=== PATIENT | female | born 2000 | race Caucasian/White ===

== ENCOUNTER → 2023-05-15 17:33 | Outpatient (REF) | payer SELFPAY | LOC: RAD 17:33 | PROVIDERS: ATTENDING PHYSICIAN Physician Assistant Medical; FAMILY PHYSICIAN Physician Assistant Medical | DX: S99.922A Unspecified injury of left foot, initial encounter (principal) | CPT/HCPCS: 73630 ==

== ENCOUNTER 2023-06-29 20:10 | Emergency (ER) | payer SELFPAY ==
[2023-06-29 20:11] VITALS: BMI 24.2
[2023-06-29 20:12] VITALS: BP 132/82
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
[2023-06-29] MEDS: MORPHINE SULFATE 2 MG IV (23:55)
[2023-06-29] MEDS: NSS 1000 IV (23:56)
[2023-06-30] VITALS: BP 120/83
[2023-06-30 00:34] LABS: ALT (SGPT) 15 U/L (0-35); AST (SGOT) 20 U/L (14-36); Alkaline Phosphatase 155 U/L (38-126); Blood Urea Nitrogen 9 mg/dl (7-17); Calcium 9.4 mg/dl (8.4-10.2); Carbon Dioxide 27 mmol/L (22-30); Chloride 99 mmol/L (98-107); Estimated Creatinine Clearance 109 ml/min; Glucose 96 mg/dl (70-99); Magnesium 1.8 mg/dl (1.6-2.3); Potassium 3.6 mmol/L (3.5-5.1); Sodium 134 mmol/L (135-145); Total Bilirubin 0.8 mg/dl (0.2-1.3); Total Protein 7.2 g/dl (6.3-8.2); eGFR > 60.00
[2023-06-30 00:40] LABS: B-Hydroxybutyrate 2.68 mmol/L (0.02-0.27)
[2023-06-30 00:43] LABS: HCG, Serum Qualitative Screen Negative
[2023-06-30 00:46] LABS: % Basophils 0.4 % (0-2); % Immature Granulocytes 1.2 % (0-0.5); % Lymphocytes 15.3 % (20.5-51.1); % Monocytes 5.9 % (1.7-9.3); % Neutrophils 77.2 % (42.2-75.2); Absolute Basophils 0.1 10^3/uL (0-0.2); Absolute Immature Granulocytes 0.2 10^3/uL (0-0.05); Absolute Monocytes 0.8 10^3/uL (0.1-0.6); Absolute Neutrophils 10.3 10^3/uL (1.4-6.5); Hematocrit 39.1 % (37.0-47.0); Hemoglobin 13.7 g/dL (12.0-16.0); Mean Corpuscular Hgb 27.8 pg (27.0-31.0); Mean Corpuscular Volume 79.5 fL (81.0-99.0); Nucleated Red Blood Cells % 0 %; Platelet Count 338 10^3/uL (130-400); Red Blood Cell Count 4.92 10^6/uL (4.20-5.40); Red Cell Dist. Width 11.9 % (11.5-14.5); White Blood Cell Count 13.3 10^3/uL (4.8-10.8)
[2023-06-30 01:00] VITALS: BP 127/82
[2023-06-30 01:04] LABS: Troponin I < 0.012 ng/ml
[2023-06-30 02:00] VITALS: BP 110/79
[2023-06-30 03:00] VITALS: BP 108/78
[2023-06-30] MEDS: ROXICODONE 5 MG PO (03:10)
[2023-06-30] MEDS: TORADOL 15 MG IV (03:11)
== END 2023-06-30 03:19 | disposition home or self-care (01) ==
LOC: EMR 20:10
PROVIDERS: Physician Assistant; EMERGENCY PHYSICIAN Emergency Medicine; FAMILY PHYSICIAN Physician Assistant Medical
DX: S22.20XA Unspecified fracture of sternum, initial encounter for closed fracture (principal); M54.2 Cervicalgia; R51.9 Headache, unspecified; R10.10 Upper abdominal pain, unspecified; M54.9 Dorsalgia, unspecified; V43.62XA Car passenger injured in collision with other type car in traffic accident, initial encounter; Y92.410 Unspecified street and highway as the place of occurrence of the external cause; E11.9 Type 2 diabetes mellitus without complications; F31.9 Bipolar disorder, unspecified; F32.A Depression, unspecified; F41.9 Anxiety disorder, unspecified; Z79.4 Long term (current) use of insulin; Z87.440 Personal history of urinary (tract) infections
CPT/HCPCS: 99285; 96374; 96375; 96361; 70450; 71120; 71260; 72125; 74177; 80053; 82010; 83735; 84484; 84703; 85025; 93005; Q9967

== ENCOUNTER 2023-10-14 22:32 | Emergency (ER) | payer OTHER, SELFPAY ==
[2023-10-14 22:33] VITALS: BP 118/84
[2023-10-14 22:38] LABS: Glucose - Point of Care 419 mg/dl (70-99)
[2023-10-14 22:49] VITALS: BP 123/98
--- NOTE | 2023-10-14 22:50 | ED.GENMED ---
History of Present Illness
General
Chief Complaint: Blood Sugar Problem
Source: patient
Exam Limitations: none
Time Seen by Provider: 10/14/23 22:45
History of Present Illness
History of Present Illness:
See MDM
Past History
Past History
ED Past Medical History: IDDM, Psychiatric (anxiety, depression, bipolar) and Other (Previous UTIs)
ED Past Surgical History: Other (Myringotomy tubes)
Social History
Tobacco: Non-smoker
Alcohol: None
Personal: Single
Living: with family
Employment: Student
Family History
Family History: Other; Negative Diabetes
Phy Exam
Physical Exam
Physical Exam:
See MDM
Course
Orders/Labs/Results
Orders:
Orders
10/14/23 22:37
Bedside Glucose Monitoring-ONCE As Directed
10/14/23 22:49
0.9% Sodium Chloride 1000 ml [Nss] 1,000 ml IV BOLUS
Insulin Aspart [NOVOLOG vial] 9 units SC NOW STA
Ketorolac [Toradol] 30 mg IV NOW STA
Test Result ONCE
10/14/23 22:50
0.9% Sodium Chloride 1000 ml [Nss] 1,000 ml IV BOLUS
10/14/23 22:54
B-Hydroxybutyrate Urgent
CMP [Comprehensive Metabolic Panel] Urgent
Complete Blood Count/With Diff Urgent
HCG, Serum Qualitative Screen Urgent
Urinalysis Reflex To Culture Urgent
Date Specimen was Collected: 10/14/23
Time Specimen was Collected: 22:55
Urine Microscopic Reflex Cult Urgent
Urine Culture Urgent
MERCEDES Source: U
Specimen Description:
Date Specimen was Collected: 10/14/23
Time Specimen was Collected: 22:55
10/14/23 23:23
LevoFLOXacin 500 MG/100 ML [Levaquin] 500 mg in 100 ml IV NOW
10/14/23 23:39
Morphine Sulfate 4 mg IV NOW STA
10/15/23 00:19
HYDROmorphone [Dilaudid] 0.5 mg IV NOW STA
10/15/23 00:27
Ondansetron Injectable [Zofran] 4 mg .ROUTE .STK-MED ONE
10/15/23 00:28
Ondansetron Injectable [Zofran] 4 mg IV NOW STA
10/15/23 00:56
Phenazopyridine HCl [Pyridium] 100 mg PO NOW STA
Abnormal Lab Results
10/14/23 10/14/23 10/15/23
22:36 22:54 00:13
MCV 79.2 L fL
(81.0-99.0)
Plt Count 536 H 10^3/uL
(130-400)
Creatinine 0.5 L mg/dL
(0.6-1.0)
Glucose 256 H mg/dl
(70-99)
Alkaline Phosphatase 185 H U/L
(38-126)
Urine Ketones Trace A
(Negative)
Ur Occult Blood Reflex Trace A
(Negative)
Urine Nitrite (Reflex) Positive A
(Negative)
Leukocyte Esterase Rfl Trace A
(Negative)
Urine Bacteria (Reflex) Moderate A
(Negative)
Urine Glucose 3+ A
(Negative)
POC Glucose 419 H mg/dl 192 H mg/dl
(70-99) (70-99)
10/14/23 22:54
10/14/23 22:54
Vital Signs
Initial and Last Documented VS:
Initial Vital Signs
Temp Pulse Resp BP Pulse Ox
98.8 F 110 20 118/84 100
10/14/23 22:33 10/14/23 22:33 10/14/23 22:33 10/14/23 22:33 10/14/23 22:33
Last Documented Vital Signs
Temp Pulse Resp BP Pulse Ox
98.8 F 89 16 110/93 100
10/14/23 22:33 10/15/23 00:30 10/15/23 00:30 10/15/23 00:00 10/15/23 00:30
MDM/Problems Addressed
Differential Diagnosis Includes:
HPI and MDM Narrative:
23-year-old female presenting for evaluation of 2 days of foul-smelling urine, increased urinary frequency, bilateral back pain and uncontrolled blood sugars. She does have a history of diabetes. She takes an insulin pen and a sliding scale. She
states this does not feel like an episode of DKA because she is not vomiting. She denies fevers. On exam, she has mild abdominal cramping and mild bilateral CVA tenderness. She denies prior history of kidney stones. Will give IV fluids, insulin
and obtain urinalysis looking for evidence of infection. We discussed that we will look further with a CT abdomen/pelvis if urine is negative. Patient agrees with plan
Physical exam
General: Mildly uncomfortable
HEENT: protecting airway. Dry mucous membranes
Neck: appears supple
CV: No evidence of cyanosis
Resp: No accessory muscle use
Abd: Non-distended. Mild right lower abdominal tenderness without rebound
Back: Mild CVA tenderness bilaterally without skin changes
Extremities: No deformities
Neuro: alert
Psych: Normal affect
Skin: Intact
Problems Addressed including Acute and Chronic Conditions affecting care:
1. Increased urinary frequency
Acuity: acute
Prognosis: stable
Details: Will obtain urinalysis to rule out urinary tract infection
2. Back pain
Acuity: acute
Prognosis: stable
Details: Possibly in the setting of pyelonephritis. Will give Toradol
3. Hyperglycemia
Acuity: acute
Prognosis: stable
Details: Will rule out DKA. Likely in setting of infectious etiology
Updates
After pain medicine and starting Levaquin for presumed pyelonephritis, patient states she is feeling much better and feels comfortable going home
Differential Diagnosis (but not limited to): DKA, pyelonephritis, kidney stone, acute appendicitis, cystitis
Testing considered: CT abdomen/pelvis but it was shared decision making to refrain from this unless workup is otherwise negative
Drug therapy (if applicable): OTC meds, please see d/c instruction regarding Rx drugs
Amount and/or Complexity of Data Reviewed
Clinical info obtained from: Patient
External data reviewed: N/A
Labs I independently reviewed (but not limited to): Hyperglycemia
Radiology: N/A
Pulse Ox: not hypoxic
EKG independently reviewed: N/A
Feather Sawyer: N/A
Critical Care: N/A
Risk of Complication:
Social Determinants of health: Good social support
Discussed with other providers: N/A
Escalation of Care includes Admit/Obs: After being observed in the Emergency Department, pt stable for discharge.
Occasional wrong word or 'sound a like' substitutions may have occurred due to the inherent limitations of voice recognition software. Read the chart carefully and recognize, using context, where substitutions have occurred.
*Critical Care Note
Total Time (30-74mins, 75-104mins- exclusive of procedures): Not Applicable
ED Attending Note
-
Portions of this chart may have been created with voice recognition software.� Occasional wrong word or��sound alike� substitutions may have occurred due to the inherent limitations of voice recognition software.
Discharge Plan
Departure
Patient Disposition: Home (Routine Discharge)
Date of Disposition: 10/15/23
Time of Disposition: 01:23
Patient with high blood pressure during this ER visit?: No
Discharge Problem:
Pyelonephritis, Hyperglycemia
Instructions: Urinary Tract Infection, Adult ED
Prescriptions:
New
levofloxacin 500 mg Tablet
500 mg PO DAILY Qty: 7 0RF
phenazopyridine [Pyridium] 100 mg tablet
100 mg PO TID PRN (Reason: Pain) Qty: 6 0RF
No Action
oxcarbazepine [Trileptal] 150 MG tablet
150 mg PO BID
norgestimate-ethinyl estradiol [Criselda] 0.25-35 mg-mcg tablet
1 tab PO DAILY
gabapentin 800 mg tablet
800 mg PO TID
aripiprazole 10 mg tablet
10 mg PO DAILY
atomoxetine 40 mg capsule
40 mg PO DAILY
insulin aspart U-100 [Novolog FlexPen U-100 Insulin] 100 unit/mL (3 mL) insulin pen
1 sliding scale dose SC AC
Rx Instructions:
1 UNIT FOR EVERY 10 CARBS
mirtazapine 7.5 mg tablet
7.5 mg PO HS
tramadol 50 mg Tablet
50 mg PO Q6HPRN PRN (Reason: severe back pain)
ibuprofen 200 mg Tablet
400 mg PO BIDPRN PRN (Reason: mild pain)
insulin glargine [Basaglar KwikPen U-100 Insulin] 100 unit/mL (3 mL) insulin pen
26 unit SC HS
cephalexin 500 mg capsule
500 mg PO Q6H 12 Days Qty: 48 0RF
acyclovir 400 mg tablet
400 mg PO TID Qty: 29 0RF
oxycodone 5 mg tablet
5 mg PO Q8H PRN (Reason: Pain) Qty: 12 0RF
ibuprofen 600 mg tablet
600 mg PO TID PRN (Reason: Pain) Qty: 20 0RF
Referrals:
Noa Duncan PA-C [Family Provider] -
Activity Restrictions/Additional Instructions:
Please return for any worsening symptoms.
You may return at any time if you have further concerns.
Please follow up with your doctor at the first available appointment, preferably this week.
Thank you for choosing [facility].
Interventions
Interventions:
*Risk Screen - Suicide Last Done: 10/14/23 22:33
*General Assessment Last Done: 10/14/23 23:08
*Neglect/Abuse Screening Last Done: 10/14/23 22:33
ED- Fall Risk Assessment Last Done: 10/14/23 23:08
*ED COVID-19 Vaccine History Last Done: 10/14/23 23:08
ED-Female Genitourinary Assessment Last Done: 10/14/23 23:30
ED-Musculoskeletal Assessment Last Done: 10/14/23 23:30
ED- Neurological Assessment Last Done: 10/14/23 23:30
Discharge Date and Time
Print Language: SCOTTISH
[2023-10-14 23:00] VITALS: BP 125/91
[2023-10-14 23:02] LABS: % Basophils 0.7 % (0-2); % Eosinophils 1.1 % (0-6); % Immature Granulocytes 0.2 % (0-0.5); % Lymphocytes 40.1 % (20.5-51.1); % Monocytes 4.6 % (1.7-9.3); % Neutrophils 53.3 % (42.2-75.2); Absolute Basophils 0.1 10^3/uL (0-0.2); Absolute Eosinophils 0.1 10^3/uL (0-0.7); Absolute Lymphocytes 3.4 10^3/uL (1.2-3.4); Absolute Monocytes 0.4 10^3/uL (0.1-0.6); Absolute Neutrophils 4.6 10^3/uL (1.4-6.5); Hematocrit 38.1 % (37.0-47.0); Hemoglobin 13.1 g/dL (12.0-16.0); Mean Corp Hgb Conc. 34.4 g/dL (33.0-37.0); Mean Corpuscular Hgb 27.2 pg (27.0-31.0); Mean Corpuscular Volume 79.2 fL (81.0-99.0); Mean Platelet Volume 9.2 fL (7.4-10.4); Nucleated Red Blood Cells % 0 %; Platelet Count 536 10^3/uL (130-400); Red Blood Cell Count 4.81 10^6/uL (4.20-5.40); Red Cell Dist. Width 11.9 % (11.5-14.5); White Blood Cell Count 8.6 10^3/uL (4.8-10.8)
[2023-10-14] MEDS: TORADOL 30 MG IV (23:03)
[2023-10-14] MEDS: NSS 1000 IV (23:03)
[2023-10-14] MEDS: NOVOLOG vial 9 UNITS SC (23:05)
[2023-10-14 23:08] VITALS: BMI 21.4
[2023-10-14 23:08] LABS: Urine Albumin Trace (Neg - Trace); Urine Bilirubin Negative (Negative); Urine Character Slightly Cloudy (Clear); Urine Color Straw; Urine Glucose 3+ (Negative); Urine Ketone Trace (Negative); Urine Leukocyte Trace (Negative); Urine Nitrite Positive (Negative); Urine Occult Blood Trace (Negative); Urine Urobilinogen Negative (Neg - 1+)
[2023-10-14 23:19] LABS: HCG, Serum Qualitative Screen Negative; Urine Bacteria Moderate (Negative); Urine Red Blood Cell 0-2 /HPF (0-2)
[2023-10-14 23:23] LABS: ALT (SGPT) 15 U/L (0-35); AST (SGOT) 23 U/L (14-36); Albumin 4.2 g/dl (3.5-5.0); Alkaline Phosphatase 185 U/L (38-126); Blood Urea Nitrogen 13 mg/dl (7-17); Carbon Dioxide 28 mmol/L (22-30); Chloride 98 mmol/L (98-107); Estimated Creatinine Clearance > 125 ml/min; Glucose 256 mg/dl (70-99); Potassium 3.5 mmol/L (3.5-5.1); Sodium 136 mmol/L (135-145); Total Bilirubin 0.4 mg/dl (0.2-1.3); Total Protein 7.6 g/dl (6.3-8.2); eGFR > 60.00
[2023-10-14 23:29] LABS: B-Hydroxybutyrate 0.14 mmol/L (0.02-0.27)
[2023-10-14] MEDS: LEVAQUIN 100 IV (23:35)
[2023-10-14] MEDS: MORPHINE SULFATE 4 MG IV (23:42)
[2023-10-15] VITALS: BP 110/93
[2023-10-15 00:14] LABS: Glucose - Point of Care 192 mg/dl (70-99)
[2023-10-15] MEDS: DILAUDID 0.5 MG IV (00:25)
[2023-10-15] MEDS: ZOFRAN 4 MG IV (00:29)
[2023-10-15 01:00] VITALS: BP 113/79
[2023-10-15] MEDS: Pyridium 100 MG PO (01:28)
== END 2023-10-15 01:33 | disposition home or self-care (01) ==
LOC: EMR 22:32
PROVIDERS: Student in an Organized Health Care Education/Training Program; EMERGENCY PHYSICIAN Student in an Organized Health Care Education/Training Program; FAMILY PHYSICIAN Physician Assistant Medical
DX: N10 Acute pyelonephritis (principal); E11.65 Type 2 diabetes mellitus with hyperglycemia; F31.9 Bipolar disorder, unspecified; F32.A Depression, unspecified; F41.9 Anxiety disorder, unspecified; Z79.4 Long term (current) use of insulin; Z87.440 Personal history of urinary (tract) infections
CPT/HCPCS: 99284; 96365; 96375 ×4; 96361; 96372; 80053; 81003; 81015; 82010; 82962; 84703; 85025; 87077; 87086; 87186

== ENCOUNTER 2023-11-27 10:03 | Emergency (ER) | payer OTHER, SELFPAY ==
[2023-11-27 10:16] VITALS: BP 123/87
[2023-11-27] MEDS: NSS 1000 IV ×2 (11:37→12:15)
[2023-11-27] MEDS: TORADOL 15 MG IV (11:37)
[2023-11-27 11:40] VITALS: BMI 22.8
[2023-11-27 12:05] LABS: ALT (SGPT) 12 U/L (0-35); AST (SGOT) 20 U/L (14-36); Albumin 4.1 g/dl (3.5-5.0); Alkaline Phosphatase 130 U/L (38-126); Blood Urea Nitrogen 13 mg/dl (7-17); Calcium 9.9 mg/dl (8.4-10.2); Carbon Dioxide 23 mmol/L (22-30); Chloride 110 mmol/L (98-107); Estimated Creatinine Clearance 121 ml/min; Glucose 56 mg/dl (70-99); HCG, Serum Qualitative Screen Negative; Potassium 3.5 mmol/L (3.5-5.1); Sodium 140 mmol/L (135-145); Total Bilirubin 0.3 mg/dl (0.2-1.3); Total Protein 7.3 g/dl (6.3-8.2); eGFR > 60.00
[2023-11-27 12:06] LABS: Lactic Acid 3.2 mmol/L (0.7-2.0)
--- NOTE | 2023-11-27 12:07 | ED.GENMED ---
History of Present Illness
General
Chief Complaint: Urinary Symptoms
Source: patient
Exam Limitations: none
Time Seen by Provider: 11/27/23 10:59
Nursing documentation reviewed up to this point in time: agreed with
History of Present Illness
History of Present Illness:
23-year-old female insulin-dependent diabetic frequent UTIs presents for what feels like a UTI over the last month. Patient was here on 7�2 with very similar symptoms, back pain, dysuria and frequency. She wasTreated with Levaquin and her culture
grew out emma quinolone sensitive Klebsiella. Patient apparently stopped that medication when she completed it but 2 or 3 days later started again with symptoms of a urinary tract infection. She ended up seeing her family doctor who gave her
something strong for a couple of days until the culture grew out strep and she was treated with amoxicillin (11/10).
she felt better for a few days and again had worsening symptoms recur, back pain, urine symptoms
no fever/chills/vomiting
she went to PCP yesterday 11/25 and had urine that was abnormal, started on macrobifd and bactrim
pt continues to have back pain and not feel swell so her PCP sent her in after speaking with her today
we still don't have the urine culture back yet
pt did take her insulin today but not eat so her BG is low
Past History
Past History
ED Past Medical History: IDDM, Psychiatric (anxiety, depression, bipolar) and Other (Previous UTIs)
ED Past Surgical History: Other (Myringotomy tubes)
Social History
Tobacco: Non-smoker
Alcohol: None
Personal: Single
Living: with family
Employment: Student
Family History
Family History: Other; Negative Diabetes
Review of Systems
Review of Systems
Allergies reviewed?: Yes
All Other Systems: Not applicable
Phy Exam
Physical Exam
Physical Exam:
GENERAL: Alert , in no apparent distress, nontoxic
EYE: pupils equal and reactive
NECK: Supple
ENT: o/p clr, mmm.
CARDIAC: Regular rate and rhythm .
LUNGS: Clear breath sounds bilaterally, no acute respiratory distress, no wheezes/rales/rhonchi
ABDOMEN: Soft, without focal tenderness, no r/g, no cvat, normal bowel sounds
bacK: mild genrealized lubmar tenderness; full rom
NEUROLOGICAL: Alert and oriented, no focal neuro deficits
SKIN: Warm and dry, skin intact.
MUSCULOSKELETAL: No edema, well perfused. neg wicho's sign
PSYCH: Normal and appropriate interaction.
Course
Orders/Labs/Results
Orders:
Orders
11/27/23 11:22
CT Abd/Pel (IV only)-DH only Urgent
Comment:
Reason For Exam: b/l back pain, IDDM, h/o uti x 1 mo
0.9% Sodium Chloride 1000 ml [Nss] 1,000 ml IV BOLUS
Ketorolac [Toradol] 15 mg IV NOW STA
11/27/23 11:23
Test Result ONCE
11/27/23 11:35
Complete Blood Count/With Diff Urgent
Comprehensive Metabolic Panel Urgent
HCG, Serum Qualitative Screen Urgent
Lactic Acid Urgent
11/27/23 12:06
Ondansetron Injectable [Zofran] 4 mg IV NOW STA
Oxycodone [Roxicodone] 5 mg PO NOW STA
11/27/23 12:08
HYDROmorphone [Dilaudid] 0.5 mg IV NOW STA
11/27/23 12:13
0.9% Sodium Chloride 1000 ml [Nss] 1,000 ml IV BOLUS
11/27/23 12:15
Urinalysis Reflex To Culture Urgent
Date Specimen was Collected: 11/27/23
Time Specimen was Collected: 12:13
Urine Microscopic Reflex Cult Urgent
11/27/23 12:47
Blood Culture Urgent
MERCEDES Source: Blood/Venous
Specimen Description:
11/27/23 12:49
HYDROmorphone [Dilaudid] 0.5 mg IV NOW STA
11/27/23 14:25
Lactic Acid Urgent
Abnormal Lab Results
11/27/23 11/27/23
11:35 12:15
MCV 78.3 L fL
(81.0-99.0)
Plt Count 448 H 10^3/uL
(130-400)
Absolute Lymphs (auto) 5.6 H 10^3/uL
(1.2-3.4)
Neutrophils % 33.0 L %
(42.2-75.2)
Lymphocytes % 60.8 H %
(20.5-51.1)
Chloride 110 H mmol/L
(98-107)
Glucose 56 L mg/dl
(70-99)
Lactic Acid 3.2 H mmol/L
(0.7-2.0)
Alkaline Phosphatase 130 H U/L
(38-126)
Urine Bilirubin 1+ A
(Negative)
Leukocyte Esterase Rfl Trace A
(Negative)
Urine RBC 3-6 A /HPF
(0-2)
Urine Glucose 3+ A
(Negative)
Urine Albumin (Reflex) 2+ A
(Neg - Trace)
11/27/23 11:35
11/27/23 11:35
Vital Signs
Pulse: 100
Blood pressure: 131/69
Initial and Last Documented VS:
Initial Vital Signs
Temp Pulse Resp BP Pulse Ox
98.4 F 117 16 123/87 99
11/27/23 10:16 11/27/23 10:16 11/27/23 10:16 11/27/23 10:16 11/27/23 10:16
Last Documented Vital Signs
Temp Pulse Resp BP Pulse Ox
98.4 F 77 16 108/89 98
11/27/23 10:16 11/27/23 15:28 11/27/23 10:16 11/27/23 15:00 11/27/23 14:58
MDM/Problems Addressed
Differential Diagnosis Includes:
pyelo, bacteremia, UTI, kidney stone
MDM/Problems Addressed:
23 y/o F
IDDM
1.5 months uti treated several times with abx
most recenntly had urine yesteday an dis on 2 abx now
she was here for eavluation to be sure she didn't have kidney infection
afebrile, tachy, in pain in her lower back
nontoxic apeparing
abd notnnder
initial lactic elevated, AG normal bg was low (pt given food and jucie)
wbc normal
ua cnoaminated
asked for antoher sampel but not provided
ct shows no findings suggestive of pyelo
already treated with abx so this could be why her urine is not abnormal
d/w ed attending
continue abx
blood cultures pending
return precautions.
*Critical Care Note
Total Time (30-74mins, 75-104mins- exclusive of procedures): Not Applicable
ED Attending Note
-
Portions of this chart may have been created with voice recognition software.� Occasional wrong word or��sound alike� substitutions may have occurred due to the inherent limitations of voice recognition software.
Discharge Plan
Departure
Patient Disposition: Home (Routine Discharge)
Date of Disposition: 11/27/23
Time of Disposition: 15:09
Patient with high blood pressure during this ER visit?: No
Condition: Fair
Covid-19: Not Applicable
Discharge Problem:
Constipation, Back pain, UTI (urinary tract infection)
Instructions: Low Back Pain (DC), Urinary Tract Infection, Adult ED
Prescriptions:
No Action
oxcarbazepine [Trileptal] 150 MG tablet
150 mg PO BID
norgestimate-ethinyl estradiol [Criselda] 0.25-35 mg-mcg tablet
1 tab PO DAILY
gabapentin 800 mg tablet
800 mg PO TID
aripiprazole 10 mg tablet
10 mg PO DAILY
atomoxetine 40 mg capsule
40 mg PO DAILY
insulin aspart U-100 [Novolog FlexPen U-100 Insulin] 100 unit/mL (3 mL) insulin pen
1 sliding scale dose SC AC
Rx Instructions:
1 UNIT FOR EVERY 10 CARBS
mirtazapine 7.5 mg tablet
7.5 mg PO HS
tramadol 50 mg Tablet
50 mg PO Q6HPRN PRN (Reason: severe back pain)
ibuprofen 200 mg Tablet
400 mg PO BIDPRN PRN (Reason: mild pain)
insulin glargine [Basaglar KwikPen U-100 Insulin] 100 unit/mL (3 mL) insulin pen
26 unit SC HS
cephalexin 500 mg capsule
500 mg PO Q6H 12 Days Qty: 48 0RF
acyclovir 400 mg tablet
400 mg PO TID Qty: 29 0RF
oxycodone 5 mg tablet
5 mg PO Q8H PRN (Reason: Pain) Qty: 12 0RF
ibuprofen 600 mg tablet
600 mg PO TID PRN (Reason: Pain) Qty: 20 0RF
levofloxacin 500 mg Tablet
500 mg PO DAILY Qty: 7 0RF
phenazopyridine [Pyridium] 100 mg tablet
100 mg PO TID PRN (Reason: Pain) Qty: 6 0RF
Referrals:
Noa Duncan PA-C [Family Provider] -
Activity Restrictions/Additional Instructions:
YOUR BLOOD WORK TODAY WAS REASSURING
WE DID SEND BLOOD CULTURES AND WILL CALL IF YOU NEED TO RETURN
YOU SHOULD CONTINUE YOUR ANTIBIOTICS AND SPEAK WITH YOUR DOCTOR ABOUT YOUR CULTURE FROM YOUR URINE
RETURN FOR: SEVERE PAIN, SHAKING CHILLS/FEVER, VOMITING, OR ANY CONCERNS.
MAKE SURE YOU ARE WATCHING YOUR BLOOD SUGARS.
Interventions
Interventions:
*General Assessment Last Done: 11/27/23 13:35
*Neglect/Abuse Screening Last Done: 11/27/23 13:35
*ED COVID-19 Vaccine History Last Done: 11/27/23 13:35
*Nursing Disposition Last Done: 11/27/23 15:28
ED-Female Genitourinary Assessment Last Done: 11/27/23 13:37
Discharge Date and Time
Discharge Date/Time: 11/27/23 15:29
Print Language: SWEDISH
[2023-11-27 12:08] LABS: Hematocrit 38.7 % (37.0-47.0); Hemoglobin 13.5 g/dL (12.0-16.0); Mean Corp Hgb Conc. 34.9 g/dL (33.0-37.0); Mean Corpuscular Hgb 27.3 pg (27.0-31.0); Mean Corpuscular Volume 78.3 fL (81.0-99.0); Mean Platelet Volume 9.6 fL (7.4-10.4); Platelet Count 448 10^3/uL (130-400); Red Blood Cell Count 4.94 10^6/uL (4.20-5.40); Red Cell Dist. Width 12.4 % (11.5-14.5); White Blood Cell Count 9.1 10^3/uL (4.8-10.8)
[2023-11-27] MEDS: ZOFRAN 4 MG IV (12:11)
[2023-11-27] MEDS: DILAUDID 0.5 MG IV ×2 (12:11→13:15)
[2023-11-27 12:30] LABS: Urine Albumin 2+ (Neg - Trace); Urine Bilirubin 1+ (Negative); Urine Character Clear (Clear); Urine Color Yellow; Urine Glucose 3+ (Negative); Urine Ketone Negative (Negative); Urine Leukocyte Trace (Negative); Urine Nitrite Negative (Negative); Urine Occult Blood Negative (Negative); Urine Urobilinogen Negative (Neg - 1+)
[2023-11-27 12:41] LABS: Urine Mucus Few; Urine Squamous Cell >30 /LPF (Few)
[2023-11-27 13:18] VITALS: BP 117/76
[2023-11-27 13:49] LABS: % Basophils 0.3 % (0-2); % Eosinophils 1.1 % (0-6); % Immature Granulocytes 0.3 % (0-0.5); % Lymphocytes 60.8 % (20.5-51.1); % Monocytes 4.5 % (1.7-9.3); Absolute Eosinophils 0.1 10^3/uL (0-0.7); Absolute Lymphocytes 5.6 10^3/uL (1.2-3.4); Absolute Monocytes 0.4 10^3/uL (0.1-0.6); Nucleated Red Blood Cells % 0 %
[2023-11-27 14:32] VITALS: BP 106/72
[2023-11-27 14:48] LABS: Lactic Acid 1.8 mmol/L (0.7-2.0)
[2023-11-27 14:58] LABS: Glucose - Point of Care 71 mg/dl (70-99)
[2023-11-27 15:00] VITALS: BP 108/89
== END 2023-11-27 15:29 | disposition home or self-care (01) ==
LOC: EMR 10:03
PROVIDERS: Physician Assistant; EMERGENCY PHYSICIAN Emergency Medicine; FAMILY PHYSICIAN Physician Assistant Medical
DX: K59.00 Constipation, unspecified (principal); M54.50 Low back pain, unspecified; N39.0 Urinary tract infection, site not specified; R00.0 Tachycardia, unspecified; E11.9 Type 2 diabetes mellitus without complications; F32.A Depression, unspecified; F31.9 Bipolar disorder, unspecified; F41.9 Anxiety disorder, unspecified; Z87.440 Personal history of urinary (tract) infections; Z79.4 Long term (current) use of insulin
CPT/HCPCS: 99285; 96375 ×2; 96361 ×2; 96374; 96376; 74177; 80053; 81003; 81015; 82962; 83605; 84703; 85025; 87040; Q9967

== ENCOUNTER 2024-03-27 14:19 | Inpatient (IN) | payer OTHER, SELFPAY ==
[2024-03-27 10:51] VITALS: BP 143/76
[2024-03-27 11:56] LABS: Glucose - Point of Care 138 mg/dl (70-99)
--- NOTE | 2024-03-27 12:00 | ED.GENMED ---
History of Present Illness
General
Chief Complaint: Urinary Symptoms
Time Seen by Provider: 03/27/24 11:30
History of Present Illness
History of Present Illness:
24-year-old female with history of type 1 insulin-dependent diabetes presents to the emergency department for evaluation of bilateral low back pain and foul-smelling urine. Went to her primary care physician today and rapid dipstick was positive
for UTI. She is febrile. Last took Tylenol at 7 AM. Denies any vomiting
Past History
Past History
ED Past Medical History: IDDM, Psychiatric (anxiety, depression, bipolar) and Other (Previous UTIs)
ED Past Surgical History: Other (Myringotomy tubes)
Social History
Tobacco: Non-smoker
Alcohol: None
Personal: Single
Living: with family
Employment: Student
Family History
Family History: Other; Negative Diabetes
Review of Systems
Review of Systems
Allergies reviewed?: Yes
All Other Systems: ROS reviewed and negative except as documented in HPI and ROS
Phy Exam
Physical Exam
Physical Exam:
GEN: Well appearing, NAD, WDWN
Eyes: PERRLA, EOMs intact, no scleral icterus
HENT: NCAT, oral mucosa moist
Lungs: CTAB, no wheezes, rales, rhonchi, normal chest wall excursion
Cardiac: Tachycardic, regular
Abdomen: S, NT, ND, NABS, no masses or hepatosplenomegaly
Neuro: AO x 3
MSK: No gross deformity or ecchymosis. No edema. No digital clubbing
Skin: No rashes, petechiae. Normal color, no pallor or jaundice.
Psych: Calm, cooperative, proper hygiene
Course
Orders/Labs/Results
Orders:
Orders
03/27/24 11:53
Bedside Glucose- Treatment ONCE
03/27/24 11:54
Ketorolac [Toradol] 15 mg IV NOW STA
03/27/24 11:57
Test Result ONCE
03/27/24 12:06
Complete Blood Count/With Diff Urgent
Comprehensive Metabolic Panel Urgent
HCG, Serum Qualitative Screen Urgent
Lactic Acid Q4H
Comment: CANCEL 2nd LACTIC ACID IF 1st LACTIC ACID IS LESS THAN 2
Blood Culture Q30M
MERCEDES Source: Blood/Venous
Specimen Description:
03/27/24 12:16
Urinalysis Reflex To Culture Urgent
Date Specimen was Collected: 03/27/24
Time Specimen was Collected: 12:10
Urine Microscopic Reflex Cult Urgent
Blood Culture Q30M
MERCEDES Source: Blood/Venous
Specimen Description:
Urine Culture Urgent
MERCEDES Source: U
Specimen Description:
Date Specimen was Collected: 03/27/24
Time Specimen was Collected: 12:10
03/27/24 12:56
0.9% Sodium Chloride 1000 ml [Nss] 1,000 ml IV BOLUS
CefTRIAXone [Rocephin] 1,000 mg IV NOW STA
03/27/24 14:00
Admit/Transfer Patient As Directed
Co-Sign Provider:
Level of Care: Inpatient admission
Assign to:: Telemetry
Physician / Group: yemi
Diagnosis: pyelonephritis
Reason for Telemetry: Other
Other Reason for Telemetry: sepsis, tachy
Date to Stop Telemetry: 03/29/24
Time to Stop Telemetry: 11:00
Reason for Hospitalization: pyleonoephritis
Expected length of stay greater than two midnights?: Yes
ELOS- Estimated Length of Stay in days: 3
I certify the patient meets the requirements for IP care: Yes
PRN Pain Medication Management As Directed
May give lesser potent ordered pain med per pt: Yes
preference::
Protocol:: Medication orders for pain may be administered in a
manner that supports deferring to patient preference
when the pt is:
- Requesting an ordered lesser potent pain medication.
Least to most potent pain medications are defined
as: acetaminophen < NSAID < tramadol < opioids
(morphine, oxycodone, hydromorphone).
- Requesting a lesser dose of the same medication IF
ORDERED.
- Requesting a less intrusive route of administration
if both routes are prescribed by the provider (PO <
IV).
03/27/24 14:01
Code Status As Directed
Resuscitation Status: Full Code
03/27/24 15:13
HYDROmorphone [Dilaudid] 1 mg IV Q4HPRN PRN
03/27/24 16:17
Lactic Acid Q4H
Comment: CANCEL 2nd LACTIC ACID IF 1st LACTIC ACID IS LESS THAN 2
03/27/24 18:00
Ketorolac [Toradol] 15 mg IV Q6HPRN PRN
03/29/24 11:00
DC Protocol for Telemetry ONCE
Abnormal Lab Results
03/27/24 03/27/24 03/27/24
11:55 12:06 12:16
Hct 35.7 L %
(37.0-47.0)
MCV 79.9 L fL
(81.0-99.0)
Abs Immat Gran (auto) 0.1 H 10^3/uL
(0-0.05)
Absolute Neuts (auto) 7.4 H 10^3/uL
(1.4-6.5)
Neutrophils % 80.2 H %
(42.2-75.2)
Lymphocytes % 13.3 L %
(20.5-51.1)
Creatinine 0.5 L mg/dL
(0.6-1.0)
Glucose 154 H mg/dl
(70-99)
Lactic Acid 5.4 H* mmol/L
(0.7-2.0)
Alkaline Phosphatase 180 H U/L
(38-126)
Ur Occult Blood Reflex 2+ A
(Negative)
Urine Nitrite (Reflex) Positive A
(Negative)
Leukocyte Esterase Rfl 1+ A
(Negative)
Urine RBC 7-10 A /HPF
(0-2)
Urine WBC (Reflex) 70-80 A /HPF
(0-5)
Urine Bacteria (Reflex) Many A
(Negative)
Urine Glucose 3+ A
(Negative)
Urine Albumin (Reflex) 3+ A
(Neg - Trace)
POC Glucose 138 H mg/dl
(70-99)
03/27/24 12:06
03/27/24 12:06
Vital Signs
Initial and Last Documented VS:
Initial Vital Signs
Temp Pulse Resp BP Pulse Ox
100.5 F H 129 16 143/76 98
03/27/24 10:51 03/27/24 10:51 03/27/24 10:51 03/27/24 10:51 03/27/24 10:51
Last Documented Vital Signs
Temp Pulse Resp BP Pulse Ox
97.9 F 95 16 122/81 99
03/27/24 15:44 03/27/24 15:44 03/27/24 16:07 03/27/24 15:44 03/27/24 15:44
MDM/Problems Addressed
MDM/Problems Addressed:
Patient does have signs of sepsis with tachycardia fever and is concerning that she has immunocompromised insulin-dependent diabetes. Will admit for IV antibiotics and close monitoring, no evidence of DKA at this time
*Critical Care Note
Total Time (30-74mins, 75-104mins- exclusive of procedures): Not Applicable
ED Attending Note
-
Portions of this chart may have been created with voice recognition software.� Occasional wrong word or��sound alike� substitutions may have occurred due to the inherent limitations of voice recognition software.
Discharge Plan
Departure
Patient Disposition: Admit
Date of Disposition: 03/27/24
Time of Disposition: 13:36
Admit to: Med/Surg
Presentation/result/management discussed w/ accepting MD/DO: Hospitalist
Discharge Problem:
Pyelonephritis
Interventions
Interventions:
*Risk Screen - Suicide Last Done: 03/27/24 10:51
*General Assessment Last Done: 03/27/24 11:38
*Neglect/Abuse Screening Last Done: 03/27/24 10:51
ED- Fall Risk Assessment Last Done: 03/27/24 16:07
*ED COVID-19 Vaccine History Last Done: 03/27/24 11:38
ED-Female Genitourinary Assessment Last Done: 03/27/24 11:39
[2024-03-27] MEDS: TORADOL 15 MG IV (12:16)
[2024-03-27 12:23] LABS: % Basophils 0.3 % (0-2); % Eosinophils 0.4 % (0-6); % Immature Granulocytes 0.5 % (0-0.5); % Lymphocytes 13.3 % (20.5-51.1); % Monocytes 5.3 % (1.7-9.3); % Neutrophils 80.2 % (42.2-75.2); Absolute Immature Granulocytes 0.1 10^3/uL (0-0.05); Absolute Lymphocytes 1.2 10^3/uL (1.2-3.4); Absolute Monocytes 0.5 10^3/uL (0.1-0.6); Absolute Neutrophils 7.4 10^3/uL (1.4-6.5); Hematocrit 35.7 % (37.0-47.0); Hemoglobin 12.1 g/dL (12.0-16.0); Mean Corp Hgb Conc. 33.9 g/dL (33.0-37.0); Mean Corpuscular Hgb 27.1 pg (27.0-31.0); Mean Corpuscular Volume 79.9 fL (81.0-99.0); Mean Platelet Volume 9.1 fL (7.4-10.4); Nucleated Red Blood Cells % 0 %; Platelet Count 371 10^3/uL (130-400); Red Blood Cell Count 4.47 10^6/uL (4.20-5.40); Red Cell Dist. Width 12.4 % (11.5-14.5); White Blood Cell Count 9.2 10^3/uL (4.8-10.8)
[2024-03-27 12:36] LABS: Urine Albumin 3+ (Neg - Trace); Urine Bilirubin Negative (Negative); Urine Character Slightly Cloudy (Clear); Urine Color Yellow; Urine Glucose 3+ (Negative); Urine Ketone Negative (Negative); Urine Leukocyte 1+ (Negative); Urine Nitrite Positive (Negative); Urine Occult Blood 2+ (Negative); Urine Specific Gravity 1.015 (<1.030); Urine Urobilinogen Negative (Neg - 1+)
[2024-03-27 12:41] LABS: AST (SGOT) 19 U/L (14-36); Albumin 3.7 g/dl (3.5-5.0); Alkaline Phosphatase 180 U/L (38-126); Blood Urea Nitrogen 8 mg/dl (7-17); Calcium 9.1 mg/dl (8.4-10.2); Carbon Dioxide 29 mmol/L (22-30); Chloride 98 mmol/L (98-107); Glucose 154 mg/dl (70-99); Potassium 3.5 mmol/L (3.5-5.1); Sodium 137 mmol/L (135-145); Total Bilirubin 0.2 mg/dl (0.2-1.3); Total Protein 6.8 g/dl (6.3-8.2); eGFR > 60.00
[2024-03-27 12:47] LABS: Lactic Acid 5.4 mmol/L (0.7-2.0)
[2024-03-27 12:48] LABS: HCG, Serum Qualitative Screen Negative
[2024-03-27 13:05] VITALS: BP 120/85
[2024-03-27 13:06] LABS: ALT (SGPT) 21 U/L (0-35)
[2024-03-27] MEDS: NSS 1000 IV ×2 (13:06→18:30)
[2024-03-27 13:12] LABS: Urine Bacteria Many (Negative); Urine White Cell 70-80 /HPF (0-5)
[2024-03-27] MEDS: ROCEPHIN 1000 MG IV (13:13)
--- NOTE | 2024-03-27 13:43 | HPS.HSE ---
Family Physician
-
Family Physician: Noa Duncan
Chief Complaint
-
b/l flank pain
History of Present Illness
24-year-old female with history of type 1 insulin-dependent diabetes,, bipolar, depression, pyelonephritis presented to us with bilateral low back pain and foul-smelling urine since last night. Patient had a fever of 101 at home. She was taking
Tylenol. Patient headache, dizziness, syncope. She denies chest pain or short of breath. Denied runny nose, congestion, cough. Patient denied any dysuria, hematuria. Patient denied nausea vomiting diarrhea.
UA positive for UTI. Noted to have elevated lactic acid, tachy. She received a dose of ceftriaxone in ER. Admitting for further management
Medical History
Past Medical History
Past Medical History: Reports Other
Additional Past Medical History:
Type 1 diabetes
Bipolar
Anxiety
ADHD
Diabetes
Pyelonephritis
Past Surgical History: Reports Other
Additional Past Surgical History:
[place] tooth extraction
Social History
Tobacco: Non-smoker
Drug: None
Living: With Family
Family History
Family History: Not pertinent
Allergies / Home Medications
Allergies reflects when Allergies were last updated in [employer].
Home Medications with original date entered in [employer]
Allergy/Medication List:
Allergies
Allergy/AdvReac Type Severity Reaction Status Date / Time
No Known Allergies Allergy Verified 03/27/24 10:50
Home Medications
oxcarbazepine 150 mg tablet (Trileptal) 150 mg PO BID Mental Health 08/26/20
aripiprazole 10 mg tablet 10 mg PO DAILY Mental Health 11/27/22
atomoxetine 40 mg capsule 40 mg PO DAILY ADHD 11/27/22
gabapentin 800 mg tablet 800 mg PO TID Pain 11/27/22
insulin aspart U-100 100 unit/mL (3 mL) subcutaneous pen (Novolog FlexPen U-100 Insulin aspart) 1 sliding scale dose SC AC Diabetes 11/27/22
mirtazapine 7.5 mg tablet 7.5 mg PO HS Mental Health/Anxiety 11/27/22
norgestimate 0.25 mg-ethinyl estradiol 35 mcg tablet (Criselda) 1 tab PO DAILY HORMONE 11/27/22
ibuprofen 200 mg tablet 400 mg PO BIDPRN PRN mild pain 12/30/22
insulin glargine 100 unit/mL (3 mL) subcutaneous pen (Basaglar KwikPen U-100 Insulin) 26 unit SC HS Diabetes 12/30/22
tramadol 50 mg tablet 50 mg PO Q6HPRN PRN severe back pain 12/30/22
cephalexin 500 mg capsule 500 mg PO Q6H 12 days #48 caps 01/02/23
acyclovir 400 mg tablet 400 mg PO TID #29 tabs 04/04/23
ibuprofen 600 mg tablet 600 mg PO TID PRN Pain #20 tabs 06/30/23
oxycodone 5 mg tablet 5 mg PO Q8H PRN Pain #12 tabs 06/30/23
levofloxacin 500 mg tablet 500 mg PO DAILY #7 tabs 10/15/23
phenazopyridine 100 mg tablet (Pyridium) 100 mg PO TID PRN Pain 6 doses #6 tabs 10/15/23
Review of Systems
-
Constitutional: Reports Fever and Chills
EENT: Reports No Symptoms
Respiratory: Reports No Symptoms
Cardiac: Reports No Symptoms
Abdomen/GI: Reports No Symptoms
: Reports Flank Pain
Musculoskeletal: Reports No Symptoms
Skin: Reports No Symptoms
Neurological: Reports No Symptoms
Endocrine: Reports No Symptoms
Hematologic/Lymphatic: Reports No Symptoms
Psych: Reports No Symptoms
Physical Exam
Vital Signs
Vital Signs
Temp Pulse Resp BP Pulse Ox
100.5 F H 107 16 120/85 99
03/27/24 10:51 03/27/24 13:05 03/27/24 13:05 03/27/24 13:05 03/27/24 13:05
Physical Exam
General: Well Developed, Well Nourished and No Apparent Distress
HEENT: NormoCephalic, Moist mucous membranes and Atraumatic
Respiratory: Clear
Cardiac: S1/S2 and Regular Rhythm; No Murmur or Rub
GI: Soft, Non Tender, Non Distended and Normal Bowel Sounds; No Organomegaly
Rectal: Deferred by Provider
Musculoskeletal: No Clubbing, No Cyanosis and No Edema
Skin: No Rash
Neuro: AO x 3 and Nonfocal/grossly intact
Psych: Calm
Laboratory Results
-
03/27/24 12:06
03/27/24 12:06
Laboratory Results
Lactic Acid 5.4 mmol/L (0.7-2.0) H* 03/27/24 12:06
Total Bilirubin 0.2 mg/dl (0.2-1.3) 03/27/24 12:06
AST 19 U/L (14-36) 03/27/24 12:06
ALT 21 U/L (0-35) 03/27/24 12:06
Alkaline Phosphatase 180 U/L (38-126) H 03/27/24 12:06
Data Reviewed
-
Lab Data: Labs Reviewed by me
Impression/Plan
-
#pyelonephritis
# History of Klebsiella pneumoniae UTI
-sepsis as evident by temp, lactic and tachy
-lactic 5.4
-Trend lactic
-Rocephin continued
-normal saline continued
-blood and urine culture sent from ER
-Toradol and Dilaudid prn for pain
# Type 1 diabetes
-Sliding scale
-Carb controlled diet
-Lantus continued
#Bipolar disorder: Continue Trileptal, Abilify, mirtazapine
#ADHD: cont Atomoxetine
FULL/Lovenox
--- NOTE | 2024-03-27 14:07 | W.PN.UPDATE ---
Update Note
Progress Note Update
This is an addendum to the H&P written by Chantal Aragon on 03/27/2024. Patient seen and examined independently with TRANSPORTATION ANALYST.
24-year-old female past medical history of type 1 diabetes, history of bilateral pyelonephritis/cystitis, presenting with foul-smelling urine, bilateral flank/abdominal pain, fevers and chills.
No history of kidney stones.
Labs show lactic acid of 5.4.
Patient clinically septic with fever, tachycardia secondary to recurrent pyelonephritis likely bilateral. Prior urine cultures show Klebsiella, E. coli which is sensitive to ceftriaxone.
Check urine culture, blood cultures. IV fluids. Ceftriaxone. Zofran, Toradol, Dilaudid as needed for nausea and vomiting and pain.
[2024-03-27] MEDS: DILAUDID 1 MG IV ×2 (15:31→21:09)
[2024-03-27 15:44] VITALS: BP 122/81
[2024-03-27 16:36] LABS: Lactic Acid 1.3 mmol/L (0.7-2.0)
[2024-03-27 17:48] VITALS: BP 113/79
[2024-03-27 18:02] LABS: Glucose - Point of Care 131 mg/dl (70-99)
[2024-03-27] MEDS: NOVOLOG FLEXPEN-LOW RESISTANCE SC (18:30)
[2024-03-27] MEDS: LOVENOX 40 MG SC (18:32)
[2024-03-27 19:32] VITALS: BP 158/92
[2024-03-27] MEDS: TRILEPTAL 150 MG PO (21:04)
[2024-03-27] MEDS: REMERON 7.5 MG PO (21:05)
[2024-03-27] MEDS: NEURONTIN 800 MG PO (21:05)
[2024-03-27] MEDS: ATARAX 50 MG PO (21:06)
[2024-03-27 21:48] LABS: Glucose - Point of Care 219 mg/dl (70-99)
[2024-03-27 22:42] VITALS: BP 120/79
[2024-03-27] MEDS: LANTUS 0.26 UNITS SC (23:47)
[2024-03-28] MEDS: TORADOL 15 MG IV ×4 (00:31→20:28)
[2024-03-28] MEDS: DILAUDID 1 MG IV ×7 (01:17→23:49)
[2024-03-28 03:12] VITALS: BP 144/81
[2024-03-28] MEDS: NSS 1000 IV ×2 (04:52→17:26)
[2024-03-28 05:36] LABS: Glucose - Point of Care 49 mg/dl (70-99)
[2024-03-28] MEDS: DEXTROSE 50% SYRINGE 12.5 GRAMS IV (05:56)
[2024-03-28 06:00] LABS: Glucose - Point of Care 47 mg/dl (70-99)
[2024-03-28 06:20] LABS: Glucose - Point of Care 127 mg/dl (70-99)
[2024-03-28 07:00] VITALS: BP 146/94
[2024-03-28 07:28] LABS: Blood Urea Nitrogen 8 mg/dl (7-17); Calcium 8.4 mg/dl (8.4-10.2); Carbon Dioxide 29 mmol/L (22-30); Chloride 100 mmol/L (98-107); Estimated Creatinine Clearance > 125 ml/min; Glucose 123 mg/dl (70-99); Potassium 3.2 mmol/L (3.5-5.1); Sodium 137 mmol/L (135-145); eGFR > 60.00
[2024-03-28] MEDS: NEURONTIN 800 MG PO ×2 (08:02→16:11)
[2024-03-28] MEDS: NON-FORMULARY ITEM 1 MG PO (08:02)
[2024-03-28] MEDS: LEXAPRO 10 MG PO (08:02)
[2024-03-28] MEDS: TRILEPTAL 150 MG PO ×2 (08:02→20:27)
[2024-03-28] MEDS: ABILIFY 10 MG PO (08:12)
[2024-03-28 08:18] LABS: Glucose - Point of Care 211 mg/dl (70-99)
[2024-03-28] MEDS: NOVOLOG FLEXPEN-LOW RESISTANCE 2 UNITS SC (08:34)
--- NOTE | 2024-03-28 09:13 | W.PN.HOSP.TC ---
Today's Communication/Plan
-
Replete potassium
Continue Rocephin
Continue pain management
Follow blood and urine culture
Discontinue lactic acid level trending
Assessment / Plan
Assessment / Plan
24-year-old female with PMH of IDDM (type 1), recurrent UTIs, bipolar/depression, who presented developed fever/chills on Friday, and b/l back pain and foul-smelling urine later in the week. SIRS positive on admission (tachycardic and febrile to
100.5 F). Lactic acid elevated at 5.4. Beta-hCG negative.
# Sepsis POA likely due to pyelonephritis
-U/A active
-Prior urine cultures positive for Klebsiella and E. coli
-Continue Rocephin
-Continue IV fluids
-Continue pain management with Toradol and Dilaudid as needed
-Lactic acid level this morning is 1.3-discontinue trending
-Blood and urine culture pending
# Hypokalemia
-Repleted this a.m.
# Type 1 diabetes
-SSI-low resistance and basal bolus
-Denies any nausea/vomiting-continue carb controlled diet
-Hemoglobin A1c=15
#Bipolar disorder
-Continue Trileptal, Abilify, mirtazapine as prior to admission
#ADHD
-Cont Atomoxetine
# DVT prophylaxis
-Lovenox
CODE STATUS: Full code
Anticipated Discharge: 24 - 48 hours
Subjective/Interval History
-
Date of Service: March 28, 2024
Patient is tearful about lower back pain, which radiates to the groins. Denies any nausea or vomiting. Was able to tolerate breakfast well. Denies any fevers but does feel cold.
Objective Data
-
Labs:
Laboratory Results
03/28/24
06:23
Sodium 137
Potassium 3.2 L
Chloride 100
Carbon Dioxide 29
BUN 8
Creatinine 0.5 L
Glucose 123 H
Calcium 8.4
Vital Signs:
Vital Signs
Temp Pulse Resp BP Pulse Ox
98.0 F 105 16 146/94 96
03/28/24 07:00 03/28/24 07:00 03/28/24 07:00 03/28/24 07:00 03/28/24 07:00
I&O
03/27/24 03/28/24 03/29/24
06:59 06:59 06:59
Intake Total 1480 / 1480
Balance 1480 / 1480
Review of Systems
-
History Source: Patient
All other systems: Reviewed and negative
Constitutional: Reports Chills
Genitourinary: Reports Other (Mentions urgency and dysuria have improved. Complains of bilateral lower back pain radiating to bilateral groins.)
Physical Exam
-
General: Well Developed, Well Nourished and Appears in Distress
HEENT: Normocephalic, Atraumatic and Moist Mucous Membranes
Respiratory: Clear to Auscultation (coarse BS at both bases much clearer, pt states using the I.S. regularly); Negative Wheezes, Rales or Rhonchi
Cardiac: Regular Rhythm and S1/S2
GI: Soft, Nontender and Nondistended
Genito-urinary: No Costovertebral Tender and Other (pain did worsen in rt back on deep inspiration)
Musculoskeletal: No Clubbing, No Cyanosis and No Edema
Skin: Warm and Dry
Neuro: Awake, Alert, Oriented and AO x 3
Psych: Calm and Intact Judgement/Insight
--- NOTE | 2024-03-28 10:40 | W.PN.UPDATE ---
Update Note
Progress Note Update
I saw and evaluated the patient. I reviewed the resident�s note and agree with findings and plan as documented in the resident�s note.
Patient reports mild bilateral lower abdominal discomfort and some pleuritic chest pain with inspiration.
Patient seen and examined with nurse Deann Ayala present at bedside for the entirety of the interview and physical exam.
Gen: NAD, AAOx3.
Eyes: EOMI, PERRLA, no scleral icterus.
Neck: supple.
CV: RRR, +S1/S2, no m/r/g.
Resp: CTAB, no rales, wheezes, or rhonchi.
Abd: +BS, soft, NT to light palpation, ND
Skin: No rashes.
Neuro: CN 2-12 intact, non-focal.
Psych: Tearful
Sepsis due to acute pyelonephritis:
-cont Rocephin/IVFs
-follow BCxs/UCx
DM1:
-cont Lantus/SSI/accuchecks
-a1c 15.1%
-c/s certified adapted physical educator
Other problems:
Lactic acidosis, resolved
Hypokalemia, replete
Bipolar disorder: continue Trileptal/Abilify/mirtazapine
ADHD: cont Atomoxetine
FULL/Lovenox
[2024-03-28] MEDS: KCL 40 MEQ PO (10:41)
[2024-03-28 11:00] VITALS: BP 129/88
[2024-03-28] MEDS: KCL ELIXIR 40 MEQ PO (11:46)
--- NOTE | 2024-03-28 12:44 | CM ---
manager multimedia reviewed patient's chart and met with patient and patient's sister at bedside, patient lives with her parents in a multilevel home, patient is independent with adl's and ambulation, no dme, patient drives, patient is employed, patient
is for possible discharge tomorrow per patient, home no needs.
PCP: Noa Ramírez
Pharmacy: [facility] in [place]
Plan; Home tomorrow no needs.
[2024-03-28 12:52] LABS: Glucose - Point of Care 399 mg/dl (70-99)
[2024-03-28] MEDS: NOVOLOG FLEXPEN-LOW RESISTANCE 5 UNITS SC (13:18)
[2024-03-28] MEDS: STERILE WATER FOR INJECTION 10 ML IV (14:02)
[2024-03-28] MEDS: ROCEPHIN 1000 MG IV (14:02)
[2024-03-28 15:00] VITALS: BP 141/80
[2024-03-28 16:21] LABS: Glucose - Point of Care 409 mg/dl (70-99)
[2024-03-28 16:55] LABS: Glucose 443 mg/dl (70-99)
[2024-03-28] MEDS: LOVENOX 40 MG SC (17:25)
[2024-03-28] MEDS: NOVOLOG FLEXPEN-LOW RESISTANCE 6 UNITS SC (17:26)
[2024-03-28 19:34] VITALS: BP 127/86
[2024-03-28 21:50] LABS: Glucose - Point of Care 436 mg/dl (70-99)
[2024-03-28 22:58] VITALS: BP 107/9
[2024-03-28 23:10] LABS: Glucose 391 mg/dl (70-99)
[2024-03-28] MEDS: ATARAX PO (23:45)
[2024-03-28] MEDS: LANTUS 0.26 UNITS SC (23:46)
[2024-03-28] MEDS: NEURONTIN PO (23:47)
[2024-03-28] MEDS: REMERON PO (23:48)
[2024-03-29 02:07] LABS: Glucose - Point of Care 409 mg/dl (70-99)
[2024-03-29 02:34] LABS: Hematocrit 32.2 % (37.0-47.0); Hemoglobin 11.1 g/dL (12.0-16.0); Mean Corp Hgb Conc. 34.5 g/dL (33.0-37.0); Mean Corpuscular Hgb 27.6 pg (27.0-31.0); Mean Corpuscular Volume 80.1 fL (81.0-99.0); Mean Platelet Volume 9.2 fL (7.4-10.4); Platelet Count 325 10^3/uL (130-400); Red Blood Cell Count 4.02 10^6/uL (4.20-5.40); Red Cell Dist. Width 12.8 % (11.5-14.5)
[2024-03-29 02:53] LABS: Blood Urea Nitrogen 9 mg/dl (7-17); Calcium 8.6 mg/dl (8.4-10.2); Carbon Dioxide 24 mmol/L (22-30); Chloride 102 mmol/L (98-107); Estimated Creatinine Clearance > 125 ml/min; Glucose 456 mg/dl (70-99); Potassium 5.7 mmol/L (3.5-5.1); Sodium 132 mmol/L (135-145); eGFR > 60.00
[2024-03-29 03:23] VITALS: BP 148/86
[2024-03-29] MEDS: NOVOLOG FLEXPEN 6 UNITS SC (03:25)
[2024-03-29] MEDS: NSS 1000 IV (05:20)
[2024-03-29] MEDS: TYLENOL 650 MG PO ×2 (05:34→15:51)
[2024-03-29 06:01] LABS: Glucose - Point of Care 394 mg/dl (70-99)
[2024-03-29] MEDS: DILAUDID 1 MG IV ×6 (06:14→23:27)
[2024-03-29] MEDS: ATARAX PO (06:50)
[2024-03-29] MEDS: REMERON PO (06:50)
[2024-03-29] MEDS: NEURONTIN PO (06:50)
[2024-03-29] MEDS: NEURONTIN 800 MG PO ×3 (07:03→23:18)
[2024-03-29] MEDS: ABILIFY 10 MG PO (07:03)
[2024-03-29] MEDS: LEXAPRO 10 MG PO (07:03)
[2024-03-29] MEDS: NON-FORMULARY ITEM 40 MG PO (07:03)
[2024-03-29] MEDS: TRILEPTAL 150 MG PO ×2 (07:03→19:33)
[2024-03-29 07:05] VITALS: BP 98/60
[2024-03-29 07:16] LABS: Glucose - Point of Care 409 mg/dl (70-99)
--- NOTE | 2024-03-29 07:21 | PN.DE.MGMTRT ---
Insulin Management
- -
03/29/2024 Diabetes Management Consult
Patient admitted 03/27 with UTI, PMH type 1 diabetes, anxiety, depression, bipolar, uti's. Prior to admission waas taking basaglar 26 units @ hs with novolog ss AC. A1C on admission 15%, cr .6, eGFR >60.
Patient has been receiving 26 units lantus @ hs with corrective insulin. Glucose range 131 to 456.
Patient is awake alert and oriented able to discuss diabetes management.
Will start 5 units novolog AC and increase HS lantus to 32 units.
Will follow.
Diabetes History
- -
Type of Diabetes: 1
Pre-Admission Diabetes Regimen
03/28/24 03/29/24
06:23 02:28
Creatinine 0.5 L 0.6
Lab Results
Hemoglobin A1c 15.0 % (4.0-5.6) H 03/28/24 06:23
Insulin Pump Settings
IP Diabetes Regimen
03/28/24 03/28/24 03/28/24
06:23 08:16 12:33
Glucose 123 H
POC Glucose 211 H 399 H
03/28/24 03/28/24 03/28/24
16:20 16:35 21:49
Glucose 443 H
POC Glucose 409 H 436 H
03/28/24 03/29/24 03/29/24
22:53 02:05 02:28
Glucose 391 H 456 H*
POC Glucose 409 H
03/29/24 03/29/24 03/29/24
02:28 06:00 07:15
Glucose Cancelled
POC Glucose 394 H 409 H
Meal type: Lunch
Meal type: Breakfast
Amount consumed: 0
Amount consumed: 10%
Patient Education
--- NOTE | 2024-03-29 07:47 | W.PN.HOSP.TC ---
Addendum entered and electronically signed by Cristino Waggoner MD 03/29/24 23:10:
Attending Addendum-
I saw and evaluated the patient. I reviewed the resident�s note and agree with findings and plan as documented in the resident�s note. Sub: crying during interview complaining of B/L lower back pain. States its chronic but worse now. Full 12 point
ROS reviewed and negative except as documented Exam: Vitals reviewed in chart GEN-mild distress due to pain, heart RRR lungs clear abd soft LE No edema flank ttp b/l
#Sepsis secondary to Acute Pyelonephritis
# History of Klebsiella pneumoniae UTI
-Rocephin day 2
-normal saline dc'd
-blood cx NGTD urine culture pend
-Toradol and Dilaudid prn for pain
# Type 1 diabetes
-uncontrolled
-cont Sliding scale
-Carb controlled diet
-Lantus and AC N increased to 32/5
#Bipolar disorder: Continue Trileptal, Abilify, mirtazapine
#ADHD: cont Atomoxetine
# Hyponatremia
- cont to monitor
- euvolemic
- siadh from pain
- dc ivf
- repeat in am
# Hyperkalemia
- due to overcorrection
- repeat in am
FULL/Lovenox
DC in am when cx back
Time spent coordinating care, review of plan of care with resident, personally reviewed records in EMR, med rec, consults, notes, labs, radiology, d/w nursing � 54 mins
Original Note:
Today's Communication/Plan
-
.
Assessment / Plan
Assessment / Plan
Ms. Fany Barrios is a 24yo F pmh type 1 DM, recurrent UTIs, bipolar disorder admitted for sepsis secondary to pyelonephritis.
Sepsis secondary to UTI
- blood cx: no growth at 48h
- urine cx: gram negative bacilli
- past urine cxs positive for Klebsiella and E. coli
- Rocephin - day 2
- IVF
- toradol, dilaudid prn
- lidocaine patch
- zofran for nausea
Hypokalemia
Hyperkalemia
Hyponatremia
- hypokalemia over-repleted
- Falsely hyponatremic - corrected Na 137
Type 1 diabetes
- HbA1c 15
- SSI low + basal bolus
- carb-controlled diet
- diabetes education and consult for diabetes management as pt has poorly controlled DM
Bipolar disorder, ADHD
- cont home trileptal, abilfy, mirtazepine, atomoexetine
Diet: carb controlled
DVT prophylaxis: lovenox
CODE STATUS: Full code
Anticipated Discharge: 24 - 48 hours
Subjective/Interval History
-
Date of Service: March 29, 2024
Ms. Fany Barrios is a 24yo F pmh type 1 DM, recurrent UTIs, bipolar disorder admitted for sepsis secondary to pyelonephritis. Pt feels she is receiving insufficient mealtime insulin and is concerned as her diabetes has prolonged hospitalizations in
the past. Per the nurse, the pt does not eat much of the food provided by and instead is eating food brought in, which includes pasta, cannolis. +chills, +N. JOEL improved w tylenol
Objective Data
-
Labs:
Laboratory Results
03/28/24 03/29/24 03/29/24
22:53 02:28 02:28
WBC 7.0
Hgb 11.1 L
Hct 32.2 L
Plt Count 325
Sodium 132 L
Potassium 5.7 H D
Chloride 102
Carbon Dioxide 24
BUN 9
Creatinine 0.6
Glucose 391 H 456 H* Cancelled
Calcium 8.6
03/29/24
07:23
WBC
Hgb
Hct
Plt Count
Sodium
Potassium
Chloride
Carbon Dioxide
BUN
Creatinine
Glucose Pending
Calcium
Vital Signs:
Vital Signs
Temp Pulse Resp BP Pulse Ox
98.9 F 114 16 148/86 95
03/29/24 03:23 03/29/24 03:23 03/29/24 03:23 03/29/24 03:23 03/29/24 03:23
I&O
03/28/24 03/29/24 03/30/24
06:59 06:59 06:59
Intake Total 1480 / 1480 2680 / 2680
Balance 1480 / 1480 2680 / 2680
Review of Systems
-
History Source: Patient
Constitutional: Reports No Symptoms
EENT: Reports No Symptoms Reported
Respiratory: Reports No Symptoms
Cardiac: Reports No Symptoms
Abdomen/GI: Reports Nausea; Denies Vomiting, Diarrhea or Constipated
Genitourinary: Reports Flank Pain; Denies Dysuria, Frequency, Urgency, Bleeding or Dark Urine
Musculoskeletal: Reports No Symptoms
Skin: Reports No Symptoms
Neuro: Reports No Symptoms
Physical Exam
-
General: Well Developed
HEENT: Normocephalic, Atraumatic and Moist Mucous Membranes
Respiratory: Clear to Auscultation
Cardiac: Regular Rhythm, S1/S2 and Tachycardic
GI: Soft, Nontender and Nondistended
Genito-urinary: Costovertebral Angle Tend
Musculoskeletal: No Clubbing, No Cyanosis and No Edema
Skin: Warm and Dry
Neuro: AO x 3
Psych: Calm
[2024-03-29 07:53] LABS: Glucose 423 mg/dl (70-99)
[2024-03-29] MEDS: NOVOLOG FLEXPEN-LOW RESISTANCE 6 UNITS SC (09:12)
[2024-03-29] MEDS: ZOFRAN 4 MG PO (09:13)
[2024-03-29] MEDS: NOVOLOG FLEXPEN 5 UNITS SC ×3 (09:13→17:57)
[2024-03-29 11:36] LABS: Glucose - Point of Care 224 mg/dl (70-99)
[2024-03-29 11:42] VITALS: BP 141/98
[2024-03-29] MEDS: REGLAN 5 MG PO (12:01)
[2024-03-29] MEDS: NOVOLOG FLEXPEN-LOW RESISTANCE 2 UNITS SC (12:08)
[2024-03-29] MEDS: TORADOL 15 MG IV (13:51)
[2024-03-29] MEDS: STERILE WATER FOR INJECTION 10 ML IV (13:51)
[2024-03-29] MEDS: ROCEPHIN 1000 MG IV (13:51)
[2024-03-29 15:27] VITALS: BP 144/97
[2024-03-29 16:30] LABS: Glucose - Point of Care 180 mg/dl (70-99)
[2024-03-29] MEDS: LIDOCAINE 4% PATCH 2 PATCH TOPICAL (17:56)
[2024-03-29] MEDS: NSS IV (17:56)
[2024-03-29] MEDS: NOVOLOG FLEXPEN-LOW RESISTANCE 1 UNITS SC (17:57)
[2024-03-29] MEDS: LOVENOX 40 MG SC (17:57)
[2024-03-29 19:00] VITALS: BP 129/78
[2024-03-29 21:49] LABS: Glucose - Point of Care 394 mg/dl (70-99)
[2024-03-29 23:15] VITALS: BP 109/69
[2024-03-29] MEDS: LANTUS 0.32 UNITS SC (23:17)
[2024-03-29] MEDS: ATARAX 50 MG PO (23:17)
[2024-03-29] MEDS: REMERON 7.5 MG PO (23:18)
[2024-03-29 23:21] LABS: Glucose - Point of Care 335 mg/dl (70-99)
[2024-03-30] MEDS: TORADOL 15 MG IV (01:58)
[2024-03-30 03:00] VITALS: BP 108/73
[2024-03-30] MEDS: DILAUDID 1 MG IV (03:08)
[2024-03-30] MEDS: TYLENOL 650 MG PO ×2 (04:09→13:25)
[2024-03-30 07:03] LABS: Glucose - Point of Care 284 mg/dl (70-99)
[2024-03-30 07:53] VITALS: BP 137/93
[2024-03-30] MEDS: TRILEPTAL 150 MG PO (08:12)
[2024-03-30] MEDS: ABILIFY 10 MG PO (08:12)
[2024-03-30] MEDS: LEXAPRO 10 MG PO (08:12)
[2024-03-30] MEDS: NON-FORMULARY ITEM 40 MG PO (08:12)
[2024-03-30] MEDS: NEURONTIN 800 MG PO ×2 (08:12→16:21)
[2024-03-30] MEDS: NOVOLOG FLEXPEN 5 UNITS SC ×2 (08:13→13:24)
[2024-03-30] MEDS: NOVOLOG FLEXPEN-LOW RESISTANCE 3 UNITS SC (08:13)
[2024-03-30] MEDS: LIDOCAINE 4% PATCH 2 PATCH TOPICAL (08:14)
--- NOTE | 2024-03-30 08:21 | PN.DE.MGMTRT ---
Insulin Management
- -
03/30/2024 Diabetes Management Consult Follow up
Patient admitted 03/27 with UTI, PMH type 1 diabetes, anxiety, depression, bipolar, uti's. Prior to admission was taking basaglar 26 units @ hs with novolog I:CHO ratio 1:10 and correction 1:50 AC. A1C on admission 15%, cr .6, eGFR >60.
Patient is awake alert and oriented able to discuss diabetes management.
03/29 Lantus dose increased to 35 units, ac novolog increased from 5 units to 8 units
03/30 Patient received 26 units lantus @ hs, fasting glucose 284. Will increase hs lantus to 32 units. Pre meal to 224, will further increase AC novolog to 8 units.
Had discussion with patient regarding A1C of 15%, states she has not seen TODD Lovett at [facility] 'in a long time', she states she has been too busy but admits that is no excuse. She is very receptive to our discussion.
States she has an appointment with Bony in May. Since the appointment is far off she has agreed to call or email me her blood sugars so we can adjust insulin and carb ratios in the interim.
Will follow.
Discussed with patients nurse.
Diabetes History
- -
Type of Diabetes: 1
Pre-Admission Diabetes Regimen
Lab Results
Hemoglobin A1c 15.0 % (4.0-5.6) H 03/28/24 06:23
Insulin Pump Settings
IP Diabetes Regimen
03/29/24 03/29/24 03/29/24
11:35 16:28 21:46
POC Glucose 224 H 180 H 394 H
03/29/24 03/30/24
23:15 07:02
POC Glucose 335 H 284 H
Meal type: Lunch
Meal type: Breakfast
Amount consumed: 100%
Amount consumed: 100%
Patient Education
[2024-03-30 08:29] LABS: Mean Corp Hgb Conc. 32.3 g/dL (33.0-37.0); Mean Corpuscular Hgb 26.8 pg (27.0-31.0); Mean Corpuscular Volume 83.1 fL (81.0-99.0); Mean Platelet Volume 9.5 fL (7.4-10.4); Platelet Count 402 10^3/uL (130-400); Red Blood Cell Count 3.73 10^6/uL (4.20-5.40); Red Cell Dist. Width 12.7 % (11.5-14.5); White Blood Cell Count 5.4 10^3/uL (4.8-10.8)
--- NOTE | 2024-03-30 08:40 | W.PN.HOSP.TC ---
Addendum entered and electronically signed by Cristino Waggoner MD 03/30/24 23:33:
Attending Addendum-
I saw and evaluated the patient. I reviewed the resident�s note and agree with findings and plan as documented in the resident�s note. Sub: feels great after abx. wants to go home. Full 12 point ROS reviewed and negative except as documented Exam:
Vitals reviewed in chart GEN-NAD heart RRR lungs clear abd soft LE No edema
#Sepsis secondary to Acute Pyelonephritis
# History of Klebsiella pneumoniae UTI
-DC rocephin, levaquin IV stat x 1
-normal saline dc'd
-blood cx NGTD
-urine culture- ESBL k pneumo
-Toradol and Dilaudid prn for pain
# Type 1 diabetes
-uncontrolled want to see endo as OP
- cont home regimen as non compliant - promised to be compliant on dc
- fear of hypoglycemia if dc on increased regimen after infection treated
-cont Sliding scale
-Carb controlled diet
#Bipolar disorder: Continue Trileptal, Abilify, mirtazapine
#ADHD: cont Atomoxetine
# Hyponatremia
- cont to monitor
- euvolemic
- siadh from pain
- dc ivf
- repeat in am
# Hyperkalemia
- due to overcorrection
- repeat in am
FULL/Lovenox
Dispo DC home
Time spent coordinating care, DC planning, review of DC plan of care with resident, transition of care, review of records, med rec/scripts sent electronically, consults, notes, d/w consultants, nursing, and CM� 33 mins
Original Note:
Today's Communication/Plan
-
.
Assessment / Plan
Assessment / Plan
Ms. Fany Barrios is a 24yo F pmh type 1 DM, recurrent UTIs, bipolar disorder admitted for sepsis secondary to UTI.
Sepsis secondary to UTI
B/l LBP
- blood cx: no growth at 48h
- urine cx: Klebsiella pneumoniae - ESBL
- resistant to cephalosporins, started levaquin
- IVF
- toradol, dilaudid prn
- lidocaine patch
- zofran for nausea
Hypokalemia
Hyperkalemia
Hyponatremia
- hypokalemia over-repleted
- Falsely hyponatremic - corrected Na 137
Type 1 diabetes
- HbA1c 15
- SSI low + basal bolus
- carb-controlled diet
- diabetes education and consult for diabetes management as pt has poorly controlled DM
Bipolar disorder, ADHD
- cont home trileptal, abilfy, mirtazepine, atomoexetine
Diet: carb controlled
DVT prophylaxis: lovenox
CODE STATUS: Full code
Anticipated Discharge: Today
Subjective/Interval History
-
Date of Service: March 30, 2024
Ms. Fany Barrios is a 24yo F pmh type 1 DM, recurrent UTIs, bipolar disorder admitted for sepsis secondary to UTI. The lidocaine patches, ketorolac, and dilaudid have not improved her LBP. Denies any urinary sx at this time. Pt states she has been
noncompliant with her diabetes medication at home.
Objective Data
-
Labs:
Laboratory Results
03/30/24
06:22
WBC 5.4
Hgb 10.0 L
Hct 31.0 L
Plt Count 402 H D
Sodium Pending
Potassium Pending
Chloride Pending
Carbon Dioxide Pending
BUN Pending
Creatinine Pending
Glucose Pending
Calcium Pending
Vital Signs:
Vital Signs
Temp Pulse Resp BP Pulse Ox
98.1 F 95 18 137/93 98
03/30/24 07:53 03/30/24 07:53 03/30/24 07:53 03/30/24 07:53 03/30/24 07:53
I&O
03/29/24 03/30/24 03/31/24
06:59 06:59 06:59
Intake Total 2680 / 2680 1440 / 1440
Balance 2680 / 2680 1440 / 1440
Review of Systems
-
History Source: Patient
Constitutional: Reports No Symptoms
Respiratory: Reports No Symptoms
Cardiac: Reports No Symptoms
Abdomen/GI: Reports No Symptoms
Genitourinary: Reports No Symptoms
Musculoskeletal: Reports Muscle Pain and Other (LBP)
Neuro: Reports No Symptoms
Physical Exam
-
General: Well Developed, Well Nourished and No Apparent Distress
HEENT: Normocephalic, Atraumatic and Moist Mucous Membranes
Respiratory: Wheezes
Cardiac: Regular Rhythm and S1/S2; Negative Murmur, Rub or Gallop
GI: Soft, Nontender, Nondistended and Normal Bowel Sounds
Genito-urinary: No Costovertebral Tender
Musculoskeletal: No Clubbing, No Cyanosis, No Edema and Other (warmth, bogginess over b/l low back paraspinal mm)
Skin: Warm and Dry
Neuro: AO x 3
Psych: Calm
[2024-03-30 08:45] LABS: Blood Urea Nitrogen 12 mg/dl (7-17); Carbon Dioxide 30 mmol/L (22-30); Chloride 99 mmol/L (98-107); Estimated Creatinine Clearance > 125 ml/min; Glucose 228 mg/dl (70-99); Potassium 4.8 mmol/L (3.5-5.1); Sodium 135 mmol/L (135-145); eGFR > 60.00
[2024-03-30] MEDS: ROXICODONE 5 MG PO (11:09)
[2024-03-30] MEDS: LEVAQUIN 150 IV (11:12)
[2024-03-30 11:48] VITALS: BP 145/98
[2024-03-30 12:00] LABS: Glucose - Point of Care 110 mg/dl (70-99)
[2024-03-30] MEDS: NOVOLOG FLEXPEN-LOW RESISTANCE SC (12:10)
--- NOTE | 2024-03-30 15:35 | CM ---
Chart reviewed patient is for discharge to home with family.
Plan; Home with family
[2024-03-30 15:38] VITALS: BP 142/98
--- NOTE | 2024-03-30 18:50 | W.DCSUMMARY ---
Addendum entered and electronically signed by Cristino Waggoner MD 03/30/24 23:34:
Read, reviewed, and agree. See same day progress note for additional details.
Jenaro Waggoner MD
Original Note:
Documented by User: Beatrice Silver DO, Resident 03/30/24 20:21
Discharge Summary
Discharge Data
Date of Admission: 03/27/24
Date of Discharge: 03/30/24
-
Pending Results: No
Hospital Course
Discharging Physician : Dr. Beatrice Silver, Dr. Cristino Waggoner
Disposition : home
Primary care physician : Noa Duncan
Principal Discharge diagnosis : sepsis secondary to UTI
Chronic Discharge diagnosis : DM type 1, bipolar disorder, ADHD
Hospital Course : Ms. Fany Barrios presented to the ED on 03/27 for b/l LBP and foul-smelling urine. Dipstick at PCP was positive for a UTI. She was admitted 03/27 for sepsis secondary to UTI. She was febrile on initial presentation. No hematuria,
dysuria, nausea, vomiting. Met SIRS criteria for sepsis with elevated lactate and tachycardia. She was on rocephin for three days before her urine culture returned as Klebsiella pneumoniae ESBL. No growth on blood cultures. Transitioned to levaquin.
Her type 1 DM has not been well controlled. HbA1c 15. Insulin requirements increased while acutely ill in the hospital. Discharging pt on her previous home insulin regimen.
Important imaging findings : n/a
Procedure findings : n/a
Discharge Plan
-
Patient Disposition: Home (Routine Discharge)
Discharge Diagnosis/Procedures: Sepsis secondary to UTI, hypokalemia, hyperkalemia, hyponatremia, Type 1 diabetes, Bipolar disorder, ADHD
Condition: Fair
Diet: Diabetic, Carb Controlled
Activity: As tolerated
Driving Restrictions: As prior to admission
Bathing Restrictions: None
Activity Restrictions/Additional Instructions:
Please follow up with Noa Duncan in 1-2 weeks.
Please keep your appointment with endocrinology.
Continue your home regimen of insulin.
Take levofloxacin 750mg for four days.
Please return to the hospital if you develop new or worsening symptoms. This includes fever, chills, nightsweats, severe hypoglycemia.
Instructions: Urinary tract infections in adults, Diabetes and diet
Referrals:
Noa Duncan PA-C [Family Provider] - in one to two weeks
Additional Discharge Medication Instructions: Please start taking the levofloxacin tomorrow
Prescriptions:
New
levofloxacin 750 mg tablet
750 mg PO DAILY 4 Days Qty: 4 0RF
Continued
oxcarbazepine [Trileptal] 150 MG tablet
150 mg PO BID
gabapentin 800 mg tablet
800 mg PO TID
aripiprazole 10 mg tablet
10 mg PO DAILY
atomoxetine 40 mg capsule
40 mg PO DAILY
insulin aspart U-100 [Novolog FlexPen U-100 Insulin] 100 unit/mL (3 mL) insulin pen
1 sliding scale dose SC AC
Rx Instructions:
1 UNIT FOR EVERY 10 CARBS
mirtazapine 7.5 mg tablet
7.5 mg PO HS
insulin glargine [Basaglar KwikPen U-100 Insulin] 100 unit/mL (3 mL) insulin pen
26 unit SC HS
norgestimate-ethinyl estradiol [Sprintec (28)] 0.25-35 mg-mcg Tablet
1 tab PO DAILY
hydroxyzine HCl 50 mg Tablet
50 mg PO HS
escitalopram oxalate [Lexapro] 10 mg Tablet
10 mg PO DAILY
Discharge Orders:
Discharge Patient (As Directed); Ordered 03/30/24
Ordered By: Beatrice Silver
Discharge Date and Time
Discharge Date/Time: 03/30/24 17:00
Print Language: GUAMANIAN

Documented by User: Cristino Waggoner MD 03/30/24 23:30
Discharge Summary
Discharge Data
Date of Admission: 03/27/24
Date of Discharge: 03/30/24
Discharge Plan
-
Patient Disposition: Home (Routine Discharge)
Discharge Diagnosis/Procedures: Sepsis secondary to UTI, hypokalemia, hyperkalemia, hyponatremia, Type 1 diabetes, Bipolar disorder, ADHD
Condition: Fair
Diet: Diabetic, Carb Controlled
Activity: As tolerated
Driving Restrictions: As prior to admission
Bathing Restrictions: None
Activity Restrictions/Additional Instructions:
Please follow up with Noa Duncan in 1-2 weeks.
Please keep your appointment with endocrinology.
Continue your home regimen of insulin.
Take levofloxacin 750mg for four days.
Please return to the hospital if you develop new or worsening symptoms. This includes fever, chills, nightsweats, severe hypoglycemia.
Instructions: Urinary tract infections in adults, Diabetes and diet
Referrals:
Noa Duncan PA-C [Family Provider] - in one to two weeks
Additional Discharge Medication Instructions: Please start taking the levofloxacin tomorrow
Prescriptions:
New
levofloxacin 750 mg tablet
750 mg PO DAILY 4 Days Qty: 4 0RF
Continued
oxcarbazepine [Trileptal] 150 MG tablet
150 mg PO BID
gabapentin 800 mg tablet
800 mg PO TID
aripiprazole 10 mg tablet
10 mg PO DAILY
atomoxetine 40 mg capsule
40 mg PO DAILY
insulin aspart U-100 [Novolog FlexPen U-100 Insulin] 100 unit/mL (3 mL) insulin pen
1 sliding scale dose SC AC
Rx Instructions:
1 UNIT FOR EVERY 10 CARBS
mirtazapine 7.5 mg tablet
7.5 mg PO HS
insulin glargine [Basaglar KwikPen U-100 Insulin] 100 unit/mL (3 mL) insulin pen
26 unit SC HS
norgestimate-ethinyl estradiol [Sprintec (28)] 0.25-35 mg-mcg Tablet
1 tab PO DAILY
hydroxyzine HCl 50 mg Tablet
50 mg PO HS
escitalopram oxalate [Lexapro] 10 mg Tablet
10 mg PO DAILY
Discharge Orders:
Discharge Patient (As Directed); Ordered 03/30/24
Ordered By: Beatrice Silver
Discharge Date and Time
Discharge Date/Time: 03/30/24 17:00
Print Language: GUAMANIAN
== END 2024-03-30 17:00 | disposition home or self-care (01) | DRG 872 ==
LOC: 4 WEST ACU 14:19
PROVIDERS: Internal Medicine; Physician Assistant; Registered Nurse; ADMITTING PHYSICIAN Hospitalist; ATTENDING PHYSICIAN Family Medicine; EMERGENCY PHYSICIAN Student in an Organized Health Care Education/Training Program; FAMILY PHYSICIAN Physician Assistant Medical
DX: A41.9 Sepsis, unspecified organism (principal); N12 Tubulo-interstitial nephritis, not specified as acute or chronic; E87.1 Hypo-osmolality and hyponatremia; Z16.12 Extended spectrum beta lactamase (ESBL) resistance; B96.1 Klebsiella pneumoniae [K. pneumoniae] as the cause of diseases classified elsewhere; Z79.4 Long term (current) use of insulin; E10.9 Type 1 diabetes mellitus without complications; F31.9 Bipolar disorder, unspecified; F90.9 Attention-deficit hyperactivity disorder, unspecified type; E87.5 Hyperkalemia; E87.6 Hypokalemia; F41.9 Anxiety disorder, unspecified; Z87.440 Personal history of urinary (tract) infections
CPT/HCPCS: 80048; 80053; 81003; 81015; 82947; 82962; 83036; 83605; 84703; 85025; 85027; 87040; 87077; 87086; 87186; 90686; 96361; 96374; 96375; 99284; G0008

== ENCOUNTER 2024-06-23 12:43 | Emergency (ER) | payer OTHER, SELFPAY ==
[2024-06-23 12:49] VITALS: BP 168/96
--- NOTE | 2024-06-23 14:16 | ED.GENMED ---
History of Present Illness
General
Chief Complaint: Back Pain
Source: patient
Exam Limitations: none
Time Seen by Provider: 06/23/24 14:16
Nursing documentation reviewed up to this point in time: agreed with
History of Present Illness
History of Present Illness:
Patient is a 24-year-old female who presents to the ER for evaluation of leg pain. Patient is a type I diabetic for 15 years. She has had chronic low back pain for years however 2 weeks ago started with bilateral leg pain which is getting
increasingly worse. She reports she can barely walk. She has pain both at rest but worse with any movement of her leg or touch. She denies any fever or chills. She denies any bowel or bladder incontinence. She denies any numbness or tingling to
saddle region or legs. She does not have leg weakness that she reports it is pain. she denies any fevers. She did see her family doctor yesterday who did blood work. She also saw an orthopedic physician after her PCP yesterday who ordered an MRI
of her lumbar back which she did not yet scheduled. She is also on oxycodone but did not take it today for pain. She does take 800 mg of gabapentin every 8 hours for back pain and anxiety. This is not a new medicine. In addition she was given a
steroid prescription which she completed but this did not help her symptoms.
She denies any rash. She denies any swelling. She is not on a statin. Back pain is chronic and not new. No recent back injections(last injection was around 2 years ago)
Past History
Past History
ED Past Medical History: IDDM, Psychiatric (anxiety, depression, bipolar) and Other (Previous UTIs)
ED Past Surgical History: Other (Myringotomy tubes)
Social History
Tobacco: Non-smoker
Alcohol: None
Personal: Single
Living: with family
Employment: Student
Family History
Family History: Other; Negative Diabetes
Review of Systems
Review of Systems
Allergies reviewed?: Yes
All Other Systems: ROS reviewed and negative except as documented in HPI and ROS
Constitutional: Reports no symptoms; Denies fever, fatigue or chills
Respiratory: Reports no symptoms
Cardiac: Reports no symptoms
ABD/GI: Reports no symptoms
Musculoskeletal: Reports other ( b/l leg pain )
Skin: Reports no symptoms
Psychiatric: Reports no symptoms
Phy Exam
General Physical Exam
General Presentation: no apparent distress
General age: appears stated age
General Skin: warm and dry
General Habitus: normal
General Mental: alert
General Hydration: appears well hydrated
Neurological Exam
Neurological Exam: alert, oriented x3, no motor deficits, no sensory deficits and other (Patient has pain to touch to bilateral lower extremities and so difficult to obtain reflexes however patient is able to dorsiflex and plantarflex on her own she
is able to walk but does have pain, rectal tone done and normal, nml sensation to legs b/l )
Musculoskeletal Exam
Musculoskeletal Exam: full ROM and other (Patient is bilateral strong pulses to lower extremities normal color normal cap refill normal warmth no swelling no erythema b/l , normal back exam no erythema no bony point tenderness )
Skin Exam
Skin Exam: normal color, warm/dry and other (Scattered abrasions to arms and legs patient (reports she had a puppy and they are from scratches ) )
Psychiatric Exam
Psychiatric Exam: normal mood/affect
Course
Orders/Labs/Results
Orders:
Orders
06/23/24 14:26
IV Insert/Care/Rem.- Treatment PRN
Ketorolac [Toradol] 15 mg IV NOW STA
06/23/24 14:27
Test Result ONCE
06/23/24 14:35
CPK [Creatine Phosphokinase] Urgent
CRP [C-Reactive Protein] Urgent
Complete Blood Count/With Diff Urgent
Comprehensive Metabolic Panel Urgent
HCG, Serum Qualitative Screen Urgent
Sedimentation Rate [Erythrocyte Sed Rate] Urgent
06/23/24 16:25
Vital Signs- Treatment ONCE
Frequency: Once
Abnormal Lab Results
06/23/24
14:35
MCV 78.2 L fL
(81.0-99.0)
MCH 26.4 L pg
(27.0-31.0)
Plt Count 467 H 10^3/uL
(130-400)
ESR 56 H mm/hour
(0-20)
Creatinine 0.5 L mg/dL
(0.6-1.0)
Glucose 254 H mg/dl
(70-99)
Alkaline Phosphatase 136 H U/L
(38-126)
06/23/24 14:35
06/23/24 14:35
Vital Signs
Initial and Last Documented VS:
Initial Vital Signs
Temp Pulse Resp BP Pulse Ox
98.3 F 112 18 168/96 100
06/23/24 12:49 06/23/24 12:49 06/23/24 12:49 06/23/24 12:49 06/23/24 12:49
Last Documented Vital Signs
Temp Pulse Resp BP Pulse Ox
98.3 F 112 18 168/96 100
06/23/24 12:49 06/23/24 12:49 06/23/24 12:49 06/23/24 12:49 06/23/24 12:49
MDM/Problems Addressed
MDM/Problems Addressed:
Patient is a young 24-year-old female who presents to the ER for as documented evaluation of bilateral leg pain. This has been on for the past several weeks. She does have chronic back pain and is on medicine for that however leg pain what
prompted patient to come to the ER. She denies any fever chills and on exam there is no obvious redness to back or legs. She has strong pulses she denies any recent injury she denies any recent back injections. She denies any numbness tingling
weakness she complains of only pain. She is able to bear weight here in the ER but has pain. She denies any bowel or bladder incontinence on exam she is good rectal tone.
Patient's labs reviewed she has a normal white count sed rate is minimally elevated however it has been elevated previously with a normal CRP normal renal function, sugar is elevated however she is a diabetic.; She was drinking water here in the ER.
No acute emergent findings low suspicion for cauda equina or infection.
Patient was given Toradol some improvement for she feels well after go home we will hold off on steroids as she reports this did not have in the past and she is already a diabetic; will hold off to avoid raising blood sugar elevation. She has an
orthopedic surgeon and family doctor who are involved in her case. I reviewed with patient to schedule the MRI she has a prescription already and to follow-up with orthopedics and family doctor. She was also referred to pain management by her
family doctor. She has oxycodone at home if needed and other pain medicines. Stable for discharge home.
Chronic conditions affecting care:
chronic back pain, IDDM
*Critical Care Note
Total Time (30-74mins, 75-104mins- exclusive of procedures): Not Applicable
ED Attending Note
-
Portions of this chart may have been created with voice recognition software.� Occasional wrong word or��sound alike� substitutions may have occurred due to the inherent limitations of voice recognition software.
Discharge Plan
Departure
Patient Disposition: Home (Routine Discharge)
Date of Disposition: 06/23/24
Time of Disposition: 17:02
Patient with high blood pressure during this ER visit?: Yes
Discharge Problem:
leg pain
Instructions: BLOOD PRESSURE
Prescriptions:
No Action
oxcarbazepine [Trileptal] 150 MG tablet
150 mg PO BID
gabapentin 800 mg tablet
800 mg PO TID
aripiprazole 10 mg tablet
10 mg PO DAILY
atomoxetine 40 mg capsule
40 mg PO DAILY
insulin aspart U-100 [Novolog FlexPen U-100 Insulin] 100 unit/mL (3 mL) insulin pen
1 sliding scale dose SC AC
Rx Instructions:
1 UNIT FOR EVERY 10 CARBS
mirtazapine 7.5 mg tablet
7.5 mg PO HS
insulin glargine [Basaglar KwikPen U-100 Insulin] 100 unit/mL (3 mL) insulin pen
26 unit SC HS
norgestimate-ethinyl estradiol [Sprintec (28)] 0.25-35 mg-mcg Tablet
1 tab PO DAILY
hydroxyzine HCl 50 mg Tablet
50 mg PO HS
escitalopram oxalate [Lexapro] 10 mg Tablet
10 mg PO DAILY
levofloxacin 750 mg tablet
750 mg PO DAILY 4 Days Qty: 4 0RF
Referrals:
Noa Duncan PA-C [Family Provider] -
Activity Restrictions/Additional Instructions:
You were seen here today for leg pain. There are no acute concerning emergent findings however it is very important that you follow-up with your family doctor as well as your admission specialist for further evaluation of symptoms. Please
schedule the MRI that was ordered by orthopedic doctor. You may take ibuprofen and Tylenol for symptoms. you may also take your pain medication that was given to you by your family doctor. Return if any worsening of symptoms including increased
pain, weakness in the legs, loss of bowel or bladder fevers or any further concerns
Your blood sugar was elevated here in the ER please continue to take your medicine as previously instructed and closely watch your sugars.
Interventions
Interventions:
*Risk Screen - Suicide Last Done: 06/23/24 12:49
*Neglect/Abuse Screening Last Done: 06/23/24 12:49
*ED COVID-19 Vaccine History Last Done: 06/23/24 12:49
ED-Musculoskeletal Assessment Last Done: 06/23/24 13:09
Discharge Date and Time
Print Language: LITHUANIAN
[2024-06-23] MEDS: TORADOL 15 MG IV (14:35)
[2024-06-23 15:04] LABS: % Basophils 0.5 % (0-2); % Eosinophils 1.3 % (0-6); % Immature Granulocytes 0.1 % (0-0.5); % Lymphocytes 37.7 % (20.5-51.1); % Monocytes 4.6 % (1.7-9.3); % Neutrophils 55.8 % (42.2-75.2); Absolute Eosinophils 0.1 10^3/uL (0-0.7); Absolute Lymphocytes 2.8 10^3/uL (1.2-3.4); Absolute Monocytes 0.4 10^3/uL (0.1-0.6); Absolute Neutrophils 4.2 10^3/uL (1.4-6.5); Hematocrit 37.6 % (37.0-47.0); Hemoglobin 12.7 g/dL (12.0-16.0); Mean Corp Hgb Conc. 33.8 g/dL (33.0-37.0); Mean Corpuscular Hgb 26.4 pg (27.0-31.0); Mean Corpuscular Volume 78.2 fL (81.0-99.0); Mean Platelet Volume 8.9 fL (7.4-10.4); Nucleated Red Blood Cells % 0 %; Platelet Count 467 10^3/uL (130-400); Red Blood Cell Count 4.81 10^6/uL (4.20-5.40); White Blood Cell Count 7.5 10^3/uL (4.8-10.8)
[2024-06-23 15:15] LABS: HCG, Serum Qualitative Screen Negative
[2024-06-23 15:19] LABS: ALT (SGPT) 13 U/L (0-35); AST (SGOT) 22 U/L (14-36); Albumin 3.7 g/dl (3.5-5.0); Alkaline Phosphatase 136 U/L (38-126); Blood Urea Nitrogen 14 mg/dl (7-17); Calcium 9.5 mg/dl (8.4-10.2); Carbon Dioxide 22 mmol/L (22-30); Chloride 104 mmol/L (98-107); Creatine Phosphokinase 57 U/L (30-135); Glucose 254 mg/dl (70-99); Potassium 4.9 mmol/L (3.5-5.1); Sodium 135 mmol/L (135-145); Total Bilirubin 0.8 mg/dl (0.2-1.3); Total Protein 6.9 g/dl (6.3-8.2); eGFR > 60.00
[2024-06-23 15:25] LABS: Erythrocyte Sed Rate 56 mm/hour (0-20)
[2024-06-23 18:18] VITALS: BP 126/74
== END 2024-06-23 18:20 | disposition home or self-care (01) ==
LOC: EMR 12:43
PROVIDERS: Nurse Practitioner; EMERGENCY PHYSICIAN Emergency Medicine; FAMILY PHYSICIAN Physician Assistant Medical
DX: M79.605 Pain in left leg (principal); M79.604 Pain in right leg; E10.9 Type 1 diabetes mellitus without complications; G89.29 Other chronic pain; M54.50 Low back pain, unspecified; Z79.4 Long term (current) use of insulin; Z79.899 Other long term (current) drug therapy
CPT/HCPCS: 96374; 99284; 80053; 82550; 84703; 85025; 85652; 86140

== ENCOUNTER 2024-08-02 13:40 | Emergency (ER) | payer OTHER, SELFPAY ==
[2024-08-02 13:42] VITALS: BP 112/78
[2024-08-02 13:46] LABS: Glucose - Point of Care 345 mg/dl (70-99)
[2024-08-02 14:02] LABS: % Basophils 0.3 % (0-2); % Eosinophils 1.6 % (0-6); % Immature Granulocytes 0.2 % (0-0.5); % Lymphocytes 29.5 % (20.5-51.1); % Monocytes 3.7 % (1.7-9.3); % Neutrophils 64.7 % (42.2-75.2); Absolute Eosinophils 0.1 10^3/uL (0-0.7); Absolute Lymphocytes 2.6 10^3/uL (1.2-3.4); Absolute Monocytes 0.3 10^3/uL (0.1-0.6); Absolute Neutrophils 5.8 10^3/uL (1.4-6.5); Hematocrit 39.9 % (37.0-47.0); Hemoglobin 13.8 g/dL (12.0-16.0); Mean Corp Hgb Conc. 34.6 g/dL (33.0-37.0); Mean Corpuscular Hgb 26.5 pg (27.0-31.0); Mean Corpuscular Volume 76.7 fL (81.0-99.0); Mean Platelet Volume 8.7 fL (7.4-10.4); Nucleated Red Blood Cells % 0 %; Platelet Count 514 10^3/uL (130-400)
[2024-08-02 14:19] LABS: AST (SGOT) 18 U/L (14-36); Albumin 3.8 g/dl (3.5-5.0); Alkaline Phosphatase 132 U/L (38-126); Blood Urea Nitrogen 11 mg/dl (7-17); Calcium 10.5 mg/dl (8.4-10.2); Carbon Dioxide 30 mmol/L (22-30); Chloride 101 mmol/L (98-107); Glucose 264 mg/dl (70-99); Potassium 3.6 mmol/L (3.5-5.1); Sodium 141 mmol/L (135-145); Total Bilirubin 0.5 mg/dl (0.2-1.3); eGFR > 60.00
[2024-08-02 14:25] LABS: B-Hydroxybutyrate 0.11 mmol/L (0.02-0.27)
[2024-08-02 14:29] LABS: Troponin I < 0.012 ng/ml
[2024-08-02 15:11] LABS: ALT (SGPT) < 30 U/L (0-35)
--- NOTE | 2024-08-02 15:50 | ED.GENMED ---
History of Present Illness
General
Chief Complaint: Abdominal Symptoms
Source: patient
Exam Limitations: none
Time Seen by Provider: 08/02/24 15:33
History of Present Illness
History of Present Illness:
24-year-old female lightheadedness dizziness nausea poor appetite for the last 2 to 3 days. Multiple episodes of near syncope. Also complaining of some ongoing vague chest pain. Denies pleuritic pain shortness of breath fever. Blood sugars
mildly elevated at home.
Past History
Past History
ED Past Medical History: IDDM, Psychiatric (anxiety, depression, bipolar) and Other (Previous UTIs)
ED Past Surgical History: Other (Myringotomy tubes)
Social History
Tobacco: Non-smoker
Alcohol: None
Personal: Single
Living: with family
Employment: Student
Family History
Family History: Other; Negative Diabetes
Review of Systems
Review of Systems
All Other Systems: Not applicable
Constitutional: Denies fever
Respiratory: Denies cough
: Reports no symptoms
Phy Exam
Physical Exam
Physical Exam:
GENERAL: Alert and oriented in no apparent distress
EYE: Orbits normal.
NECK: Supple, no significant adenopathy.
ENT: Pharynx without erythema
CARDIAC: Regular rate and rhythm without any obvious murmurs.
LUNGS: Clear breath sounds,normal
ABDOMEN: Soft, without focal tenderness or distention. No right upper quadrant tenderness
NEUROLOGICAL: Alert and oriented , grossly non-focal. Nonfocal. However mild general weakness to the lower extremities(ONGOING)
SKIN: Warm and dry, no rash or lesion, no discoloration, skin intact.
MUSCULOSKELETAL: No edema,no deformity.Good color
PSYCH: Normal and appropriate interaction.
Course
Orders/Labs/Results
Orders:
Orders
08/02/24 13:44
Electrocardiogram (*1) Urgent
Reason for Study: Chest Pain
08/02/24 13:45
EKG- Treatment ONCE
08/02/24 13:55
B-Hydroxybutyrate Urgent
Complete Blood Count/With Diff Urgent
Comprehensive Metabolic Panel Urgent
HCG, Serum Qualitative Screen Urgent
Comment: ADD ON
Troponin I Urgent
08/02/24 15:42
0.9% Sodium Chloride 1000 ml [Nss] 1,000 ml IV BOLUS
08/02/24 15:43
Cardiac Monitoring- Treatment ONCE
08/02/24 15:51
Add On- LAB Urgent
Tests Added?: qual bhcg
08/02/24 16:05
D-Dimer Urgent
Troponin I Urgent
08/02/24 16:48
CT Chest PE Study Urgent
Comment:
Reason For Exam: Chest pain/positive dimer
Abnormal Lab Results
08/02/24 08/02/24 08/02/24
13:43 13:55 16:05
MCV 76.7 L fL
(81.0-99.0)
MCH 26.5 L pg
(27.0-31.0)
Plt Count 514 H 10^3/uL
(130-400)
D-Dimer 0.58 H ug/mlFEU
(0.00-0.50)
Glucose 264 H mg/dl
(70-99)
Calcium 10.5 H mg/dl
(8.4-10.2)
Alkaline Phosphatase 132 H U/L
(38-126)
POC Glucose 345 H mg/dl
(70-99)
08/02/24 13:55
08/02/24 13:55
Vital Signs
Initial and Last Documented VS:
Initial Vital Signs
Temp Pulse Resp BP Pulse Ox
98.2 F 124 20 112/78 100
08/02/24 13:42 08/02/24 13:42 08/02/24 13:42 08/02/24 13:42 08/02/24 13:42
Last Documented Vital Signs
Temp Pulse Resp BP Pulse Ox
98.2 F 102 16 140/94 100
08/02/24 13:42 08/02/24 19:43 08/02/24 19:43 08/02/24 19:43 08/02/24 19:43
MDM/Problems Addressed
Differential Diagnosis Includes:
Yeah please thanks 24-year-old female mostly complaining of anorexia and nausea multiple episodes of near syncope. She has had ongoing bilateral leg issues and back pain for months. This has been but seen by neurology pain management. There is no
issues related to this. I do not feel the last few days are related to this ongoing issue. She is in no distress. Near syncope sounds very vasovagal like. She has had prodromal symptoms and has had decreased p.o. intake. Clinically doubt DKA.
Beta hydroxybutyrate is within normal limits. With the ongoing chest pain will check troponin and EKG for myocarditis. D-dimer trace positive. Likely false positive however will pursue CT scan for completeness. If all negative and patient
remained stable she can be discharged to follow-up. Patient and mom are comfortable with this approach
*Radiology
Radiology exam reviewed: radiology read reviewed (Negative CT angiography)
*Pulse Oximetry
Patient hypoxic: no
*EKG
Interpreted by ED Provider?: Yes
Interpretation: abnormal
Comparison EKG: changes noted
Heart Rate: 112
Rate: tachycardiac
Rhythm: sinus
[place]: normal axis
Interval: normal interval
QRS Pattern: normal QRS
Ischemia: non-specific ST changes
*Critical Care Note
Total Time (30-74mins, 75-104mins- exclusive of procedures): Not Applicable
Data Reviewed
Review of Other/Old Records Reveals: Labs, Records and Testing
Update Note
Update Note:
Patient has remained stable and nontoxic. I cannot find a serious etiology for her symptoms. She is nonfocal warm and dry perfusing well she has some ongoing chest pain but with continuous symptoms negative troponin negative CT angiography I
cannot find a serious etiology. As for the near syncope she is describing vasovagal near syncope. He is comfortable going home to follow-up
ED Attending Note
-
Portions of this chart may have been created with voice recognition software.� Occasional wrong word or��sound alike� substitutions may have occurred due to the inherent limitations of voice recognition software.
Discharge Plan
Departure
Patient Disposition: Home (Routine Discharge)
Date of Disposition: 08/02/24
Time of Disposition: 19:47
Patient with high blood pressure during this ER visit?: Yes
Discharge Problem:
Near syncope, Nausea vomiting, Chest pain, Hyperglycemia/diabetes
Instructions: Nausea and Vomiting, Adult (DC), High blood sugar in adults - ED discharge instructions, Fainting in adults - ED discharge instructions, BLOOD PRESSURE
Prescriptions:
No Action
oxcarbazepine [Trileptal] 150 MG tablet
150 mg PO BID
gabapentin 800 mg tablet
800 mg PO TID
aripiprazole 10 mg tablet
10 mg PO DAILY
atomoxetine 40 mg capsule
40 mg PO DAILY
insulin aspart U-100 [Novolog FlexPen U-100 Insulin] 100 unit/mL (3 mL) insulin pen
1 sliding scale dose SC AC
Rx Instructions:
1 UNIT FOR EVERY 10 CARBS
mirtazapine 7.5 mg tablet
7.5 mg PO HS
insulin glargine [Basaglar KwikPen U-100 Insulin] 100 unit/mL (3 mL) insulin pen
26 unit SC HS
norgestimate-ethinyl estradiol [Sprintec (28)] 0.25-35 mg-mcg Tablet
1 tab PO DAILY
hydroxyzine HCl 50 mg Tablet
50 mg PO HS
escitalopram oxalate [Lexapro] 10 mg Tablet
10 mg PO DAILY
levofloxacin 750 mg tablet
750 mg PO DAILY 4 Days Qty: 4 0RF
Referrals:
Noa Duncan PA-C [Family Provider] - Follow up in 2-3 days
Activity Restrictions/Additional Instructions:
Return sooner with fever increasing pain recurrent vomiting persistent blood sugar issues or any other concerns
Also get rechecked if not improved in 1 to 2 days
Interventions
Interventions:
*Risk Screen - Suicide Last Done: 08/02/24 13:42
*General Assessment Last Done: 08/02/24 13:42
EZ-[id number]-[id number] Assessment Last Done: 08/02/24 16:00
Discharge Date and Time
Print Language: AZERI
[2024-08-02] MEDS: NSS 1000 IV (16:03)
[2024-08-02 16:29] LABS: D-Dimer 0.58 ug/mlFEU (0.00-0.50)
[2024-08-02 16:36] LABS: Troponin I < 0.012 ng/ml
[2024-08-02 16:48] LABS: HCG, Serum Qualitative Screen Negative
[2024-08-02 17:48] VITALS: BP 109/77
[2024-08-02 19:43] VITALS: BP 140/94
== END 2024-08-02 19:59 | disposition home or self-care (01) ==
LOC: EMR 13:40
PROVIDERS: Student in an Organized Health Care Education/Training Program; EMERGENCY PHYSICIAN Emergency Medicine; FAMILY PHYSICIAN Physician Assistant Medical
DX: R55 Syncope and collapse (principal); R11.2 Nausea with vomiting, unspecified; R07.9 Chest pain, unspecified; E11.65 Type 2 diabetes mellitus with hyperglycemia; Z79.4 Long term (current) use of insulin
CPT/HCPCS: 99284; 96360; 71275; 80053; 82010; 82962; 84484; 84703; 85025; 85379; 93005; Q9967

== ENCOUNTER 2024-08-04 19:05 | Inpatient (IN) | payer OTHER, SELFPAY ==
[2024-08-04 13:46] VITALS: BP 108/84
[2024-08-04] MEDS: TORADOL 15 MG IV (15:07)
[2024-08-04] MEDS: VALIUM INJECTION 2 MG IV (15:07)
[2024-08-04] MEDS: NSS 1000 IV (15:08)
[2024-08-04 15:11] LABS: % Basophils 0.5 % (0-2); % Eosinophils 1.9 % (0-6); % Immature Granulocytes 0.3 % (0-0.5); % Lymphocytes 26.1 % (20.5-51.1); % Monocytes 5.2 % (1.7-9.3); Absolute Basophils 0.1 10^3/uL (0-0.2); Absolute Eosinophils 0.2 10^3/uL (0-0.7); Absolute Lymphocytes 2.5 10^3/uL (1.2-3.4); Absolute Monocytes 0.5 10^3/uL (0.1-0.6); Absolute Neutrophils 6.2 10^3/uL (1.4-6.5); Hematocrit 34.1 % (37.0-47.0); Mean Corp Hgb Conc. 35.2 g/dL (33.0-37.0); Mean Corpuscular Hgb 26.7 pg (27.0-31.0); Mean Corpuscular Volume 75.9 fL (81.0-99.0); Mean Platelet Volume 8.7 fL (7.4-10.4); Nucleated Red Blood Cells % 0 %; Platelet Count 427 10^3/uL (130-400); Red Blood Cell Count 4.49 10^6/uL (4.20-5.40); Red Cell Dist. Width 12.8 % (11.5-14.5); White Blood Cell Count 9.4 10^3/uL (4.8-10.8)
--- NOTE | 2024-08-04 15:21 | ED.GENMED ---
History of Present Illness
General
Chief Complaint: Musculo-Skeletal Complaint
Source: patient
Exam Limitations: none
Time Seen by Provider: 08/04/24 14:29
Nursing documentation reviewed up to this point in time: agreed with
History of Present Illness
History of Present Illness:
Patient is a 24-year-old female presenting to the emergency department with bilateral lower extremity pain. Patient has been dealing with intermittent sharp, stabbing pains in her lower legs over the past 6 months although reports that pain became
excruciating and constant at 3 AM this morning. She has been unable to ambulate due to pain. She describes a sharp stabbing pain in her lower legs as well as significant skin sensitivity.
Patient denies any known trauma or inciting event. No fevers, chills. No swelling or redness of lower extremities. No recent bug bite, rashes.
Patient has been undergoing workup with primary care and was recently referred to [place] although have not made an appointment yet. Patient reports that lab work has been performed although has had no imaging.
Patient has been treating pain with Toradol, ibuprofen, and gabapentin without much improvement.
Past History
Past History
ED Past Medical History: IDDM, Psychiatric (anxiety, depression, bipolar) and Other (Previous UTIs)
ED Past Surgical History: Other (Myringotomy tubes)
Social History
Tobacco: Non-smoker
Alcohol: None
Personal: Single
Living: with family
Employment: Student
Family History
Family History: Other; Negative Diabetes
Review of Systems
Review of Systems
Allergies reviewed?: Yes
All Other Systems: ROS reviewed and negative except as documented in HPI and ROS
Phy Exam
Physical Exam
Physical Exam:
Vitals: Tachycardic, otherwise vital signs stable. Afebrile
General: Patient is in significant distress, screaming in pain.
Skin: Warm and dry, no rashes or lesions. No erythema, warmth, or red-streaking of lower extremities.
Head: Normocephalic, atraumatic
Eyes: Sclera anicteric. EOMs intact. No nystagmus.
Throat: Protecting airway
Neck: Normal ROM, no cervical spine tenderness, no meningismus
Cardiac: Tachycardic, nura rhythm, no murmurs.
Pulm: Lungs clear bilaterally.
Abdomen: Nondistended
Back: No midline spinal tenderness.
Extremities: B/l lower extremities without obvious deformity. No erythema, warmth, or edema of lower extremities. Extremely sensitive to touch. Palpable DP pulses bilaterally w/ normal capillary refill. Decreased strength bilaterally.
Neuro: AAOx3. No focal neurologic deficits
Psychiatric: Normal affect.
Course
Orders/Labs/Results
Orders:
Orders
08/04/24 14:54
0.9% Sodium Chloride 1000 ml [Nss] 1,000 ml IV BOLUS
Ketorolac [Toradol] 15 mg IV NOW STA
diazePAM [Valium Injection] 2 mg IV NOW STA
Test Result ONCE
08/04/24 15:01
C-Reactive Protein Urgent
Comment: ADD ON
CPK [Creatine Phosphokinase] Urgent
Complete Blood Count/With Diff Urgent
Comprehensive Metabolic Panel Urgent
Erythrocyte Sed Rate Urgent
Comment: ADD ON
HCG, Serum Qualitative Screen Urgent
Lyme Progressive Urgent
Magnesium Urgent
TSH Reflex To Free T4 Urgent
08/04/24 15:12
Add On- LAB Urgent
Tests Added?: esr, crp
08/04/24 15:13
NEUROLOGY CONSULT Urgent
Consulting Provider: Kaelyn Ro
Was physician already notified: Yes
08/04/24 16:11
Lumbar Spine Complete, 4 View [CR Lumbar Spine Comp Min 4 Vw*] Urgent
Comment:
Reason For Exam: b/l lower extremity pain
08/04/24 17:17
Urinalysis Reflex To Culture Urgent
Date Specimen was Collected: 08/04/24
Time Specimen was Collected: 17:14
Urine Drug Abuse Screen Urgent
Date Specimen was Collected: 08/04/24
Time Specimen was Collected: 17:15
Urine Microscopic Reflex Cult Urgent
Urine Culture Urgent
MERCEDES Source: U
Specimen Description:
Date Specimen was Collected: 08/04/24
Time Specimen was Collected: 17:14
08/04/24 17:35
Peripheral Venous Lwr Ext Bilat US [US Periph Venous LOWER Ext Anthony] Urgent
Comment:
Reason For Exam: leg pain
08/04/24 17:36
US Pelvis Only (non-obstetric) Routine
Comment:
Reason For Exam: pelvic pain
08/04/24 18:00
Gabapentin [Neurontin] 800 mg PO QID
08/04/24 18:28
YON, IgG Reflex to HEp-2 [S] Routine
ANCA - MPO/PR3 Ab Profile [S] Routine
Hemoglobin A1c [Glycohemoglobin (HgbA1c)] Routine
Sjogrens Ab (SSA 52, 60/SSB) [S] Routine
Vitamin B6 (Pyridoxine) [S] Routine
08/04/24 18:40
Code Status As Directed
Resuscitation Status: Full Code
Bisacodyl [Dulcolax] 10 mg RECTAL [id number] PRN
Docusate W/Senna [Senokot-S] 1 tablet PO BIDPRN PRN
Polyethylene Glycol Powder [Miralax] 17 grams PO DAILYPRN PRN
08/04/24 18:41
Activity As Directed
Activity Level: As Tolerated
Vital Signs As Directed
Frequency: Per unit guidelines
DX Deep Vein Thrombosis Video Routine
08/04/24 18:45
Admit/Transfer Patient As Directed
Co-Sign Provider:
Level of Care: Inpatient admission
Assign to:: Medical/Surgical
Physician / Group: Dr. Divina Membreno
Diagnosis: Unspecified severe bilateral lower extremity pain
Reason for Hospitalization: Unspecified severe bilateral lower extremity pain
Expected length of stay greater than two midnights?: Yes
ELOS- Estimated Length of Stay in days: 2
I certify the patient meets the requirements for IP care: Yes
PRN Pain Medication Management As Directed
May give lesser potent ordered pain med per pt: Yes
preference::
Protocol:: Medication orders for pain may be administered in a
manner that supports deferring to patient preference
when the pt is:
- Requesting an ordered lesser potent pain medication.
Least to most potent pain medications are defined
as: acetaminophen < NSAID < tramadol < opioids
(morphine, oxycodone, hydromorphone).
- Requesting a lesser dose of the same medication IF
ORDERED.
- Requesting a less intrusive route of administration
if both routes are prescribed by the provider (PO <
IV).
08/04/24 18:50
Occupational Therapy Consult [Ot Eval And Treat] Routine
08/04/24 19:00
Enoxaparin Sodium [Lovenox] 40 mg SC QPM
08/04/24 20:09
Ibuprofen [Motrin] 400 mg PO Q6HPRN PRN
08/04/24 21:23
Oxcarbazepine [Trileptal] 150 mg PO BID
08/04/24 21:23
Physical Therapy Consult [Pt Eval And Treat] Routine
Activity Level: As Tolerated
08/04/24 22:00
Dexamethasone Sod Phosphate [Decadron] 2 mg IV Q6H
Gabapentin [Neurontin] 800 mg PO TID
Mirtazapine [Remeron] 7.5 mg PO HS
insulin glargine [Lantus Solostar U-100 Insulin] 36 unit SC HS
08/04/24 22:15
HydrOXYZINE [Atarax] 50 mg PO BID
08/05/24 Breakfast
2000 calorie (17 carb) Diabetic
At Your Request: Full Participation
Complete Blood Count/With Diff IN AM
Comprehensive Metabolic Panel IN AM
Creatine Phosphokinase IN AM
Magnesium IN AM
TSH IN AM
Vitamin B12 IN AM
08/05/24 08:00
Aripiprazole [Abilify] 10 mg PO DAILY
Escitalopram Oxalate [Lexapro] 10 mg PO DAILY
atomoxetine See Dose Instructions PO DAILY
norethindrone (contraceptive) [Jencycla] See Dose Instructions PO DAILY
Abnormal Lab Results
08/04/24 08/04/24
15:01 17:17
Hct 34.1 L %
(37.0-47.0)
MCV 75.9 L fL
(81.0-99.0)
MCH 26.7 L pg
(27.0-31.0)
Plt Count 427 H 10^3/uL
(130-400)
ESR 44 H mm/hour
(0-20)
Potassium 3.4 L mmol/L
(3.5-5.1)
Creatinine 0.5 L mg/dL
(0.6-1.0)
Glucose 284 H mg/dl
(70-99)
Total Protein 6.0 L g/dl
(6.3-8.2)
Albumin 3.2 L g/dl
(3.5-5.0)
Ur Occult Blood Reflex 3+ A
(Negative)
Leukocyte Esterase Rfl 3+ A
(Negative)
Urine WBC (Reflex) >100 A /HPF
(0-5)
Urine Bacteria (Reflex) Many A
(Negative)
Urine Glucose 4+ A
(Negative)
Urine Albumin (Reflex) 3+ A
(Neg - Trace)
08/04/24 15:01
08/04/24 15:01
Vital Signs
Initial and Last Documented VS:
Initial Vital Signs
Temp Pulse Resp BP Pulse Ox
97.8 F 120 16 108/84 100
08/04/24 13:46 08/04/24 13:46 08/04/24 13:46 08/04/24 13:46 08/04/24 13:46
Last Documented Vital Signs
Temp Pulse Resp BP Pulse Ox
98.3 F 102 18 153/102 100
08/04/24 21:54 08/04/24 21:54 08/04/24 21:54 08/04/24 21:54 08/04/24 21:54
MDM/Problems Addressed
Differential Diagnosis Includes:
Not limited to: rhabdomyolysis, myositis, fibromyalgia, MS, rheumatoid arthritis, lupus, diabetic neuropathy, etc
MDM/Problems Addressed:
24 year-old female with atraumatic bilateral lower extremity pain ongoing over the past 6 months with acute worsening early this morning. No associated fever, chills, redness or warmth of lower extremities. No recent bug bites or rashes. Patient
tachycardic on arrival with otherwise stable vital signs. She is afebrile. Physical exam as above. Exam quite limited due to patient level of discomfort however no obvious deformity of bilateral lower extremities. There is no erythema or warmth to
suggest an infectious process. No edema or clinical findings of DVT on exam. Patient has decreased strength in bilateral lower extremities which seems to be secondary to pain. Sensation intact. Capillary refill within normal limits. Lower back
without obvious abnormalities. Differential broad at this time. Concern for possible rhabdomyolysis or rheumatologic condition or neurologic condition such as MS. Will check blood work, UA, and UDS. Consult was placed for neurology for further
evaluation.
Update: labs reviewed. No clinically significant abnormalities on CBC. CMP shows hyperglycemia and otherwise no abnormalities. Mild elevation ESR to 44. Neurology down to evaluate patient at bedside and recommend admission for further workup.
Possible underlying rheumatologic component. Will treat pain and admit patient to hospitalist. Patient accepted to hospital service in stable condition.
Chronic conditions affecting care:
Type 1 diabetes
Acute Exacerbation and/or Progression of Chronic Illness:
Acutely hyperglycemic
*Radiology
Radiology exam reviewed: radiology read reviewed
*Pulse Oximetry
Patient hypoxic: no
*EKG
Interpreted by ED Provider?: NA
*Talent Development Manager Interpretation
Rate: tachycardiac
Interpretation: abnormal
Heart Rate: 110
Rhythm: sinus
*Critical Care Note
Total Time (30-74mins, 75-104mins- exclusive of procedures): Not Applicable
Patient Management
Discussion with other providers: Hospitalist and [employer] (Case discussed with neurology)
Escalation/DeEscalation of care consider admission/obs:
Admit for further workup
ED Attending Note
-
Portions of this chart may have been created with voice recognition software.� Occasional wrong word or��sound alike� substitutions may have occurred due to the inherent limitations of voice recognition software.
Discharge Plan
Departure
Patient Disposition: Admit
Date of Disposition: 08/04/24
Time of Disposition: 16:09
Presentation/result/management discussed w/ accepting MD/DO: Hospitalist
Discharge Problem:
Bilateral lower extremity pain
Interventions
Interventions:
*Risk Screen - Suicide Last Done: 08/04/24 13:46
*General Assessment Last Done: 08/04/24 16:35
*Neglect/Abuse Screening Last Done: 08/04/24 13:46
*ED- Fall Risk Assessment Last Done: 08/04/24 19:43
*ED COVID-19 Vaccine History Last Done: 08/04/24 16:35
*Nursing Disposition Last Done: 08/04/24 21:17
ED-Musculoskeletal Assessment Last Done: 08/04/24 20:58
Discharge Date and Time
Discharge Date/Time: 08/04/24 21:18
[2024-08-04 15:34] LABS: ALT (SGPT) 13 U/L (0-35); AST (SGOT) 14 U/L (14-36); Albumin 3.2 g/dl (3.5-5.0); Alkaline Phosphatase 105 U/L (38-126); Blood Urea Nitrogen 7 mg/dl (7-17); Calcium 9.3 mg/dl (8.4-10.2); Carbon Dioxide 27 mmol/L (22-30); Chloride 103 mmol/L (98-107); Creatine Phosphokinase 38 U/L (30-135); Glucose 284 mg/dl (70-99); Magnesium 1.6 mg/dl (1.6-2.3); Potassium 3.4 mmol/L (3.5-5.1); Sodium 137 mmol/L (135-145); Total Bilirubin 0.4 mg/dl (0.2-1.3); eGFR > 60.00
[2024-08-04 15:38] LABS: Erythrocyte Sed Rate 44 mm/hour (0-20)
[2024-08-04 15:39] LABS: HCG, Serum Qualitative Screen Negative
[2024-08-04 16:44] LABS: TSH Reflex To Free T4 0.85 uIU/ml (0.47-4.68)
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
[2024-08-04 17:29] LABS: Urine Albumin 3+ (Neg - Trace); Urine Bilirubin Negative (Negative); Urine Character Cloudy (Clear); Urine Color Yellow; Urine Glucose 4+ (Negative); Urine Ketone Negative (Negative); Urine Leukocyte 3+ (Negative); Urine Nitrite Negative (Negative); Urine Occult Blood 3+ (Negative); Urine Specific Gravity 1.015 (<1.030); Urine Urobilinogen Negative (Neg - 1+)
[2024-08-04 17:35] LABS: Urine White Cell >100 /HPF (0-5)
[2024-08-04 17:36] LABS: Urine Bacteria Many (Negative)
[2024-08-04 18:00] VITALS: BP 144/105
[2024-08-04 18:31] LABS: Amphetamines Negative (Negative); Barbiturates Negative (Negative); Benzodiazepines Negative (Negative); Buprenorphine Negative (Negative); Cocaine Negative (Negative); Marijuana Negative (Negative); Methadone Negative (Negative); Methamphetamines Negative (Negative); Opiates Negative (Negative); Phencyclidine Negative (Negative); Tricyclic Antidepressants Negative (Negative)
[2024-08-04] MEDS: NEURONTIN 800 MG PO ×2 (18:41→22:18)
--- NOTE | 2024-08-04 18:50 | HPS.HSE ---
Addendum entered and electronically signed by Divina Membreno MD 08/04/24 19:20:
I personally performed a history and physical exam of the patient and discussed management with the resident. I reviewed the resident's note and agree with the documented findings and plan of care HPI/CC.
GENERAL: well developed, well nourished, female in no apparent distress
HEENT: NC/AT--pale appearing
HEART: regular rate and rhythm, +S1, +S2, tachycardic
LUNGS : clear to auscultation bilaterally
ABDOM: soft, nontender, nondistended, + bowel sounds
EXT: no cyanosis, clubbing, or edema
NEUROLOGIC: strength 5/5 bilateral arms--left leg (exquisitely painful just with light touch) strength 1/5, right leg (same pain with light touch) strength 2/5---very limited due to pain--no atrophy of muscles noted
SKIN: multiple scratches on bilateral arms (from new puppy)
Bilateral lower extremity pain (hips to toes)--peripheral neuropathy, inflammatory myopathy, RSD, fibromyalgia, MS leading theories--follow CMP, CBC, CRP, YON, RF, CPK, TSH, B12, CgG0w--ivrcrk neuro--PT/OT--check MRI T/L/S spine--consider
EMG/NCS--ESR 44--start decadron 2 mg IV Q8O--Zqaikrux gabapentin
Tachycardia--possibly due to pain--NSS x 1L
Insulin-dependent diabetes mellitus type 1--Glucose is 284 on admission--Urine glucose is 4+ which indicates uncontrolled diabetes mellitus type 1--cont home insulin with accuchecks and SSI--consult DM CHILD WATCH ATTENDANT--Start patient on 2000-calorie diabetic
diet to help control of elevated blood glucose levels--check HGB A1C
Anxiety/depression/bipolar/conversion disorder--Continue on aripiprazole, atomoxetine, Lexapro, mirtazapine, oxcarbazepine--IF NO organic reason found on work up, psych cause must be consdiered
Sterile pyuria--On urine analysis there are more than 100 urine WBCs but urine nitrates are negative- Urine cultures ordered and pending
DVT prophy--Lovenox
Full code
Original Note:
Family Physician
-
Family Physician: Noa Duncan
Chief Complaint
-
Severe bilateral lower extremity pain
History of Present Illness
Patient is a 24-year-old female who presents to the emergency department with severe bilateral lower extremity pain. She describes the pain as intermittent, sharp, stabbing pain in both of her lower extremities over the past 6 months, the pain has
gotten excruciating and constant at around 3 AM this morning and she has been unable to ambulate due to pain which is why she presented to the ED. No trauma, inciting event, bug bites, rashes, excessive exercise. She has been undergoing workup for
this pain with her primary care at [facility] and was recently referred to [place] [facility] although she has not made an appointment yet. Has been treating the pain with Toradol, ibuprofen, gabapentin there has not been much improvement.
Medical History
Past Medical History
Past Medical History: Reports IDDM (Diagnosed when she was 7 years old, on insulin) and Psychiatric (Anxiety, depression, bipolar)
Past Surgical History: Reports None
Social History
Tobacco: Non-smoker
Alcohol: None
Drug: None
Personal: Single
Living: With Family
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
Family History
Family History: Not pertinent
Allergies / Home Medications
Allergies reflects when Allergies were last updated in [facility].
Home Medications with original date entered in [facility]
Allergy/Medication List:
Allergies
Allergy/AdvReac Type Severity Reaction Status Date / Time
No Known Allergies Allergy Verified 08/04/24 13:46
Home Medications
oxcarbazepine 150 mg tablet (Trileptal) 150 mg PO BID Mental Health 08/26/20
aripiprazole 10 mg tablet 10 mg PO DAILY Mental Health 11/27/22
atomoxetine 40 mg capsule 40 mg PO DAILY ADHD 11/27/22
gabapentin 800 mg tablet 800 mg PO TID Pain 11/27/22
insulin aspart U-100 100 unit/mL (3 mL) subcutaneous pen (Novolog FlexPen U-100 Insulin aspart) 5 sliding scale dose SC AC Diabetes 11/27/22
mirtazapine 7.5 mg tablet 7.5 mg PO HS Mental Health/Anxiety 11/27/22
escitalopram oxalate 10 mg tablet (Lexapro) 10 mg PO DAILY 03/27/24
hydroxyzine HCl 50 mg tablet 50 mg PO BID 03/27/24
ibuprofen 200 mg tablet (Advil) 400 mg PO Q6HPRN PRN mild pain 08/04/24
insulin glargine 100 unit/mL (3 mL) subcutaneous pen (Lantus Solostar U-100 Insulin) 36 unit SC HS 08/04/24
norethindrone (contraceptive) 0.35 mg tablet (Jencycla) 0.35 mg PO DAILY 08/04/24
Review of Systems
-
History Source: Patient
A 12 point ROS was completed and negative except as noted: Yes
Musculoskeletal: Reports Muscle Pain (Along the length of the entire lower extremities bilaterally)
Physical Exam
Vital Signs
Vital Signs
Temp Pulse Resp BP Pulse Ox
97.8 F 120 16 144/105 99
08/04/24 13:46 08/04/24 13:46 08/04/24 13:46 08/04/24 18:00 08/04/24 18:00
Physical Exam
General: Well Developed, Well Nourished and Comfortable
Respiratory: Clear
Cardiac: S1/S2 and Regular Rhythm
GI: Soft, Non Tender, Non Distended and Normal Bowel Sounds
Musculoskeletal: No Clubbing, No Cyanosis, No Edema and Other (Tenderness to light touch along the entire length of bilateral lower extremities)
Skin: Warm
Neuro: Awake, Alert, Oriented, AO x 3 and Other (Decreased strength in lower bilateral extremities, normal tone, reflexes normal)
Psych: Calm
Laboratory Results
-
08/04/24 15:01
08/04/24 15:01
Laboratory Results
Total Bilirubin 0.4 mg/dl (0.2-1.3) 08/04/24 15:01
AST 14 U/L (14-36) 08/04/24 15:01
ALT 13 U/L (0-35) 08/04/24 15:01
Alkaline Phosphatase 105 U/L (38-126) 08/04/24 15:01
Data Reviewed
-
Lab Data: Labs Reviewed by me and Discussed with Physician
Impression/Plan
-
Bilateral lower extremity pain
Elevated ESR:
- Differential diagnosis is peripheral neuropathy versus inflammatory myopathy versus CRPS versus fibromyalgia versus multiple sclerosis
- Ordered CMP, CBC, CRP, YON, RF, CPK, TSH, B12, HbA1c
- Neurology was consulted and is following
- Will order a lumbar spine and thoracic spine MRI to rule out causes of nerve compression, spinal cord pathology, anatomic causes
- PT OT consulted
- Continue gabapentin for the pain
- Ordered Decadron 2 mg every 8 hours IV to help reduce potential inflammation and prevent neurological damage and also potentially treat underlying autoimmune inflammatory diseases
Tachycardia:
- Was 120 on admission and then lowered to 100, suspect that it is due to pain due to patient's clinical picture and we will continue to observe heart rate
Insulin-dependent diabetes mellitus type 1:
-Glucose is 284 on admission which indicates an elevated blood glucose level
- Urine glucose is 4+ which indicates uncontrolled diabetes mellitus type 1
- Continue patient on her at home insulin regime and adjust with sliding scale insulin because we are giving steroids so there will be hyperglycemia
- Start patient on 2000-calorie diabetic diet to help control of elevated blood glucose levels
- Daily Accu-Cheks to monitor the blood glucose levels and make sure they are within appropriate range
- Ordered HbA1c
-Consult diabetes mellitus CHILD WATCH ATTENDANT
Anxiety/depression/bipolar:
- Continue on aripiprazole, atomoxetine, Lexapro, mirtazapine, oxcarbazepine
Sterile pyuria:
- On urine analysis there are more than 100 urine WBCs but urine nitrates are negative
- Urine cultures ordered and pending
DVT prophylaxis Lovenox
Full code
[2024-08-04 19:00] VITALS: BP 155/104; BMI 22.4
[2024-08-04] MEDS: MOTRIN 400 MG PO (20:21)
[2024-08-04] MEDS: LOVENOX 40 MG SC (20:22)
[2024-08-04 21:33] VITALS: BMI 20.9
[2024-08-04 21:51] LABS: Glucose - Point of Care 205 mg/dl (70-99)
[2024-08-04 21:54] VITALS: BP 153/102
[2024-08-04] MEDS: REMERON 7.5 MG PO (22:18)
[2024-08-04] MEDS: ATARAX 50 MG PO (22:18)
[2024-08-04] MEDS: DECADRON 2 MG IV (22:18)
[2024-08-04] MEDS: TRILEPTAL 150 MG PO (22:18)
[2024-08-04] MEDS: KCL 270 MEQ IV (22:19)
[2024-08-04] MEDS: TORADOL 10 MG IV (22:19)
[2024-08-04] MEDS: LANTUS 0.36 UNITS SC (22:20)
--- NOTE | 2024-08-04 22:36 | PTCARENOTE ---
Pt admitted to [facility]. AAOx3, anxious and tearful at times. C/O BL leg pain 12/22. See MAR for pain management. Cardio, lungs, GI and WNL. General weakness, Call carrillo within reach.
[2024-08-05] MEDS: MOTRIN 400 MG PO (02:40)
[2024-08-05] MEDS: DECADRON 2 MG IV ×4 (03:05→21:48)
--- NOTE | 2024-08-05 03:49 | DOWNTIME ---
There was a Message Bus Client Tubular Splitting Machine Tender Downtime on 08/05/2024 from 0200 to 08/06/2023 at 0318 . Downtime documentation of patient's care, including medication administrations, has been reconciled in the electronic record per guidelines. Refer to the
patient's paper chart under the miscellaneous tab to see printed paper medication records and downtime forms.
--- NOTE | 2024-08-05 04:05 | PTCARENOTE ---
Addendum entered by Neelam Landaverde RN 08/05/24 05:49:
Pt continuos to c/o leg pain. Pain management hasn't been affective per pt. HEAD OF DIGITAL solution sales senior executive notify about her condition.
Original Note:
Pt's leg pain hasn't been under control. Pt has been crying in pain every few hrs. Pt has a hard time walking due to the pain. HEAD OF DIGITAL solution sales senior executive notified about pain level. See MAR for pain management.
[2024-08-05] MEDS: TORADOL 10 MG IV (04:26)
[2024-08-05 07:00] VITALS: BP 135/91
[2024-08-05 07:42] LABS: Glucose - Point of Care 403 mg/dl (70-99)
[2024-08-05] MEDS: TRILEPTAL 150 MG PO ×2 (08:04→20:08)
[2024-08-05] MEDS: ATARAX 50 MG PO ×2 (08:04→20:08)
[2024-08-05] MEDS: LEXAPRO 10 MG PO (08:04)
[2024-08-05] MEDS: ABILIFY 10 MG PO (08:04)
[2024-08-05] MEDS: NEURONTIN 800 MG PO ×3 (08:04→21:48)
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
[2024-08-05 08:20] LABS: % Basophils 0.7 % (0-2); % Eosinophils 0.2 % (0-6); % Immature Granulocytes 0.2 % (0-0.5); % Monocytes 2.2 % (1.7-9.3); % Neutrophils 82.7 % (42.2-75.2); Absolute Lymphocytes 0.8 10^3/uL (1.2-3.4); Absolute Monocytes 0.1 10^3/uL (0.1-0.6); Hematocrit 37.6 % (37.0-47.0); Hemoglobin 12.9 g/dL (12.0-16.0); Mean Corp Hgb Conc. 34.3 g/dL (33.0-37.0); Mean Corpuscular Hgb 26.3 pg (27.0-31.0); Mean Corpuscular Volume 76.6 fL (81.0-99.0); Mean Platelet Volume 8.8 fL (7.4-10.4); Nucleated Red Blood Cells % 0 %; Platelet Count 459 10^3/uL (130-400); Red Blood Cell Count 4.91 10^6/uL (4.20-5.40); Red Cell Dist. Width 12.9 % (11.5-14.5)
[2024-08-05 08:44] LABS: ALT (SGPT) 12 U/L (0-35); AST (SGOT) 13 U/L (14-36); Albumin 3.5 g/dl (3.5-5.0); Alkaline Phosphatase 123 U/L (38-126); Blood Urea Nitrogen 11 mg/dl (7-17); Calcium 9.4 mg/dl (8.4-10.2); Carbon Dioxide 24 mmol/L (22-30); Chloride 103 mmol/L (98-107); Estimated Creatinine Clearance > 125 ml/min; Glucose 439 mg/dl (70-99); Magnesium 1.9 mg/dl (1.6-2.3); Potassium 4.9 mmol/L (3.5-5.1); Sodium 137 mmol/L (135-145); Total Bilirubin 0.7 mg/dl (0.2-1.3); Total Protein 6.2 g/dl (6.3-8.2); eGFR > 60.00
[2024-08-05] MEDS: NOVOLOG FLEXPEN-LOW RESISTANCE 6 UNITS SC (09:07)
[2024-08-05] MEDS: NOVOLOG FLEXPEN 5 UNITS SC (09:07)
[2024-08-05] MEDS: DILAUDID 0.25 MG IV ×3 (09:51→20:11)
[2024-08-05 10:07] LABS: TSH 0.71 uIU/ml (0.47-4.68)
[2024-08-05 10:15] LABS: Creatine Phosphokinase 33 U/L (30-135)
[2024-08-05 10:21] LABS: Glycohemoglobin (HgbA1c) 11.3 % (4.0-5.6)
[2024-08-05 10:27] LABS: Vitamin B12 226 pg/ml (239-931)
[2024-08-05 10:38] LABS: Lyme Antibody Screen, EIA Negative (Negative)
[2024-08-05 10:49] VITALS: BP 140/86; PULSE 114; O2SAT 97
--- NOTE | 2024-08-05 11:02 | W.PN.HOSP.TC ---
Addendum entered and electronically signed by Divina Membreno MD 08/05/24 14:48:
I saw and evaluated the patient independently. I reviewed the resident�s note and agree with findings and plan as documented by Dr. Prasad.
GENERAL: well developed, well nourished, female in no apparent distress
HEENT: NC/AT--pale appearing
HEART: regular rate and rhythm, +S1, +S2, tachycardic
LUNGS : clear to auscultation bilaterally
ABDOM: soft, nontender, nondistended, + bowel sounds
EXT: no cyanosis, clubbing, or edema
NEUROLOGIC: strength 5/5 bilateral arms--left leg (exquisitely painful just with light touch) strength 1/5, right leg (same pain with light touch) strength 2/5---very limited due to pain--no atrophy of muscles noted
SKIN: multiple scratches on bilateral arms (from new puppy)
Bilateral lower extremity pain (hips to toes)--peripheral neuropathy, inflammatory myopathy, RSD, fibromyalgia, MS leading theories--CRP WNL, CPK WNL, TSH WNL, B12 low, started repletion, HbA1c =11.3, YON, RF pending--apprec neuro--PT/OT-- MRI T
spine WNL, L/S spine mild bulging disk--consider EMG/NCS--ESR 44--no improvement with decadron 2 mg IV U7Y--Rwcwucps gabapentin--pt crying in pain--IV dilaudid x 1 helped 'somewhat'
Tachycardia--possibly due to pain--NSS x 1L
Insulin-dependent diabetes mellitus type 1--uncontrolled glucose--Glucose is 284 on admission--Urine glucose is 4+ which indicates uncontrolled diabetes mellitus type 1--cont home insulin with accuchecks and SSI--apprec DM UNDERWRITER MORTG[employer] LOAN--Start patient on
2000-calorie diabetic diet to help control of elevated blood glucose levels--HGB A1C = 11.3
Anxiety/depression/bipolar/conversion disorder--Continue on aripiprazole, atomoxetine, Lexapro, mirtazapine, oxcarbazepine--IF NO organic reason found on work up, psych cause must be considered--consult psych
Sterile pyuria--On urine analysis there are more than 100 urine WBCs but urine nitrates are negative- Urine cultures ordered and pending
DVT prophy--Lovenox
Full code
Original Note:
Today's Communication/Plan
-
- follow up imaging
Assessment / Plan
Assessment / Plan
Bilateral lower extremity pain
Elevated ESR:
- MRI thoracic and lumbar pending.
- Differential diagnosis is peripheral neuropathy versus inflammatory myopathy versus CRPS versus fibromyalgia versus multiple sclerosis
- CRP (normal), YON pending, RF pending, CPK (normal) , TSH (normal), B12 (226 low)
- Neurology was consulted and is following
- Will order a lumbar spine and thoracic spine MRI to rule out causes of nerve compression, spinal cord pathology, anatomic causes
- Her lumbar spine x ray, peripheral vascular ultrasound, and pelvic ultrasound were all unremarkable
- PT OT is following
- Continue gabapentin for the pain, added ketorolac 10 mg PO and IV Dilaudid .25 mg to help better manage pain
- Ordered Decadron 2 mg every 8 hours IV to help reduce potential inflammation and prevent neurological damage and also potentially treat underlying autoimmune inflammatory diseases
Tachycardia:
- today 113bpm, suspect that it is due to pain due to patient's clinical picture and we will continue to observe heart rate
Insulin-dependent diabetes mellitus type 1:
-Glucose is 439 today which indicates an elevated blood glucose level
- Urine glucose is 4+ which indicates uncontrolled diabetes mellitus type 1
- Hemoglobin a1c is 11.3% which indicates necessity for adjusting insulin medication
- Continue patient on her at home insulin regime (Lantus 36 units and aspart 5) and adjust with sliding scale insulin because we are giving steroids so there will be hyperglycemia
- Start patient on 2000-calorie diabetic diet to help control of elevated blood glucose levels
- Daily Accu-Cheks to monitor the blood glucose levels and make sure they are within appropriate range
- Ordered HbA1c
- Consulted diabetes mellitus UND[employer] LOAN
Low vitamin b12:
- suspect due to diabetes
- vitamin b12 level is 226
- Ordered vitamin b12 1000 mg iv stat
Anxiety/depression/bipolar:
- Continue on aripiprazole, atomoxetine, Lexapro, mirtazapine, oxcarbazepine
Sterile pyuria:
- On urine analysis there are more than 100 urine WBCs but urine nitrates are negative
- Urine cultures ordered and show gram negative bacilli
- Ordered IV ceftriaxone 1 gm q24 as this covers gram negative bacilli
DVT prophylaxis Lovenox
Full code
Anticipated Discharge: 24 - 48 hours
Subjective/Interval History
-
Date of Service: August 05, 2024
Patient is asking for stronger pain medication, because her current regime in not enough to control the pain.
Objective Data
-
Labs:
Laboratory Results
08/05/24 08/05/24 08/05/24
07:55 07:55 07:56
WBC 6.0
Hgb 12.9
Hct 37.6
Plt Count 459 H
Sodium 137
Potassium 4.9 D
Chloride 103
Carbon Dioxide 24
BUN 11
Creatinine 0.5 L
Glucose 439 H Cancelled
Calcium 9.4
Total Bilirubin 0.7
AST 13 L
ALT 12
Alkaline Phosphatase 123
Vital Signs:
Vital Signs
Temp Pulse Resp BP Pulse Ox
98.0 F 113 18 135/91 97
08/05/24 07:00 08/05/24 07:00 08/05/24 07:00 08/05/24 07:00 08/05/24 07:00
I&O
08/04/24 08/05/24 08/06/24
06:59 06:59 06:59
Intake Total 1000 / 1000
Balance 1000 / 1000
Review of Systems
-
History Source: Patient
Constitutional: Reports No Symptoms
Respiratory: Reports No Symptoms
Cardiac: Reports No Symptoms
Abdomen/GI: Reports No Symptoms
Genitourinary: Reports No Symptoms
Musculoskeletal: Reports Muscle Pain (severe bilateral lower extremity pain)
Neuro: Reports No Symptoms
Physical Exam
-
General: Well Developed, Well Nourished and Comfortable
Respiratory: Clear to Auscultation
Cardiac: Regular Rhythm and S1/S2
GI: Soft, Nontender, Nondistended and Normal Bowel Sounds
Musculoskeletal: No Clubbing, No Cyanosis, No Edema and Other (tenderness to light touch along the entire length of bilateral lower extremities)
Neuro: Awake, Alert, Oriented, AO x 3 and Other (Decreased strength 1/5 in lower bilateral extremities, normal tone, reflexes normal)
Data Reviewed
-
Labs: Labs Reviewed by me
[2024-08-05 11:04] VITALS: BP 146/90; PULSE 115
[2024-08-05 12:23] LABS: Glucose - Point of Care 230 mg/dl (70-99)
[2024-08-05] MEDS: CYANOCOBALAMIN 1000 MCG IM (12:26)
[2024-08-05] MEDS: ROCEPHIN 1000 MG IV (12:27)
[2024-08-05] MEDS: STERILE WATER FOR INJECTION 10 ML IV (12:27)
[2024-08-05] MEDS: TORADOL 10 MG PO (12:29)
--- NOTE | 2024-08-05 12:39 | PN.DE.MGMTRT ---
Insulin Management
- -
08/05/2024: Diabetes Management Consult
24 year old female who presented to the ED for evaluation of BLE pain from hips to toes and ambulatory dysfunction.
PMH includes: Anxiety/depression, bipolar, ADHD, prior UTIs/pyelonephritis, chronic back pain on oxycodone and gabapentin and T1DM.
Patient follows with Tej HOOVER for routine Diabetes care. Prior to admission was taking Basaglar 36 units @ hs with NovoLog 5 units AC.
A1C on admission 11.3%, improved from 15% in 03/2024. Cr 0.5, eGFR >60.
Patient is awake alert and oriented able to discuss diabetes management
Patient is currently on IV Steroids- Dexa 2mg Q6hrs, contributing to Hyperglycemia.
Received 36 units Lantus @ hs, FBG 439 V, 403 POC. NovoLog 11 units was administered at breakfast, pre-lunch glucose is 230.
Will increase AC NovoLog to 10 units and Lantus to 40 units.
Anticipate higher insulin requirements while on steroids. Cont low corrective with meals
Will cont to follow.
Diabetes History
- -
Type of Diabetes: 1
Pre-Admission Diabetes Regimen
08/04/24 08/05/24
15:01 07:55
Creatinine 0.5 L 0.5 L
Lab Results
Hemoglobin A1c 11.3 % (4.0-5.6) H 08/04/24 18:28
Insulin Pump Settings
IP Diabetes Regimen
08/04/24 08/04/24 08/05/24
15:01 21:50 07:40
Glucose 284 H
POC Glucose 205 H 403 H
08/05/24 08/05/24 08/05/24
07:55 07:55 12:21
Glucose 439 H Cancelled
POC Glucose 230 H
Meal type: Breakfast
Amount consumed: 0
Patient Education
[2024-08-05] MEDS: NOVOLOG FLEXPEN SC (12:46)
[2024-08-05] MEDS: NOVOLOG FLEXPEN-LOW RESISTANCE 2 UNITS SC ×2 (13:57→18:41)
[2024-08-05] MEDS: NOVOLOG FLEXPEN 10 UNITS SC ×2 (13:58→18:40)
--- NOTE | 2024-08-05 14:36 | CM ---
Patient seen at bedside with physicians. Patient stated that she lives with her boyfriend and alternatively with her mother. Patient previously indicated that she lives with her parents and sister in a two story townhouse with 7 steps to enter
home. Pt stated that she is independent with her Blood glucuos management. Pt reports no history of homecare or SNF and does not anticipate any needs on dc. Patient uses the [facility] in [place] and Dr. Duncan is her PCP. CM to follow and watch
for needs.
Plan; home with no needs
[2024-08-05 15:00] VITALS: BP 117/77
[2024-08-05] MEDS: TYLENOL 650 MG PO ×2 (15:22→20:08)
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
[2024-08-05] MEDS: LOVENOX 40 MG SC (17:16)
[2024-08-05 17:17] LABS: Glucose - Point of Care 232 mg/dl (70-99)
[2024-08-05] MEDS: REMERON 7.5 MG PO (21:49)
[2024-08-05 22:34] LABS: Glucose - Point of Care 387 mg/dl (70-99)
[2024-08-05] MEDS: LANTUS 0.4 UNITS SC (22:36)
[2024-08-05 23:26] VITALS: BP 110/66
[2024-08-06] MEDS: TYLENOL 650 MG PO ×6 (00:59→23:14)
[2024-08-06] MEDS: DILAUDID 0.25 MG IV ×5 (01:00→21:37)
[2024-08-06] MEDS: DECADRON 2 MG IV (05:00)
[2024-08-06 07:00] VITALS: BP 135/89
[2024-08-06 07:30] LABS: Glucose - Point of Care 400 mg/dl (70-99)
[2024-08-06] MEDS: NOVOLOG FLEXPEN 10 UNITS SC (07:34)
[2024-08-06] MEDS: NOVOLOG FLEXPEN-LOW RESISTANCE 6 UNITS SC (07:34)
[2024-08-06] MEDS: NEURONTIN 800 MG PO ×3 (07:35→21:37)
[2024-08-06] MEDS: TRILEPTAL 150 MG PO ×2 (07:35→20:14)
[2024-08-06] MEDS: ATARAX 50 MG PO ×2 (07:35→20:14)
--- NOTE | 2024-08-06 07:35 | PTCARENOTE ---
08/06- Patient c/o severe pain beginning in buttox and BL hips that radiate down BL LE but not into feet. Patient describes pain as sharp, shooting and stabbing at 10/10. Educated patient on types of diagnostics we've done so far, but Physician
must discuss results. Patient asks if we scanned her hips and buttox area. Advised I will notify Physicians to discuss further diagnostics. She verbalized understanding. Administered pain medication and will keep up with PRN pain medication as
ordered. Gave warm compress for lower back/buttox. Notified Physicians of patient's questions.
[2024-08-06] MEDS: LEXAPRO 10 MG PO (07:37)
[2024-08-06] MEDS: ABILIFY 10 MG PO (07:37)
--- NOTE | 2024-08-06 08:11 | PN.DE.MGMTRT ---
Addendum entered and electronically signed by ANDREW Edwards 08/06/24 12:10:
IV Steroids- Dexa 2mg Q6hrs, have been discontinued.
Will STOP AM Lantus dose and reduce HS dose to 40 units. Cont AC NovoLog 14 units and low corrective with meals
Will closely monitor glucose trend and further adjust insulin dose if necessary.
Anticipate lower insulin requirements since steroids have been discontinued. Cont low corrective with meals
Will cont to follow.
Original Note:
Insulin Management
- -
08/06/2024: Diabetes Management Follow up
24 year old female who presented to the ED for evaluation of BLE pain from hips to toes and ambulatory dysfunction.
PMH includes: Anxiety/depression, bipolar, ADHD, prior UTIs/pyelonephritis, chronic back pain on oxycodone and gabapentin and T1DM.
Patient follows with Tej HOOVER for routine Diabetes care, was last seen in may, states her next appt is in November.
Prior to admission was taking Basaglar 36 units @ hs with NovoLog 5 units AC. Current A1C 11.3%, improved from 15% in 03/2024. Cr 0.5, eGFR >60.
Patient awake, alert and oriented, sitting up in bed, offers no complaint, able to discuss diabetes management
Patient remains on IV Steroids- Dexa 2mg Q6hrs, contributing to Hyperglycemia.
Received 40 units Lantus @ hs, FBG 400 POC, venous pending.
Premeal glucose yesterday was 230 to 403, requiring 2-6 units of additional corrective insulin
Will add AM Lantus dose of 20 units and increase HS dose to 45 units and AC NovoLog to 14 units. Cont corrective with meals
Anticipate higher insulin requirements while on steroids. Cont low corrective with meals
Will cont to follow.
Diabetes History
- -
Type of Diabetes: 1
Pre-Admission Diabetes Regimen
08/05/24
07:55
Creatinine 0.5 L
Lab Results
Hemoglobin A1c 11.3 % (4.0-5.6) H 08/04/24 18:28
Insulin Pump Settings
IP Diabetes Regimen
08/05/24 08/05/24 08/05/24
07:55 07:55 12:21
Glucose 439 H Cancelled
POC Glucose 230 H
08/05/24 08/05/24 08/06/24
17:16 22:33 07:27
Glucose
POC Glucose 232 H 387 H 400 H
Meal type: Lunch
Meal type: Breakfast
Amount consumed: 100%
Amount consumed: 0
Patient Education
[2024-08-06 08:41] LABS: % Basophils 0.4 % (0-2); % Eosinophils 0.2 % (0-6); % Immature Granulocytes 0.2 % (0-0.5); % Lymphocytes 21.8 % (20.5-51.1); % Monocytes 3.1 % (1.7-9.3); % Neutrophils 74.3 % (42.2-75.2); Absolute Lymphocytes 1.2 10^3/uL (1.2-3.4); Absolute Monocytes 0.2 10^3/uL (0.1-0.6); Hematocrit 33.9 % (37.0-47.0); Hemoglobin 11.8 g/dL (12.0-16.0); Mean Corp Hgb Conc. 34.8 g/dL (33.0-37.0); Mean Corpuscular Hgb 27.1 pg (27.0-31.0); Mean Corpuscular Volume 77.9 fL (81.0-99.0); Nucleated Red Blood Cells % 0 %; Platelet Count 399 10^3/uL (130-400); Red Blood Cell Count 4.35 10^6/uL (4.20-5.40); Red Cell Dist. Width 12.8 % (11.5-14.5); White Blood Cell Count 5.4 10^3/uL (4.8-10.8)
[2024-08-06 08:55] LABS: Glucose 436 mg/dl (70-99)
[2024-08-06] MEDS: LANTUS 0.2 UNITS SC (09:21)
[2024-08-06 09:23] LABS: ALT (SGPT) 13 U/L (0-35); AST (SGOT) 14 U/L (14-36); Albumin 3.4 g/dl (3.5-5.0); Alkaline Phosphatase 126 U/L (38-126); Blood Urea Nitrogen 15 mg/dl (7-17); Calcium 9.1 mg/dl (8.4-10.2); Carbon Dioxide 22 mmol/L (22-30); Chloride 105 mmol/L (98-107); Estimated Creatinine Clearance > 125 ml/min; Glucose 440 mg/dl (70-99); Potassium 4.1 mmol/L (3.5-5.1); Sodium 136 mmol/L (135-145); Total Bilirubin 0.3 mg/dl (0.2-1.3); Total Protein 6.1 g/dl (6.3-8.2); eGFR > 60.00
--- NOTE | 2024-08-06 10:28 | CM ---
Patient seen at bedside with physicians. Patient complaining of pain and physician reviewed plan. Patient for further testing and plan eventually will be to go home with boyfriend as his home is a one story home and better for access. Patient may
benefit from VN pending therapy recommendations. CM will continue to follow for discharge planning needs.
Plan; home with VN vs SNF
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
[2024-08-06] MEDS: VITAMIN B-12 250 MCG PO (11:25)
[2024-08-06] MEDS: STERILE WATER FOR INJECTION 10 ML IV (11:26)
[2024-08-06] MEDS: ROCEPHIN 1000 MG IV (11:26)
[2024-08-06] MEDS: TYLENOL PO (11:26)
[2024-08-06] MEDS: TORADOL 10 MG PO (11:28)
[2024-08-06 11:39] LABS: Glucose - Point of Care 288 mg/dl (70-99)
[2024-08-06] MEDS: NOVOLOG FLEXPEN 14 UNITS SC ×2 (11:43→16:55)
[2024-08-06] MEDS: NOVOLOG FLEXPEN-LOW RESISTANCE 3 UNITS SC (11:44)
[2024-08-06] MEDS: DILAUDID 2 MG PO ×2 (13:25→20:14)
--- NOTE | 2024-08-06 14:03 | W.PN.UPDATE ---
Update Note
Progress Note Update
patient seen chart reviewed. saw patient this am and also returned this afternoon for some followup. mother at bedside. patient was upset with neuro whom she said told her she was being discharged. patient still in considerable amount of discomfort
with leg pain and workup continues. she is set for mri brain and cervical spine today. i told her it was not my impression that she was leaving and that i would speak with dr richardson and clarify what i going to happen today which i was able to do
upon my return in the afternoon. reassured her that dr richardson had ordered studies and wanted to work on her pain before committing to ncs and possibly emg in the afternoon we addressed how hard it is for her to continue to function in the face
of her debility. she feels she needs to continue to work as work is where she derives self satisfaction. it is a social outlet for her as well as provides her with money of course we also talked about how hard it is to be heard when you have a
psychiatric illness as well. she has felt for a long time that her providers may not have taken her seriously. she is talking to her therapist intermittently by phone and takes some comfort in that. will continue to follow and offer support.
debra is making some changes in pain meds. no changes made in psych meds at this point.
[2024-08-06 15:05] VITALS: BP 148/87
[2024-08-06] MEDS: LOVENOX 40 MG SC (16:32)
[2024-08-06 16:54] LABS: Glucose - Point of Care 223 mg/dl (70-99)
[2024-08-06] MEDS: NOVOLOG FLEXPEN-LOW RESISTANCE 2 UNITS SC (16:55)
--- NOTE | 2024-08-06 17:29 | W.PN.HOSP.TC ---
Addendum entered and electronically signed by Divina Membreno MD 08/06/24 17:47:
I saw and evaluated the patient independently. I reviewed the resident�s note and agree with findings and plan as documented by Dr. Prasad.
GENERAL: well developed, well nourished, female tearful and crying
HEENT: NC/AT--pale appearing
HEART: regular rate and rhythm, +S1, +S2, tachycardic
LUNGS : clear to auscultation bilaterally
ABDOM: soft, nontender, nondistended, + bowel sounds
EXT: no cyanosis, clubbing, or edema
NEUROLOGIC: strength 5/5 bilateral arms--left leg (exquisitely painful just with light touch) strength 1/5, right leg (same pain with light touch) strength 2/5---very limited due to pain--no atrophy of muscles noted
SKIN: multiple scratches on bilateral arms (from new puppy)
Bilateral lower extremity pain (hips to toes)--peripheral neuropathy, inflammatory myopathy, RSD, fibromyalgia, MS leading theories--CRP/CPK/TSH, B12 low, started repletion, HbA1c =11.3, YON, RF pending--apprec neuro--PT/OT-- MRI C/T/L/S spine
WNL--consider EMG/NCS--ESR 44--no improvement with decadron 2 mg IV Q6H, will stop--Continue gabapentin--pt crying in pain--IV dilaudid x 1 helped 'somewhat'--changing to oral dilaudid--
Tachycardia--possibly due to pain--NSS x 1L
Insulin dependent diabetes mellitus type 1--uncontrolled glucose, HGB A1C = 11.3--Glucose is 284 on admission--Urine glucose is 4+--cont home insulin with accuchecks and SSI--apprec DM CORPORATE TRAVEL MANAGER--apprec adjustments with insulin
Anxiety/depression/bipolar/conversion disorder--Continue on aripiprazole, atomoxetine, Lexapro, mirtazapine, oxcarbazepine--IF NO organic reason found on work up, psych cause must be considered--apprec psych
E. coli UTI (2 types)--change rocephin to ancef based on sensitivities
DVT proph--Lovenox
Full code
Original Note:
Today's Communication/Plan
-
- f/u with psych and neuro
- consider possibility of EMG testing
Assessment / Plan
Assessment / Plan
Bilateral lower extremity pain
Elevated ESR:
- MRI cervical spine and brain normal. However on brain MRi there is possible pituitary microadenoma. Follow up mri with dedicated pituitary protocol is recommended.
- Will consider EMG now as MRI are normal.
- CRP (normal), YON pending, RF pending, CPK (normal) , TSH (normal), B12 (226 low)
- Neurology was consulted and is following
- Will order a lumbar spine and thoracic spine MRI to rule out causes of nerve compression, spinal cord pathology, anatomic causes
- Her lumbar spine x ray, peripheral vascular ultrasound, and pelvic ultrasound were all unremarkable
- PT OT is following
- Continue gabapentin for the pain, added oral Dilaudid 2 mg q6h PO and IV Dilaudid .25 mg for breakthrough to help better manage pain
- discontinued the steroids as they were not helping to treat the pain and have the side effect of hyperglycemia.
- discontinued fluids
Tachycardia:
- today 102 bpm, suspect that it is due to pain due to patient's clinical picture and we will continue to observe heart rate
Insulin-dependent diabetes mellitus type 1:
-Glucose is 436 today which indicates an elevated blood glucose level
- Urine glucose is 4+ which indicates uncontrolled diabetes mellitus type 1
- Hemoglobin a1c is 11.3% which indicates necessity for adjusting insulin medication
- Changed patients insulin regime (Lantus 40 units and novolog 14) and adjust with sliding scale insulin
- Start patient on 2000-calorie diabetic diet to help control of elevated blood glucose levels
- Daily Accu-Cheks to monitor the blood glucose levels and make sure they are within appropriate range
- diabetes mellitus CORPORATE TRAVEL MANAGER follwing this patient
Low vitamin b12:
- suspect due to diabetes
- vitamin b12 level is 226 and decreased
- Ordered vitamin b12 oral 250 mcg oral
Anxiety/depression/bipolar:
- Continue on aripiprazole, atomoxetine, Lexapro, mirtazapine, oxcarbazepine
Sterile pyuria:
- On urine analysis there are more than 100 urine WBCs but urine nitrates are negative
- Urine cultures ordered and show gram negative bacilli
- continue IV ceftriaxone 1 gm q24 as this covers gram negative bacilli
DVT prophylaxis Lovenox
Full code
Anticipated Discharge: 24 - 48 hours
Subjective/Interval History
-
Date of Service: August 06, 2024
patient is grimacing in pain and states it has gotten worse as compared to previous days.
Objective Data
-
Labs:
Laboratory Results
08/06/24 08/06/24
08:19 08:19
WBC 5.4
Hgb 11.8 L
Hct 33.9 L
Plt Count 399
Sodium 136
Potassium 4.1
Chloride 105
Carbon Dioxide 22
BUN 15
Creatinine 0.5 L
Glucose 440 H 436 H
Calcium 9.1
Total Bilirubin 0.3
AST 14
ALT 13
Alkaline Phosphatase 126
Vital Signs:
Vital Signs
Temp Pulse Resp BP Pulse Ox
98.6 F 102 16 148/87 99
08/06/24 15:05 08/06/24 15:05 08/06/24 15:05 08/06/24 15:05 08/06/24 15:05
I&O
08/05/24 08/06/24 08/07/24
06:59 06:59 06:59
Intake Total 1000 / 1000 720 / 720 480 / 480
Balance 1000 / 1000 720 / 720 480 / 480
Review of Systems
-
History Source: Patient
Constitutional: Reports No Symptoms
Respiratory: Reports No Symptoms
Cardiac: Reports No Symptoms
Abdomen/GI: Reports No Symptoms
Genitourinary: Reports No Symptoms
Musculoskeletal: Reports Muscle Pain (severe bilateral lower extremity pain)
Neuro: Reports No Symptoms
Physical Exam
-
General: Well Developed, Well Nourished and Comfortable
Respiratory: Clear to Auscultation
Cardiac: Regular Rhythm and S1/S2
GI: Soft, Nontender, Nondistended and Normal Bowel Sounds
Musculoskeletal: No Clubbing, No Cyanosis, No Edema and Other (tenderness to light touch along the entire length of bilateral lower extremities)
Neuro: Awake, Alert, Oriented, AO x 3 and Other (Decreased strength 1/5 in lower bilateral extremities, normal tone, reflexes normal)
Data Reviewed
-
Labs: Labs Reviewed by me and Discussed with Physician
--- NOTE | 2024-08-06 17:34 | PTCARENOTE ---
08/06- Patient states the warm compresses on her lower back and hips are effective for the pain plus the pain medication. However when she attempts to move, her sacral spine and hips have shooting stabbing pains. She is able to stand and walk
steadily but slowly with a walker with one-person assist.
[2024-08-06] MEDS: ANCEF 5 IV (20:13)
[2024-08-06] MEDS: REMERON 7.5 MG PO (21:38)
[2024-08-06 22:48] LABS: Glucose - Point of Care 89 mg/dl (70-99)
[2024-08-06 23:03] VITALS: BP 116/65
[2024-08-06] MEDS: LANTUS 0.4 UNITS SC (23:14)
[2024-08-07] MEDS: TORADOL 10 MG PO ×2 (00:48→13:57)
[2024-08-07 00:56] LABS: ANA, IgG Reflex to HEp-2 None Detected (None Detected)
[2024-08-07] MEDS: DILAUDID 0.25 MG IV ×4 (01:38→17:54)
[2024-08-07 03:17] LABS: Glucose - Point of Care 103 mg/dl (70-99)
[2024-08-07] MEDS: TYLENOL PO ×2 (05:00→16:24)
[2024-08-07] MEDS: ANCEF 5 IV ×3 (05:00→20:41)
[2024-08-07 07:25] VITALS: BP 156/95
[2024-08-07 07:27] LABS: Glucose - Point of Care 214 mg/dl (70-99)
[2024-08-07] MEDS: NOVOLOG FLEXPEN 14 UNITS SC ×2 (07:47→12:58)
[2024-08-07] MEDS: NOVOLOG FLEXPEN-LOW RESISTANCE 2 UNITS SC (07:47)
[2024-08-07] MEDS: LANTUS 0.2 UNITS SC (07:48)
[2024-08-07] MEDS: ABILIFY 10 MG PO (07:48)
[2024-08-07] MEDS: NEURONTIN 800 MG PO ×3 (07:48→21:44)
[2024-08-07] MEDS: VITAMIN B-12 250 MCG PO (07:49)
[2024-08-07] MEDS: LEXAPRO 10 MG PO (07:50)
[2024-08-07] MEDS: TYLENOL 650 MG PO ×3 (07:50→20:39)
[2024-08-07] MEDS: TRILEPTAL 150 MG PO (07:50)
[2024-08-07] MEDS: ATARAX 50 MG PO (07:50)
[2024-08-07] MEDS: DILAUDID 2 MG PO ×2 (07:52→20:39)
[2024-08-07 09:11] LABS: Hematocrit 31.9 % (37.0-47.0); Hemoglobin 10.9 g/dL (12.0-16.0); Mean Corp Hgb Conc. 34.2 g/dL (33.0-37.0); Mean Corpuscular Hgb 26.7 pg (27.0-31.0); Mean Platelet Volume 8.9 fL (7.4-10.4); Platelet Count 394 10^3/uL (130-400); Red Blood Cell Count 4.09 10^6/uL (4.20-5.40); Red Cell Dist. Width 12.8 % (11.5-14.5); White Blood Cell Count 6.6 10^3/uL (4.8-10.8)
[2024-08-07 09:35] LABS: Blood Urea Nitrogen 12 mg/dl (7-17); Calcium 8.9 mg/dl (8.4-10.2); Carbon Dioxide 27 mmol/L (22-30); Chloride 103 mmol/L (98-107); Estimated Creatinine Clearance > 125 ml/min; Glucose 218 mg/dl (70-99); Potassium 3.5 mmol/L (3.5-5.1); Sodium 137 mmol/L (135-145); eGFR > 60.00
[2024-08-07 10:28] LABS: SSA 52 (Ro)(ENA) Ab, IgG 3 AU/mL (0-40); SSA 60 (Ro)(ENA) Ab, IgG 0 AU/mL (0-40); SSB (La)(ENA) Ab, IgG 0 AU/mL (0-40)
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
[2024-08-07 12:46] LABS: Glucose - Point of Care 83 mg/dl (70-99)
[2024-08-07] MEDS: NOVOLOG FLEXPEN-LOW RESISTANCE SC ×2 (12:58→16:24)
[2024-08-07] MEDS: LOVENOX SC (13:00)
--- NOTE | 2024-08-07 14:18 | W.PN.HOSP.TC ---
Addendum entered and electronically signed by Divina Membreno MD 08/07/24 17:08:
I saw and evaluated the patient independently. I reviewed the resident�s note and agree with findings and plan as documented by Dr. Prasad.
GENERAL: well developed, well nourished, female
HEENT: NC/AT--pale appearing
HEART: regular rate and rhythm, +S1, +S2, tachycardic
LUNGS : clear to auscultation bilaterally
ABDOM: soft, nontender, nondistended, + bowel sounds
EXT: no cyanosis, clubbing, or edema
NEUROLOGIC: strength 5/5 bilateral arms--left leg (exquisitely painful just with light touch) strength 1/5, right leg (same pain with light touch) strength 2/5---very limited due to pain--no atrophy of muscles noted
SKIN: multiple scratches on bilateral arms (from new puppy)
Bilateral lower extremity pain (hips to toes)--peripheral neuropathy, RSD, fibromyalgia now leading theories--CRP/CPK/TSH negative, B12 low- started repletion, HbA1c =11.3, YON, RF pending--apprec neuro--PT/OT-- MRI C/T/L/S spine WNL-- EMG/NCS
Friday--ESR 44--no improvement with decadron 2 mg IV Q6H, will stop--Continue gabapentin--IV dilaudid x 1 helped 'somewhat'--changing to oral dilaudid with IV as breakthru--may need outpt pain management
Tachycardia--possibly due to pain
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
Anxiety/depression/bipolar/conversion disorder--adjustments of aripiprazole, atomoxetine, Lexapro, mirtazapine, oxcarbazepine as per psych--IF NO organic reason found on work up, psych cause must be considered--apprec psych
E. coli UTI (2 types)--change rocephin to ancef based on sensitivities--finish treatment
DVT proph--Lovenox
Full code
Original Note:
Today's Communication/Plan
-
- follow up EMG on friday
Assessment / Plan
Assessment / Plan
Bilateral lower extremity pain
Elevated ESR:
- Continue gabapentin for the pain, added oral Dilaudid 2 mg q6h PO and IV Dilaudid .25 mg for breakthrough to help better manage pain
- Ordered EMG on Friday now as MRI of cervical spine and brain are unremarkable. On brain MRI there is a possibility of pituitary adenoma so further imaging outpatient.
- CRP (normal), YON none, RF pending, CPK (normal) , TSH (normal), B12 (226 low)
- Neurology was consulted and is following
- Will order a lumbar spine and thoracic spine MRI to rule out causes of nerve compression, spinal cord pathology, anatomic causes
- Her lumbar spine x ray, peripheral vascular ultrasound, and pelvic ultrasound were all unremarkable on admission
- PT OT is following
- discontinued the steroids as they were not helping to treat the pain and have the side effect of hyperglycemia.
- discontinued fluids
- Will consider referral to outpatient pain after discharge for more specialized pain management
Presumed iron deficiency Anemia:
- Hgb is 10.9 and mcv is 78.0.
- No palpitations, fatigue, pallor, dizziness.
- Ordered iron studies ( iron, tibc, ferritin) and folate.
Tachycardia:
- today 96 bpm, suspect that it is due to pain due to patient's clinical picture and we will continue to observe heart rate
Insulin-dependent diabetes mellitus type 1:
- Glucose is 218 today and well controlled. yesterday it was 436.
- Diabetes mellitus INTER FOLD ROLL CUTTER following this patient
- Changed patients insulin regime (Lantus 40 units and NovoLog 14) and adjust with sliding scale insulin
- Hemoglobin a1c is 11.3% which indicates necessity for adjusting insulin medication
- Start patient on 2000-calorie diabetic diet to help control of elevated blood glucose levels
- Daily Accu-Cheks to monitor the blood glucose levels and make sure they are within appropriate range
- Urine glucose is 4+ on admission which indicates uncontrolled diabetes mellitus type 1
Low vitamin b12:
- suspect due to diabetes
- Last vitamin b12 level is 226 and decreased
- continue vitamin b12 250 mcg oral
Anxiety/depression/bipolar:
- Psychiatry is following
- Continue on aripiprazole, atomoxetine, Lexapro, mirtazapine,
- D/c'd hydroxyzine, oxcarbazepine,and will reduce Abilify from 10 mg to 5 mg as per psych recc
Sterile pyuria:
- On urine analysis there are more than 100 urine WBCs but urine nitrates are negative
- Urine cultures ordered and show gram negative bacilli
- IV ceftriaxone 1 gm q24 was changed to IV Ancef due to better culture sensitivities, continue IV Ancef
DVT prophylaxis Lovenox
Full code
Anticipated Discharge: 24 - 48 hours
Subjective/Interval History
-
Date of Service: August 07, 2024
patient is grimacing in pain and states lower bilateral leg pain has gotten worse as compared to previous days.
Objective Data
-
Labs:
Laboratory Results
08/07/24
08:22
WBC 6.6
Hgb 10.9 L
Hct 31.9 L
Plt Count 394
Sodium 137
Potassium 3.5
Chloride 103
Carbon Dioxide 27
BUN 12
Creatinine 0.6
Glucose 218 H
Calcium 8.9
Vital Signs:
Vital Signs
Temp Pulse Resp BP Pulse Ox
98.2 F 96 20 156/95 99
08/07/24 07:25 08/07/24 07:25 08/07/24 07:25 08/07/24 07:25 04/26/25 07:35
I&O
08/06/24 08/07/24 08/08/24
06:59 06:59 06:59
Intake Total 720 / 720 1440 / 1440
Balance 720 / 720 1440 / 1440
Review of Systems
-
History Source: Patient
Constitutional: Reports No Symptoms
Respiratory: Reports No Symptoms
Cardiac: Reports No Symptoms
Abdomen/GI: Reports No Symptoms
Genitourinary: Reports No Symptoms
Musculoskeletal: Reports Muscle Pain (severe bilateral lower extremity pain)
Neuro: Reports No Symptoms
Physical Exam
-
General: Well Developed, Well Nourished and Comfortable
Respiratory: Clear to Auscultation
Cardiac: Regular Rhythm and S1/S2
GI: Soft, Nontender, Nondistended and Normal Bowel Sounds
Musculoskeletal: No Clubbing, No Cyanosis, No Edema and Other (tenderness to light touch along the entire length of bilateral lower extremities)
Neuro: Awake, Alert, Oriented, AO x 3 and Other (Decreased strength 1/5 in lower bilateral extremities, normal tone, reflexes normal)
Data Reviewed
-
Labs: Labs Reviewed by me and Discussed with Physician
[2024-08-07 15:00] VITALS: BP 131/78
[2024-08-07 15:42] LABS: Glucose - Point of Care 60 mg/dl (70-99)
[2024-08-07 15:47] LABS: Myeloperoxidase Antibody 0 AU/mL (0-19); Serine Protease-3, IgG 0 AU/mL (0-19)
[2024-08-07 16:20] LABS: Glucose - Point of Care 79 mg/dl (70-99)
[2024-08-07] MEDS: NOVOLOG FLEXPEN SC (16:29)
[2024-08-07] MEDS: COLACE 100 MG PO (16:30)
[2024-08-07 17:08] LABS: Glucose - Point of Care 112 mg/dl (70-99)
[2024-08-07 21:38] LABS: Glucose - Point of Care 84 mg/dl (70-99)
[2024-08-07] MEDS: REMERON 7.5 MG PO (21:44)
[2024-08-07] MEDS: LANTUS 0.4 UNITS SC (21:51)
[2024-08-07 22:32] VITALS: BP 127/79
[2024-08-08] MEDS: DILAUDID 0.25 MG IV ×4 (00:07→19:32)
[2024-08-08] MEDS: FLUSH (NSS) 1 FLUSH IV (00:08)
[2024-08-08] MEDS: TYLENOL PO ×6 (00:09→19:50)
[2024-08-08] MEDS: ANCEF 5 IV ×3 (04:39→19:34)
[2024-08-08] MEDS: LANTUS 0.2 UNITS SC (07:27)
[2024-08-08] MEDS: NOVOLOG FLEXPEN-LOW RESISTANCE SC ×3 (07:27→17:16)
[2024-08-08] MEDS: VITAMIN B-12 250 MCG PO (07:28)
[2024-08-08] MEDS: NOVOLOG FLEXPEN 14 UNITS SC (07:28)
[2024-08-08] MEDS: LEXAPRO 10 MG PO (07:29)
[2024-08-08] MEDS: NEURONTIN 800 MG PO ×3 (07:29→22:18)
[2024-08-08] MEDS: ABILIFY 5 MG PO (07:29)
[2024-08-08 07:30] VITALS: BP 145/93
[2024-08-08] MEDS: LOVENOX SC (07:30)
[2024-08-08 07:36] LABS: Glucose - Point of Care 207 mg/dl (70-99)
[2024-08-08 08:42] LABS: Hematocrit 33.2 % (37.0-47.0); Hemoglobin 11.5 g/dL (12.0-16.0); Mean Corp Hgb Conc. 34.6 g/dL (33.0-37.0); Mean Corpuscular Hgb 26.9 pg (27.0-31.0); Mean Corpuscular Volume 77.6 fL (81.0-99.0); Mean Platelet Volume 8.4 fL (7.4-10.4); Platelet Count 377 10^3/uL (130-400); Red Blood Cell Count 4.28 10^6/uL (4.20-5.40); White Blood Cell Count 8.2 10^3/uL (4.8-10.8)
[2024-08-08 09:04] LABS: Blood Urea Nitrogen 13 mg/dl (7-17); Carbon Dioxide 27 mmol/L (22-30); Chloride 103 mmol/L (98-107); Estimated Creatinine Clearance > 125 ml/min; Glucose 241 mg/dl (70-99); Sodium 137 mmol/L (135-145); eGFR > 60.00
[2024-08-08] MEDS: TORADOL 10 MG PO (09:44)
--- NOTE | 2024-08-08 10:59 | W.PN.HOSP.TC ---
Today's Communication/Plan
-
- Follow up EMG on Friday
- Continue to manage pain
Assessment / Plan
Assessment / Plan
Bilateral lower extremity pain
Elevated ESR:
- Continue gabapentin for the pain, added oral Dilaudid 2 mg q6h PO and IV Dilaudid .25 mg for breakthrough to help better manage pain
- Ordered EMG on Friday now as MRI of cervical spine , lumbar, thoracic, sacral, brain are unremarkable. On brain MRI there is a possibility of pituitary adenoma so further imaging outpatient.
- CRP (normal), YON none, RF pending, CPK (normal) , TSH (normal), B12 (226 low)
- Neurology was consulted and is following
- Her lumbar spine x ray, peripheral vascular ultrasound, and pelvic ultrasound were all unremarkable on admission
- PT OT is following
- discontinued the steroids as they were not helping to treat the pain and have the side effect of hyperglycemia.
- discontinued fluids
- Will consider referral to outpatient pain after discharge for more specialized pain management
Presumed iron deficiency Anemia:
- Hgb is 11.5 and mcv is 78.0.
- No palpitations, fatigue, pallor, dizziness.
- Ordered iron studies ( iron, tibc, ferritin) and folate.
Tachycardia:
- today 96 bpm, suspect that it is due to pain due to patient's clinical picture and we will continue to observe heart rate
Insulin-dependent diabetes mellitus type 1:
- Glucose is 241 today and well controlled trending down from 436
- Diabetes mellitus MANUAL ARTS THERAPIST following this patient
- Changed patients insulin regime (Lantus 40 units and NovoLog 14) and adjust with sliding scale insulin
- Hemoglobin a1c is 11.3% which indicates necessity for adjusting insulin medication
- Start patient on 2000-calorie diabetic diet to help control of elevated blood glucose levels
- Daily Accu-Cheks to monitor the blood glucose levels and make sure they are within appropriate range
- Urine glucose is 4+ on admission which indicates uncontrolled diabetes mellitus type 1
Low vitamin b12:
- suspect due to diabetes
- Last vitamin b12 level is 226 and decreased
- continue vitamin b12 250 mcg oral
Anxiety/depression/bipolar:
- Psychiatry is following
- Continue on aripiprazole, atomoxetine, Lexapro, mirtazapine,
- D/c'd hydroxyzine, oxcarbazepine,and will reduce Abilify from 10 mg to 5 mg as per psych recc
Sterile pyuria:
- On urine analysis there are more than 100 urine WBCs but urine nitrates are negative
- Urine cultures ordered and show gram negative bacilli
- IV ceftriaxone 1 gm q24 was changed to IV Ancef due to better culture sensitivities, continue IV Ancef
DVT prophylaxis Lovenox
Full code
Anticipated Discharge: 24 - 48 hours
Subjective/Interval History
-
Date of Service: August 08, 2024
Patient has no acute medical complaints. Pain is better controlled on the medication.
Objective Data
-
Labs:
Laboratory Results
08/08/24
08:34
WBC 8.2
Hgb 11.5 L
Hct 33.2 L
Plt Count 377
Sodium 137
Potassium 4.0
Chloride 103
Carbon Dioxide 27
BUN 13
Creatinine 0.5 L
Glucose 241 H
Calcium 9.0
Vital Signs:
Vital Signs
Temp Pulse Resp BP Pulse Ox
98.4 F 101 20 145/93 99
08/08/24 07:30 08/08/24 07:30 08/08/24 07:30 08/08/24 07:30 08/08/24 07:30
I&O
08/07/24 08/08/24 08/09/24
06:59 06:59 06:59
Intake Total 1440 / 1440 720 / 720
Balance 1440 / 1440 720 / 720
Review of Systems
-
History Source: Patient
All other systems: Reviewed and negative
Musculoskeletal: Reports Muscle Pain (severe B/L lower extremities pain)
Physical Exam
-
General: Well Developed, Well Nourished and Comfortable
Respiratory: Clear to Auscultation
Cardiac: Regular Rhythm and S1/S2
GI: Soft, Nontender, Nondistended and Normal Bowel Sounds
Musculoskeletal: No Clubbing, No Cyanosis, No Edema and Other (tenderness to light touch along the entire length of bilateral lower extremities)
Neuro: Awake, Alert, Oriented, AO x 3 and Other (Decreased strength 1/5 in lower bilateral extremities, normal tone, reflexes normal)
Data Reviewed
-
Labs: Labs Reviewed by me and Discussed with Physician
[2024-08-08] MEDS: ATIVAN 1 MG PO (11:28)
--- NOTE | 2024-08-08 11:30 | PTCARENOTE ---
08/08- Patient agitated, crying out in pain, witnessed by Psychiatry. Patient states pelvic pain radiating down BL LE through ankles is 10/10 stabbing, sharp and shooting. Therapeutic conversation; diversion; warm compresses and medication orders
all administered. See further orders.
[2024-08-08] MEDS: DILAUDID 2 MG PO ×2 (11:35→23:39)
[2024-08-08] MEDS: NOVOLOG FLEXPEN SC (11:37)
--- NOTE | 2024-08-08 11:37 | W.PN.UPDATE ---
Update Note
Progress Note Update
I saw and evaluated the patient. I reviewed the resident�s note and agree with findings and plan as documented in the resident�s note.
Pt seen and examine with RN Dorita Freedman present at bedside:
Gen: NAD, AAOx3.
Eyes: EOMI, PERRLA, no scleral icterus.
Neck: supple.
CV: RRR, +S1/S2, no m/r/g.
Resp: CTAB, no rales, wheezes, or rhonchi.
Abd: +BS, soft, NT, ND
Skin: No rashes.
Neuro: CN 2-12 intact
Psych: Normal mood and affect.
Bilateral lower extremity pain (hips to toes):
-peripheral neuropathy, RSD, fibromyalgia now leading theories
-CRP/CPK/TSH negative
-B12 low- started repletion
-neuro saw in c/s
-MRI C/T/L/S spine normal
-EMG/NCS 08/09/24
-was on Decadron which was stopped as patient had no improvement
-continue Neurontin
-will not make any changes to as needed Dilaudid
Other problems:
Tachycardia, mild, possibly due to pain
DM1: a1c 11.3%, cont Lantus//SSI/accuchecks. Premeal Novolog has recently been held with hypoglycemia, will stop for now. Diabetes ANIMAL RIDES MANAGER following.
Anxiety/depression/bipolar/conversion disorder: adjustments of aripiprazole, atomoxetine, Lexapro, mirtazapine, oxcarbazepine as per psych. If no organic reason found on work up, psych cause must be considered, apprec psych
E. coli UTI (2 types): Cont Ancef for now
FULL/Lovenox
--- NOTE | 2024-08-08 11:50 | W.PN.UPDATE ---
Update Note
Progress Note Update
patient seen chart reviewed. spoke with nursing. when i initially spoke with francesca she was expressing a feeling of hopelessness that anyone would ever figure out what was going on with her but was very willing to cooperate with all testing that
would be ordered. emg is ordered and presumably will be done tomorrow. we talked about her struggle the tests which had been done. i left for a few minutes to check on the results of the immunological tests. when i returned she was screaming in
pain in both of her legs which continued in both legs for at least 30 minutes. attempted to get her to deep breathe, to focus on guided imagery exercises, asked her questions to allow her to focus elsewhere with little success. she was given
ativan one mg. the dilaudid 2 mg po. nursing remains with her at this point and i will be coming back to check on her later. i talked with her again about making changes to psych meds i do not feel psych meds are causing the pain but i do not
feel they are helping much either. we already dc'ed trileptal without ill effects. i would suggest cymbalta instead of lexapro as the next step but she does not want to make any psych med changes. she has appt with her own psych in september. we also
talked about her efforts to seek treatment with pain mgt specialists who have she said been very reluctant to treat her. would it be worth getting an abdominal/ pelvic mri? will follow
[2024-08-08 11:54] LABS: Glucose - Point of Care 157 mg/dl (70-99)
[2024-08-08 14:35] LABS: Glucose - Point of Care 125 mg/dl (70-99)
[2024-08-08 15:00] VITALS: BP 132/93
[2024-08-08 17:17] LABS: Glucose - Point of Care 96 mg/dl (70-99)
--- NOTE | 2024-08-08 18:00 | PTCARENOTE ---
08/08- Novolog 14u SQ has been D/Carlos. Patient is worried that her blood sugars will shoot up with Sliding Scale coverage alone. She says we finally found a good regimen for her. Her evening accucheck=96, so no Sliding Scale Coverage can be given
at this time. She'd have to eat dinner then not be covered with any short acting insulin until tomorrow morning. She does still however have her Lantus BID. She's worried she'll wake up hyperglycemic tomorrow. Calming tone and validating
conversation. Notified Physician.
[2024-08-08 20:56] LABS: Glucose - Point of Care 301 mg/dl (70-99)
[2024-08-08 21:29] LABS: Vitamin B6 Results 107.6 nmol/L (20.0-125.0)
--- NOTE | 2024-08-08 22:00 | PTCARENOTE ---
HS accucheck 301. Standing insulin orders have been dc'd. Patient is due for 40 units of Lantus. DATA CENTER PROJECT MANAGER notified of reading- No additional insulin coverage ordered at this time. Will reassess glucose level in the morning.
[2024-08-08] MEDS: REMERON 7.5 MG PO (22:18)
[2024-08-08] MEDS: LANTUS 0.4 UNITS SC (22:18)
[2024-08-08 23:08] VITALS: BP 145/92
[2024-08-09] MEDS: TYLENOL PO ×7 (01:31→23:42)
[2024-08-09 01:38] VITALS: BP 146/96
[2024-08-09] MEDS: DILAUDID 0.25 MG IV ×5 (01:38→21:39)
[2024-08-09] MEDS: ANCEF 5 IV ×3 (04:03→21:23)
[2024-08-09 07:04] LABS: Glucose - Point of Care 56 mg/dl (70-99)
[2024-08-09 07:30] LABS: Glucose - Point of Care 104 mg/dl (70-99)
[2024-08-09] MEDS: DILAUDID 2 MG PO ×2 (07:34→16:46)
[2024-08-09 07:35] VITALS: BP 142/101
[2024-08-09] MEDS: NEURONTIN 800 MG PO ×3 (07:46→21:23)
[2024-08-09] MEDS: VITAMIN B-12 250 MCG PO (07:47)
[2024-08-09] MEDS: ABILIFY 5 MG PO (07:48)
[2024-08-09] MEDS: LEXAPRO 10 MG PO (07:49)
[2024-08-09 08:23] LABS: Hematocrit 33.1 % (37.0-47.0); Hemoglobin 11.3 g/dL (12.0-16.0); Mean Corp Hgb Conc. 34.1 g/dL (33.0-37.0); Mean Corpuscular Hgb 26.9 pg (27.0-31.0); Mean Corpuscular Volume 78.8 fL (81.0-99.0); Mean Platelet Volume 8.8 fL (7.4-10.4); Platelet Count 390 10^3/uL (130-400); Red Cell Dist. Width 12.8 % (11.5-14.5); White Blood Cell Count 8.4 10^3/uL (4.8-10.8)
[2024-08-09] MEDS: NOVOLOG FLEXPEN-LOW RESISTANCE SC ×2 (08:35→18:39)
--- NOTE | 2024-08-09 08:40 | W.PN.HOSP.TC ---
Today's Communication/Plan
-
- Follow up EMG today
- Continue to manage pain
Assessment / Plan
Assessment / Plan
Bilateral lower extremity pain
Elevated ESR:
- Continue gabapentin for the pain, added oral Dilaudid 2 mg q6h PO and IV Dilaudid .25 mg for breakthrough to help better manage pain
- EMG today now as MRI of cervical spine , lumbar, thoracic, sacral, brain are unremarkable. On brain MRI there is a possibility of pituitary adenoma so further imaging outpatient.
- CRP (normal), YON none, RF pending, CPK (normal) , TSH (normal), B12 (226 low)
- Neurology was consulted and is following
- Her lumbar spine x ray, peripheral vascular ultrasound, and pelvic ultrasound were all unremarkable on admission
- PT OT is following
- discontinued the steroids as they were not helping to treat the pain and have the side effect of hyperglycemia.
- discontinued fluids
- Will consider referral to outpatient pain after discharge for more specialized pain management
Presumed iron deficiency Anemia:
- Hgb is 11.3 and mcv is 78.0.
- No palpitations, fatigue, pallor, dizziness.
- Ordered iron studies ( iron, tibc, ferritin) and folate.
Tachycardia:
- today 112 bpm, suspect that it is due to pain due to patient's clinical picture and we will continue to observe heart rate
Insulin-dependent diabetes mellitus type 1:
- Glucose is 56 today and after giving juice 104, changed Am Lantus dose to 16 from 20 units
- On sliding scale, and is on 60 units insulin glargine with sliding scale coverage
- Diabetes mellitus LUSTERER following this patient,
- Hemoglobin a1c is 11.3% which indicates necessity for adjusting insulin medication
- Start patient on 2000-calorie diabetic diet to help control of elevated blood glucose levels
- Daily Accu-Cheks to monitor the blood glucose levels and make sure they are within appropriate range
- Urine glucose is 4+ on admission which indicates uncontrolled diabetes mellitus type 1
Low vitamin b12:
- suspect due to diabetes
- Last vitamin b12 level is 226 and decreased
- continue vitamin b12 250 mcg oral
Anxiety/depression/bipolar:
- Psychiatry is following
- Continue on aripiprazole, atomoxetine, Lexapro, mirtazapine,
- D/c'd hydroxyzine, oxcarbazepine,and will reduce Abilify from 10 mg to 5 mg as per psych recc
Sterile pyuria:
- On urine analysis there are more than 100 urine WBCs but urine nitrates are negative
- Urine cultures ordered and show gram negative bacilli
- IV ceftriaxone 1 gm q24 was changed to IV Ancef due to better culture sensitivities, continue IV Ancef
DVT prophylaxis Lovenox
Full code
Anticipated Discharge: Within 24 hours
Subjective/Interval History
-
Date of Service: August 09, 2024
No acute medical complaints.
Objective Data
-
Labs:
Laboratory Results
08/09/24
07:55
WBC 8.4
Hgb 11.3 L
Hct 33.1 L
Plt Count 390
Sodium Pending
Potassium Pending
Chloride Pending
Carbon Dioxide Pending
BUN Pending
Creatinine Pending
Glucose Pending
Calcium Pending
Total Bilirubin Pending
AST Pending
ALT Pending
Alkaline Phosphatase Pending
Vital Signs:
Vital Signs
Temp Pulse Resp BP Pulse Ox
98.9 F 112 18 142/101 98
08/09/24 07:35 08/09/24 07:35 08/09/24 07:35 08/09/24 07:35 08/09/24 07:35
I&O
08/08/24 08/09/24 08/10/24
06:59 06:59 06:59
Intake Total 720 / 720 1320 / 1320
Balance 720 / 720 1320 / 1320
Review of Systems
-
History Source: Patient
All other systems: Reviewed and negative
Musculoskeletal: Reports Muscle Pain (severe B/L lower extremities pain)
Physical Exam
-
General: Well Developed, Well Nourished and Comfortable
Respiratory: Clear to Auscultation
Cardiac: Regular Rhythm and S1/S2
GI: Soft, Nontender, Nondistended and Normal Bowel Sounds
Musculoskeletal: No Clubbing, No Cyanosis, No Edema and Other (tenderness to light touch along the entire length of bilateral lower extremities)
Neuro: Awake, Alert, Oriented, AO x 3 and Other (Decreased strength 1/5 in lower bilateral extremities, normal tone, reflexes normal)
Data Reviewed
-
Labs: Labs Reviewed by me and Discussed with Physician
--- NOTE | 2024-08-09 08:45 | PN.DE.MGMTRT ---
Insulin Management
- -
08/09/2024: Diabetes Management Follow up
24 year old female who presented to the ED for evaluation of BLE pain from hips to toes and ambulatory dysfunction.
PMH includes: Anxiety/depression, bipolar, ADHD, prior UTIs/pyelonephritis, chronic back pain on oxycodone and gabapentin and T1DM.
Patient follows with Tej HOOVER for routine Diabetes care, was last seen in may, states her next appt is in November.
Prior to admission was taking Basaglar 36 units @ hs with NovoLog 5 units AC. Current A1C 11.3%, improved from 15% in 03/2024. Cr 0.5, eGFR >60.
Patient awake, alert and oriented, grimacing in pain. Pt c/o excruciating pain to BLE, Mom at bedside, very supportive, both asking for CT of Pelvis that was mentioned to me, advised that I will notify the hospitalist Dr. Finn
Steroids were topped on 08/06. Pt was cont'd on Lantus 20 units in AM and 40 units in PM and NovoLog 14 units AC. Noted for recurrent episode of Hypoglycemia as low as 56 this AM. Will stop AM Lantus dose and reduce PM dose to her OP dose of 36 units
@ HS.
Premeal glucose yesterday was 96 to 157, Will start same OP dose of 5 units AC. Cont low corrective with meals
Will closely monitor glucose trend and further adjust insulin dose if necessary.
Will cont to follow.
Diabetes History
- -
Type of Diabetes: 1
Pre-Admission Diabetes Regimen
08/08/24
08:34
Creatinine 0.5 L
Lab Results
Hemoglobin A1c 11.3 % (4.0-5.6) H 08/04/24 18:28
Insulin Pump Settings
IP Diabetes Regimen
08/08/24 08/08/24 08/08/24
08:34 11:46 14:34
Glucose 241 H
POC Glucose 157 H 125 H
08/08/24 08/08/24 08/09/24
17:14 20:55 06:59
Glucose
POC Glucose 96 301 H 56 L
08/09/24
07:29
Glucose
POC Glucose 104 H
Meal type: Breakfast
Amount consumed: 60%
Patient Education
[2024-08-09 08:58] LABS: ALT (SGPT) < 10 U/L (0-35); AST (SGOT) 14 U/L (14-36); Albumin 2.9 g/dl (3.5-5.0); Alkaline Phosphatase 95 U/L (38-126); Blood Urea Nitrogen 14 mg/dl (7-17); Calcium 9.3 mg/dl (8.4-10.2); Carbon Dioxide 32 mmol/L (22-30); Chloride 103 mmol/L (98-107); Estimated Creatinine Clearance > 125 ml/min; Glucose 160 mg/dl (70-99); Potassium 4.1 mmol/L (3.5-5.1); Sodium 139 mmol/L (135-145); Total Bilirubin 0.3 mg/dl (0.2-1.3); Total Protein 5.5 g/dl (6.3-8.2); eGFR > 60.00
[2024-08-09] MEDS: LANTUS SC (09:08)
--- NOTE | 2024-08-09 10:08 | W.PN.UPDATE ---
Update Note
Progress Note Update
I saw and evaluated the patient. I reviewed the resident�s note and agree with findings and plan as documented in the resident�s note.
Pt seen and examine with RN Payton Hardin present at bedside:
Gen: NAD, AAOx3.
Eyes: EOMI, PERRLA, no scleral icterus.
Neck: supple.
CV: remains RRR, +S1/S2, no m/r/g.
Resp: CTAB, no rales, wheezes, or rhonchi.
Abd: remains +BS, soft, NT, ND
Skin: No rashes.
Neuro: remains CN 2-12 intact
Psych: Normal mood and affect.
Bilateral lower extremity pain (hips to toes):
-peripheral neuropathy, RSD, fibromyalgia now leading theories
-CRP/CPK/TSH/YON/ANCAs/SSA/SSB NEG
-B12 low, cont repletion
-neuro saw in c/s
-MRI C/T/L/S spine normal
-was on Decadron which was stopped as patient had no improvement
-continue Neurontin
-will not make any changes to as needed Dilaudid
-EMG/NCS 08/09/24
Other problems:
Tachycardia, mild, possibly due to pain
DM1: a1c 11.3%, cont Lantus//SSI/accuchecks. Premeal Novolog stopped with hypoglycemia. Diabetes ACTUARY MANAGER following and will see in follow up today.
Anxiety/depression/bipolar/conversion disorder: adjustments of aripiprazole, atomoxetine, Lexapro, mirtazapine, oxcarbazepine as per psych. If no organic reason found on work up, psych cause must be considered, apprec psych
E. coli UTI (2 types): Cont Ancef for now
FULL/Lovenox
[2024-08-09 11:20] LABS: Glucose - Point of Care 88 mg/dl (70-99)
[2024-08-09 11:57] LABS: Glucose - Point of Care 72 mg/dl (70-99)
[2024-08-09 13:10] LABS: Glucose - Point of Care 172 mg/dl (70-99)
[2024-08-09] MEDS: NOVOLOG FLEXPEN-LOW RESISTANCE 1 UNITS SC (13:14)
[2024-08-09] MEDS: NOVOLOG FLEXPEN 5 UNITS SC (13:15)
[2024-08-09 14:12] LABS: Rheumatoid Agglutinin Less Than 10 IU (<10 IU)
[2024-08-09 15:07] VITALS: BP 116/75
[2024-08-09 16:20] LABS: Glucose - Point of Care 150 mg/dl (70-99)
--- NOTE | 2024-08-09 18:26 | NS.EMG ---
Electromyogram (EMG) Study
EMG/NCS Summary
Nerve conduction study of both lower limbs, the left upper limb and needle EMG examination of the left lower limb was completed at the patient's bedside.
The nerve conduction study showed severe length-dependent axonal sensorimotor peripheral polyneuropathy.
The needle EMG showed impaired muscle activation throughout the left lower limb related to reduced effort which can be seen because of pain, but the morphology of voluntary motor unit potentials and recruitment pattern was normal.
Full dictated report, tabular data, and waveforms to follow.
[2024-08-09] MEDS: NOVOLOG FLEXPEN SC (18:38)
[2024-08-09] MEDS: LOVENOX SC (18:40)
[2024-08-09] MEDS: ZOFRAN 4 MG PO (18:48)
--- NOTE | 2024-08-09 20:32 | PTCARENOTE ---
1830 Pt c/o nausea and unable to eat dinner meal. Blood sugar 150. Pt discussed with me cannot take [address] Shanice MD ordered Zofran 4 mg po every 8 hours PRN. 184 Explain to pt, given as ordered. Report given to night nurse.
[2024-08-09] MEDS: REMERON PO (21:23)
[2024-08-09] MEDS: REMERON 7.5 MG PO (21:28)
[2024-08-09 21:56] LABS: Glucose - Point of Care 132 mg/dl (70-99)
[2024-08-09] MEDS: LANTUS 0.36 UNITS SC (22:12)
[2024-08-09 23:35] VITALS: BP 153/106
[2024-08-10 02:59] LABS: Glucose - Point of Care 107 mg/dl (70-99)
[2024-08-10 03:00] VITALS: BP 136/84
[2024-08-10] MEDS: DILAUDID 2 MG PO (03:03)
[2024-08-10] MEDS: ANCEF 5 IV ×2 (03:05→12:20)
[2024-08-10] MEDS: TYLENOL PO ×3 (03:13→12:21)
[2024-08-10 07:03] LABS: Glucose - Point of Care 64 mg/dl (70-99)
[2024-08-10] MEDS: NOVOLOG FLEXPEN-LOW RESISTANCE SC ×2 (07:08→11:28)
[2024-08-10 07:25] VITALS: BP 143/98
--- NOTE | 2024-08-10 07:27 | PN.DE.MGMTRT ---
Insulin Management
- -
08/10/2024: Diabetes Management Follow up
24 year old female who presented to the ED for evaluation of BLE pain from hips to toes and ambulatory dysfunction.
PMH includes: Anxiety/depression, bipolar, ADHD, prior UTIs/pyelonephritis, chronic back pain on oxycodone and gabapentin and T1DM.
Patient follows with Tej HOOVER for routine Diabetes care, was last seen in may, states her next appt is in November.
Prior to admission was taking Basaglar 36 units @ hs with NovoLog 5 units AC. Current A1C 11.3%, improved from 15% in 03/2024. Cr 0.5, eGFR >60.
Patient awake, alert and oriented, states she feels much better today but still dealing with intermittent N/V and not eating much.
08/09 AM Lantus was stopped due to hypoglycemia and PM dose was reduced to 36 units
Pt noted for another episode of hypoglycemia this AM as low as 64. Will further reduce Lantus to 32 units @ HS
Pt also noted for poor appetite and poor oral intake. 08/09 premeal 72 to 172
Will reduce NovoLog to 3 units AC. Cont low corrective with meals
Will closely monitor glucose trend and further adjust insulin dose if necessary.
Will cont to follow.
Diabetes History
- -
Type of Diabetes: 1
Pre-Admission Diabetes Regimen
08/09/24
07:55
Creatinine 0.5 L
Lab Results
Hemoglobin A1c 11.3 % (4.0-5.6) H 08/04/24 18:28
Insulin Pump Settings
IP Diabetes Regimen
08/09/24 08/09/24 08/09/24
07:29 07:55 11:19
Glucose 160 H
POC Glucose 104 H 88
08/09/24 08/09/24 08/09/24
11:55 13:08 16:19
Glucose
POC Glucose 72 172 H 150 H
08/09/24 08/10/24 08/10/24
21:55 02:56 07:02
Glucose
POC Glucose 132 H 107 H 64 L
Patient Education
[2024-08-10 07:48] LABS: Glucose - Point of Care 132 mg/dl (70-99)
[2024-08-10] MEDS: DILAUDID 0.25 MG IV (07:56)
[2024-08-10] MEDS: VITAMIN B-12 250 MCG PO (07:58)
[2024-08-10] MEDS: LEXAPRO 10 MG PO (07:58)
[2024-08-10] MEDS: NEURONTIN 800 MG PO (07:58)
[2024-08-10] MEDS: ABILIFY 5 MG PO (07:59)
[2024-08-10 08:42] LABS: Hematocrit 34.4 % (37.0-47.0); Hemoglobin 11.5 g/dL (12.0-16.0); Mean Corp Hgb Conc. 33.4 g/dL (33.0-37.0); Mean Corpuscular Hgb 26.6 pg (27.0-31.0); Mean Corpuscular Volume 79.6 fL (81.0-99.0); Mean Platelet Volume 8.7 fL (7.4-10.4); Platelet Count 426 10^3/uL (130-400); Red Blood Cell Count 4.32 10^6/uL (4.20-5.40); Red Cell Dist. Width 12.7 % (11.5-14.5); White Blood Cell Count 7.3 10^3/uL (4.8-10.8)
[2024-08-10 08:58] LABS: Blood Urea Nitrogen 9 mg/dl (7-17); Calcium 9.6 mg/dl (8.4-10.2); Carbon Dioxide 31 mmol/L (22-30); Chloride 103 mmol/L (98-107); Estimated Creatinine Clearance > 125 ml/min; Glucose 127 mg/dl (70-99); Potassium 4.5 mmol/L (3.5-5.1); Sodium 140 mmol/L (135-145); eGFR > 60.00
--- NOTE | 2024-08-10 09:10 | W.PN.HOSP.TC ---
Today's Communication/Plan
-
- outpatient follow up for pain specialist
Assessment / Plan
Assessment / Plan
Bilateral lower extremity pain
Elevated ESR:
- EMG today shows Nerve conduction study of both lower limbs, the left upper limb and needle EMG examination of the left lower limb was completed at the patient's bedside.
- Continue gabapentin for the pain, added oral Dilaudid 2 mg q6h PO and IV Dilaudid .25 mg for breakthrough to help better manage pain
- EMG today now as MRI of cervical spine , lumbar, thoracic, sacral, brain are unremarkable. On brain MRI there is a possibility of pituitary adenoma so further imaging outpatient.
- CRP (normal), YON none, RF pending, CPK (normal) , TSH (normal), B12 (226 low)
- Neurology was consulted and is following
- Her lumbar spine x ray, peripheral vascular ultrasound, and pelvic ultrasound were all unremarkable on admission
- PT OT is following
- discontinued the steroids as they were not helping to treat the pain and have the side effect of hyperglycemia.
- discontinued fluids
- Will consider referral to outpatient pain after discharge for more specialized pain management
Presumed iron deficiency Anemia:
- Hgb is 11.3 and mcv is 78.0.
- No palpitations, fatigue, pallor, dizziness.
- Ordered iron studies ( iron, tibc, ferritin) and folate.
Tachycardia:
- today 113 bpm, suspect that it is due to pain due to patient's clinical picture and we will continue to observe heart rate
Insulin-dependent diabetes mellitus type 1:
- Glucose is 127 today, well controlled, insulin glargine 32 units, insulin aspart 3 units, patient on sliding scale
- Diabetes mellitus POT PUNCHER following this patient,
- Hemoglobin a1c is 11.3% which indicates necessity for adjusting insulin medication
- Start patient on 2000-calorie diabetic diet to help control of elevated blood glucose levels
- Daily Accu-Cheks to monitor the blood glucose levels and make sure they are within appropriate range
- Urine glucose is 4+ on admission which indicates uncontrolled diabetes mellitus type 1
Low vitamin b12:
- suspect due to diabetes
- Last vitamin b12 level is 226 and decreased
- continue vitamin b12 250 mcg oral
Anxiety/depression/bipolar:
- Psychiatry is following
- Continue on aripiprazole, atomoxetine, Lexapro, mirtazapine,
- D/c'd hydroxyzine, oxcarbazepine,and will reduce Abilify from 10 mg to 5 mg as per psych recc
Sterile pyuria:
- On urine analysis there are more than 100 urine WBCs but urine nitrates are negative
- Urine cultures ordered and show gram negative bacilli
- transition IV Ancef to outpatient keflex 500 mg qid
DVT prophylaxis Lovenox
Full code
Anticipated Discharge: Today
Subjective/Interval History
-
Date of Service: August 10, 2024
patient has no acute medical complaints.
Objective Data
-
Labs:
Laboratory Results
08/10/24
08:21
WBC 7.3
Hgb 11.5 L
Hct 34.4 L
Plt Count 426 H
Sodium 140
Potassium 4.5
Chloride 103
Carbon Dioxide 31 H
BUN 9
Creatinine 0.6
Glucose 127 H
Calcium 9.6
Vital Signs:
Vital Signs
Temp Pulse Resp BP Pulse Ox
98.6 F 113 20 143/98 98
08/10/24 07:25 08/10/24 07:25 08/10/24 07:25 08/10/24 07:25 08/10/24 07:25
I&O
08/09/24 08/10/24 08/11/24
06:59 06:59 06:59
Intake Total 1320 / 1320 1560 / 1560
Balance 1320 / 1320 1560 / 1560
Review of Systems
-
History Source: Patient
All other systems: Reviewed and negative
Physical Exam
-
General: Well Developed, Well Nourished and Comfortable
Respiratory: Clear to Auscultation
Cardiac: Regular Rhythm and S1/S2
GI: Soft, Nontender, Nondistended and Normal Bowel Sounds
Musculoskeletal: No Clubbing, No Cyanosis, No Edema and Other (tenderness to light touch along the entire length of bilateral lower extremities)
Neuro: Awake, Alert, Oriented, AO x 3 and Other (Decreased strength 2/5 in lower bilateral extremities, normal tone, reflexes normal)
Data Reviewed
-
Labs: Labs Reviewed by me and Discussed with Physician
--- NOTE | 2024-08-10 10:01 | W.PN.UPDATE ---
Update Note
Progress Note Update
I saw and evaluated the patient. I reviewed the resident�s note and agree with findings and plan as documented in the resident�s note.
Pt seen and examine with RN Aliya Caro present at bedside:
Gen: NAD, AAOx3.
Eyes: EOMI, PERRLA, no scleral icterus.
Neck: supple.
CV: continues to remain RRR, +S1/S2, no m/r/g.
Resp: CTAB, no rales, wheezes, or rhonchi.
Abd: continues to remain +BS, soft, NT, ND
Skin: No rashes.
Neuro: continues to remain CN 2-12 intact
Psych: Normal mood and affect.
EMG/NCS: Nerve conduction study of both lower limbs, the left upper limb and needle EMG examination of the left lower limb was completed at the patient's bedside. The nerve conduction study showed severe length-dependent axonal sensorimotor
peripheral polyneuropathy. The needle EMG showed impaired muscle activation throughout the left lower limb related to reduced effort which can be seen because of pain, but the morphology of voluntary motor unit potentials and recruitment pattern
was normal.
Bilateral lower extremity pain (hips to toes):
-peripheral neuropathy, RSD, fibromyalgia now leading theories
-CRP/CPK/TSH/YON/ANCAs/SSA/SSB NEG
-B12 low, cont repletion
-neuro saw in c/s
-MRI C/T/L/S spine normal
-was on Decadron which was stopped as patient had no improvement
-continue Neurontin
-will not make any changes to as needed Dilaudid
-EMG/NCS 08/09/24 above, findings likely related to diabetic neuropathy
Other problems:
Tachycardia, mild, possibly due to pain
DM1: a1c 11.3%, cont Lantus/premeal Novolog/SSI/accuchecks. Diabetes EFFICIENCY CLERK saw in c/s.
Anxiety/depression/bipolar/conversion disorder: adjustments of aripiprazole, atomoxetine, Lexapro, mirtazapine, oxcarbazepine as per psych.
E. coli UTI (2 types): Has been on Ancef, transition to Keflex as per ID
FULL/Lovenox
Total time spent on d/c = 31 min. This included today's physical exam, progress note, review of laboratory and diagnostic data, preparation of discharge documents and prescriptions, and discussions about the pt's hospital course and discharge plan
with the patient and other medical charge entry specialist involved in the patient's care.
[2024-08-10] MEDS: NOVOLOG FLEXPEN SC (10:32)
--- NOTE | 2024-08-10 11:09 | CM ---
Chart reviewed and patient is for discharge to home today.
Plan; Home no needs.
[2024-08-10 11:22] LABS: Glucose - Point of Care 114 mg/dl (70-99)
--- NOTE | 2024-08-10 12:26 | W.DCSUMMARY ---
Discharge Summary
Discharge Data
Date of Admission: 08/04/24
Date of Discharge: 08/10/24
-
Pending Results: No
Hospital Course
Discharging Physician : Dr. Mark Finn and Dr. Terry Prasad
Disposition : Home
Primary care physician : Dr. Noa Duncan
Principal Discharge diagnosis : Bilateral lower extremity pain, tachycardia, low vitamin B12, anxiety, depression, bipolar, E. coli UTI
Chronic Discharge diagnosis : presumed iron deficiency anemia, insulin-dependent diabetes mellitus type 1, anxiety, depression, bipolar
Hospital Course : Patient is a 24-year-old female who presents to the emergency department with severe bilateral lower extremity pain. She describes the pain as intermittent, sharp, stabbing pain in both of her lower extremities over the past 6
months, the pain has gotten excruciating and constant in the AM and she has been unable to ambulate due to pain which is why she presented to the ED. No trauma, inciting event, bug bites, rashes, excessive exercise. She has been undergoing workup
for this pain with her primary care at [facility] and was recently referred to [place] neurolog[facility] although she has not made an appointment yet. Has been treating the pain with Toradol, ibuprofen, gabapentin there has not been much improvement.
Problem #1:severe axonal sensorimotor peripheral neuropathy polyneuropathy likely due to diabetes mellitus type I/ insulin-dependent diabetes mellitus type 1/ Tachycardia---patient presented with severe bilateral lower extremity pain, peripheral
neuropathy, decreased strength 1/5 in both legs. MRI of lumbosacral, thoracic, lumbar, cervical spine, brain were all within normal limits. Lumbar spine x-ray, peripheral vascular stone, pelvic ultrasound were all unremarkable. CRP, YON,
rheumatoid factor, CPK, TSH all normal. Neurology was Consulted. EMG testing yesterday on 08/09/2024 showed severe length-dependent sensorimotor peripheral polyneuropathy which could possibly be due to her type 1 diabetes mellitus. Patient's pain
was managed on 2 mg IV Dilaudid Q6 hourly with 0.25 Dilaudid IV for breakthrough pain during course of hospital stay. Patient was referred to Dr. Morris for outpatient pain management. CMP with PCP in 1 week.
Suspect that tachycardia was related to pain. On discharge heart rate is 113.
Her blood sugar levels on admission were 439 and uncontrolled, hemoglobin A1c is 11.3, urine glucose is 4+ on admission. Patient has admitted that her blood pressure has not been under control. Diabetic nurse was consulted and final adjustments of
medication included changing her Lantus dose from 36 to 32 units and her aspart dose from 5 units to 3 units, her blood glucose level on discharge is 127 and well-controlled. She is to continue this new insulin regimen upon discharge. CMP with PCP
in 1 week.
Problem #2: E. coli UTI---on admission her urinalysis showed more than 100 urine WBCs but urine nitrates are negative, urine cultures were ordered and showed gram-negative bacilli which ended up resulting as E. coli. Patient was transitioned from
IV Zosyn to IV Ancef and then to outpatient Keflex 500 mg 4 times daily on discharge. She has to take 3 more days of Keflex 4 times daily through 08/13/2024.
Problem #3: Low vitamin B-12--- vitamin B12 was low at 226. Could be a potential cause contributing to her peripheral neuropathy. Administered 1000 mcg B12 by intramuscular injection and then maintained on cyanocobalamin 250 mcg p.o. daily which
she is to continue on discharge. Recheck vitamin B12 with primary care provider.
Problem #4: Anxiety/depression/bipolar/conversion disorder---psychiatry was consulted and her aripiprazole was changed from 10 mg to 5 mg, oxcarbazepine was discontinued, hydroxyzine was discontinued, and patient was advised to to change her Lexapro
to Cymbalta. Restart oxcarbazepine and hydroxyzine only after following up with PCP/psychiatrist.
Problem #5: Presumed iron deficiency anemia--- hemoglobin is 11.5 on discharge, MCV is 79.6. No palpitations, dizziness, fatigue, lightheadedness. Check iron, TIBC, ferritin with PCP in 1 week.
Important imaging findings :
EMG studies on :
-ELECTRODIAGNOSTIC IMPRESSIONS
1. Length-dependent axonal sensory motor peripheral polyneuropathy.
2. There is no electrodiagnostic evidence of lumbosacral
Procedure findings :
Discharge Plan
-
Patient Disposition: Home (Routine Discharge)
Discharge Diagnosis/Procedures: Severe bilateral lower extremity pain, peripheral neuropathy, tachycardia, Insulin dependent diabetes type 1, E.Coli UTI, anxiety/depression/ conversion disorder
Condition: Fair
Diet: Diabetic, Carb Controlled
Activity: As tolerated and With Walker
Driving Restrictions: Not until seen by your Dr
Bathing Restrictions: None
Blood Work: CBC in 1 week with PCP
BMP in 1 week with PCP
Vitamin b12 in 1 week with PCP
Iron, TIBC, Ferritin in 1 week with PCP
Activity Restrictions/Additional Instructions:
Gave patient prescription for rolling walker as per physical therapies recommendations
Referrals:
Lamont Morris MD [Active] - in one to two weeks
Noa Duncan PA-C [Family Provider] - in less than 1 week
Additional Discharge Medication Instructions: -Insulin aspart is 3 units before meals, Insulin Glargine (long acting) is 32 units
-Her aripiprazole was reduced from 10 mg to 5 mg as per psychiatrists recommendations
-Hydroxyzine and oxcarbazepine were put on hold as per psychiatry's recommendations, please continue after consulting with PCP/Psychiatrist
-IV Ancef transitioned to oral Cephalexin 500 mg QID (4 times a day) for 3 days upon discharge through 08/13/24, to take 2 today upon discharge
-Gave patient a prescription for rolling walker
Prescriptions:
New
cyanocobalamin (vitamin B-12) 100 mcg Tablet
250 mcg PO DAILY Qty: 30 0RF
insulin aspart U-100 100 unit/mL (3 mL) Insulin Pen
3 unit SC AC 3 Days Qty: 15 0RF
Insulin Glargine Lantus [Lantus] 32 UNITS
Subcutaneous Insulin Syringe [Syringe-Insulin] 0 UNIT
As Directed mls/hr SC HS
Ordered By: Terry Prasad MD, Resident
Last Taken: 08/09/24 22:12 0.36 mls
aripiprazole 5 mg Tablet
5 mg PO DAILY Qty: 30 0RF
cephalexin 500 mg capsule
500 mg PO QID 3 Days Qty: 14 0RF
Continued
gabapentin 800 mg tablet
800 mg PO TID
atomoxetine 40 mg capsule
40 mg PO DAILY
mirtazapine 7.5 mg tablet
7.5 mg PO HS
escitalopram oxalate [Lexapro] 10 mg Tablet
10 mg PO DAILY
ibuprofen [Advil] 200 mg Tablet
400 mg PO Q6HPRN PRN (Reason: mild pain)
norethindrone (contraceptive) [Jencycla] 0.35 mg Tablet
0.35 mg PO DAILY
Held
oxcarbazepine [Trileptal] 150 MG tablet
150 mg PO BID
Hold Instructions: Resume on 08/17/24. hold until seen by PCP
hydroxyzine HCl 50 mg Tablet
50 mg PO BID
Hold Instructions: Resume on 08/17/24. Hold until seen by PCP
Discontinued
aripiprazole 10 mg tablet
10 mg PO DAILY
insulin aspart U-100 [Novolog FlexPen U-100 Insulin] 100 unit/mL (3 mL) insulin pen
5 sliding scale dose SC AC
insulin glargine [Lantus Solostar U-100 Insulin] 100 unit/mL (3 mL) Insulin Pen
36 unit SC HS
Discharge Orders:
Discharge Patient (As Directed); Ordered 08/10/24
Ordered By: Mark Finn
Discharge Date and Time
Print Language: KOREAN
[2024-08-10 13:29] VITALS: BP 149/99
== END 2024-08-10 13:46 | disposition home or self-care (01) | DRG 74 ==
LOC: 4 WEST ACU 19:05
PROVIDERS: Physician Assistant; ADMITTING PHYSICIAN Internal Medicine; ATTENDING PHYSICIAN Internal Medicine; CONSULT PHYSICIAN Psychiatry & Neurology Neurology; CONSULT PHYSICIAN Psychiatry & Neurology Psychiatry; EMERGENCY PHYSICIAN Emergency Medicine; FAMILY PHYSICIAN Physician Assistant Medical
DX: E10.42 Type 1 diabetes mellitus with diabetic polyneuropathy (principal); N39.0 Urinary tract infection, site not specified; Z79.4 Long term (current) use of insulin; M79.604 Pain in right leg; M79.605 Pain in left leg; R00.0 Tachycardia, unspecified; E10.65 Type 1 diabetes mellitus with hyperglycemia; B96.20 Unspecified Escherichia coli [E. coli] as the cause of diseases classified elsewhere; F41.1 Generalized anxiety disorder; F31.9 Bipolar disorder, unspecified; E83.42 Hypomagnesemia; F44.9 Dissociative and conversion disorder, unspecified; Z79.899 Other long term (current) drug therapy
CPT/HCPCS: 70553; 72110; 72141; 72146; 72148; 76856; 80048; 80053; 80306; 81003; 81015; 82550; 82607; 82947; 82962; 83036; 83516; 83735; 84207; 84443; 84703; 85025; 85027; 85652; 86038; 86140; 86235; 86430; 86618; 87077; 87086; 87186; 93970; 95886; 95910; 96374; 97163; 97167; 97530; 97535; 99285; A9575

== ENCOUNTER → 2024-08-13 15:29 | Outpatient (REF) | payer OTHER, SELFPAY | LOC: HWRAD 15:29 | PROVIDERS: ATTENDING PHYSICIAN Physician Assistant Medical | DX: E10.65 Type 1 diabetes mellitus with hyperglycemia (principal) | CPT/HCPCS: 73523 ==

== ENCOUNTER 2024-08-20 13:29 | Inpatient (IN) | payer OTHER, SELFPAY ==
[2024-08-19] VITALS (10 sets, daily range): BP systolic 128–168; BP diastolic 64–100; BMI 20.4; BMI 21.0
[2024-08-19 09:34] LABS: Glucose - Point of Care 139 mg/dl (70-99)
[2024-08-19] MEDS: NSS 1000 IV ×2 (12:12→21:51)
[2024-08-19] MEDS: ZOFRAN 4 MG IV (12:12)
[2024-08-19] MEDS: ATIVAN 0.5 MG IV (12:12)
[2024-08-19 12:32] LABS: % Basophils 0.6 % (0-2); % Eosinophils 1.1 % (0-6); % Immature Granulocytes 0.3 % (0-0.5); % Lymphocytes 28.6 % (20.5-51.1); % Monocytes 8.9 % (1.7-9.3); % Neutrophils 60.5 % (42.2-75.2); Absolute Eosinophils 0.1 10^3/uL (0-0.7); Absolute Lymphocytes 2.1 10^3/uL (1.2-3.4); Absolute Monocytes 0.7 10^3/uL (0.1-0.6); Absolute Neutrophils 4.4 10^3/uL (1.4-6.5); Hematocrit 35.4 % (37.0-47.0); Hemoglobin 12.4 g/dL (12.0-16.0); Mean Corpuscular Hgb 26.7 pg (27.0-31.0); Mean Corpuscular Volume 76.1 fL (81.0-99.0); Nucleated Red Blood Cells % 0 %; Platelet Count 520 10^3/uL (130-400); Red Blood Cell Count 4.65 10^6/uL (4.20-5.40); Red Cell Dist. Width 12.5 % (11.5-14.5); White Blood Cell Count 7.3 10^3/uL (4.8-10.8)
[2024-08-19] MEDS: PROTONIX IV 40 MG IV (12:32)
[2024-08-19 12:46] LABS: HCG, Serum Qualitative Screen Negative
[2024-08-19 12:52] LABS: ALT (SGPT) 36 U/L (0-35); AST (SGOT) 20 U/L (14-36); Albumin 3.9 g/dl (3.5-5.0); Alkaline Phosphatase 100 U/L (38-126); Blood Urea Nitrogen 17 mg/dl (7-17); Calcium 9.9 mg/dl (8.4-10.2); Carbon Dioxide 25 mmol/L (22-30); Chloride 100 mmol/L (98-107); Glucose 183 mg/dl (70-99); Magnesium 1.7 mg/dl (1.6-2.3); Potassium 3.9 mmol/L (3.5-5.1); Sodium 139 mmol/L (135-145); Total Bilirubin 0.8 mg/dl (0.2-1.3); Total Protein 6.9 g/dl (6.3-8.2); eGFR > 60.00
[2024-08-19 13:21] LABS: TSH 0.89 uIU/ml (0.47-4.68)
[2024-08-19 14:29] LABS: Glucose - Point of Care 141 mg/dl (70-99)
--- NOTE | 2024-08-19 14:34 | ED.GENMED ---
History of Present Illness
General
Chief Complaint: Fainting/Passed Out
Source: patient
Exam Limitations: none
Time Seen by Provider: 08/19/24 10:50
Nursing documentation reviewed up to this point in time: agreed with
History of Present Illness
History of Present Illness:
Patient discharged from the hospital last week after receiving treatment for lower leg neuropathy, presents to ED secondary to difficulty eating with intermittent vomiting, as well as diffuse abdominal cramping sensation over the past 4 days.
Patient started taking NSAIDs over the weekend, at the recommendation of her primary care physician, for her ongoing leg pain. Denies hematuria or seeing blood with bowel movements. Denies fever or chills. Denies diarrhea. Denies trauma.
Patient states that she has not been able to eat anything or drink any fluids. As such, patient reports profound generalized weakness, dizziness, and multiple episodes of 'passing out'.
Past History
Past History
ED Past Medical History: IDDM, Psychiatric (anxiety, depression, bipolar) and Other (Previous UTIs)
ED Past Surgical History: Other (Myringotomy tubes)
Social History
Tobacco: Non-smoker
Alcohol: None
Personal: Single
Living: with family
Employment: Student
Family History
Family History: Other; Negative Diabetes
Review of Systems
Review of Systems
Allergies reviewed?: Yes
All Other Systems: Not applicable
Constitutional: Reports no symptoms
Respiratory: Reports no symptoms
Cardiac: Reports syncope
ABD/GI: Reports abdominal pain, nausea and vomiting; Denies diarrhea
Musculoskeletal: Reports no symptoms
Skin: Reports no symptoms
Neurological: Reports no symptoms
Phy Exam
Physical Exam
Physical Exam:
Physical Exam
General: mild distress, not acutely ill. afebrile
Head: nc/at. eomi
Neck: supple. normal range of motion.
Heart: s1/s2 regular rate and rhythm, no murmur.
Lungs: no acute respiratory distress. clear bilaterally
Abdomen: normal bowel sounds. mild epigastric tenderness to palpation, without distention. Rectal exam (CHETAN Salazar, at bedside): brown stool, heme positive
Neuro: alert and oriented x 3. no focal neurological deficits
Skin: no rash
Psychiatric: well kept. interactive and cooperative
Extremities: no edema. no calf tenderness.
Course
Orders/Labs/Results
Orders:
Orders
08/19/24 Breakfast
2000 calorie (17 carb) Diabetic
At Your Request: Full Participation
Does patient need a safe tray?: No
Six Small Meals: Yes
08/19/24 09:32
Electrocardiogram (*1) Urgent
Reason for Study: Syncope
08/19/24 12:08
0.9% Sodium Chloride 1000 ml [Nss] 1,000 ml IV BOLUS
Lorazepam [Ativan] 0.5 mg IV NOW STA
Ondansetron Injectable [Zofran] 4 mg IV NOW STA
Test Result ONCE
08/19/24 12:17
Pantoprazole [Protonix IV] 40 mg IV NOW STA
08/19/24 12:19
Complete Blood Count/With Diff Urgent
Comprehensive Metabolic Panel Urgent
Glycohemoglobin (HgbA1c) Urgent
HCG, Serum Qualitative Screen Urgent
Lipase Urgent
Magnesium Urgent
TSH Urgent
08/19/24 14:33
Add On- LAB Urgent
Tests Added?: lipase
Prochlorperazine [Compazine] 10 mg IV NOW STA
08/19/24 15:00
0.9% Sodium Chloride 500 ml [Nss] 500 ml IV 100 mls/hr
08/19/24 15:04
Fentanyl, Urine Urgent
Urinalysis Reflex To Culture Urgent
Date Specimen was Collected: 08/19/24
Time Specimen was Collected: 15:01
Urine Drug Abuse Screen Urgent
Date Specimen was Collected: 08/19/24
Time Specimen was Collected: 15:01
Urine Microscopic Reflex Cult Urgent
Urine Culture Urgent
MERCEDES Source: U
Specimen Description:
Date Specimen was Collected: 08/19/24
Time Specimen was Collected: 15:01
08/19/24 15:25
Admit/Transfer Patient As Directed
Co-Sign Provider:
Level of Care: Observation services
Assign to:: Telemetry
Physician / Group: adams
Diagnosis: abdominal pain
Reason for Telemetry: Arrhythmia
Date to Stop Telemetry: 08/22/24
Time to Stop Telemetry: 11:00
PRN Pain Medication Management As Directed
May give lesser potent ordered pain med per pt: Yes
preference::
Protocol:: Medication orders for pain may be administered in a
manner that supports deferring to patient preference
when the pt is:
- Requesting an ordered lesser potent pain medication.
Least to most potent pain medications are defined
as: acetaminophen < NSAID < tramadol < opioids
(morphine, oxycodone, hydromorphone).
- Requesting a lesser dose of the same medication IF
ORDERED.
- Requesting a less intrusive route of administration
if both routes are prescribed by the provider (PO <
IV).
08/19/24 15:26
Code Status As Directed
Resuscitation Status: Full Code
08/19/24 16:07
Add On- LAB Routine
Tests Added?: hbg A1C
08/19/24 18:47
Metoclopramide [Reglan] 10 mg IV Q6HPRN PRN
08/19/24 20:49
0.9% Sodium Chloride 1000 ml [Nss] 1,000 ml IV 100 mls/hr
Acetaminophen [Tylenol] 650 mg PO Q4HPRN PRN
Bisacodyl [Dulcolax] 10 mg RECTAL [id number] PRN
Dextrose 50%-Water [Dextrose 50% Syringe] 12.5 grams IV [id number] PRN
Dicyclomine [Bentyl] 20 mg PO QIDPRN PRN
Docusate W/Senna [Senokot-S] 1 tablet PO BIDPRN PRN
Enoxaparin Sodium [Lovenox] 40 mg SC QPM
Glucagon [GlucaGen] 1 mg IM PRN PRN
Insulin Aspart Corrective Low [Novolog Flexpen-Low Resistance] See Protocol SC AC
Insulin Aspart Pen [Novolog Flexpen] 3 units SC AC
Lorazepam [Ativan] 0.5 mg PO TIDPRN PRN
Polyethylene Glycol Powder [Miralax] 17 grams PO DAILYPRN PRN
08/19/24 20:49
GASTROINTESTINAL CONSULT Routine
Consulting Provider: Bety Rasheed
Was physician already notified: Yes
Activity As Directed
Activity Level: As Tolerated
Bedside Glucose Monitoring As Directed
Frequency: AC&HS
Additional Instructions:: Change to q6h if pt on TPN, tube feeding or not eating
Orthostatic Vital Signs As Directed
Orthostatic VS Frequency: BID
Vital Signs As Directed
Frequency: Per unit guidelines
DX Deep Vein Thrombosis Video Routine
08/19/24 22:00
Gabapentin [Neurontin] 800 mg PO TID
Mirtazapine [Remeron] 7.5 mg PO HS
08/20/24 06:04
Complete Blood Count/No Diff IN AM
08/20/24 08:00
Aripiprazole [Abilify] 10 mg PO DAILY
Escitalopram Oxalate [Lexapro] 20 mg PO DAILY
atomoxetine See Dose Instructions PO DAILY
norethindrone (contraceptive) [Jencycla] See Dose Instructions PO DAILY
08/21/24 06:00
Complete Blood Count/No Diff IN AM
08/22/24 06:00
Complete Blood Count/No Diff IN AM
08/22/24 11:00
DC Protocol for Telemetry ONCE
Abnormal Lab Results
08/19/24 08/19/24 08/19/24
09:32 12:19 14:26
Hct 35.4 L %
(37.0-47.0)
MCV 76.1 L fL
(81.0-99.0)
MCH 26.7 L pg
(27.0-31.0)
Plt Count 520 H 10^3/uL
(130-400)
Absolute Monos (auto) 0.7 H 10^3/uL
(0.1-0.6)
Glucose 183 H mg/dl
(70-99)
ALT 36 H U/L
(0-35)
Urine Ketones
Ur Occult Blood Reflex
Urine RBC
Urine Bacteria (Reflex)
Urine Glucose
Urine Albumin (Reflex)
U Benzodiazepines Scrn
POC Glucose 139 H mg/dl 141 H mg/dl
(70-99) (70-99)
08/19/24
15:04
Hct
MCV
MCH
Plt Count
Absolute Monos (auto)
Glucose
ALT
Urine Ketones 3+ A
(Negative)
Ur Occult Blood Reflex 2+ A
(Negative)
Urine RBC 7-10 A /HPF
(0-2)
Urine Bacteria (Reflex) Many A
(Negative)
Urine Glucose 4+ A
(Negative)
Urine Albumin (Reflex) 3+ A
(Neg - Trace)
U Benzodiazepines Scrn Positive H
(Negative)
POC Glucose
08/19/24 12:19
08/19/24 12:19
Vital Signs
Initial and Last Documented VS:
Initial Vital Signs
Temp Pulse Resp BP Pulse Ox
98.0 F 126 18 128/64 100
08/19/24 09:29 08/19/24 09:29 08/19/24 09:29 08/19/24 09:29 08/19/24 09:29
Last Documented Vital Signs
Temp Pulse Resp BP Pulse Ox
98.2 F 111 18 173/108 97
08/20/24 07:10 08/20/24 07:10 08/20/24 07:10 08/20/24 07:10 08/20/24 07:10
MDM/Problems Addressed
MDM/Problems Addressed:
Patient with continued vomiting episodes despite treatment with multiple medications. As such, patient will be admitted for further evaluation and treatment.
*Critical Care Note
Total Time (30-74mins, 75-104mins- exclusive of procedures): Not Applicable
ED Attending Note
-
Portions of this chart may have been created with voice recognition software.� Occasional wrong word or��sound alike� substitutions may have occurred due to the inherent limitations of voice recognition software.
Discharge Plan
Departure
Patient Disposition: Admit
Date of Disposition: 08/19/24
Time of Disposition: 14:50
Admit to: Telemetry
Presentation/result/management discussed w/ accepting MD/DO: Hospitalist
Discharge Problem:
Intractable vomiting
Interventions
Interventions:
*Risk Screen - Suicide Last Done: 08/19/24 09:29
*General Assessment Last Done: 08/19/24 09:29
*Neglect/Abuse Screening Last Done: 08/19/24 09:29
*ED- Fall Risk Assessment Last Done: 08/19/24 11:05
*ED COVID-19 Vaccine History Last Done: 08/19/24 11:05
*Nursing Disposition Last Done: 08/19/24 20:58
ED- Cardiac Assessment Last Done: 08/19/24 11:05
ED- Neurological Assessment Last Done: 08/19/24 11:05
Discharge Date and Time
Discharge Date/Time: 08/19/24 21:00
[2024-08-19] MEDS: COMPAZINE 10 MG IV (14:59)
[2024-08-19] MEDS: NSS 500 IV (15:00)
--- NOTE | 2024-08-19 15:10 | HPS.HSE ---
Family Physician
-
Family Physician: Noa Duncan
Chief Complaint
-
Intractable vomiting associated with abdominal pain
History of Present Illness
24-year-old with past medical history for type 1 diabetes, bipolar, anxiety, ADHD, pyelonephritis colonoscopy presented to us with diffuse abdominal pain associate with nausea and vomiting for the past 4 days. Patient stated very poor appetite and
not tolerating any oral intake . Patient denied any headache .denies dizziness and had multiple episodes of episodes of syncope.patient stated constipated but then had large diarrhea last night .patient denies any fever, chills, chest pain.patient
denied dysuria hematuria .
Patient received lorazepam, normal saline, Zofran, Protonix, Compazine in ER
Medical History
Past Medical History
Past Medical History: Reports Other
Additional Past Medical History:
Type 1 diabetes, bipolar, anxiety, ADHD, pyelonephritis
Past Surgical History: Reports None
Social History
Tobacco: Non-smoker
Alcohol: None
Drug: None
Personal: Single
Living: With Family
Family History
Family History: Not pertinent
Allergies / Home Medications
Allergies reflects when Allergies were last updated in [employer].
Home Medications with original date entered in [employer]
Allergy/Medication List:
Allergies
Allergy/AdvReac Type Severity Reaction Status Date / Time
No Known Allergies Allergy Verified 08/19/24 09:29
Home Medications
atomoxetine 40 mg capsule 40 mg PO DAILY ADHD 11/27/22
gabapentin 800 mg tablet 800 mg PO TID Pain 11/27/22
mirtazapine 7.5 mg tablet 7.5 mg PO HS Mental Health/Anxiety 11/27/22
escitalopram oxalate 10 mg tablet (Lexapro) 20 mg PO DAILY Mental Health/Anxiety 03/27/24
norethindrone (contraceptive) 0.35 mg tablet (Jencycla) 0.35 mg PO DAILY 08/04/24
insulin aspart U-100 100 unit/mL (3 mL) subcutaneous pen 3 unit (0.03 mL) SC AC 3 days #15 mL 08/10/24
aripiprazole 5 mg tablet 10 mg PO DAILY bipolar 08/19/24
celecoxib 200 mg capsule 200 mg PO DAILYPRN PRN mild pain 08/19/24
insulin glargine 100 unit/mL (3 mL) subcutaneous pen (Lantus Solostar U-100 Insulin) 32 unit SC HS 08/19/24
lorazepam 0.5 mg tablet 0.5 mg PO TIDPRN PRN anxiety 08/19/24
ondansetron HCl 8 mg tablet 8 mg PO Q8HPRN PRN nausea 08/19/24
Review of Systems
-
Constitutional: Reports No Symptoms
EENT: Reports No Symptoms
Respiratory: Reports No Symptoms
Cardiac: Reports No Symptoms
Abdomen/GI: Reports Abdominal Pain, Nausea and Vomiting
: Reports No Symptoms
Musculoskeletal: Reports No Symptoms
Skin: Reports No Symptoms
Neurological: Reports No Symptoms
Endocrine: Reports No Symptoms
Hematologic/Lymphatic: Reports No Symptoms
Psych: Reports No Symptoms
Physical Exam
Vital Signs
Vital Signs
Temp Pulse Resp BP Pulse Ox
98.0 F 104 21 157/94 99
08/19/24 09:29 08/19/24 13:15 08/19/24 13:15 08/19/24 13:00 08/19/24 13:15
Physical Exam
General: Well Developed, Well Nourished and No Apparent Distress
HEENT: NormoCephalic, Moist mucous membranes and Atraumatic
Respiratory: Clear
Cardiac: S1/S2 and Regular Rhythm; No Murmur or Rub
GI: Soft, Non Tender, Non Distended and Normal Bowel Sounds; No Organomegaly
Rectal: Deferred by Provider
Musculoskeletal: No Clubbing, No Cyanosis and No Edema
Skin: No Rash
Neuro: AO x 3 and Nonfocal/grossly intact
Psych: Calm
Laboratory Results
-
08/19/24 12:19
08/19/24 12:19
Laboratory Results
Total Bilirubin 0.8 mg/dl (0.2-1.3) 08/19/24 12:19
AST 20 U/L (14-36) 08/19/24 12:19
ALT 36 U/L (0-35) H 08/19/24 12:19
Alkaline Phosphatase 100 U/L (38-126) 08/19/24 12:19
Data Reviewed
-
Lab Data: Labs Reviewed by me
Impression/Plan
-
# Intractable vomiting with abdominal pain unclear cause concern for gastroparesis
- Reglan as needed for nausea vomiting
-Bentyl prn for pain
-GI consulted
# Syncope likely from pain
- Obtain orthostatics
- Continue to monitor
# Thrombocytosis
- Platelets 520
- Continue to monitor
# Chronic tachycardia
- EKG with sinus tachycardia
-obtain ECHO
#Bilateral lower extremities pain secondary to neuropathy
- Gabapentin continued
#insulin-dependent diabetes mellitus type 1:
- Start patient on 2000-calorie diabetic diet to help control of elevated blood glucose levels
- Daily Accu-Cheks to monitor the blood glucose levels and make sure they are within appropriate range
- Aspart 3 units with meals, Lantus 32 units at bedtime
#Anxiety/depression/bipolar:
- Continue on aripiprazole, atomoxetine, Lexapro, mirtazapine, lorazepam
#DVT prophylaxis Lovenox
#Full code
[2024-08-19 15:18] LABS: Lipase 38 U/L (23-300)
--- NOTE | 2024-08-19 15:24 | W.PN.UPDATE ---
Update Note
Progress Note Update
This serves as an addendum to H&P dictated by Mahesh Cornejo on 08/19/2024.
I saw and examined the patient.
The DATABASE OPERATOR or PA's note was reviewed and I agree with the note.
Comment:
Patient is a 24 Y female history of diabetes mellitus, depression, recent admission, multiple other medical problems came into the hospital with nausea vomiting and multiple syncope events in the setting of GI distress.
A/P:
Nausea/vomiting/syncope(likely vasovagal)--> IV fluids, check orthostatics, echocardiogram, GI eval, cardiac monitoring. Will give further recommendations based on clinical course.
[2024-08-19 15:35] LABS: Urine Albumin 3+ (Neg - Trace); Urine Bilirubin Negative (Negative); Urine Character Slightly Cloudy (Clear); Urine Color Yellow; Urine Glucose 4+ (Negative); Urine Ketone 3+ (Negative); Urine Leukocyte Negative (Negative); Urine Nitrite Negative (Negative); Urine Occult Blood 2+ (Negative); Urine Specific Gravity 1.015 (<1.030); Urine Urobilinogen Negative (Neg - 1+)
[2024-08-19 15:48] LABS: Amphetamines Negative (Negative); Barbiturates Negative (Negative); Benzodiazepines Positive (Negative); Buprenorphine Negative (Negative); Cocaine Negative (Negative); Marijuana Negative (Negative); Methadone Negative (Negative); Methamphetamines Negative (Negative); Opiates Negative (Negative); Phencyclidine Negative (Negative); Tricyclic Antidepressants Negative (Negative)
--- NOTE | 2024-08-19 16:09 | CON.GI ---
Addendum entered and electronically signed by Bety Rasheed MD 08/19/24 17:10:
I saw and examined the patient.
The FACTORY MAINTENANCE MANAGER's note was reviewed and I agree with the note.
-- Abdominal pain/nausea/vomiting-Liver test/lipase normal
-- History of type 1 diabetes-uncontrolled. last HbA1C 11.3
-- Change in bowel habits
-- Recent UTI with antibiotic treatment
plan
Possible differential for her symptoms-gastroparesis versus gastritis versus gastroenteritis vs etc
Will get CT abdomen/pelvis with contrast
Continue supportive care-IV hydration/antiemetics
Continue PPI
good glycemic control
If symptom of nausea /vomiting persist will consider EGD
Will follow
Original Note:
Consultation
-
Date/Time Consultation Requested: 08/19/24 1530
Date/Time Consultation Performed: 08/19/24 1600
Requesting Provider: ANDREW Rodriguez
Performing Provider: ANDREW Cox, Bety Rasheed MD
Reason for Consultation: nausea/vomiting
Medical History
Chief Complaint / HPI
Chief Complaint: nausea/vomiting
History of Present Illness:
Pt is a 24yo with hx type 1 DM since age 8, bipolar, ADHD with recent admission with lower extremity pain for several months with concern from polyneuropathy from DM, tachycardia, uncontrolled DM with hbg A1C 11.3, Ecoli UTI with antibiotic
course, MICHAELLE, low B12. She was discharged 08/10. She now returns with abdominal pain, nausea last few day then vomiting larger volumes today, abdominal pain, diarrhea, then constipation with wt loss per family 16 lbs but per chart 5 kg since last
admission. She was also noted with syncope. She otherwise denies any recent travel but did have abx with UTI. She denies odynophagia, dysphagia, GERD, hematemesis or rectal bleeding. no hx EGD or colonoscopy in past.
Past Medical History
Past Medical History: Psychiatric (bipolar, anxiety, ADHD) and Other (pylonephritis )
Social History
Tobacco: Non-Smoker
Alcohol: None
Living: With Family
Employment: Employed
Family History
Family History: Other (no family hx colon Ca or polyps)
Allergies / Home Medications
Allergy/AdvReac Type Severity Reaction Status Date / Time
No Known Allergies Allergy Verified 08/19/24 09:29
�Medication �Instructions �Recorded
atomoxetine 40 mg capsule 40 mg PO DAILY ADHD 11/27/22
gabapentin 800 mg tablet 800 mg PO TID Pain 11/27/22
mirtazapine 7.5 mg tablet 7.5 mg PO HS Mental Health/Anxiety 11/27/22
escitalopram oxalate 10 mg tablet 20 mg PO DAILY Mental 03/27/24
(Lexapro) Health/Anxiety
norethindrone (contraceptive) 0.35 0.35 mg PO DAILY 08/04/24
mg tablet (Jencycla)
insulin aspart U-100 100 unit/mL 3 unit (0.03 mL) SC AC 3 days #15 08/10/24
(3 mL) subcutaneous pen mL
aripiprazole 5 mg tablet 10 mg PO DAILY bipolar 08/19/24
celecoxib 200 mg capsule 200 mg PO DAILYPRN PRN mild pain 08/19/24
insulin glargine 100 unit/mL (3 32 unit SC HS 08/19/24
mL) subcutaneous pen (Lantus
Solostar U-100 Insulin)
lorazepam 0.5 mg tablet 0.5 mg PO TIDPRN PRN anxiety 08/19/24
ondansetron HCl 8 mg tablet 8 mg PO Q8HPRN PRN nausea 08/19/24
Review of Systems
-
History Source: Patient
Constitutional: Reports Weight Loss and Fatigue
EENT: Reports No Symptoms
Respiratory: Reports No Symptoms
Cardiac: Reports Chest Pain
Abdomen/GI: Reports Abdominal Pain, Nausea, Vomiting, Diarrhea and Constipated
: Reports No Symptoms
Musculoskeletal: Reports No Symptoms
Skin: Reports No Symptoms
Neurological: Reports Weakness
Endocrine: Reports No Symptoms
Hematologic/Lymphatic: Reports No Symptoms
Vital Signs
Temp Pulse Resp BP Pulse Ox
98.0 F 104 21 157/94 99
08/19/24 09:29 08/19/24 13:15 08/19/24 13:15 08/19/24 13:00 08/19/24 13:15
Physical Exam
Exam
General: Other (noted with weakness and pain with some distress in exam )
HEENT: Normocephalic and Anicteric
Respiratory: Clear
Cardiac: Other (tachy)
GI: Soft, Non Distended and Tender (diffuse )
Musculoskeletal: No Clubbing and No Cyanosis
Skin: Warm and Dry
Neuro: Other (resting under covers but arousable )
Psych: Calm
Results
WBC 7.3 10^3/uL (4.8-10.8) 08/19/24 12:19
Hgb 12.4 g/dL (12.0-16.0) 08/19/24 12:19
Hct 35.4 % (37.0-47.0) L 08/19/24 12:19
MCV 76.1 fL (81.0-99.0) L 08/19/24 12:19
Plt Count 520 10^3/uL (130-400) H 08/19/24 12:19
Absolute Neuts (auto) 4.4 10^3/uL (1.4-6.5) 08/19/24 12:19
Sodium 139 mmol/L (135-145) 08/19/24 12:19
Potassium 3.9 mmol/L (3.5-5.1) 08/19/24 12:19
Chloride 100 mmol/L (98-107) 08/19/24 12:19
Carbon Dioxide 25 mmol/L (22-30) 08/19/24 12:19
BUN 17 mg/dl (7-17) 08/19/24 12:19
Creatinine 0.6 mg/dL (0.6-1.0) 08/19/24 12:19
Calcium 9.9 mg/dl (8.4-10.2) 08/19/24 12:19
Total Bilirubin 0.8 mg/dl (0.2-1.3) 08/19/24 12:19
AST 20 U/L (14-36) 08/19/24 12:19
ALT 36 U/L (0-35) H 08/19/24 12:19
Alkaline Phosphatase 100 U/L (38-126) 08/19/24 12:19
Lipase 38 U/L (23-300) 08/19/24 12:19
Diagnostic Image Results:
11/27/23 CT Abd/Pel (IV only)-[facility] only
No acute abnormality in the abdomen or pelvis.
Large amount of stool in the colon.
Prior GI Procedures:
EGD: none
Colonoscopy: none
Assessment / Plan
-
Pt is a 24yo with hx type 1 DM since age 8, bipolar, ADHD with recent admission with lower extremity pain for several months with concern from polyneuropathy from DM, tachycardia, uncontrolled DM with hbg A1C 11.3, Ecoli UTI with antibiotic
course, MICHAELLE, low B12. She was discharged 08/10. She now returns with abdominal pain, nausea last few day then vomiting larger volumes today, abdominal pain, diarrhea, then constipation with wt loss. per family 16 lbs but per chart 5 kg since last
admission. She was also noted with syncope. She otherwise denies any recent travel but did have abx with UTI. She denies odynophagia, dysphagia, GERD, hematemesis or rectal bleeding. no hx EGD or colonoscopy in past.
-intractable nausea/vomiting
-abdominal pain
-diarrhea then constipation
-syncope
-tachycardia
-recent admission with concern LE weakness from polyneuropathy from DM
- uncontrolled DM with elevated hbg A1C 11.3 (last admission ) and family report up to 15 prior
-recent Ecoli UTI with antibiotic course
-MICHAELLE
-B12 deficiency
-hx bipolar/ADHD
PLAN:etiology of symptom with concern for infectious etiology, constipation related vs underlying gastroparesis with marked elevated hbg A1C
cont supportive care -- IVF, antiemetics, PPI
if not improving consider trial of Reglan
will review with Dr. Rasheed for imaging
cont to optimize glucose control
for echo with tachycardia
replete B12 per medical team
family updated
-
-
Thank you for consultation and allowing me to participate in the patient's care. Please call the professor of communication arts GI physician during the after hours with any questions or concerns.
[2024-08-19 16:12] LABS: Fentanyl, Urine Negative (Negative)
[2024-08-19 16:14] LABS: Urine Hyaline Cast 0-2 /LPF (0-2); Urine White Cell 0-2 /HPF (0-5)
[2024-08-19 16:15] LABS: Urine Amorphous Seen; Urine Bacteria Many (Negative)
[2024-08-19 21:10] LABS: Glucose - Point of Care 144 mg/dl (70-99)
[2024-08-19] MEDS: LOVENOX 40 MG SC (21:18)
[2024-08-19] MEDS: REMERON 7.5 MG PO (21:19)
[2024-08-19] MEDS: ATIVAN 0.5 MG PO ×2 (21:19→23:30)
[2024-08-19] MEDS: BENTYL 20 MG PO ×2 (21:19→23:30)
[2024-08-19] MEDS: NEURONTIN 800 MG PO (21:27)
[2024-08-19] MEDS: REGLAN 10 MG IV (21:28)
[2024-08-19] MEDS: NOVOLOG FLEXPEN SC (21:41)
[2024-08-19] MEDS: NOVOLOG FLEXPEN-LOW RESISTANCE SC (21:41)
[2024-08-19] MEDS: NSS IV (21:59)
[2024-08-20] VITALS (8 sets, daily range): BP systolic 147–173; BP diastolic 88–108; PULSE 109–114; BMI 21.0
--- NOTE | 2024-08-20 00:01 | PTCARENOTE ---
ax3 multiple c/o abd pain nausea- pt and mother said pt passed out ran in room her eyes were e open. no changes on tele strip. medicated with several antiemetics see mar- . pt feels nothing is helping- reviewed ct scan and her seeing dr's and plumbing assembler's
and that she has been given everything that has been ordered. reviewed with plumbing assembler. pt anxious and tearful prn Ativan given vitals pox stable
[2024-08-20 03:06] LABS: Glucose - Point of Care 179 mg/dl (70-99)
[2024-08-20] MEDS: BENTYL 20 MG PO ×2 (03:21→20:55)
[2024-08-20] MEDS: ATIVAN 0.5 MG PO ×4 (03:21→21:41)
[2024-08-20] MEDS: REGLAN 10 MG IV ×4 (03:21→21:41)
[2024-08-20] MEDS: NSS 1000 IV ×2 (05:42→21:43)
[2024-08-20] MEDS: ZOFRAN 4 MG IV (05:44)
--- NOTE | 2024-08-20 06:26 | PTCARENOTE ---
nausea once again unrelieved by Reglan. heating and ventilating drafter ordered zofran x1 see mar
[2024-08-20 06:28] LABS: Hematocrit 33.3 % (37.0-47.0); Hemoglobin 11.5 g/dL (12.0-16.0); Mean Corp Hgb Conc. 34.5 g/dL (33.0-37.0); Mean Corpuscular Hgb 26.3 pg (27.0-31.0); Mean Corpuscular Volume 76.2 fL (81.0-99.0); Mean Platelet Volume 8.7 fL (7.4-10.4); Platelet Count 461 10^3/uL (130-400); Red Blood Cell Count 4.37 10^6/uL (4.20-5.40); Red Cell Dist. Width 12.5 % (11.5-14.5); White Blood Cell Count 10.7 10^3/uL (4.8-10.8)
--- NOTE | 2024-08-20 06:52 | W.PN.GI.CBS2 ---
Today's Communication / Plan
-
Please see assessment and plan for details.
Assessment / Plan
-
1. Nausea/vomiting/epigastric pain: Likely related to poorly controlled diabetes and delayed gastric emptying, CT scan and labs otherwise essentially unremarkable. At this point need to continue glycemic control and supportive care, IV fluids,
antiemetics, will decrease diet to liquids, continue PPI. Needs good glycemic control, await morning basic metabolic panel though will defer to internal medicine. If still no improvement could consider EGD on Friday though etiology such as peptic
ulcer disease seem much less likely.
Subjective
Subjective
Date of Service: August 20, 2024
Patient still with nausea, vomiting epigastric discomfort. CT scan reviewed and essentially unremarkable, no fevers or chills overnight.
Objective
Data Reviewed
Laboratory Data:
Laboratory Results
08/20/24 06:04
08/19/24 12:19
Laboratory Results
Magnesium 1.7 mg/dl (1.6-2.3) 08/19/24 12:19
Total Bilirubin 0.8 mg/dl (0.2-1.3) 08/19/24 12:19
AST 20 U/L (14-36) 08/19/24 12:19
ALT 36 U/L (0-35) H 08/19/24 12:19
Alkaline Phosphatase 100 U/L (38-126) 08/19/24 12:19
Lipase 38 U/L (23-300) 08/19/24 12:19
Vital Signs and I&O:
Vital Signs
Temp Pulse Resp BP Pulse Ox
98.8 F 113 16 147/92 97
08/20/24 03:20 08/20/24 03:20 08/20/24 03:20 08/20/24 03:20 08/20/24 03:20
I&O
08/18/24 08/19/24 08/20/24
06:59 06:59 06:59
Intake Total 2259
Balance 2259
Physical Exam
Physical Exam
General: NAD
Abdomen: normal bowel sounds, soft, no tenderness, no masses or bruits, no ascites
[2024-08-20 07:04] LABS: Glucose - Point of Care 216 mg/dl (70-99)
[2024-08-20] MEDS: NOVOLOG FLEXPEN-LOW RESISTANCE SC ×2 (08:11→17:35)
[2024-08-20 08:19] LABS: Blood Urea Nitrogen 12 mg/dl (7-17); Calcium 9.3 mg/dl (8.4-10.2); Carbon Dioxide 20 mmol/L (22-30); Chloride 106 mmol/L (98-107); Estimated Creatinine Clearance > 125 ml/min; Glucose 216 mg/dl (70-99); Potassium 3.9 mmol/L (3.5-5.1); Sodium 139 mmol/L (135-145); eGFR > 60.00
[2024-08-20] MEDS: NOVOLOG FLEXPEN 3 UNITS SC ×3 (08:22→17:35)
[2024-08-20] MEDS: PROTONIX IV 40 MG IV (08:41)
[2024-08-20] MEDS: NSS (PRESERVATIVE FREE) 10 ML IV (08:41)
--- NOTE | 2024-08-20 09:25 | W.PN.HOSP.TC ---
Today's Communication/Plan
-
Echo. GI reeval
Assessment / Plan
Assessment / Plan
Physical exam:
General: Well Developed, Well Nourished and No Apparent Distress
HEENT: Normocephalic, Atraumatic and Moist Mucous Membranes
Respiratory: Clear to Auscultation; Negative Wheezes, Rales or Rhonchi
Cardiac: Regular Rhythm and S1/S2
GI: Soft, tender and Nondistended
Musculoskeletal: No Clubbing, No Cyanosis and No Edema
Neuro: Awake, Alert and Oriented
Psych: Calm
A/P:
Intractable abdominal pain nausea and vomiting:
Appreciate GI consult
GI noted relationship with her diabetes mellitus and also downgraded to clear liquid diet
Stop IV fluid
Noted CT scan of the abdomen
Supportive care
Vasovagal syncope:
Check orthostatic and cardiac monitoring for 24 hours
Awaiting echocardiogram
Diabetes mellitus type 1:
Continue long-acting and short acting insulin
COLLISION REPAIR TECHNICIAN diabetic consult
Rest of other medical problems:
Recent UTI
Recent admission for bilateral lower extremity pain unclear etiology but felt multifactorial
Vitamin B12 deficiency
Depression anxiety
Bipolar
Anemia
DVT prophylaxis:
Lovenox SQ
CODE STATUS:
Full code
Anticipated Discharge: > 48 hours
Subjective/Interval History
-
Date of Service: August 20, 2024
She is still having nausea and vomiting. No chest pain or shortness of breath.
Objective Data
-
Labs:
Laboratory Results
08/20/24 08/20/24
06:02 06:04
WBC 10.7
Hgb 11.5 L
Hct 33.3 L
Plt Count 461 H
Sodium 139
Potassium 3.9
Chloride 106
Carbon Dioxide 20 L
BUN 12
Creatinine 0.5 L
Glucose 216 H
Calcium 9.3
Vital Signs:
Vital Signs
Temp Pulse Resp BP Pulse Ox
98.2 F 111 18 173/108 97
08/20/24 07:10 08/20/24 07:10 08/20/24 07:10 08/20/24 07:10 08/20/24 07:10
I&O
08/19/24 08/20/24 08/21/24
06:59 06:59 06:59
Intake Total 2260 / 2260
Balance 2260 / 2260
[2024-08-20] MEDS: NEURONTIN PO ×2 (10:16→17:34)
[2024-08-20] MEDS: ABILIFY PO (10:16)
[2024-08-20] MEDS: LEXAPRO PO (10:16)
--- NOTE | 2024-08-20 11:00 | PTCARENOTE ---
patient vomited and c/o nausea. GI notified and stat dose of reglan given. patient is crying and asking for more nausea medicine. clear liquid diet in place. recommended to take small sips of clears. PRN ativan given. patient refused IV NSS stating
she does not like having IV. aware
[2024-08-20 11:49] LABS: Glucose - Point of Care 205 mg/dl (70-99)
[2024-08-20 12:18] LABS: Glycohemoglobin (HgbA1c) 10.5 % (4.0-5.6)
[2024-08-20] MEDS: NOVOLOG FLEXPEN-LOW RESISTANCE 2 UNITS SC (12:29)
[2024-08-20] MEDS: TYLENOL 650 MG PO (15:28)
--- NOTE | 2024-08-20 15:52 | PN.DE.MGMTRT ---
Insulin Management
- -
08/20/2024: Diabetes Management Consult
24 year old female who was recently discharged home 08/04-08/10, re-presented to the ED for evaluation of nausea, vomiting and epigastric pain.
PMH includes: Anxiety/depression, bipolar, ADHD, prior UTIs/pyelonephritis, chronic back pain on oxycodone and gabapentin and T1DM.
Patient follows with [facility] for routine Diabetes care, was last seen in May, states her next appt is in November.
Prior to admission was taking Basaglar 32 units @ hs with NovoLog 3 units AC. Current A1C 11.3%, improved from 15% in 03/2024. Cr 0.5, eGFR >60.
Patient awake, alert and oriented, c/o intermittent N/V and not eating much.
Glucose elevated >200 on clear liquid diet. Pt also noted for poor appetite and poor oral intake.
Of note, pt did not receive her Lantus dose @ HS last night, FBG 216 V, 216 POC this AM.
Will reduce Lantus dose to 28 units @ HS, given her hx of prolonged hypoglycemia and a brittle diabetic.
Cont AC NovoLog 3 units and low corrective with meals
Will closely monitor glucose trend and further adjust insulin dose if necessary.
Will cont to follow.
Diabetes History
- -
Type of Diabetes: 1
Pre-Admission Diabetes Regimen
08/20/24
06:02
Creatinine 0.5 L
Lab Results
Hemoglobin A1c 10.5 % (4.0-5.6) H 08/19/24 12:19
Insulin Pump Settings
IP Diabetes Regimen
08/19/24 08/20/24 08/20/24
21:09 03:05 06:02
Glucose 216 H
POC Glucose 144 H 179 H
08/20/24 08/20/24
06:56 11:42
Glucose
POC Glucose 216 H 205 H
Meal type: Lunch
Meal type: Breakfast
Amount consumed: 40%
Amount consumed: 20%
Patient Education
--- NOTE | 2024-08-20 16:56 | CM ---
Alert awake oriented patient who lives with her mom in a 2 story home with 17 steps to enter and 10 steps to bed/bathroom. She is independent in activates of daily living.She does drive .She used a walker.Observation letter given explained and
signed on chart.
No VN in past . No SNF hx
Pharmacy [facility]
PCP Dr Duncan
PLAN Home with no needs
[2024-08-20 17:02] LABS: Glucose - Point of Care 117 mg/dl (70-99)
[2024-08-20] MEDS: LOVENOX SC (17:37)
[2024-08-20 21:46] LABS: Glucose - Point of Care 131 mg/dl (70-99)
--- NOTE | 2024-08-20 22:00 | PTCARENOTE ---
Patient continues with nausea and vomiting. Reglan per order. She is also anxious and tearful requesting Ativan. TT to ANDREW, covering House, OK to give Ativan early.
[2024-08-21] VITALS (9 sets, daily range): BP systolic 93–172; BP diastolic 60–115; PULSE 114–126
[2024-08-21] MEDS: REMERON 7.5 MG PO ×2 (00:22→21:50)
[2024-08-21] MEDS: TIGAN 200 MG IM (00:22)
[2024-08-21] MEDS: NEURONTIN 800 MG PO ×4 (00:23→21:50)
--- NOTE | 2024-08-21 00:46 | PTCARENOTE ---
RN called to room by PCT. Patient passed out when standing during ortho VS. Patient in bed and awake when this teletypewriter installer entered room. TT to PETROGRAPHY TEACHER, covering floor. Continue to monitor. Patient continues with nausea/vomiting. Tigan per order.
Patient wanted Lantus held due to concern for not tolerating po intake. OK to hold per PETROGRAPHY TEACHER,
[2024-08-21] MEDS: TRANDATE 2.5 MG IV (03:53)
[2024-08-21] MEDS: REGLAN 10 MG IV ×3 (03:57→17:26)
[2024-08-21] MEDS: FLUSH (NSS) 3 FLUSH IV (03:57)
[2024-08-21 05:42] LABS: % Basophils 0.5 % (0-2); % Eosinophils 0.6 % (0-6); % Immature Granulocytes 0.4 % (0-0.5); % Lymphocytes 19.2 % (20.5-51.1); % Monocytes 6.6 % (1.7-9.3); % Neutrophils 72.7 % (42.2-75.2); Absolute Basophils 0.1 10^3/uL (0-0.2); Absolute Eosinophils 0.1 10^3/uL (0-0.7); Absolute Lymphocytes 2.1 10^3/uL (1.2-3.4); Absolute Monocytes 0.7 10^3/uL (0.1-0.6); Hematocrit 34.9 % (37.0-47.0); Hemoglobin 12.1 g/dL (12.0-16.0); Mean Corp Hgb Conc. 34.7 g/dL (33.0-37.0); Mean Corpuscular Hgb 26.5 pg (27.0-31.0); Mean Corpuscular Volume 76.5 fL (81.0-99.0); Mean Platelet Volume 8.6 fL (7.4-10.4); Nucleated Red Blood Cells % 0 %; Platelet Count 454 10^3/uL (130-400); Red Blood Cell Count 4.56 10^6/uL (4.20-5.40); Red Cell Dist. Width 12.4 % (11.5-14.5); White Blood Cell Count 10.9 10^3/uL (4.8-10.8)
--- NOTE | 2024-08-21 06:01 | PTCARENOTE ---
Patient with no void so far this shift. Bladder Scan for 642. Patient refused straight cath.
[2024-08-21 06:02] LABS: Blood Urea Nitrogen 10 mg/dl (7-17); Calcium 9.1 mg/dl (8.4-10.2); Carbon Dioxide 17 mmol/L (22-30); Chloride 101 mmol/L (98-107); Estimated Creatinine Clearance > 125 ml/min; Glucose 274 mg/dl (70-99); Magnesium 1.5 mg/dl (1.6-2.3); Phosphorus 4.3 mg/dl (2.5-4.5); Potassium 3.5 mmol/L (3.5-5.1); Sodium 135 mmol/L (135-145); eGFR > 60.00
--- NOTE | 2024-08-21 06:42 | W.PN.GI.CBS2 ---
Addendum entered and electronically signed by Tye Potter MD 08/21/24 10:56:
Patient seen and examined, agree with nurse practitioner note. Patient still complaining of nausea though more of her complaint is anxiety. She still feels nausea though has not had significant retching today and has tolerated some clears. She
denies any significant abdominal pain. Exam is benign with no significant tenderness. Glucose is still elevated, bicarb down a bit today.
1. Nausea/vomiting: Still likely more related to metabolic disorders including underlying poorly controlled diabetes as well as acute hyperglycemia and fluctuations of glucose. I do think that her anxiety is likely adding to some of her symptoms
as well as electrolyte imbalance. At this point we will continue antiemetics as able, glucose and anxiety control. Will hold on endoscopy for now unless symptoms change as she has been slowly improving.
Original Note:
Today's Communication / Plan
-
symptoms Likely related to poorly controlled diabetes and delayed gastric emptying vs other
cont supportive care -- IVF(pt declined but now agreeable to restart), PPI(will increased to BID), Remeron, reglan(PRN)
repeat mag and keep electrolytes corrected
noted prolonged QTC 486 on 08/19 will repeat EGK now -- if still elevated may need medication adjustment-- reviewed with Dr. Potter and Dr. Gerard
if not improving consider EGD on Friday
diet as tolerated -- currently on clear diet will add Glucerna
cont to optimize glucose control
echo stable
Assessment / Plan
-
Pt is a 24yo with hx type 1 DM since age 8, bipolar, ADHD with recent admission with lower extremity pain for several months with concern from polyneuropathy from DM, tachycardia, uncontrolled DM with hbg A1C 11.3, Ecoli UTI with antibiotic
course, MICHAELLE, low B12. She was discharged 08/10. She now returns with abdominal pain, nausea last few day then vomiting larger volumes today, abdominal pain, diarrhea, then constipation with wt loss. per family 16 lbs but per chart 5 kg since last
admission. She was also noted with syncope. She otherwise denies any recent travel but did have abx with UTI. She denies odynophagia, dysphagia, GERD, hematemesis or rectal bleeding. no hx EGD or colonoscopy in past.
08/19/24 CT A/p
1. Severe distention of the urinary bladder.
2. Mild diverticulosis in the descending and sigmoid colon.
3. Mild hepatomegaly (possible Gwen's morphology).
08/20/24- Echo
Normal left ventricular size, wall thickness and systolic function. No regional wall motion abnormalities are seen. LV ejection fraction is 55-60% by volumetric assessment. Normal diastolic function.Normal right ventricular size and function. Normal
atria. No significant valvular disease. No pericardial effusion. No prior study for comparison.
-intractable nausea/vomiting
-epigastric abdominal pain
-diarrhea then constipation
-prolonged QTC
-hypomagnesemia
-syncope
-tachycardia
-bladder distention on CT
-recent admission with concern LE weakness from polyneuropathy from DM
- uncontrolled DM with elevated hbg A1C 11.3 (last admission ) and family report up to 15 prior
-recent Ecoli UTI with antibiotic course
-MICHAELLE
-B12 deficiency
-hx bipolar/ADHD
PLAN:
symptoms Likely related to poorly controlled diabetes and delayed gastric emptying vs other
cont supportive care -- IVF(pt declined but now agreeable to restart), PPI(will increased to BID), Remeron, reglan(PRN)
repeat mag and keep electrolytes corrected
noted prolonged QTC 486 on 08/19 will repeat EGK now -- if still elevated may need medication adjustment-- reviewed with Dr. Potter and Dr. Gerard
if not improving consider EGD on Friday
diet as tolerated -- currently on clear diet will add Glucerna
cont to optimize glucose control
echo stable
Subjective
Subjective
Date of Service: August 21, 2024
still with nausea and minimal vomiting- but more awake and alert - pt now off IVF
Objective
Data Reviewed
Laboratory Data:
Laboratory Results
08/21/24 05:28
08/21/24 05:28
Laboratory Results
Phosphorus 4.3 mg/dl (2.5-4.5) 08/21/24 05:28
Magnesium 1.5 mg/dl (1.6-2.3) L 08/21/24 05:28
Total Bilirubin 0.8 mg/dl (0.2-1.3) 08/19/24 12:19
AST 20 U/L (14-36) 08/19/24 12:19
ALT 36 U/L (0-35) H 08/19/24 12:19
Alkaline Phosphatase 100 U/L (38-126) 08/19/24 12:19
Lipase 38 U/L (23-300) 08/19/24 12:19
Vital Signs and I&O:
Vital Signs
Temp Pulse Resp BP Pulse Ox
98.4 F 107 20 151/102 98
08/21/24 03:38 08/21/24 05:48 08/21/24 03:38 08/21/24 05:48 08/21/24 03:38
I&O
08/19/24 08/20/24 08/21/24
06:59 06:59 06:59
Intake Total 2260 / 2260 1480 / 1480
Balance 2260 / 2260 1480 / 1480
Physical Exam
Physical Exam
HEENT: Anicteric and Moist mucous membranes
Cardiology: Other (tachy)
Pulmonary: Clear
GI: Soft, Non Distended and Tender (diffuse allowed minimal exam)
Extremities: No Edema
Neuro: Non Focal
[2024-08-21 08:06] LABS: Glucose - Point of Care 286 mg/dl (70-99)
[2024-08-21] MEDS: NOVOLOG FLEXPEN-LOW RESISTANCE 3 UNITS SC ×2 (08:39→13:26)
[2024-08-21] MEDS: NOVOLOG FLEXPEN SC ×2 (08:44→13:26)
[2024-08-21] MEDS: ABILIFY 10 MG PO (08:44)
[2024-08-21] MEDS: NSS (PRESERVATIVE FREE) 10 ML IV ×2 (08:45→21:49)
[2024-08-21] MEDS: PROTONIX IV 40 MG IV ×2 (08:45→21:50)
[2024-08-21] MEDS: LEXAPRO 20 MG PO (08:45)
[2024-08-21] MEDS: FLUSH (NSS) 2 FLUSH IV (08:46)
[2024-08-21] MEDS: ATIVAN 0.5 MG PO ×3 (08:51→21:10)
--- NOTE | 2024-08-21 09:26 | W.PN.HOSP.TC ---
Today's Communication/Plan
-
IVF. Psychiatry consult.
Assessment / Plan
Assessment / Plan
Physical exam:
General: Acutely ill
HEENT: Normocephalic, Atraumatic and Dry Mucous Membranes
Respiratory: Clear to Auscultation; Negative Wheezes, Rales or Rhonchi
Cardiac: Regular Rhythm and S1/S2
GI: Soft, tender and Nondistended
Musculoskeletal: No Clubbing, No Cyanosis and No Edema
Neuro: Awake, Alert and Oriented, no gross neurological deficits
Psych: Anxious. Flat affect.
A/P:
Intractable abdominal pain nausea and vomiting:
Appreciate GI consult-discussed with GI in person today on 08/21
Will get psychiatry on board-patient and mother are in agreement
Patient in agreement with IV fluid--> restarted IV fluids today due to poor oral intake
Continue clear liquid diet
Noted CT scan of the abdomen
Supportive care
Discussed with mother at bedside today on 08/21.
Severe anxiety with underlying bipolar:
She does have multiple psychiatry medications-some of which have been decreased or held and her recent pain in legs have improved but then now she is having more GI symptoms and increased anxiety levels as well. She also has a QTc of 487.
Psychiatry consult-discussed via [place] text to help with management and medications in light of above. Patient and mother are in agreement.
Vasovagal syncope:
Check orthostatic and cardiac monitoring for 24-48 hours
Echocardiogram unremarkable
Diabetes mellitus type 1:
Continue long-acting and short acting insulin--> she will need more adjustment of her regimen but in light of her brittle status and poor oral intake will be challenging so we will observe first.
FIBERGLASS BOAT PARTS FINISHER diabetic consult appreciated
Rest of other medical problems:
Recent UTI
Recent admission for bilateral lower extremity pain unclear etiology but felt multifactorial
Vitamin B12 deficiency
Anemia
DVT prophylaxis:
Lovenox SQ
CODE STATUS:
Full code
Total time spent on today's encounter was 52 minutes which included time spent in counseling the patient/family regarding diagnosis and treatment plan as listed above, goals of care, and symptom management. Case was discussed with nursing staff,
specialists, and care coordinators/case management. All labs and imaging personally reviewed by me. Remainder the time spent in detailed review of previous records, lab data, imaging, and other medical provider documentation.
Anticipated Discharge: 24 - 48 hours
Subjective/Interval History
-
Date of Service: August 21, 2024
Patient still complains of nausea but is better overall. Less abdominal pain and vomiting. Afebrile.
Objective Data
-
Labs:
Laboratory Results
08/21/24
05:28
WBC 10.9 H
Hgb 12.1
Hct 34.9 L
Plt Count 454 H
Sodium 135
Potassium 3.5
Chloride 101
Carbon Dioxide 17 L
BUN 10
Creatinine 0.5 L
Glucose 274 H
Calcium 9.1
Vital Signs:
Vital Signs
Temp Pulse Resp BP Pulse Ox
97.8 F 107 18 151/102 98
08/21/24 08:22 08/21/24 05:48 08/21/24 08:22 08/21/24 05:48 08/21/24 08:22
I&O
08/20/24 08/21/24 08/22/24
06:59 06:59 06:59
Intake Total 2260 / 2260 1480 / 1480
Balance 2260 / 2260 1480 / 1480
[2024-08-21] MEDS: MAGNESIUM SULFATE 50 IV (10:55)
[2024-08-21] MEDS: 0.45% NACL with KCL 20 MEQ 1000 IV ×2 (10:56→22:14)
[2024-08-21] MEDS: FLUSH (NSS) 1 FLUSH IV (10:57)
[2024-08-21 12:44] LABS: Glucose - Point of Care 261 mg/dl (70-99)
--- NOTE | 2024-08-21 14:29 | W.PN.UPDATE ---
Update Note
Progress Note Update
I tried to interview the patient but she stated she did not want to talk today. Agreed fto see a psychiatrist tomorrow.
the smoke control supervisor physician will F/U with her tomorrow.
[2024-08-21 16:13] LABS: Glucose - Point of Care 215 mg/dl (70-99)
[2024-08-21 16:47] LABS: Glucose - Point of Care 205 mg/dl (70-99)
[2024-08-21] MEDS: NOVOLOG FLEXPEN 1 UNITS SC (17:20)
[2024-08-21] MEDS: LOVENOX SC (17:21)
[2024-08-21] MEDS: NOVOLOG FLEXPEN-LOW RESISTANCE 2 UNITS SC (17:21)
[2024-08-21] MEDS: BENTYL 20 MG PO (17:31)
[2024-08-21 21:35] LABS: Glucose - Point of Care 319 mg/dl (70-99)
[2024-08-21] MEDS: LANTUS 0.28 UNITS SC (21:50)
--- NOTE | 2024-08-21 21:55 | PTCARENOTE ---
Pts sugar 319, pt with c/o bilateral leg cramping, with c/o chest pain 8/10 throughout whole chest. BP 141/93 HR 113, 100% RA RR 16 temp 98. EKG completed. House REAL ESTATE LEASING MANAGER notified order for troponin, drawn. Pt stating 'I think it may be from throwing
up'. Care is ongoing.
--- NOTE | 2024-08-21 21:56 | W.PN.UPDATE ---
Update Note
Progress Note Update
~21:30 Pt c/o chest pain shortly after patient in bed 1 c/o chest pain. Patient evaluated, rated chest pain at 8-9/10, b/l chest and upper epigastric area. Denies palpitations, SOB. States she feels anxious, received Ativan approx 20 minutes prior.
Patient given rest of scheduled medications. Pt agreeable to take Lantus HS dose, HS glucose 319.�
Ordered EKG, showed sinus tachycardia, HR 102. Ordered trend troponin Q6H x 3 <0.012. CXR showed no evidence of active cardiopulmonary disease.
~ 23:30 Pt stated she was having a panic attack (hyperventilating, convulsing)�and requested additional medication. Ordered Ativan 0.5 mg IV x 1.
Pt calmer after receiving medication. Symptoms resolved.�
Note: RN found pt's home medications (including Ativan) in her purse at her bedside. Pt was placed on bed alarm due to syncopal episode earlier. RN took home medications to pharmacy.
[2024-08-21 22:45] LABS: Troponin I < 0.012 ng/ml
[2024-08-21] MEDS: ATIVAN 0.5 MG IV (23:46)
[2024-08-21] MEDS: NSS (PRESERVATIVE FREE) 0.25 ML IV (23:47)
--- NOTE | 2024-08-21 23:55 | PTCARENOTE ---
Pt hyperventilating, full body tremors, stating 'I am having a panic attack'. Stating 'I am suicidal'- states no plan at this time. House QUALITY ASSURANCE ENGINEER aware, IV ativan given. Emotional support given.
[2024-08-22] VITALS (7 sets, daily range): BP systolic 92–164; BP diastolic 52–104; PULSE 100–124
[2024-08-22 05:57] LABS: Blood Urea Nitrogen 7 mg/dl (7-17); Calcium 9.1 mg/dl (8.4-10.2); Carbon Dioxide 12 mmol/L (22-30); Chloride 106 mmol/L (98-107); Estimated Creatinine Clearance > 125 ml/min; Glucose 261 mg/dl (70-99); Magnesium 1.8 mg/dl (1.6-2.3); Potassium 3.9 mmol/L (3.5-5.1); Sodium 134 mmol/L (135-145); eGFR > 60.00
[2024-08-22 06:00] LABS: Hematocrit 33.6 % (37.0-47.0); Hemoglobin 11.8 g/dL (12.0-16.0); Mean Corp Hgb Conc. 35.1 g/dL (33.0-37.0); Mean Corpuscular Hgb 26.6 pg (27.0-31.0); Mean Corpuscular Volume 75.7 fL (81.0-99.0); Mean Platelet Volume 8.8 fL (7.4-10.4); Platelet Count 492 10^3/uL (130-400); Red Blood Cell Count 4.44 10^6/uL (4.20-5.40); Red Cell Dist. Width 12.2 % (11.5-14.5); White Blood Cell Count 7.3 10^3/uL (4.8-10.8)
--- NOTE | 2024-08-22 06:07 | PTCARENOTE ---
Pt with critical CO2 12. House PATHOLOGIST notified.
[2024-08-22 06:22] LABS: Troponin I < 0.012 ng/ml
[2024-08-22 07:56] LABS: Glucose - Point of Care 236 mg/dl (70-99)
[2024-08-22] MEDS: REGLAN 10 MG IV ×3 (08:08→21:21)
[2024-08-22] MEDS: PROTONIX IV 40 MG IV ×2 (08:08→20:20)
[2024-08-22] MEDS: NSS (PRESERVATIVE FREE) 10 ML IV ×2 (08:08→20:20)
[2024-08-22] MEDS: ATIVAN 0.5 MG PO (08:21)
[2024-08-22] MEDS: LEXAPRO 20 MG PO (08:21)
[2024-08-22] MEDS: ABILIFY 10 MG PO (08:21)
[2024-08-22] MEDS: NOVOLOG FLEXPEN 3 UNITS SC (08:49)
[2024-08-22] MEDS: NOVOLOG FLEXPEN-LOW RESISTANCE 2 UNITS SC (08:50)
[2024-08-22] MEDS: NEURONTIN 800 MG PO ×3 (08:51→21:19)
--- NOTE | 2024-08-22 09:28 | W.PN.GI.CBS2 ---
Today's Communication / Plan
-
Please see assessment and plan for details.
Assessment / Plan
-
1. Nausea/vomiting: Likely secondary to chronic poor glycemic control, likely some component of delayed gastric emptying, with acute symptoms from glucose fluctuations and electrolyte abnormality. She actually feeling much better today from a GI
standpoint, though her bicarb is lower and repeat along with VBG is currently pending. Given her improved symptoms, however, will advance diet. Would continue antiemetics, supportive care and glycemic control. Will hold on further GI workup for
now.
We will sign off for now, please call back with any further questions.
Subjective
Subjective
Date of Service: August 22, 2024
Patient actually feeling much better, no vomiting, less nausea, no abdominal pain. Tolerated clears without difficulty.
Objective
Data Reviewed
Laboratory Data:
Laboratory Results
08/22/24 05:28
Laboratory Results
Phosphorus 4.3 mg/dl (2.5-4.5) 08/21/24 05:28
Magnesium 1.8 mg/dl (1.6-2.3) 08/22/24 05:28
Total Bilirubin 0.8 mg/dl (0.2-1.3) 08/19/24 12:19
AST 20 U/L (14-36) 08/19/24 12:19
ALT 36 U/L (0-35) H 08/19/24 12:19
Alkaline Phosphatase 100 U/L (38-126) 08/19/24 12:19
Lipase 38 U/L (23-300) 08/19/24 12:19
Vital Signs and I&O:
Vital Signs
Temp Pulse Resp BP Pulse Ox
98.1 F 101 16 151/94 100
08/22/24 07:05 08/22/24 07:05 08/22/24 07:05 08/22/24 07:05 08/22/24 07:05
I&O
08/21/24 08/22/24 08/23/24
06:59 06:59 06:59
Intake Total 1480 / 1480 1030 / 1030
Output Total 200 / 200
Balance 1480 / 1480 830 / 830
Physical Exam
Physical Exam
General: NAD
Abdomen: normal bowel sounds, soft, no tenderness, no masses or bruits, no ascites
[2024-08-22 09:29] LABS: Blood Urea Nitrogen 6 mg/dl (7-17); Calcium 9.4 mg/dl (8.4-10.2); Carbon Dioxide 15 mmol/L (22-30); Chloride 105 mmol/L (98-107); Estimated Creatinine Clearance > 125 ml/min; Glucose 230 mg/dl (70-99); Potassium 4.1 mmol/L (3.5-5.1); Sodium 134 mmol/L (135-145); eGFR > 60.00
[2024-08-22 09:35] LABS: B-Hydroxybutyrate 4.69 mmol/L (0.02-0.27)
--- NOTE | 2024-08-22 09:38 | W.PN.HOSP.TC ---
Today's Communication/Plan
-
Extra insulin doses. Bicarb infusion. Recheck in acidosis, blood sugar, and electrolytes.
Assessment / Plan
Assessment / Plan
Physical exam:
General: Acutely ill
HEENT: Normocephalic, Atraumatic and Dry Mucous Membranes
Respiratory: Clear to Auscultation; Negative Wheezes, Rales or Rhonchi
Cardiac: Regular Rhythm and S1/S2
GI: Soft, tender and Nondistended
Musculoskeletal: No Clubbing, No Cyanosis and No Edema
Neuro: Awake, Alert and Oriented, no gross neurological deficits
Psych: Anxious. Flat affect.
A/P:
Intractable abdominal pain nausea and vomiting:
Improvement noticed
Appreciate GI consult-discussed with GI today on 08/22
Advanced to full liquid diet per GI
Noted CT scan of the abdomen
Supportive care
Discussed with mother at bedside today on 08/22
Diabetes mellitus type 1:
Worsening today noticed
She had severe hyperglycemia related to the fact to noncompliance with treatment and also related to her GI symptoms; she sometimes refuses her insulin and sometimes wants 'decrease doses than order' (hard to tell GI symptoms prior or after).
She has borderline DKA this morning-discussed with house manager today. We repeated labs and acidosis improving so we will hold off on insulin drip for now or transfer to ICU unless she gets worse-currently improving.
Obtain VBG and B-hydroxybutyrate
Her initial blood sugars was over 260 earlier this morning but after insulin treatment and fluid her blood sugars has come down to 136 and will repeat BMP to reassess metabolic status today.
Discussed with patient importance of compliance with insulin treatment.
Give extra short acting 10 units of insulin total this morning, and continue with long-acting insulin as is (Lantus 28 units) and will continue with 3 units meal insulin +coverage if she is able to cooperate.
Repeat BMP later this afternoon
Diabetes EMPLOYEE COMMUNICATIONS MANAGER will see her again tomorrow
Anion gap metabolic acidosis:
Worsening today noticed
Combination of GI losses and hyperglycemia related as above
Will use IV bicarb drip primarily due to the GI losses and repeat BMP later this afternoon and will reevaluate IV fluids at that time.
Bicarb-->12-->15-->pending this afternoon
AG trending down
Cardiac monitoring for now
Severe anxiety and recurrent depression and probable personality disorder; ?underlying bipolar/ADHD:
She does have multiple psychiatry medications-some of which have been decreased or held and her recent pain in legs have improved but then now she is having more GI symptoms and increased anxiety levels as well. QTc of 487 coming down to-->466.
Psychiatry consulted and yesterday she did not wanted to talk to psychiatry but today she is willing to talk to them. Patient and mother are in agreement.
Vasovagal syncope:
Check orthostatic
Echocardiogram unremarkable
Rest of other medical problems:
Recent UTI
Recent admission for bilateral lower extremity pain unclear etiology but felt multifactorial
Vitamin B12 deficiency
Anemia
DVT prophylaxis:
Lovenox SQ
CODE STATUS:
Full code
Total time spent on today's encounter was 52 minutes which included time spent in counseling the patient/family regarding diagnosis and treatment plan as listed above, goals of care, and symptom management. Case was discussed with nursing staff,
specialists, and care coordinators/case management. All labs and imaging personally reviewed by me. Remainder the time spent in detailed review of previous records, lab data, imaging, and other medical provider documentation.
Anticipated Discharge: 24 - 48 hours
Subjective/Interval History
-
Date of Service: August 22, 2024
Patient feels her nausea abdominal and vomiting improving. She still have significant amount of anxiety and she is willing to talk to psychiatry today. No chest pain or shortness of breath. Afebrile
Objective Data
-
Labs:
Laboratory Results
08/22/24 08/22/24
05:28 09:09
WBC 7.3
Hgb 11.8 L
Hct 33.6 L
Plt Count 492 H
Sodium 134 L 134 L
Potassium 3.9 4.1
Chloride 106 105
Carbon Dioxide 12 L* 15 L
BUN 7 6 L
Creatinine 0.6 0.6
Glucose 261 H 230 H
Calcium 9.1 9.4
Vital Signs:
Vital Signs
Temp Pulse Resp BP Pulse Ox
98.1 F 101 16 151/94 100
08/22/24 07:05 08/22/24 07:05 08/22/24 07:05 08/22/24 07:05 08/22/24 07:05
I&O
08/21/24 08/22/24 08/23/24
06:59 06:59 06:59
Intake Total 1480 / 1480 1030 / 1030
Output Total 200 / 200
Balance 1480 / 1480 830 / 830
[2024-08-22 10:20] LABS: Venous Blood Gas B.E. -11.2 mmol/L (-4 to +4); Venous Blood Gas HCO3 14.8 mmol/L (22-27); Venous Blood Gas O2 Sat % 99.5 %; Venous Blood Gas pCO2 33 mmHg (35-48); Venous Blood Gas pH 7.26 (7.32-7.43); Venous Blood Gas pO2 136 mmHg (30-50)
[2024-08-22 10:21] LABS: Venous Blood Gas O2 Therapy RA
[2024-08-22 10:43] LABS: Troponin I < 0.012 ng/ml
[2024-08-22] MEDS: SODIUM BICARBONATE 1075 MEQ IV ×2 (10:59→21:18)
[2024-08-22] MEDS: NOVOLOG FLEXPEN 5 UNITS SC (11:00)
[2024-08-22] MEDS: 0.45% NACL with KCL 20 MEQ IV (11:14)
--- NOTE | 2024-08-22 11:27 | CON.MD ---
Consultation - Medical
-
This 24 year old single WF was admitted back to 3 days ago(08/19/24) for vomiting and stomach pain after being discharged from the hospital on 08/10/24 for pyelonephritis. Pt reports feeling very depressed, anxious all the time. She constantly
rubs one foot against the other - at times tells me this is from anxiety, also from pain. She says she hasn't eaten in several weeks. Denies difficulty swallowing, denies that food makes her nausea worse.
She claims that she has been depressed 'since age 7'- which is when her diabetes was first diagnosed. She has not had longstanding upswings of mood, but says that her mood can switch 'in a second.' Mom and pt say that she used to have angry
outbursts, which have been controlled since she was started on Abilify. Pt's description of her anxiety is 'thoughts constantly going, feeling tight in her chest, feeling of doom and gloom. Denies suicidal ideation. Does feel that her condition is
getting worse, and she is worried about this. However she also admits that she is not proactive about controlling her blood sugar and diet.
A/P- dx- Recurrent depression, Anxiety disorder; doubt ADHD or Bipolar. Borderline Personality disorder possible.
I reviewed Dr Vilchis's Psychiatry consult from the last admission, in which she recommended Cymbalta rather than Lexapro for this patient. I agree with her recommendation, but pt not willing to make this medication change today. Cymbalta not
anticholinergic. Doubt need or efficacy of Strattera, but pt wants her psychiatrist to make medication changes, so I wrote down the name of the med and gave it to her mom.
Would increase dose of Ativan to 1 mg as .5 is not helping her anxiety. T/C valium as an alternative if she does have gastroparesis.
I discussed with patient the importance of her being more active in her approach to her diabetes, particularly with diet. However she did not respond favorably to my intervention.
[2024-08-22 12:12] LABS: Urine Albumin 3+ (Neg - Trace); Urine Bilirubin Negative (Negative); Urine Character Clear (Clear); Urine Color Yellow; Urine Glucose 4+ (Negative); Urine Ketone 3+ (Negative); Urine Leukocyte Negative (Negative); Urine Nitrite Negative (Negative); Urine Occult Blood 3+ (Negative); Urine Urobilinogen Negative (Neg - 1+)
[2024-08-22 12:40] LABS: Glucose - Point of Care 136 mg/dl (70-99)
[2024-08-22 13:07] LABS: Urine Squamous Cell >30 /LPF (Few)
[2024-08-22 13:08] LABS: Urine Bacteria Moderate (Negative); Urine White Cell 0-2 /HPF (0-5)
[2024-08-22 13:20] LABS: Amphetamines Negative (Negative); Barbiturates Negative (Negative); Benzodiazepines Positive (Negative); Buprenorphine Negative (Negative); Cocaine Negative (Negative); Marijuana Negative (Negative); Methadone Negative (Negative); Methamphetamines Negative (Negative); Opiates Negative (Negative); Phencyclidine Negative (Negative); Tricyclic Antidepressants Negative (Negative)
[2024-08-22 13:46] LABS: Fentanyl, Urine Negative (Negative)
[2024-08-22] MEDS: ATIVAN 1 MG PO (14:16)
[2024-08-22] MEDS: NOVOLOG FLEXPEN-LOW RESISTANCE SC ×2 (14:20→17:18)
[2024-08-22] MEDS: NOVOLOG FLEXPEN SC ×2 (14:20→17:59)
[2024-08-22 16:44] LABS: Blood Urea Nitrogen 6 mg/dl (7-17); Calcium 9.4 mg/dl (8.4-10.2); Carbon Dioxide 18 mmol/L (22-30); Chloride 102 mmol/L (98-107); Estimated Creatinine Clearance > 125 ml/min; Glucose 157 mg/dl (70-99); Potassium 3.8 mmol/L (3.5-5.1); Sodium 133 mmol/L (135-145); eGFR > 60.00
[2024-08-22 16:50] LABS: Glucose - Point of Care 134 mg/dl (70-99)
[2024-08-22] MEDS: LOVENOX 40 MG SC (17:56)
--- NOTE | 2024-08-22 17:58 | PTCARENOTE ---
Pt refused to order lunch or dinner. No insulin given.
[2024-08-22] MEDS: NSS (PRESERVATIVE FREE) 0.25 ML IV (20:40)
[2024-08-22] MEDS: ATIVAN 0.5 MG IV (20:40)
[2024-08-22 21:00] LABS: Glucose - Point of Care 103 mg/dl (70-99)
[2024-08-22] MEDS: REMERON 7.5 MG PO (21:20)
[2024-08-22] MEDS: LANTUS 0.28 UNITS SC (21:28)
[2024-08-23 03:17] VITALS: BP 134/86
[2024-08-23] MEDS: REGLAN 10 MG IV (03:33)
[2024-08-23 03:47] LABS: Glucose - Point of Care 47 mg/dl (70-99)
[2024-08-23 04:03] LABS: Glucose - Point of Care 69 mg/dl (70-99)
[2024-08-23 04:26] LABS: Glucose - Point of Care 170 mg/dl (70-99)
--- NOTE | 2024-08-23 04:28 | GLUCOSE ---
Pts HS sugar 103, pt stating she is agreeable to taking full lantus dose. Checked sugar at 0342 47- pt refusing OJ. Given apple juice. Rechecked 69. Gave apple juice, pt asking for ice cream. Rechecked 170.
[2024-08-23] MEDS: ATIVAN 1 MG PO ×2 (04:47→12:53)
--- NOTE | 2024-08-23 05:57 | W.PN.UPDATE ---
Update Note
Progress Note Update
~ 20:20 Pt stated she was having a panic attack, not yet due for PRN Ativan dose. Ordered Ativan 0.5 mg IV x 1 dose.�
~ 21:00 HS accucheck 103, given full dose Lantus 28 units SQ.
~ 4:00 Rechecked accucheck, glucose level 47, treated as per hypoglycemic protocol. 15 minute repeat accucheck 69. Repeated juice, pt requested ice cream also, 15 minute repeat accucheck 170. Continue to monitor glucose as per orders.�
[2024-08-23 05:59] LABS: Glucose - Point of Care 295 mg/dl (70-99)
[2024-08-23 07:25] VITALS: BP 150/95
[2024-08-23 07:28] LABS: Hematocrit 35.2 % (37.0-47.0); Hemoglobin 12.6 g/dL (12.0-16.0); Mean Corp Hgb Conc. 35.8 g/dL (33.0-37.0); Mean Corpuscular Hgb 26.5 pg (27.0-31.0); Mean Corpuscular Volume 74.1 fL (81.0-99.0); Mean Platelet Volume 9.2 fL (7.4-10.4); Platelet Count 521 10^3/uL (130-400); Red Blood Cell Count 4.75 10^6/uL (4.20-5.40); Red Cell Dist. Width 12.3 % (11.5-14.5); White Blood Cell Count 6.8 10^3/uL (4.8-10.8)
[2024-08-23 07:30] VITALS: BP 144/105; BP 163/113; PULSE 105; PULSE 115
--- NOTE | 2024-08-23 07:50 | W.PN.HOSP.TC ---
Today's Communication/Plan
-
Possible discharge later today if tolerates diet and no longer orthostatic
Assessment / Plan
Assessment / Plan
Impression:
Patient is 24 years old with history of diabetes and depression who recently was here and came back with persistent abdominal pain, nausea, vomiting, seen by GI, currently tolerating diet and GI signed off.
Also seen by psych, patient had panic attack during hospitalization also mild DKA which resolved.
Symptoms continue to improve, advance diet to diabetic diet.
Patient was positive orthostatic.
Discharge if patient tolerates diet and orthostatic resolves.
Assessment/plan:
Intractable abdominal pain nausea and vomiting:
Improvement noticed
Appreciate GI consult, GI signed off.
Advanced to full liquid diet per GI
Noted CT scan of the abdomen
Supportive care
Advance diet to diabetic diet 08/23
Discussed with mother at bedside today on 08/23
Diabetes mellitus type 1:
Blood sugar worsening and patient had mild DKA.
Then dropped her sugar to 47 on 08/23 morning
Treated as per hypoglycemia protocol.
Currently on Lantus, Premeal, insulin sliding scale as per yard coupler orders.
Advance diet to diabetic diet.
Anion gap metabolic acidosis:
Improved
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
She does have multiple psychiatry medications-some of which have been decreased or held and her recent pain in legs have improved but then now she is having more GI symptoms and increased anxiety levels as well. QTc of 487 coming down to-->466.
Psychiatry consulted.
Vasovagal syncope:
Check orthostatic
Echocardiogram unremarkable
Rest of other medical problems:
Recent UTI
Recent admission for bilateral lower extremity pain unclear etiology but felt multifactorial
Vitamin B12 deficiency
Anemia
DVT prophylaxis:
Lovenox SQ
CODE STATUS:
Full code
Total time spent on today's encounter was 52 minutes which included time spent in counseling the patient/family regarding diagnosis and treatment plan as listed above, goals of care, and symptom management. Case was discussed with nursing staff,
specialists, and care coordinators/case management. All labs and imaging personally reviewed by me. Remainder the time spent in detailed review of previous records, lab data, imaging, and other medical provider documentation.
Anticipated Discharge: Today
Subjective/Interval History
-
Date of Service: August 23, 2024
Patient seen and examined at bedside, denies any chest pain or shortness of breath, epigastric discomfort but no abdominal pain, no nausea, no vomiting.
Patient had 2 episodes of diarrhea in the morning with incontinence.
Advance diet to diabetic diet.
Objective Data
-
Labs:
Laboratory Results
08/23/24
06:01
WBC 6.8
Hgb 12.6
Hct 35.2 L
Plt Count 521 H
Sodium Pending
Potassium Pending
Chloride Pending
Carbon Dioxide Pending
BUN Pending
Creatinine Pending
Glucose Pending
Calcium Pending
Vital Signs:
Vital Signs
Temp Pulse Resp BP Pulse Ox
98.1 F 108 16 134/86 100
08/23/24 03:17 08/23/24 03:17 08/23/24 03:17 08/23/24 03:17 08/23/24 03:17
I&O
08/22/24 08/23/24 08/24/24
06:59 06:59 06:59
Intake Total 1030 / 1030 2450 / 2450
Output Total 200 / 200
Balance 830 / 830 2450 / 2450
Physical Exam
-
General: Well Developed, Well Nourished, No Apparent Distress and Comfortable
HEENT: Normocephalic, Atraumatic, Moist Mucous Membranes, No Ptosis, PERRLA and Nose Appears Normal
Respiratory: Clear to Auscultation and Non Labored Respirations
Cardiac: Regular Rhythm and S1/S2
Breast: Deferred by me
GI: Soft, Nondistended, Normal Bowel Sounds and Tender (Mild epigastric)
Genito-urinary: No Costovertebral Tender
Musculoskeletal: No Clubbing, No Cyanosis and No Edema
Skin: Warm
Neuro: Awake, Alert, Oriented, AO x 3 and No Motor Deficits
Psych: Calm
Data Reviewed
-
Diagnostic Radiology: Image personally visualized and interpreted and Report Reviewed by me
CT Scan: Image personally visualized and interpreted and Report Reviewed by me
Ultrasound: Image personally visualized and interpreted and Report Reviewed by me
MRI: Image personally visualized and interpreted and Report Reviewed by me
Medical Tests (Nuc Med, Echo etc): Image personally visualized and interpreted and Report Reviewed by me
Labs: Labs Reviewed by me
Old Records: Reviewed
[2024-08-23 08:01] LABS: Blood Urea Nitrogen 5 mg/dl (7-17); Carbon Dioxide 26 mmol/L (22-30); Chloride 100 mmol/L (98-107); Estimated Creatinine Clearance > 125 ml/min; Glucose 269 mg/dl (70-99); Potassium 3.5 mmol/L (3.5-5.1); Sodium 135 mmol/L (135-145); eGFR > 60.00
--- NOTE | 2024-08-23 08:12 | PN.DE.MGMTRT ---
Insulin Management
- -
08/23/2024: Diabetes Management follow up
24 year old female who was recently discharged home 08/04-08/10, re-presented to the ED for evaluation of nausea, vomiting and epigastric pain.
PMH includes: Anxiety/depression, bipolar, ADHD, prior UTIs/pyelonephritis, chronic back pain on oxycodone and gabapentin and T1DM.
Patient follows with [facility] for routine Diabetes care, was last seen in May, states her next appt is in November.
Prior to admission was taking Basaglar 32 units @ hs with NovoLog 3 units AC. Current A1C 11.3%, improved from 15% in 03/2024. Cr 0.5, eGFR >60.
Patient awake, alert and oriented, c/o intermittent N/V and not eating much. Mom at bedside, very supportive.
Glucose elevated >200 on clear liquid diet. Pt also noted for poor appetite and poor oral intake.
Of note, pt had an episode of hypoglycemia as low as 47, she reports not eating dinner last night and receiving her full dose of Lantus at bedtime.
Will make no changes to current Lantus dose of 28 units @ HS.
Given her hx of prolonged hypoglycemia and a brittle diabetic, will reduce AC NovoLog to 3 units and low corrective with meals
Will closely monitor glucose trend and further adjust insulin dose if necessary.
Will cont to follow.
Diabetes History
- -
Type of Diabetes: 1
Pre-Admission Diabetes Regimen
08/22/24 08/22/24 08/23/24
09:09 15:55 06:01
Creatinine 0.6 0.5 L 0.5 L
Lab Results
Hemoglobin A1c 10.5 % (4.0-5.6) H 08/19/24 12:19
Insulin Pump Settings
IP Diabetes Regimen
08/22/24 08/22/24 08/22/24
09:09 12:39 15:55
Glucose 230 H 157 H
POC Glucose 136 H
08/22/24 08/22/24 08/23/24
16:49 20:56 03:42
Glucose
POC Glucose 134 H 103 H 47 L*
08/23/24 08/23/24 08/23/24
04:02 04:24 05:58
Glucose
POC Glucose 69 L 170 H 295 H
08/23/24
06:01
Glucose 269 H
POC Glucose
Meal type: Breakfast
Amount consumed: 100%
Patient Education
[2024-08-23 08:26] LABS: Glucose - Point of Care 337 mg/dl (70-99)
[2024-08-23] MEDS: SODIUM BICARBONATE 1075 MEQ IV (09:05)
[2024-08-23] MEDS: NOVOLOG FLEXPEN-LOW RESISTANCE 4 UNITS SC (09:07)
[2024-08-23] MEDS: LEXAPRO 20 MG PO (09:08)
[2024-08-23] MEDS: NOVOLOG FLEXPEN 3 UNITS SC ×2 (09:08→12:53)
[2024-08-23] MEDS: PROTONIX IV 40 MG IV (09:09)
[2024-08-23] MEDS: NEURONTIN 800 MG PO ×2 (09:09→16:27)
[2024-08-23] MEDS: NSS (PRESERVATIVE FREE) 10 ML IV (09:09)
[2024-08-23] MEDS: ABILIFY 10 MG PO (09:09)
[2024-08-23] MEDS: BENTYL 20 MG PO (09:22)
[2024-08-23 11:06] VITALS: BP 132/63
[2024-08-23 11:46] LABS: Glucose - Point of Care 97 mg/dl (70-99)
[2024-08-23] MEDS: NOVOLOG FLEXPEN-LOW RESISTANCE SC (11:48)
[2024-08-23 15:24] LABS: Glucose - Point of Care 143 mg/dl (70-99)
[2024-08-23 15:25] VITALS: BP 101/70; BP 106/65; BP 120/87; PULSE 103; PULSE 108; PULSE 83
--- NOTE | 2024-08-23 15:30 | W.DCSUMMARY ---
Discharge Summary
Discharge Data
Date of Admission: 08/20/24
Date of Discharge: 08/23/24
-
Pending Results: No
Hospital Course
Hospital course
Patient is 24 years old with history of diabetes and depression who recently was here and came back with persistent abdominal pain, nausea, vomiting, seen by GI, currently tolerating diet and GI signed off.
Also seen by psych, patient had panic attack during hospitalization also mild DKA which resolved.
Symptoms continue to improve, advance diet to diabetic diet.
Patient was positive orthostatic which improved.
Was seen by psych during hospitalization, no changes in her medications.
During hospitalization patient was treated from the following
Intractable abdominal pain nausea and vomiting:
Improvement noticed
Appreciate GI consult, GI signed off.
Advanced to full liquid diet per GI
Noted CT scan of the abdomen
Supportive care
Advance diet to diabetic diet 08/23
Discussed with mother at bedside today on 08/23
Diabetes mellitus type 1:
Blood sugar worsening and patient had mild DKA.
Then dropped her sugar to 47 on 08/23 morning
Treated as per hypoglycemia protocol.
Currently on Lantus, Premeal, insulin sliding scale as per in service educator orders.
Advance diet to diabetic diet.
Anion gap metabolic acidosis:
Improved
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
She does have multiple psychiatry medications-some of which have been decreased or held and her recent pain in legs have improved but then now she is having more GI symptoms and increased anxiety levels as well. QTc of 487 coming down to-->466.
Psychiatry consulted.
Vasovagal syncope:
Check orthostatic
Echocardiogram unremarkable
Rest of other medical problems:
Recent UTI
Recent admission for bilateral lower extremity pain unclear etiology but felt multifactorial
Vitamin B12 deficiency
Anemia
DVT prophylaxis:
Lovenox SQ
CODE STATUS:
Full code
Total time spent on today's encounter was 40 minutes which included time spent in counseling the patient/family regarding diagnosis and treatment plan as listed above, goals of care, and symptom management. Case was discussed with nursing staff,
specialists, and care coordinators/case management. All labs and imaging personally reviewed by me. Remainder the time spent in detailed review of previous records, lab data, imaging, and other medical provider documentation.
Anticipated Discharge: Today
Discharge Plan
-
Patient Disposition: Home (Routine Discharge)
Discharge Diagnosis/Procedures: Diabetic gastroparesis
Type 1 diabetes
DKA
Vitamin B12 deficiency
Diet: Diabetic, Carb Controlled
Activity: As tolerated
Referrals:
Noa Duncan PA-C [Family Provider] -
Bety Rasheed MD [Active] - As needed
Additional Discharge Medication Instructions: Continue insulin regimen as before hospitalization with carb count and insulin to blood sugar ratio.
Prescriptions:
Continued
gabapentin 800 mg tablet
800 mg PO TID
atomoxetine 40 mg capsule
40 mg PO DAILY
mirtazapine 7.5 mg tablet
7.5 mg PO HS
escitalopram oxalate [Lexapro] 10 mg Tablet
20 mg PO DAILY
norethindrone (contraceptive) [Jencycla] 0.35 mg Tablet
0.35 mg PO DAILY
insulin aspart U-100 100 unit/mL (3 mL) Insulin Pen
3 unit SC AC 3 Days Qty: 15 0RF
celecoxib 200 mg Capsule
200 mg PO DAILYPRN PRN (Reason: mild pain)
ondansetron HCl 8 mg Tablet
8 mg PO Q8HPRN PRN (Reason: nausea)
lorazepam 0.5 mg Tablet
0.5 mg PO TIDPRN PRN (Reason: anxiety)
insulin glargine [Lantus Solostar U-100 Insulin] 100 unit/mL (3 mL) Insulin Pen
32 unit SC HS
aripiprazole 5 mg tablet
10 mg PO DAILY
Discharge Orders:
Discharge Patient (As Directed); Ordered 08/23/24
Ordered By: Lexii Lamb
Discharge Date and Time
Print Language: MALTESE
--- NOTE | 2024-08-23 16:22 | CM ---
MD entered order for discharge.
Spoke with pt and mom in room .Pt is tolerating 1800 ADA diet.
Pt said she is ready for discharge to home .
Pt declined need for VN.
Mom will driv her home.
PLAN Home no needs .
--- NOTE | 2024-08-23 16:44 | PTCARENOTE ---
patient tolerated chicken noodle soup, apple juice and 2 water ice for lunch- no nausea or vomiting. plan of care on going
== END 2024-08-23 17:04 | disposition home or self-care (01) | DRG 74 ==
LOC: 4 EAST ACU 13:29
PROVIDERS: Internal Medicine Gastroenterology; Nurse Practitioner Family; Registered Nurse; ADMITTING PHYSICIAN Hospitalist; ATTENDING PHYSICIAN General Practice; CONSULT PHYSICIAN Internal Medicine Gastroenterology; EMERGENCY PHYSICIAN Emergency Medicine; FAMILY PHYSICIAN Physician Assistant Medical; OTHER PHYSICIAN Psychiatry & Neurology Psychiatry
DX: E10.43 Type 1 diabetes mellitus with diabetic autonomic (poly)neuropathy (principal); E10.10 Type 1 diabetes mellitus with ketoacidosis without coma; F41.0 Panic disorder [episodic paroxysmal anxiety]; K31.84 Gastroparesis; E10.41 Type 1 diabetes mellitus with diabetic mononeuropathy; R55 Syncope and collapse; E53.8 Deficiency of other specified B group vitamins; F31.9 Bipolar disorder, unspecified; D75.839 Thrombocytosis, unspecified; D64.9 Anemia, unspecified; F90.9 Attention-deficit hyperactivity disorder, unspecified type; T38.3X6A Underdosing of insulin and oral hypoglycemic [antidiabetic] drugs, initial encounter; Z91.128 Patient's intentional underdosing of medication regimen for other reason
CPT/HCPCS: 71045; 74177; 80048; 80053; 80306; 80307; 81003; 81015; 82010; 82805; 82962; 83036; 83690; 83735; 84100; 84443; 84484; 84703; 85025; 85027; 87077; 87086; 87147; 87186; 93005; 93306; 96361; 96374; 96375; 99285; J3480; J7030; Q9967

== ENCOUNTER 2024-10-12 20:26 | Inpatient (IN) | payer OTHER, SELFPAY ==
[2024-10-12] VITALS (7 sets, daily range): BP systolic 98–160; BP diastolic 66–99; BMI 18.3; BMI 18.4
[2024-10-12 16:05] LABS: Glucose - Point of Care 196 mg/dl (70-99)
[2024-10-12 16:28] LABS: Hematocrit 38.4 % (37.0-47.0); Hemoglobin 13.0 g/dL (12.0-16.0); Mean Corp Hgb Conc. 33.9 g/dL (33.0-37.0); Mean Corpuscular Volume 77.7 fL (81.0-99.0); Nucleated Red Blood Cells % 0 %; Platelet Count 498 10^3/uL (130-400); Red Cell Dist. Width 12.9 % (11.5-14.5)
[2024-10-12 16:52] LABS: ALT (SGPT) 10 U/L (0-35); AST (SGOT) 15 U/L (14-36); Albumin 4.5 g/dl (3.5-5.0); Alkaline Phosphatase 94 U/L (38-126); Blood Urea Nitrogen 13 mg/dl (7-17); Calcium 10.6 mg/dl (8.4-10.2); Carbon Dioxide 29 mmol/L (22-30); Chloride 102 mmol/L (98-107); Estimated Creatinine Clearance 103 ml/min; Glucose 208 mg/dl (70-99); Potassium 4.7 mmol/L (3.5-5.1); Sodium 139 mmol/L (135-145); Total Protein 7.8 g/dl (6.3-8.2); eGFR > 60.00
--- NOTE | 2024-10-12 19:15 | ED.GENMED ---
History of Present Illness
General
Chief Complaint: Abdominal Symptoms
Source: patient
Exam Limitations: none
Time Seen by Provider: 10/12/24 18:55
History of Present Illness
History of Present Illness:
See MDM
Past History
Past History
ED Past Medical History: IDDM, Psychiatric (anxiety, depression, bipolar) and Other (Previous UTIs)
ED Past Surgical History: Other (Myringotomy tubes)
Social History
Tobacco: Non-smoker
Alcohol: None
Personal: Single
Living: with family
Employment: Student
Family History
Family History: Other; Negative Diabetes
Phy Exam
Physical Exam
Physical Exam:
See MDM
Course
Orders/Labs/Results
Orders:
Orders
10/12/24 16:01
Urinalysis Reflex To Culture Urgent
Date Specimen was Collected: 10/12/24
Time Specimen was Collected: 16:01
10/12/24 16:21
BHB [B-Hydroxybutyrate] Urgent
Complete Blood Count/With Diff Urgent
Comprehensive Metabolic Panel Urgent
Lactate Level [Lactic Acid] Urgent
10/12/24 19:11
0.9% Sodium Chloride 1000 ml [Nss] 1,000 ml IV BOLUS
HYDROmorphone [Dilaudid] 1 mg IV NOW STA
Ketorolac [Toradol] 30 mg IV NOW STA
Ondansetron Injectable [Zofran] 4 mg IV NOW STA
Abnormal Lab Results
10/12/24 10/12/24
16:04 16:21
MCV 77.7 L fL
(81.0-99.0)
MCH 26.3 L pg
(27.0-31.0)
Plt Count 498 H 10^3/uL
(130-400)
Absolute Neuts (auto) 6.6 H 10^3/uL
(1.4-6.5)
Glucose 208 H mg/dl
(70-99)
Calcium 10.6 H mg/dl
(8.4-10.2)
B-Hydroxybutyrate 1.38 H mmol/L
(0.02-0.27)
POC Glucose 196 H mg/dl
(70-99)
10/12/24 16:21
10/12/24 16:21
Vital Signs
Initial and Last Documented VS:
Initial Vital Signs
Temp Pulse Resp BP Pulse Ox
98.5 F 136 20 98/66 100
10/12/24 15:54 10/12/24 15:54 10/12/24 15:54 10/12/24 15:54 10/12/24 15:54
Last Documented Vital Signs
Temp Pulse Resp BP Pulse Ox
98.5 F 136 20 120/89 99
10/12/24 15:54 10/12/24 15:54 10/12/24 15:54 10/12/24 18:00 10/12/24 18:31
MDM/Problems Addressed
Differential Diagnosis Includes:
Note:
CHIEF COMPLAINT(S)
Pain, inability to walk, and nausea/vomiting.
HISTORY OF PRESENT ILLNESS
The patient is a 24-year-old female with a history of neuropathy presenting with severe pain, inability to walk, and nausea/vomiting. Symptoms began after a recent nerve block performed last for treatment of her neuropathy. Despite this
intervention, the patient reports persistent debilitating pain described as a constant high-intensity sensation that has not improved following the nerve block. As a result, she is now experiencing significant weakness and difficulty ambulating. It
appears the difficulty walking is due to pain.
The patient has also been experiencing recurrent episodes of vomiting since yesterday. She notes that while similar symptoms in August were thought to be due to medication-induced gastroparesis, current vomiting episodes are different in nature.
Medications such as gabapentin and ketamine nasal spray have been used for pain management, though without significant relief. The patient has also tried oxycodone and dilaudid previously, but found them ineffective.
The patient is concerned about her inability to walk and is contemplating admission for symptomatic management. There is a noted history of decreased urination, but currently, no acute bowel or bladder dysfunction is reported. She mentions a
distended bladder noted in imaging from a past visit. No recent urinary tract infections were reported beyond a known episode from last year which resolved.
Of note, recent CT abdomen/pelvis was negative for acute pathology. Recent lumbar MRI a few months ago was also negative for significant pathology.
CHRONIC MEDICAL CONDITIONS SIGNIFICANTLY AFFECTING CARE
Neuropathy, persistent pain syndrome possibly due to reflex sympathetic dystrophy.
SOCIAL DETERMINANTS AFFECTING HEALTH
The patients access to timely care is affected as her pain management physician is currently unavailable till October 28, delaying further intervention.
MEDICATIONS
- Gabapentin
- Ketamine Nasal [place]
- Oxycodone (prior use)
- Dilaudid (prior use)
REVIEW OF SYSTEMS
- Neurological: Severe neuropathic pain, weakness, inability to walk.
- Gastrointestinal: Nausea, vomiting, and previous diagnosis of gastroparesis-like symptoms.
- Genitourinary: History of bladder distension; no current incontinence.
PHYSICAL EXAM
General: Well appearing and non-toxic
HEENT: protecting airway
Neck: appears supple
CV: No evidence of cyanosis
Resp: No accessory muscle use
Abd: Non-distended and nontender
Extremities: No deformities. Decreased muscle strength and range of motion in her legs due to pain. Patellar reflexes intact.
Neuro: alert
Psych: Tearful and anxious
Skin: Intact
Nursing notes reviewed and vital signs reviewed.
PROBLEM LIST
Acute:
1. Severe pain despite nerve block
2. Inability to walk
3. Nausea and vomiting
Chronic:
1. Neuropathy
2. Possible reflex sympathetic dystrophy
PLAN
1. Administer intravenous fluids for potential dehydration.
2. Administer pain management using Toradol and Dilaudid in combination to control pain more effectively.
3. Administer Zofran for nausea control.
4. Consider inpatient admission for further management due to inability to walk and ongoing vomiting.
5. Refrain from repeat imaging based on recent normal CT scans. Patient agrees.
DIFFERENTIAL DIAGNOSIS
The Differential Diagnosis includes, in no particular order and is not limited to:
1. Neuropathy
2. Reflex Sympathetic Dystrophy (Complex Regional Pain Syndrome)
3. Medication-induced gastroparesis
4. Gastroenteritis
5. Diabetic neuropathy
6. Lupus or other autoimmune conditions causing peripheral neuropathy
7. Guillian-Waldwick syndrome
8. Multiple sclerosis
9. Spinal cord pathology
10. Psychogenic pain disorder
SUMMARY OF ENCOUNTER
The patient was seen in the emergency department due to severe uncontrolled pain, inability to walk, and nausea/vomiting following a recent nerve block. Despite previous pain management attempts with medications such as gabapentin and ketamine nasal
spray, her symptoms have persisted. Given the patients inability to ambulate and ongoing nausea, admission for symptomatic management and further evaluation was deemed necessary.
DISPOSITION
Admit.
ASSESSMENT
Acute exacerbation of severe neuropathic pain leading to inability to walk, accompanied by nausea and vomiting. Potential complications include dehydration, further mobility issues, and impaired nutritional intake.
EMERGENCY TREATMENTS ADMINISTERED
Intravenous fluids for potential dehydration, Toradol for pain management, Dilaudid for breakthrough pain, and Zofran for nausea.
MANAGEMENT OF THE PATIENTS CARE WAS DISCUSSED WITH
The case was discussed with hospice for possible future palliative options.
PLAN
The patient will be admitted for symptomatic care focusing on pain management, nausea control, and further evaluation to determine the underlying cause of her current condition and to rule out any complications.
MEDICATION RECONCILIATION
1. Toradol (ketorolac).
2. Dilaudid (hydromorphone).
3. Zofran (ondansetron).
MEDICAL DECISION MAKING
- Number and Complexity of Problems Addressed: Chronic conditions affecting care include neuropathy and possible reflex sympathetic dystrophy; acute severe pain, inability to walk, nausea, and vomiting.
- Data:
- Category 1: Relevant external pharmacy records for medication history were reviewed.
- Category 3: Discussion with hospice regarding potential palliative care options.
DIAGNOSIS
1. Severe Neuropathic Pain (G89.4)
2. Inability to Walk (R26.2)
3. Nausea and Vomiting (R11.2)
*Pulse Oximetry
SaO2: 99
Oxygen Mode of Delivery: Room air
Patient hypoxic: no
*Critical Care Note
Total Time (30-74mins, 75-104mins- exclusive of procedures): Not Applicable
ED Attending Note
-
Portions of this chart may have been created with voice recognition software.� Occasional wrong word or��sound alike� substitutions may have occurred due to the inherent limitations of voice recognition software.
Discharge Plan
Departure
Patient Disposition: Admit
Date of Disposition: 10/12/24
Time of Disposition: 19:28
Admit to: Med/Surg
Presentation/result/management discussed w/ accepting MD/DO: Hospitalist
Discharge Problem:
Vomiting, Reflex sympathetic dystrophy of the lower limb
Prescriptions:
No Action
gabapentin 800 mg tablet
800 mg PO TID
atomoxetine 40 mg capsule
40 mg PO DAILY
mirtazapine 7.5 mg tablet
7.5 mg PO HS
escitalopram oxalate [Lexapro] 10 mg Tablet
20 mg PO DAILY
norethindrone (contraceptive) [Jencycla] 0.35 mg Tablet
0.35 mg PO DAILY
insulin aspart U-100 100 unit/mL (3 mL) Insulin Pen
3 unit SC AC 3 Days Qty: 15 0RF
celecoxib 200 mg Capsule
200 mg PO DAILYPRN PRN (Reason: mild pain)
ondansetron HCl 8 mg Tablet
8 mg PO Q8HPRN PRN (Reason: nausea)
lorazepam 0.5 mg Tablet
0.5 mg PO TIDPRN PRN (Reason: anxiety)
insulin glargine [Lantus Solostar U-100 Insulin] 100 unit/mL (3 mL) Insulin Pen
32 unit SC HS
aripiprazole 5 mg tablet
10 mg PO DAILY
Referrals:
Noa Duncan PA-C [Family Provider, Family Practice]
Interventions
Interventions:
*Risk Screen - Suicide Last Done: 10/12/24 15:54
*Neglect/Abuse Screening Last Done: 10/12/24 15:54
Discharge Date and Time
Print Language: CZECH
[2024-10-12] MEDS: NSS 1000 IV ×2 (20:03→22:26)
[2024-10-12] MEDS: ZOFRAN 4 MG IV ×2 (20:04→22:09)
[2024-10-12] MEDS: TORADOL 30 MG IV (20:05)
--- NOTE | 2024-10-12 20:05 | HPS.HSE ---
Family Physician
-
Family Physician: Noa Duncan
Chief Complaint
-
severe leg pain
History of Present Illness
24-year-old female past medical history of 1 diabetes, depression, severe anxiety, ADHD, B12 deficiency, anemia, prior pyelonephritis, presenting with severe uncontrolled bilateral leg pain. Although she has chronic pain, pain became severe
yesterday after she developed nausea and vomiting with abdominal pain. Pain starts in her hips and goes down the legs and is severe stabbing pain. Pain also goes to her lower back. Pain is so severe she cannot walk. She sees Dr. Morris who has
been giving her spinal nerve blocks for the past month which have not helped at all. He also changed her gabapentin to pregabalin and gave her ketamine spray which have not helped. She states that he is on vacation and will be back until October 28
which also added to her distress. She does not use any narcotics.
She denies any urinary or stool incontinence. Denies fevers or chills.
On a recent admission she was seen for severe abdominal pain and nausea and vomiting. She was seen by GI. She saw them as outpatient had gastric emptying study and told that she did not have gastroparesis but her nausea and vomiting is from poor
p.o. intake from her medications.
She does not smoke or drink alcohol or use marijuana.
Patient was previously admitted for pain attributed to severe peripheral neuropathy likely from type 1 diabetes. She had MRI lumbosacral, thoracic lumbar and cervical which were all negative. EMG showed severe length-dependent sensorimotor
peripheral polyneuropathy. She was treated with 2 mg IV Dilaudid Q6 every hour with 0.25 mg IV for breakthrough pain at that time. She was referred to see Dr. Morris.
Medical History
Past Medical History
Past Medical History: Reports Other (1 diabetes, depression, severe anxiety, ADHD, B12 deficiency, anemia, prior pyelonephritis)
Past Surgical History: Reports None
Social History
Tobacco: Non-smoker
Alcohol: None
Drug: None
Family History
Family History: Not pertinent
Allergies / Home Medications
Allergies reflects when Allergies were last updated in [employer].
Home Medications with original date entered in [employer]
Allergy/Medication List:
Allergies
Allergy/AdvReac Type Severity Reaction Status Date / Time
No Known Allergies Allergy Verified 10/12/24 15:54
Home Medications
atomoxetine 40 mg capsule 40 mg PO DAILY ADHD 11/27/22
gabapentin 800 mg tablet 800 mg PO TID Pain 11/27/22
mirtazapine 7.5 mg tablet 7.5 mg PO HS Mental Health/Anxiety 11/27/22
escitalopram oxalate 10 mg tablet (Lexapro) 20 mg PO DAILY Mental Health/Anxiety 03/27/24
norethindrone (contraceptive) 0.35 mg tablet (Jencycla) 0.35 mg PO DAILY Hormonal Agent 08/04/24
insulin aspart U-100 100 unit/mL (3 mL) subcutaneous pen 3 unit (0.03 mL) SC AC 3 days #15 mL 08/10/24
aripiprazole 5 mg tablet 10 mg PO DAILY bipolar 08/19/24
celecoxib 200 mg capsule 200 mg PO DAILYPRN PRN mild pain 08/19/24
insulin glargine 100 unit/mL (3 mL) subcutaneous pen (Lantus Solostar U-100 Insulin) 32 unit SC HS Diabetes 08/19/24
lorazepam 0.5 mg tablet 0.5 mg PO TIDPRN PRN anxiety 08/19/24
ondansetron HCl 8 mg tablet 8 mg PO Q8HPRN PRN nausea 08/19/24
Review of Systems
-
History Source: Patient
A 12 point ROS was completed and negative except as noted: Yes
Constitutional: Reports No Symptoms
EENT: Reports No Symptoms
Respiratory: Reports No Symptoms
Cardiac: Reports No Symptoms
Abdomen/GI: Reports See HPI
: Reports No Symptoms
Musculoskeletal: Reports See HPI
Skin: Reports No Symptoms
Neurological: Reports No Symptoms
Endocrine: Reports No Symptoms
Hematologic/Lymphatic: Reports No Symptoms
Psych: Reports No Symptoms
Physical Exam
Vital Signs
Vital Signs
Temp Pulse Resp BP Pulse Ox
98.5 F 136 20 120/89 99
10/12/24 15:54 10/12/24 15:54 10/12/24 15:54 10/12/24 18:00 10/12/24 19:18
Physical Exam
General: Well Developed, Well Nourished and No Apparent Distress
HEENT: NormoCephalic, Moist mucous membranes and Atraumatic
Respiratory: Clear
Cardiac: S1/S2 and Regular Rhythm; No Murmur or Rub
GI: Soft, Non Tender, Non Distended and Normal Bowel Sounds; No Organomegaly
Rectal: Deferred by Provider
Musculoskeletal: No Clubbing, No Cyanosis and No Edema
Skin: No Rash
Neuro: Nonfocal/grossly intact
Laboratory Results
-
10/12/24 16:21
10/12/24 16:21
Laboratory Results
Lactic Acid 1.9 mmol/L (0.7-2.0) 10/12/24 16:21
Total Bilirubin 0.6 mg/dl (0.2-1.3) 10/12/24 16:21
AST 15 U/L (14-36) 10/12/24 16:21
ALT 10 U/L (0-35) 10/12/24 16:21
Alkaline Phosphatase 94 U/L (38-126) 10/12/24 16:21
Data Reviewed
-
Lab Data: Labs Reviewed by me
Old Records: Reviewed
Impression/Plan
-
IMPRESSION:
PLAN:
# Severe chronic bilateral lower extremity pain likely secondary to severe peripheral neuropathy from diabetes/reflex sympathetic dystrophy
- Continue Tylenol, ketorolac, Dilaudid,
-Continue gabapentin
- IV fluids given
- Previously had MRI lumbar spine, thoracic spine and cervical spine which were all negative
- EMG was consistent with peripheral polyneuropathy
-Will start Dilaudid at 1 mg every 4 hours, can increase Dilaudid up to 2 mg every 6 hours which is what she received on her prior admission
- Using ketamine spray
# Nausea/vomiting/abdominal pain secondary to poor p.o. intake/pain/chronic medication
- Gastroparesis ruled out by gastric emptying study as outpatient
- Zofran
- IV fluids
Type 1 diabetes
- Normally on 32 units of Lantus, decrease to 16 units for now with current GI symptoms
- Insulin sliding scale
Depression/severe anxiety/ADHD
- Continue aripiprazole, atomoxetine, Lexapro, mirtazapine
B12 deficiency
Chronic anemia
History of prior pyelonephritis
Full code
DVT prophylaxis�heparin
Regular diet
[2024-10-12] MEDS: DILAUDID 1 MG IV ×2 (20:07→21:59)
[2024-10-12] MEDS: LYRICA 150 MG PO (21:58)
[2024-10-12] MEDS: ATIVAN 2 MG PO (21:59)
[2024-10-12] MEDS: REMERON 7.5 MG PO (21:59)
[2024-10-12] MEDS: HEPARIN 5000 UNITS SC (22:00)
[2024-10-12 22:02] LABS: Glucose - Point of Care 123 mg/dl (70-99)
[2024-10-12] MEDS: LANTUS 0.13 UNITS SC (22:17)
[2024-10-12] MEDS: TYLENOL 1000 MG PO (23:15)
[2024-10-12] MEDS: ZANAFLEX 4 MG PO (23:16)
[2024-10-13] MEDS: TORADOL 30 MG IV ×2 (00:18→11:32)
[2024-10-13] MEDS: DILAUDID 1 MG IV ×7 (02:27→21:07)
[2024-10-13] MEDS: COMPAZINE 5 MG IV ×3 (02:48→18:01)
[2024-10-13 03:47] VITALS: BP 124/82
[2024-10-13 07:30] VITALS: BP 152/98
[2024-10-13 08:06] LABS: Glucose - Point of Care 90 mg/dl (70-99)
[2024-10-13 08:13] LABS: Hematocrit 35.1 % (37.0-47.0); Hemoglobin 11.7 g/dL (12.0-16.0); Mean Corp Hgb Conc. 33.3 g/dL (33.0-37.0); Mean Corpuscular Volume 78.2 fL (81.0-99.0); Platelet Count 442 10^3/uL (130-400); Red Cell Dist. Width 12.9 % (11.5-14.5)
[2024-10-13 08:36] LABS: ALT (SGPT) < 10 U/L (0-35); AST (SGOT) 17 U/L (14-36); Albumin 3.9 g/dl (3.5-5.0); Alkaline Phosphatase 83 U/L (38-126); Blood Urea Nitrogen 16 mg/dl (7-17); Calcium 9.5 mg/dl (8.4-10.2); Carbon Dioxide 23 mmol/L (22-30); Chloride 108 mmol/L (98-107); Estimated Creatinine Clearance 103 ml/min; Glucose 102 mg/dl (70-99); Potassium 4.4 mmol/L (3.5-5.1); Sodium 138 mmol/L (135-145); Total Protein 6.8 g/dl (6.3-8.2); eGFR > 60.00
[2024-10-13] MEDS: CYMBALTA DELAYED RELEASE PO (09:06)
[2024-10-13] MEDS: ABILIFY PO (09:06)
[2024-10-13] MEDS: ZANAFLEX PO ×2 (09:06→11:34)
[2024-10-13] MEDS: TYLENOL PO ×2 (09:06→11:33)
[2024-10-13] MEDS: PROTONIX PO (09:07)
[2024-10-13] MEDS: LYRICA PO ×2 (09:08→11:34)
[2024-10-13] MEDS: HEPARIN 5000 UNITS SC ×2 (09:09→20:50)
[2024-10-13] MEDS: ATARAX PO (09:09)
[2024-10-13] MEDS: NSS 1000 IV (09:11)
[2024-10-13] MEDS: ZOFRAN 4 MG IV ×2 (09:14→15:46)
[2024-10-13 09:28] LABS: Nucleated Red Blood Cells % 0 %
--- NOTE | 2024-10-13 09:29 | PTCARENOTE ---
Patient medicated for B/L leg pain from hips down to feet rated 10/10 as well as nausea, PRN IV Zofran and Dilaudid administered - see MAR. Patient refusing scheduled oral medications at this time d/t nausea. Blood sugar this AM 90, patient states
she has her own insulin pens that she uses to inject but will not give herself any this AM for blood sugar of 90. MD made aware, stated patient is okay to use her own insulin. Patient refusing hygiene/repositioning and meal at this time, IVF
infusing through R wrist.
[2024-10-13 10:08] VITALS: BMI 18.4
--- NOTE | 2024-10-13 10:18 | W.PN.HOSP.TC ---
Today's Communication/Plan
-
Pain control
Assessment / Plan
Assessment / Plan
Physical exam:
General: Acute on chronically
HEENT: Normocephalic, Atraumatic and Moist Mucous Membranes
Respiratory: Clear to Auscultation; Negative Wheezes, Rales or Rhonchi
Cardiac: Regular Rhythm and S1/S2
GI: Soft, Nontender and Nondistended
Musculoskeletal: No Clubbing, No Cyanosis and No Edema
Neuro: Awake, Alert and Oriented, no neurological deficit
Psych: Anxious
A/P:
# Severe chronic bilateral lower extremity pain likely secondary to severe peripheral neuropathy from diabetes/reflex sympathetic dystrophy
- Continue Tylenol, ketorolac, Dilaudid,
-Continue gabapentin
- IV fluids given
- Previously had MRI lumbar spine, thoracic spine and cervical spine which were all negative
- EMG was consistent with peripheral polyneuropathy
-Will continue Dilaudid at 1 mg every 4 hours, can increase Dilaudid up to 2 mg every 6 hours which is what she received on her prior admission
- Using ketamine spray
- Will try to obtain information on his pain doctor
# Nausea/vomiting/abdominal pain secondary to poor p.o. intake/pain/chronic medication
- Gastroparesis ruled out by gastric emptying study as outpatient
- Zofran
- IV fluids
#Urinary retention
Straight cath as needed
Type 1 diabetes
- Normally on 32 units of Lantus, decrease to 16 units for now with current GI symptoms
- Insulin sliding scale
- DATA WAREHOUSE DEVELOPER consult
Depression/severe anxiety/ADHD
- Continue aripiprazole, atomoxetine, Lexapro, mirtazapine
B12 deficiency
Chronic anemia
History of prior pyelonephritis
Full code
DVT prophylaxis�heparin
Time spent 36-minutes
Anticipated Discharge: > 48 hours
Subjective/Interval History
-
Date of Service: October 13, 2024
Patient still having leg pain. She is also having urinary retention
Objective Data
-
Labs:
Laboratory Results
10/13/24
07:05
WBC 7.1
Hgb 11.7 L
Hct 35.1 L
Plt Count 442 H
Sodium 138
Potassium 4.4
Chloride 108 H
Carbon Dioxide 23
BUN 16
Creatinine 0.7
Glucose 102 H
Calcium 9.5
Total Bilirubin 0.5
AST 17
ALT < 10
Alkaline Phosphatase 83
Vital Signs:
Vital Signs
Temp Pulse Resp BP Pulse Ox
98.0 F 97 16 152/98 989
10/13/24 07:30 10/13/24 07:30 10/13/24 07:30 10/13/24 07:30 10/13/24 07:30
I&O
10/12/24 10/13/24 10/14/24
06:59 06:59 06:59
Intake Total 1088 / 1088
Balance 1088 / 1088
--- NOTE | 2024-10-13 10:55 | PTCARENOTE ---
Addendum entered by Dana Davis RN 10/13/24 15:13:
Patient unable to urinate on bedpan, bladder scan by tech 725ml. Patient straight cathed per protocol by this RN and Che BENTON, patient medicated with one time doses of IV Dilaudid and PO Ativan for procedure. 700ml ross colored urine obtained via
straight cath, urinalysis reflex to cx ordered via verbal per MD and sent to lab by this RN.
Original Note:
Bladder scan taken by tech 682ml. Patient stated to this RN she has no urge to void but is refusing straight cath at this time, says she will attempt to urinate in bedpan or BSC 'in a little bit.' MD aware, no new orders at this time.
--- NOTE | 2024-10-13 11:21 | CM ---
Reviewed the chart notes and spoke with the patient at the bedside. The patient resides with her mother and sister in a two story home with a total of 17 steps to enter. The patient has a rollator if needed. The patient is current with [facility], but no SNF. The patient confirmed her pharmacy of choice is [facility] [address] [place]. CM continues to be available to patient/family and is monitoring medical plan for needs at discharge.
Plan: Discharge back to home with resumption of VN services. Referral sent in [facility].
[2024-10-13 11:24] VITALS: BP 153/97
[2024-10-13 11:32] LABS: Glucose - Point of Care 70 mg/dl (70-99)
[2024-10-13] MEDS: ATARAX 50 MG PO (11:34)
[2024-10-13] MEDS: ABILIFY 10 MG PO (11:34)
[2024-10-13] MEDS: CYMBALTA DELAYED RELEASE 60 MG PO (11:34)
[2024-10-13] MEDS: PROTONIX 40 MG PO (11:34)
--- NOTE | 2024-10-13 12:27 | PN.DE.MGMTRT ---
Insulin Management
- -
10/13/2024: Diabetes Management Consult
Patient admitted 10/12 with c/o severe pain from hips to toes, inability to walk with nausea.
PMH includes: Anxiety/depression, bipolar, ADHD, prior UTIs/pyelonephritis, chronic back pain on oxycodone and gabapentin and T1DM since age 7.
Patient follows with [facility] for routine Diabetes care, was last seen in May, states her next appt is in November.
Prior to admission was taking Basaglar 27 units @ hs with NovoLog ss AC. Current A1C 10.5%, Cr 0.7, eGFR >60.
Patient awake, alert and oriented, sitting up in bed, offers no complaint, able to discuss diabetes management. Nurse reports patient has her own novolog and will use that. I discussed with patient ideally she should keep home insulin in her purse
and AC novolog and HS lantus will be given by nursing. She is agreeable.
Received 13 units Lantus @ hs, FBG 90 POC. Will start 3 units novolog AC HOLD if patient does not eat, with low corrective insulin.
Discussed with nurse
Will cont to follow.
Diabetes History
- -
Type of Diabetes: 1
Pre-Admission Diabetes Regimen
10/12/24 10/13/24
16:21 07:05
Creatinine 0.7 0.7
Insulin Pump Settings
IP Diabetes Regimen
10/12/24 10/12/24 10/12/24
16:04 16:21 21:58
Glucose 208 H
POC Glucose 196 H 123 H
10/13/24 10/13/24 10/13/24
07:05 08:04 11:31
Glucose 102 H
POC Glucose 90 70
Meal type: Breakfast
Amount consumed: 0
Patient Education
[2024-10-13] MEDS: ATIVAN 1 MG PO (13:24)
[2024-10-13 13:25] LABS: Glucose - Point of Care 183 mg/dl (70-99)
[2024-10-13] MEDS: NOVOLOG FLEXPEN 3 UNITS SC ×2 (14:15→17:50)
[2024-10-13 15:24] LABS: Urine Character Clear (Clear)
[2024-10-13 15:39] VITALS: BP 157/103
[2024-10-13 15:39] LABS: Urine Red Blood Cell 0-2 /HPF (0-2); Urine White Cell 0-2 /HPF (0-5)
[2024-10-13] MEDS: TYLENOL 1000 MG PO (15:45)
[2024-10-13] MEDS: ZANAFLEX 4 MG PO (15:45)
[2024-10-13] MEDS: LYRICA 150 MG PO ×2 (15:45→21:58)
[2024-10-13 15:55] VITALS: BP 143/96
[2024-10-13] MEDS: NOVOLOG FLEXPEN-LOW RESISTANCE SC (17:34)
[2024-10-13 17:37] LABS: Glucose - Point of Care 130 mg/dl (70-99)
[2024-10-13 19:46] LABS: Glucose - Point of Care 50 mg/dl (70-99)
[2024-10-13 20:09] LABS: Glucose - Point of Care 65 mg/dl (70-99)
[2024-10-13 20:42] LABS: Glucose - Point of Care 137 mg/dl (70-99)
[2024-10-13] MEDS: SENOKOT-S 1 TABLET PO (21:07)
--- NOTE | 2024-10-13 21:12 | W.PN.UPDATE ---
Update Note
Progress Note Update
BS 50 then 65 after drinking juice now 137, Due for lantus 13 u, will decrease to 10 units. Advise snack HS
[2024-10-13] MEDS: ATIVAN 2 MG PO (21:58)
[2024-10-13] MEDS: REMERON 7.5 MG PO (21:58)
[2024-10-13] MEDS: LANTUS SC (21:59)
[2024-10-13 22:00] LABS: Glucose - Point of Care 214 mg/dl (70-99)
[2024-10-13] MEDS: LANTUS 0.1 UNITS SC (22:00)
[2024-10-13 23:39] VITALS: BP 111/66
[2024-10-14] MEDS: ZANAFLEX 4 MG PO ×4 (00:29→23:05)
[2024-10-14] MEDS: TYLENOL 1000 MG PO ×4 (00:29→23:05)
[2024-10-14] MEDS: DILAUDID 1 MG IV ×6 (01:21→23:11)
[2024-10-14 03:07] LABS: Glucose - Point of Care 229 mg/dl (70-99)
[2024-10-14 06:50] LABS: Hematocrit 31.2 % (37.0-47.0); Hemoglobin 10.7 g/dL (12.0-16.0); Mean Corp Hgb Conc. 34.3 g/dL (33.0-37.0); Mean Corpuscular Volume 77.8 fL (81.0-99.0); Platelet Count 305 10^3/uL (130-400); Red Cell Dist. Width 12.7 % (11.5-14.5)
[2024-10-14 07:23] LABS: Blood Urea Nitrogen 14 mg/dl (7-17); Calcium 9.1 mg/dl (8.4-10.2); Carbon Dioxide 26 mmol/L (22-30); Chloride 106 mmol/L (98-107); Estimated Creatinine Clearance 121 ml/min; Glucose 188 mg/dl (70-99); Potassium 4.2 mmol/L (3.5-5.1); Sodium 134 mmol/L (135-145); eGFR > 60.00
[2024-10-14 07:25] VITALS: BP 124/84
--- NOTE | 2024-10-14 07:26 | PN.DE.MGMTRT ---
Insulin Management
- -
10/2024: Diabetes Management Consult Follow up
Patient admitted 10/12 with c/o severe pain from hips to toes, inability to walk with nausea.
PMH includes: Anxiety/depression, bipolar, ADHD, prior UTIs/pyelonephritis, chronic back pain on oxycodone and gabapentin and T1DM since age 7.
Patient follows with [facility] for routine Diabetes care, was last seen in May, states her next appt is in November.
Prior to admission was taking Basaglar 27 units @ hs with NovoLog ss AC. Current A1C 10.5%, Cr 0.7, eGFR >60.
Patient awake, alert and oriented, sitting up in bed, offers no complaint, able to discuss diabetes management.
10/13 Nurse reports patient has her own novolog and will use that. I discussed with patient ideally she should keep home insulin in her purse and AC novolog and HS lantus will be given by nursing. She is agreeable.
FBG 90 POC. 3 units novolog AC with low corrective started with lunch. Spoke with patient she ate no dinner but did receive insulin. Evening glucose 50. HS lantus reduced to 10 units.
10/14 Fasting glucose 229. Will continue 13 units lantus @ HS with 3 units ovolog AC HOLD if patient does not eat at least 30 grams of carbohydrate.
Discussed with nurse
Will cont to follow.
Diabetes History
- -
Type of Diabetes: 1
Pre-Admission Diabetes Regimen
10/13/24 10/14/24
07:05 06:02
Creatinine 0.7 0.6
Lab Results
Hemoglobin A1c Cancelled 10/13/24 12:19
Insulin Pump Settings
IP Diabetes Regimen
10/13/24 10/13/24 10/13/24
07:05 08:04 11:31
Glucose 102 H
POC Glucose 90 70
10/13/24 10/13/24 10/13/24
13:24 17:29 19:44
Glucose
POC Glucose 183 H 130 H 50 L*
10/13/24 10/13/24 10/13/24
20:07 20:41 21:59
Glucose
POC Glucose 65 L 137 H 214 H
10/14/24 10/14/24
03:05 06:02
Glucose 188 H
POC Glucose 229 H
Meal type: Dinner
Meal type: Breakfast
Meal type: Breakfast
Amount consumed: 65%
Amount consumed: 50%
Amount consumed: 0
Patient Education
[2024-10-14 07:42] LABS: Glucose - Point of Care 158 mg/dl (70-99)
[2024-10-14 07:55] LABS: Glycohemoglobin (HgbA1c) 8.3 % (4.0-5.6)
[2024-10-14] MEDS: CYMBALTA DELAYED RELEASE 60 MG PO (08:17)
[2024-10-14] MEDS: ABILIFY 10 MG PO (08:17)
[2024-10-14] MEDS: ATARAX 50 MG PO (08:17)
[2024-10-14] MEDS: PROTONIX 40 MG PO (08:17)
[2024-10-14] MEDS: LYRICA 150 MG PO ×3 (08:17→21:07)
[2024-10-14] MEDS: SENOKOT-S 1 TABLET PO ×2 (08:18→19:11)
[2024-10-14] MEDS: HEPARIN 5000 UNITS SC ×2 (08:18→19:11)
[2024-10-14] MEDS: TORADOL 30 MG IV (08:20)
[2024-10-14] MEDS: NOVOLOG FLEXPEN 3 UNITS SC ×3 (09:40→16:48)
[2024-10-14] MEDS: NOVOLOG FLEXPEN-LOW RESISTANCE 1 UNITS SC (09:40)
--- NOTE | 2024-10-14 11:15 | W.PN.HOSP.TC ---
Addendum entered and electronically signed by Barron Gerard MD 10/14/24 17:51:
Underweight
Addendum entered and electronically signed by Barron Gerard MD 10/14/24 15:14:
Pain doctor covering for her own pain specialist got back to me--> we had many discussions on this complex patient and some of the recommendation that we could potentially try the following: Increase Cymbalta, start IV steroids, ketamine use or
infusion, lidocaine infusion, nerve block, benzodiazepines with Klonopin, etc.
Original Note:
Today's Communication/Plan
-
Pain control
Assessment / Plan
Assessment / Plan
Physical exam:
General: Acute on chronically
HEENT: Normocephalic, Atraumatic and Moist Mucous Membranes
Respiratory: Clear to Auscultation; Negative Wheezes, Rales or Rhonchi
Cardiac: Regular Rhythm and S1/S2
GI: Soft, Nontender and Nondistended
Musculoskeletal: No Clubbing, No Cyanosis and No Edema
Neuro: Awake, Alert and Oriented, no neurological deficit
Psych: Anxious
A/P:
# Severe chronic bilateral lower extremity pain likely secondary to severe peripheral neuropathy from diabetes/reflex sympathetic dystrophy
- Continue Tylenol, ketorolac, Dilaudid.
-Continue gabapentin
- IV fluids given
- Previously had MRI lumbar spine, thoracic spine and cervical spine which were all negative
- EMG was consistent with peripheral polyneuropathy
-Will continue Dilaudid at 1 mg every 4 hours. Add oral oxycodone
- Using ketamine spray
- Will try to obtain information on his pain doctor--> I reached out to Dr. Morris's office [phone] and they will get back to me later.
# Nausea/vomiting/abdominal pain secondary to poor p.o. intake/pain/chronic medication
- Gastroparesis ruled out by gastric emptying study as outpatient
- Zofran
- IV fluids
#Urinary retention
Straight cath as needed--> recommended Beltre catheter which she is thinking about
Type 1 diabetes
- Normally on 32 units of Lantus, decrease to 16 units for now with current GI symptoms--> currently on Lantus 13 units every evening and 3 units of aspart before each meal.
- Insulin sliding scale
- QUILL CLEANER consult
Depression/severe anxiety/ADHD
- Continue aripiprazole, atomoxetine, Lexapro, mirtazapine
B12 deficiency
Chronic anemia
History of prior pyelonephritis
Full code
DVT prophylaxis�heparin
Time spent 35-minutes
Anticipated Discharge: 24 - 48 hours
Subjective/Interval History
-
Date of Service: October 14, 2024
Objective Data
-
Labs:
Laboratory Results
10/14/24
06:02
WBC 5.7
Hgb 10.7 L
Hct 31.2 L
Plt Count 305 D
Sodium 134 L
Potassium 4.2
Chloride 106
Carbon Dioxide 26
BUN 14
Creatinine 0.6
Glucose 188 H
Calcium 9.1
Vital Signs:
Vital Signs
Temp Pulse Resp BP Pulse Ox
97.5 F 85 18 124/84 98
10/14/24 07:25 10/14/24 07:25 10/14/24 07:25 10/14/24 07:25 10/14/24 09:48
I&O
10/13/24 10/14/24 10/15/24
06:59 06:59 06:59
Intake Total 1088 / 1088 960 / 960
Output Total 1200 / 1200
Balance 1088 / 1088 -240 / -240
[2024-10-14 11:52] LABS: Glucose - Point of Care 134 mg/dl (70-99)
[2024-10-14] MEDS: NOVOLOG FLEXPEN-LOW RESISTANCE SC (12:04)
--- NOTE | 2024-10-14 12:49 | CM ---
Management of blood sugars, insulin and severe B/L LE pain. Therapy consult ordered but not completed due to patient's symptomatology. Will await eval and recommendations to determine discharge POC. Is current with [facility].
--- NOTE | 2024-10-14 14:11 | PTCARENOTE ---
Patient c/o of pain, offered oxy 5mg as ordered. Pt refused oxy at this time. States she wants Dilaudid. IV Dilaudid given as ordered. Plan of care ongoing. safety precaution maintained. call carrillo within reach.
[2024-10-14 15:20] VITALS: BP 125/81
--- NOTE | 2024-10-14 15:31 | PN.CDI ---
CDI
- -
CDI:
Physician Documentation Request
Admit Date: 10/12/24 20:26
Dear Doctor Rajani,
Please review the following and provide your response in the progress notes.
Clinical Indicators:
Height: 5 ft 7 inches
Weight:117
BMI:18.4
Other Clinical Notes:10/13 notes patient to be underweight.
Please provide an associated diagnosis related to the abnormal BMI:
BMI < or = to 19
Underweight
Weight Loss
Cachectic
Anorexia
- BMI is not significant
- Other
Use of terms such as suspected, likely, concern for, or probable (associated with a specific diagnosis that is being evaluated, monitored, or treated as if it exists) are acceptable and can be coded in the inpatient setting, when documented at the
time of discharge.
Thank you,
Noa Mitchell RN, BSN
CDI Specialist
tiger text
Please use your independent medical judgment in providing your response.
[2024-10-14] MEDS: ROXICODONE 5 MG PO (16:09)
[2024-10-14] MEDS: NON-FORMULARY ITEM 40 MG PO (16:10)
[2024-10-14 16:47] LABS: Glucose - Point of Care 262 mg/dl (70-99)
[2024-10-14] MEDS: NOVOLOG FLEXPEN-LOW RESISTANCE 3 UNITS SC (16:49)
--- NOTE | 2024-10-14 17:00 | PTCARENOTE ---
Patient bladder scanned for 284 at this time. No urine output noted. tolerating Po liquids well. Dr. Gerard made aware. No new orders at this time.1Plan of care ongoing
[2024-10-14] MEDS: REMERON 7.5 MG PO (21:07)
[2024-10-14] MEDS: ATIVAN 2 MG PO (21:07)
[2024-10-14 21:39] LABS: Glucose - Point of Care 476 mg/dl (70-99)
[2024-10-14 22:31] LABS: Glucose 540 mg/dl (70-99)
[2024-10-14] MEDS: LANTUS 0.13 UNITS SC (22:31)
[2024-10-14] MEDS: NOVOLOG FLEXPEN 6 UNITS SC (22:50)
[2024-10-14 23:38] VITALS: BP 104/62
[2024-10-15 01:11] LABS: Glucose - Point of Care 464 mg/dl (70-99)
[2024-10-15 02:05] LABS: Glucose 530 mg/dl (70-99)
[2024-10-15] MEDS: NOVOLOG FLEXPEN 8 UNITS SC (02:16)
[2024-10-15] MEDS: ROXICODONE 5 MG PO ×2 (02:19→07:38)
--- NOTE | 2024-10-15 02:28 | W.PN.UPDATE ---
Update Note
Progress Note Update
BS elevated over night 476, 474, , treated with insulin Aspart. Lantus 13 u. BS 376 insulin 5 units given. labs ordered. no new complaints. Diabetic management.
[2024-10-15] MEDS: DILAUDID 1 MG IV ×2 (04:09→08:57)
[2024-10-15 04:10] LABS: Glucose - Point of Care 376 mg/dl (70-99)
[2024-10-15] MEDS: NOVOLOG FLEXPEN 5 UNITS SC (04:51)
--- NOTE | 2024-10-15 05:03 | PTCARENOTE ---
Patients Accu check 476. Stat glucose ordered and resulted 540. Messaged CABLE STRETCHER AND TESTER. Orders placed. 6 units of NovoLog given. 2 hour recheck RR high. Stat glucose ordered and resulted 530. Messaged CABLE STRETCHER AND TESTER... 8 units of NovoLog given. 2 hour recheck 376. 5
units of NovoLog given. Patient complaining of severe pain in legs. No other complaints. Patient was able to urinate on bedside commode, 1 L of output.
[2024-10-15 07:22] LABS: Hematocrit 32.2 % (37.0-47.0); Hemoglobin 11.2 g/dL (12.0-16.0); Mean Corp Hgb Conc. 34.8 g/dL (33.0-37.0); Mean Corpuscular Volume 75.4 fL (81.0-99.0); Platelet Count 287 10^3/uL (130-400); Red Cell Dist. Width 12.8 % (11.5-14.5)
[2024-10-15 07:24] LABS: Glucose - Point of Care 264 mg/dl (70-99)
[2024-10-15 07:35] VITALS: BP 152/93
[2024-10-15] MEDS: CYMBALTA DELAYED RELEASE 60 MG PO (07:38)
[2024-10-15] MEDS: HEPARIN 5000 UNITS SC (07:38)
[2024-10-15] MEDS: ZANAFLEX 4 MG PO (07:38)
[2024-10-15] MEDS: ABILIFY 10 MG PO (07:39)
[2024-10-15] MEDS: NOVOLOG FLEXPEN-LOW RESISTANCE 3 UNITS SC (07:39)
[2024-10-15] MEDS: PROTONIX 40 MG PO (07:39)
[2024-10-15] MEDS: LYRICA 150 MG PO (07:39)
[2024-10-15] MEDS: SENOKOT-S 1 TABLET PO (07:39)
[2024-10-15] MEDS: TYLENOL 1000 MG PO (07:39)
[2024-10-15] MEDS: ATARAX 50 MG PO (07:39)
[2024-10-15] MEDS: NOVOLOG FLEXPEN 3 UNITS SC (07:39)
[2024-10-15] MEDS: NON-FORMULARY ITEM 40 MG PO (07:42)
[2024-10-15 07:56] LABS: Blood Urea Nitrogen 16 mg/dl (7-17); Calcium 9.4 mg/dl (8.4-10.2); Carbon Dioxide 26 mmol/L (22-30); Chloride 106 mmol/L (98-107); Estimated Creatinine Clearance 121 ml/min; Glucose 239 mg/dl (70-99); Potassium 4.7 mmol/L (3.5-5.1); Sodium 137 mmol/L (135-145); eGFR > 60.00
--- NOTE | 2024-10-15 09:30 | PTCARENOTE ---
Addendum entered by Dana Davis RN 10/15/24 11:30:
Patient urinated 100ml on commode. Report given to oncoming RN, this RN communicated with tech to bladder scan pt. aware.
Original Note:
Patient ambulated to bathroom with assistance of tech for mod urination and large BM, post void bladder scan taken by this RN for 557ml. Patient states no urge to void currently but will attempt to urinate on BSC later this morning, asking to avoid
straight cath, states similar episode occurred overnight before she urinated 1000ml on BSC. DC planning per , made aware of bladder scan results and patient asking to wait to void, no new orders at this time.
--- NOTE | 2024-10-15 10:42 | W.PN.HOSP.TC ---
Addendum entered and electronically signed by Barron Gerard MD 10/15/24 13:10:
Correction--> patient is indeed being discharged and she is okay with discharge. She actually changed her mind in terms of the Beltre catheter she does not want that upon discharge.
Addendum entered and electronically signed by Barron Gerard MD 10/15/24 13:02:
Patient was going to be discharged today but after RN discussed with patient she changed her mind and she wants to stay.
Original Note:
Today's Communication/Plan
-
Pain control. Discharge planning
Assessment / Plan
Assessment / Plan
Physical exam:
General: chronically ill
HEENT: Normocephalic, Atraumatic and Moist Mucous Membranes
Respiratory: Clear to Auscultation; Negative Wheezes, Rales or Rhonchi
Cardiac: Regular Rhythm and S1/S2
GI: Soft, Nontender and Nondistended
Musculoskeletal: No Clubbing, No Cyanosis and No Edema
Neuro: Awake, Alert and Oriented, no neurological deficit
Psych: Anxious
A/P:
# Severe chronic bilateral lower extremity pain likely secondary to severe peripheral neuropathy from diabetes/reflex sympathetic dystrophy
- Continue Tylenol, ketorolac, Dilaudid.
-Continue gabapentin
- IV fluids given
- Previously had MRI lumbar spine, thoracic spine and cervical spine which were all negative
- EMG was consistent with peripheral polyneuropathy
-Will continue Dilaudid at 1 mg every 4 hours. Add oral oxycodone
- Using ketamine spray
- Will try to obtain information on his pain doctor--> I reached out to Dr. Morris's office [phone] and they will get back to me later. Pain doctor covering for her own pain specialist got back to me--> we had many discussions on this complex
patient and some of the recommendation that we could potentially try the following: Increase Cymbalta, start IV steroids, ketamine use or infusion, lidocaine infusion, nerve block, benzodiazepines with Klonopin, etc.
- Discussed options as above with patient that she actually is feeling better and she would like to go home today. Will give limited supply of oral narcotics upon discharge per patient request for pain control and continue with her home regimen and
planning to discharge later today.
# Nausea/vomiting/abdominal pain secondary to poor p.o. intake/pain/chronic medication
- Gastroparesis ruled out by gastric emptying study as outpatient
- Zofran
- IV fluids
#Urinary retention
Straight cath as needed--> recommended Beltre catheter which she is thinking about. She is going to move around more and see if she requires any straight cath prior to discharge.
Type 1 diabetes
-She had some elevated blood sugars overnight in the 500 but this morning she is back down to the 200s.
- Normally on 32 units of Lantus, decrease to 16 units for now with current GI symptoms--> currently on Lantus 13 units every evening and 3 units of aspart before each meal.
- Insulin sliding scale
- CLINICAL PROGRAM MANAGER consult
Depression/severe anxiety/ADHD
- Continue aripiprazole, atomoxetine, Lexapro, mirtazapine
Underweight
B12 deficiency
Chronic anemia
History of prior pyelonephritis
Full code
DVT prophylaxis�heparin
Time spent 35-minutes
Anticipated Discharge: Today
Subjective/Interval History
-
Date of Service: October 15, 2024
Patient pain it is more bearable. Afebrile.
Objective Data
-
Labs:
Laboratory Results
10/15/24 10/15/24
01:32 06:50
WBC 4.5 L
Hgb 11.2 L
Hct 32.2 L
Plt Count 287
Sodium 137
Potassium 4.7
Chloride 106
Carbon Dioxide 26
BUN 16
Creatinine 0.5 L
Glucose 530 H* 239 H
Calcium 9.4
Vital Signs:
Vital Signs
Temp Pulse Resp BP Pulse Ox
97.8 F 104 16 152/93 100
10/15/24 07:35 10/15/24 07:35 10/15/24 07:35 10/15/24 07:35 10/15/24 07:35
I&O
10/14/24 10/15/24 10/16/24
06:59 06:59 06:59
Intake Total 960 / 960 1200 / 1200
Output Total 1200 / 1200 0 / 0
Balance -240 / -240 1200 / 1200
--- NOTE | 2024-10-15 10:48 | W.DCSUMMARY ---
Discharge Summary
Discharge Data
Date of Admission: 10/12/24
Date of Discharge: 10/15/24
Total time spent discharging patient (in min): 35
-
Pending Results: No
Hospital Course
Patient 24 years old female with history of diabetes, depression and anxiety, and multiple other comorbidities and came into the hospital with severe bilateral lower extremity pain. Patient was placed on narcotics for pain control and continue with
her home regimen. Of note her workup recently revealed she had polyneuropathy on her legs and most of the rest of the workup was unremarkable. We also reach out to her pain doctor who will follow her as outpatient. Patient had also adjustments on
her diabetic regimen and back to her home regimen upon discharge. Patient also had some urinary retention and at times she required straight cath and we offered a Beltre catheter and void trial as outpatient but she declined. She is requesting to
go home today since she feels that she can manage her pain at home at this point. She will be discharged in stable condition today.
Discharge duration: 35 minutes
Discharge Plan
-
Patient Disposition: Home (Routine Discharge)
Discharge Diagnosis/Procedures: Bilateral lower extremity pain. Diabetes mellitus type I with hyperglycemia. Urinary retention.
Diet: Diabetic, Carb Controlled
Activity: As tolerated
Blood Work: Please PCP to order CBC, BMP within 1 week
Referrals:
Noa Duncan PA-C [Family Provider, Family Practice] - in less than 1 week
Prescriptions:
New
oxycodone 5 mg Tablet
5 mg PO Q4HPRN PRN (Reason: moderate pain) Qty: 20 0RF
Continued
atomoxetine 40 mg capsule
40 mg PO DAILY
mirtazapine 7.5 mg tablet
7.5 mg PO HS
ondansetron HCl 8 mg Tablet
8 mg PO Q8HPRN PRN (Reason: nausea)
Patient Comments:
10/12/2024, pt. took today but threw it up shortly after.
insulin glargine [Lantus Solostar U-100 Insulin] 100 unit/mL (3 mL) Insulin Pen
27 unit SC HS
tizanidine 4 mg Tablet
4 mg PO Q8H
hydroxyzine HCl 50 mg Tablet
50 mg PO DAILY
omeprazole 40 mg Capsule,Delayed Release(Dr/Ec)
40 mg PO DAILY
acetaminophen [Tylenol Extra Strength] 500 mg Tablet
1,000 mg PO Q8H
insulin aspart U-100 [Novolog U-100 Insulin aspart] 100 unit/mL Solution
1 sliding scale dose SC DIRECTED
Patient Comments:
10/12/2024, per pt., for every 10 carbs pt. injects 1 unit; 150-200 = 1 unit; 201-250 = 2 units.
lorazepam 1 mg Tablet
2 mg PO HS
coenzyme Q10 [CoQ-10] 100 mg Capsule
100 mg PO DAILY
aripiprazole 10 mg Tablet
10 mg PO DAILY
duloxetine 30 mg Capsule,Delayed Release(Dr/Ec)
60 mg PO DAILY
pregabalin 150 mg Capsule
150 mg PO TID
alpha lipoic acid
2 tab PO DAILY
cyanocobalamin (vitamin B-12)
0.5 tab PO DAILY
Patient Comments:
10/12/2024, pt. believes to be taking around 300 mcg but is unsure.
ketamine 100 mg/mL Solution
0 mg INTRANASAL Q8H
Patient Comments:
10/12/2024, pt. gets this med. filled at [facility] and instructed to use one spray intranasally Q8H per package instructions.
Naltrexone (Lactose Free) capsule
4.5 mg PO DAILY
Patient Comments:
10/12/2024, pt. gets this med. filled at [facility].
Discharge Orders:
Discharge Patient (As Directed); Ordered 10/15/24
Ordered By: Barron Gerard
Discharge Date and Time
Print Language: WELSH
[2024-10-15 11:57] LABS: Glucose - Point of Care 93 mg/dl (70-99)
[2024-10-15] MEDS: NOVOLOG FLEXPEN-LOW RESISTANCE SC (11:58)
--- NOTE | 2024-10-15 12:32 | CM ---
[facility]
[2024-10-15 13:15] VITALS: BP 140/99
[2024-10-15] MEDS: NOVOLOG FLEXPEN SC (13:24)
== END 2024-10-15 13:40 | disposition home or self-care (01) | DRG 74 ==
LOC: 2 NORTH 20:26
PROVIDERS: Emergency Medicine; Nurse Practitioner Gerontology; ADMITTING PHYSICIAN Hospitalist; ATTENDING PHYSICIAN Hospitalist; EMERGENCY PHYSICIAN Student in an Organized Health Care Education/Training Program; FAMILY PHYSICIAN Physician Assistant Medical
DX: E10.42 Type 1 diabetes mellitus with diabetic polyneuropathy (principal); Z68.1 Body mass index [BMI] 19.9 or less, adult; F32.A Depression, unspecified; F41.9 Anxiety disorder, unspecified; F90.9 Attention-deficit hyperactivity disorder, unspecified type; E53.8 Deficiency of other specified B group vitamins; D64.9 Anemia, unspecified; E10.65 Type 1 diabetes mellitus with hyperglycemia; Z79.4 Long term (current) use of insulin; Z87.440 Personal history of urinary (tract) infections; G90.523 Complex regional pain syndrome I of lower limb, bilateral; R63.6 Underweight
CPT/HCPCS: 80048; 80053; 81003; 81015; 82010; 82947; 82962; 83036; 83605; 85025; 85027; 96361; 96374; 96375; 99284

== ENCOUNTER 2024-10-20 18:40 | Inpatient (IN) | payer OTHER, SELFPAY ==
[2024-10-20] VITALS (8 sets, daily range): BP systolic 101–166; BP diastolic 68–111; BMI 18.0; BMI 18.9
[2024-10-20 12:22] LABS: Glucose - Point of Care 83 mg/dl (70-99)
[2024-10-20 12:43] LABS: Hematocrit 37.8 % (37.0-47.0); Hemoglobin 12.9 g/dL (12.0-16.0); Mean Corp Hgb Conc. 34.1 g/dL (33.0-37.0); Mean Corpuscular Volume 75.4 fL (81.0-99.0); Nucleated Red Blood Cells % 0 %; Platelet Count 472 10^3/uL (130-400); Red Cell Dist. Width 13.0 % (11.5-14.5)
[2024-10-20 13:25] LABS: ALT (SGPT) 12 U/L (0-35); AST (SGOT) 16 U/L (14-36); Albumin 4.3 g/dl (3.5-5.0); Alkaline Phosphatase 94 U/L (38-126); Blood Urea Nitrogen 13 mg/dl (7-17); Calcium 10.2 mg/dl (8.4-10.2); Carbon Dioxide 28 mmol/L (22-30); Chloride 100 mmol/L (98-107); Glucose 88 mg/dl (70-99); HCG, Serum Qualitative Screen Negative; Potassium 4.3 mmol/L (3.5-5.1); Sodium 135 mmol/L (135-145); Total Protein 7.8 g/dl (6.3-8.2); eGFR > 60.00
--- NOTE | 2024-10-20 15:02 | ED.GENMED ---
History of Present Illness
General
Chief Complaint: Abdominal Symptoms
Source: patient and records
Exam Limitations: none
Time Seen by Provider: 10/20/24 14:49
History of Present Illness
History of Present Illness:
24yoF with a history of type 2 diabetes and diabetic neuropathy on oxycodone presenting with her mother for evaluation of vomiting. Symptoms began around midnight last night. She has been vomiting persistently since that time. Her mother has been
checking her ketones and there was a large amount of ketones in her urine around 1 AM. Her mother has been administering insulin but there has not been any improvement in her symptoms and the ketones still are positive. She also reports
generalized abdominal discomfort. No fevers, URI symptoms, diarrhea, hematemesis. She denies any suspicious food intake. No alcohol or marijuana use. Of note, patient was admitted in August for intractable vomiting.
Past History
Past History
ED Past Medical History: IDDM, Psychiatric (anxiety, depression, bipolar) and Other (Previous UTIs)
ED Past Surgical History: Other (Myringotomy tubes)
Social History
Tobacco: Non-smoker
Alcohol: None
Personal: Single
Living: with family
Employment: Student
Family History
Family History: Other; Negative Diabetes
Phy Exam
Physical Exam
Physical Exam:
Appears uncomfortable, nontoxic
General Physical Exam
General Presentation: no apparent distress
General Skin: warm and dry
General Habitus: normal
General Mental: alert
ENT Exam
ENT Exam: normocephalic
Cardiovascular Exam
Cardiovascular Exam: tachycardia
Pulmonary Exam
Pulmonary Exam: lungs clear, no respiratory distress, no rales, no crackles, no rhonchi and no wheezing
Gastrointestinal Exam
Gastrointestinal Exam: soft, non distended and other (Mild generalized abdominal tenderness)
Neurological Exam
Neurological Exam: alert
Luda Coma Scale
Eye Opening: Spontaneous
Verbal Response: Oriented
Motor Response: Obeys Commands
GCS Total Score: 15
Skin Exam
Skin Exam: normal color and warm/dry
Psychiatric Exam
Psychiatric Exam: normal mood/affect
Course
Orders/Labs/Results
Orders:
Orders
10/20/24 12:22
IV Insert/Care/Rem.- Treatment PRN
Test Result ONCE
10/20/24 12:36
Complete Blood Count/With Diff Urgent
Comprehensive Metabolic Panel Urgent
HCG, Serum Qualitative Screen Urgent
Comment: Notify provider if positive test present
Lipase Urgent
Comment: ADD ON
Magnesium Urgent
Comment: ADD ON
10/20/24 15:00
Urinalysis Reflex To Culture Urgent
Date Specimen was Collected: 10/20/24
Time Specimen was Collected: 15:12
0.9% Sodium Chloride 1000 ml [Nss] 1,000 ml IV BOLUS
Diphenhydramine [Benadryl] 25 mg IV NOW STA
Prochlorperazine [Compazine] 10 mg IV NOW STA
10/20/24 15:01
Add On- LAB Urgent
Tests Added?: lipase, magnesium
10/20/24 16:04
Electrocardiogram (*1) Urgent
Reason for Study: QTc Monitoring
EKG- Treatment ONCE
10/20/24 16:14
droPERidol [Inapsine] 1.25 mg IV NOW STA
10/20/24 16:58
0.9% Sodium Chloride 1000 ml [Nss] 1,000 ml IV BOLUS
Abnormal Lab Results
10/20/24
12:36
MCV 75.4 L fL
(81.0-99.0)
MCH 25.7 L pg
(27.0-31.0)
Plt Count 472 H D 10^3/uL
(130-400)
Creatinine 0.5 L mg/dL
(0.6-1.0)
10/20/24 12:36
10/20/24 12:36
Vital Signs
Initial and Last Documented VS:
Initial Vital Signs
Temp Pulse Resp BP Pulse Ox
97.9 F 114 19 101/68 98
10/20/24 12:17 10/20/24 12:17 10/20/24 12:17 10/20/24 12:17 10/20/24 12:17
Last Documented Vital Signs
Temp Pulse Resp BP Pulse Ox
97.9 F 109 7 135/91 98
10/20/24 12:17 10/20/24 14:45 10/20/24 14:45 10/20/24 14:43 10/20/24 15:03
MDM/Problems Addressed
Differential Diagnosis Includes:
24yoF here with n/v since last night. Hx of T1DM and high ketones in urine at home. She is tachycardic with otherwise stable vital signs. She appears uncomfortable but is nontoxic. There is mild generalized abdominal tenderness on exam.
Differential diagnosis includes but is not limited to: DKA, gastroenteritis, gastroparesis, cyclic vomiting, dehydration
Initial ED plan: Labs obtained in triage which are unremarkable. Glucose 88. Electrolytes, bicarb, and renal function WNL. She is not meeting DKA criteria. IV Compazine, Benadryl, and fluid bolus for symptoms.
*Pulse Oximetry
SaO2: 98
Oxygen Mode of Delivery: Room air
Patient hypoxic: no (99%)
*EKG
Interpreted by ED Provider?: Yes
EKG Intrepretation Date: 10/20/24
Heart Rate: 122
Rate: tachycardiac
Rhythm: sinus
[place]: right axis deviation
Interval: other (QTc 453)
QRS Pattern: normal QRS
Ischemia: no ischemia
*Critical Care Note
Total Time (30-74mins, 75-104mins- exclusive of procedures): Not Applicable
Update Note
Update Note:
Patient with no improvement after Compazine/Benadryl and she was given droperidol. Patient is persistently symptomatic on reassessment and reports no improvement in her nausea. At this point, will admit for intractable symptoms.
ED Attending Note
-
Portions of this chart may have been created with voice recognition software.� Occasional wrong word or��sound alike� substitutions may have occurred due to the inherent limitations of voice recognition software.
Discharge Plan
Departure
Patient Disposition: Admit
Date of Disposition: 10/20/24
Time of Disposition: 17:01
Presentation/result/management discussed w/ accepting MD/DO: Hospitalist
Discharge Problem:
Intractable nausea and vomiting
Prescriptions:
No Action
atomoxetine 40 mg capsule
40 mg PO DAILY
mirtazapine 7.5 mg tablet
7.5 mg PO HS
ondansetron HCl 8 mg Tablet
8 mg PO Q8HPRN PRN (Reason: nausea)
Patient Comments:
10/12/2024, pt. took today but threw it up shortly after.
insulin glargine [Lantus Solostar U-100 Insulin] 100 unit/mL (3 mL) Insulin Pen
27 unit SC HS
tizanidine 4 mg Tablet
4 mg PO Q8H
hydroxyzine HCl 50 mg Tablet
50 mg PO DAILY
omeprazole 40 mg Capsule,Delayed Release(Dr/Ec)
40 mg PO DAILY
acetaminophen [Tylenol Extra Strength] 500 mg Tablet
1,000 mg PO Q8H
insulin aspart U-100 [Novolog U-100 Insulin aspart] 100 unit/mL Solution
1 sliding scale dose SC DIRECTED
Patient Comments:
10/12/2024, per pt., for every 10 carbs pt. injects 1 unit; 150-200 = 1 unit; 201-250 = 2 units.
lorazepam 1 mg Tablet
2 mg PO HS
coenzyme Q10 [CoQ-10] 100 mg Capsule
100 mg PO DAILY
aripiprazole 10 mg Tablet
10 mg PO DAILY
duloxetine 30 mg Capsule,Delayed Release(Dr/Ec)
60 mg PO DAILY
pregabalin 150 mg Capsule
150 mg PO TID
alpha lipoic acid
2 tab PO DAILY
cyanocobalamin (vitamin B-12)
0.5 tab PO DAILY
Patient Comments:
10/12/2024, pt. believes to be taking around 300 mcg but is unsure.
ketamine 100 mg/mL Solution
0 mg INTRANASAL Q8H
Patient Comments:
10/12/2024, pt. gets this med. filled at [facility] and instructed to use one spray intranasally Q8H per package instructions.
Naltrexone (Lactose Free) capsule
4.5 mg PO DAILY
Patient Comments:
10/12/2024, pt. gets this med. filled at [facility].
oxycodone 5 mg Tablet
5 mg PO Q4HPRN PRN (Reason: moderate pain) Qty: 20 0RF
Referrals:
Noa Duncan PA-C [Family Provider, Family Practice]
Interventions
Interventions:
*Risk Screen - Suicide Last Done: 10/20/24 12:17
*General Assessment Last Done: 10/20/24 14:46
*Neglect/Abuse Screening Last Done: 10/20/24 12:17
*ED- Fall Risk Assessment Last Done: 10/20/24 14:46
[place]-Kmhcitbtrw Assessment Last Done: 10/20/24 14:46
Discharge Date and Time
Print Language: UKRAINIAN
[2024-10-20] MEDS: BENADRYL 25 MG IV (15:32)
[2024-10-20] MEDS: COMPAZINE 10 MG IV (15:32)
[2024-10-20] MEDS: NSS 1000 IV ×3 (15:35→20:05)
[2024-10-20 15:38] LABS: Lipase 44 U/L (23-300); Magnesium 1.7 mg/dl (1.6-2.3)
[2024-10-20] MEDS: INAPSINE 1.25 MG IV (16:19)
--- NOTE | 2024-10-20 17:11 | HPS.HSE ---
Family Physician
-
Family Physician: Noa Duncan
Chief Complaint
-
Hyperglycemia, urinary retention, nausea, vomiting
History of Present Illness
24-year-old female complaining of persistent vomiting since 12 PM last night. She reportedly had large amount of ketones in her urine around 1 AM with blood sugar in the 300s her mother had been administering insulin 10 units every 2 hours but
there was no improvements in ketones. She reports she has been retaining urine since discharge on 10/15 currently feels very distended and is in discomfort on bedside bladder scan shows 1307 mL urine retention. The patient is amendable to Beltre
catheter this admission. I spoke with the mother who states she had been giving insulin based on the patient's urine ketones I did make her aware that due to the urine retention this ketone has been skewed and not reliable. She was unaware of
this. She has history of type I DM/labile, chronic nausea, severe peripheral neuropathy, depression, anxiety, ADHD, underweight, B12 deficiency, chronic anemia, prior pyelonephritis.
Medical History
Past Medical History
Past Medical History: Reports Other
Additional Past Medical History:
type I DM/labile
chronic nausea
severe peripheral neuropath
depression
anxiety
ADHD
underweight
B12 deficiency
chronic anemia
prior pyelonephritis.
Past Surgical History: Reports None
Social History
Tobacco: Non-smoker
Alcohol: None
Drug: None
Personal: Single
Living: With Family
Employment: Not Employed
Family History
Family History: Not pertinent
Allergies / Home Medications
Allergies reflects when Allergies were last updated in [employer].
Home Medications with original date entered in [employer]
Allergy/Medication List:
Allergies
Allergy/AdvReac Type Severity Reaction Status Date / Time
No Known Allergies Allergy Verified 10/20/24 12:17
Home Medications
atomoxetine 40 mg capsule 40 mg PO DAILY ADHD 11/27/22
mirtazapine 7.5 mg tablet 7.5 mg PO HS Mental Health/Anxiety 11/27/22
insulin glargine 100 unit/mL (3 mL) subcutaneous pen (Lantus Solostar U-100 Insulin) 27 unit SC HS Diabetes 08/19/24
ondansetron HCl 8 mg tablet 8 mg PO Q8HPRN PRN nausea 08/19/24
acetaminophen 500 mg tablet (Tylenol Extra Strength) 1,000 mg PO Q6H 10/12/24
aripiprazole 10 mg tablet 10 mg PO DAILY 10/12/24
coenzyme Q10 100 mg capsule (CoQ-10) 100 mg PO DAILY 10/12/24
hydroxyzine HCl 50 mg tablet 50 mg PO DAILY 10/12/24
insulin aspart U-100 100 unit/mL subcutaneous solution (Novolog U-100 Insulin aspart) 1 sliding scale dose SC DIRECTED 10/12/24
lorazepam 1 mg tablet 2 mg PO HS 10/12/24
omeprazole 40 mg capsule,delayed release 40 mg PO DAILY 10/12/24
pregabalin 150 mg capsule 150 mg PO TID 10/12/24
tizanidine 4 mg tablet 4 mg PO Q8H 10/12/24
alpha lipoic acid 600 mg tablet 1,200 mg PO DAILY 10/20/24
cyanocobalamin (vitamin B-12) 250 mcg tablet 125 mcg PO DAILY 10/20/24
duloxetine 60 mg capsule,delayed release 60 mg PO DAILY 10/20/24
oxycodone 10 mg tablet 10 mg PO Q6HPRN PRN SEVERE PAIN 10/20/24
Review of Systems
-
History Source: Patient and Family (Mother at bedside)
A 12 point ROS was completed and negative except as noted: Yes
Constitutional: Denies Fever, Weight Loss, Fatigue or Chills
EENT: Denies Sore Throat or Runny Nose
Respiratory: Denies Cough or Trouble Breathing
Cardiac: Denies Chest Pain, Diaphoresis or Palpitations
Abdomen/GI: Reports Abdominal Pain (Suprapubic), Nausea and Vomiting; Denies Diarrhea or Constipated
: Reports Difficulty Voiding and Urgency; Denies Dysuria, Frequency, Flank Pain or Incontinence
Musculoskeletal: Denies Joint Pain or Edema
Skin: Denies Itching or Rash
Neurological: Denies Dizzy, Headache or Weakness
Endocrine: Reports No Symptoms
Hematologic/Lymphatic: Reports No Symptoms
Psych: Reports Anxiety
Physical Exam
Vital Signs
Vital Signs
Temp Pulse Resp BP Pulse Ox
97.9 F 109 7 135/91 98
10/20/24 12:17 10/20/24 14:45 10/20/24 14:45 10/20/24 14:43 10/20/24 15:03
Physical Exam
General: Conversant
HEENT: NormoCephalic, Anicteric, Moist mucous membranes, PERRLA, Home Conjunctivae and No Ptosis
Respiratory: Clear; No Wheezes or Rales
Cardiac: S1/S2 and Tachycardia (Sinus tach 137 bpm); No Murmur, Rub or Gallop
Breast: Deferred by me
GI: Soft, Non Distended, Normal Bowel Sounds, Tender (Suprapubic area due to acute urinary retention) and No Hepatosplenomegaly
Rectal: Deferred by Provider
Genito-urinary: Deferred by me and No costovertebral tender
Musculoskeletal: No Clubbing, No Cyanosis and No Edema
Skin: Warm and Dry; No Rash or Jaundice
Neuro: AO x 3, No Motor Deficits and No Sensory Deficits; No Slurred Speech, Facial Droop, Tremors or Sedated
Psych: Anxious (Due to nausea and acute urinary retention)
Laboratory Results
-
10/20/24 12:36
10/20/24 12:36
Laboratory Results
Total Bilirubin 0.5 mg/dl (0.2-1.3) 10/20/24 12:36
AST 16 U/L (14-36) 10/20/24 12:36
ALT 12 U/L (0-35) 10/20/24 12:36
Alkaline Phosphatase 94 U/L (38-126) 10/20/24 12:36
Lipase 44 U/L (23-300) 10/20/24 12:36
Data Reviewed
-
Lab Data: Labs Reviewed by me
Impression/Plan
-
Impression/plan:
Inpatient telemetry
#Acute on chronic urinary retention likely due to neurogenic bladder from uncontrolled diabetes type 1
# Hx urinary retention 10/15/2024
Straight cath as needed-patient declined Beltre cath/void trial on discharge 10/15/2024
Current 1307 mL urine retention
-Patient amendable to Beltre catheter
- Consult urology
- Pending UA
#Tachycardia due to acute urinary retention
HR 137
- Will monitor post Beltre catheter
# Acute on chronic nausea secondary to poor p.o. intake/pain/chronic medication/hypoglycemia
- Gastroparesis ruled out by gastric emptying study as outpatient
- Zofran, Compazine, Benadryl, droperidol given in ER without improvement
- IV fluids
-IV Benadryl as needed Ativan now for nausea, continue IV Zofran every 4 hours as needed
-IV dextrose as needed
- Will give IV Ativan patient does take lorazepam 2 mg at at bedtime
#Type 1 diabetes labile with mild hypoglycemia
BS 88
History of sugars recently on 10/15/2024 200s to 500s
- Normally on 27 units of Lantus will hold due to nausea, vomiting, hypoglycemia
-Insulin sliding scale moderate
-Check random cortisol, B -hydroxy
- HATCH SUPERVISOR consult
#Chronic bilateral lower extremity pain likely secondary to severe peripheral neuropathy from diabetes/reflex sympathetic dystrophy
Previously had MRI lumbar spine, thoracic spine and cervical spine which were all negative
- EMG was consistent with peripheral polyneuropathy
- Continue Tylenol
-Continue Lyrica 150 mg p.o. 3 times daily, tizanidine 4 mg p.o. every 8 hours, Cymbalta 60 mg daily
Patient uses intranasal ketamine every 8 hours for pain, naltrexone 4.5 mg p.o. daily filled at [facility]
- Patient follows with Dr. Morris's office [phone]
#Depression/severe anxiety/ADHD
- Continue aripiprazole, atomoxetine, Lexapro, mirtazapine
#Underweight�BMI 18 kg due to chronic nausea, vomiting
#B12 deficiency
#Chronic anemia
Hgb 12.9
#History of prior pyelonephritis
DVT prophylaxis�heparin
Full code
--- NOTE | 2024-10-20 17:32 | W.PN.UPDATE ---
Update Note
Progress Note Update
This note serves as an addendum to the H&P by cloth handler NEVIN Anabel MCDOWELL
HPI
24F HX IDDM, chr MILTON pain, EMG evidecee of peripheral neuropath , HX RSD, depression and anxiety, and multiple other comorbidities
seen at ER:
- DC' d on 10/15/24
- for evaluation of vomiting began around midnight last night.
- vomiting persistently since that time.
- mother has been checking her ketones and there was a large amount of ketones in her urine around 1 AM.
- mother has been given insulin butno improvement in symptoms and the ketones still are positive.
- reports generalized abdominal discomfort.
- Of note, patient was admitted in August for intractable vomiting.
ROS
- No fevers, URI symptoms, diarrhea, hematemesis.
- She denies any suspicious food intake.
- No alcohol or marijuana use.
Relevant VS;
Vital Signs
Temp Pulse Resp BP Pulse Ox
97.9 F 109 7 135/91 98
10/20/24 12:17 10/20/24 14:45 10/20/24 14:45 10/20/24 14:43 10/20/24 15:03
PE
General: chronically ill
HEENT: Moist Mucous Membranes
Respiratory: Clear to Auscultation
Cardiac: RR and S1/S2
GI: Soft, Nontender and Nondistended
MS; No Edema
Neuro: Awake, Alert and Oriented, grosly NFND
Psych: Anxious
Relevant data
Abnormal Lab Results
10/20/24
12:36
MCV 75.4 L
MCH 25.7 L
Plt Count 472 H D
Creatinine 0.5 L
Last hospitalist admission: 10/12/24 - 10/15/24
Bilateral lower extremity pain.
Diabetes mellitus type I with hyperglycemia.
Urinary retention.
ASSESSMENT & PLAN
Intractable Nausea and vomiting
- Prior HX ruled out - Gastroparesis by gastric emptying study as outpatient
- PRN anti emetics
- IVF
Chronic severe B/L [place] ilateral lower extremity pain likely secondary to severe peripheral neuropathy from Diabetes/reflex sympathetic dystrophy
- Prior MRI lumbar spine, thoracic spine and cervical spine which were all negative
- Continue Tylenol, ketorolac, Dilaudid.
- Continue gabapentin
- EMG was consistent with peripheral polyneuropathy
- IV Dilaudid at 1 mg every 4 hours. Add oral oxycodone
- Using ketamine spray
P Pain Dr: Dr. Morris's office [phone] :
- Potential option:
Increase Cymbalta, IV steroids, ketamine use or infusion, lidocaine infusion, nerve block,
BZD with Klonopin, etc.
HX Urinary retention suspect Neurogenic bladder
- blader scan protocol - PVR 1307 cc
- FC placement
- Uro consult
Relative hypoglycemia 88 - due to Novolg 10 U every 2 hrs by Mother base on urine ketones
IDDM HX
- Brittle BG control
- DM educator consult
- add ISS mod
- Hold Lantus and NovoLog
Relative hypoglycemia due to inadvertent use of Novolog at home
- however check random + AM cortisol
Depression/severe anxiety/ADHD
- on aripiprazole, atomoxetine, Lexapro, mirtazapine
Underweight BMI 18
B12 deficiency
Chronic anemia
HX prior pyelonephritis
DVT Px: SQH
Full Code:
IP TLM
--- NOTE | 2024-10-20 17:55 | W.PN.URO.CBU ---
Today's Communication / Plan
-
KEEP DISLA
Assessment / Plan
-
ACUTE CHRONIC RETENTIO IN PORLY CONTROLLED IDDM KATY MERCADO NEUROPATHY hAS 1300 CC IN BLADDER NOW AMENABLE TO DISLA WILL KEEP FOLAT AND I WOULD PREFER TO D/C WITH DISLA AND SEE IN OOFFCE TO SET UP TEACHING CIC AD SCHEDLE URODYNAMICS
Diagnosis
-
Date of Service: October 20, 2024
-
Patient DiagnosisACUTE CHROMNIC RETENTION IN TYPE 1 DIABETIC WITH POOR CONTROL 1300CC IN BLADDER PT WITH NEUROPATHY:
Post Op Day:
Subjective
-
ABD DOSCOMFORT
Objective
-
Vital Signs
Temp Pulse Resp BP Pulse Ox
97.9 F 109 7 135/91 98
10/20/24 12:17 10/20/24 14:45 10/20/24 14:45 10/20/24 14:43 10/20/24 15:03
Laboratory Results
10/20/24 12:36
10/20/24 12:36
Review of Systems
-
: Difficulty Voiding
Physical Exam
-
General - well developed, well nourished, no acute distress
Chest - clear bilaterally
Abdomen - soft, non-tender, positive bowel sounds, no CVAT, no incisional pain or distention
Genitalia - normal
Rectal - normal
Skin - warm & dry with no rash
Neuro - AOx3, no motor deficits
Extremities - no clubbing, no cyanosis, no edema
Incision - clean, dry
t
Care Review
Data Reviewed
Discussed with: Nursing
Ultrasound: Image Pers Reviewed
[2024-10-20 18:25] LABS: Glucose - Point of Care 219 mg/dl (70-99)
[2024-10-20] MEDS: ATIVAN 1 MG PO (18:27)
[2024-10-20 18:53] LABS: Cortisol, Random 23.8 ug/dl
[2024-10-20 19:30] LABS: Urine Character Slightly Cloudy (Clear)
[2024-10-20 19:43] LABS: Urine Squamous Cell 0-2 /LPF (Few)
[2024-10-20 19:44] LABS: Urine Red Blood Cell 0-2 /HPF (0-2)
[2024-10-20] MEDS: ZOFRAN 4 MG IV (20:07)
[2024-10-20] MEDS: ROXICODONE 10 MG PO (20:08)
[2024-10-20] MEDS: HEPARIN 5000 UNITS SC (20:18)
[2024-10-20] MEDS: ZANAFLEX 4 MG PO (23:02)
[2024-10-20] MEDS: REMERON 7.5 MG PO (23:02)
[2024-10-20] MEDS: LYRICA 150 MG PO (23:03)
[2024-10-20] MEDS: TYLENOL 1000 MG PO (23:03)
[2024-10-20 23:09] LABS: Glucose - Point of Care 205 mg/dl (70-99)
[2024-10-21] MEDS: BENADRYL 12.5 MG IV ×2 (00:47→20:29)
[2024-10-21 02:48] LABS: Glucose - Point of Care 246 mg/dl (70-99)
[2024-10-21] MEDS: ZOFRAN 4 MG IV ×4 (02:54→20:26)
[2024-10-21 03:05] VITALS: BP 174/107
--- NOTE | 2024-10-21 03:15 | PTCARENOTE ---
Pt intermittently sleeping vs persistently dry heaving despite antiemetics. BP running persistently hypertensive, 174/107. Offers no other complaints with the exception of nausea. Covering PETROGRAPHER aware, no new orders at this time.
[2024-10-21 05:47] VITALS: BMI 18.7
[2024-10-21] MEDS: TYLENOL PO ×3 (06:44→19:08)
[2024-10-21 07:28] LABS: Glucose - Point of Care 251 mg/dl (70-99)
[2024-10-21 07:35] VITALS: BP 168/108
--- NOTE | 2024-10-21 07:39 | PN.DE.MGMTRT ---
Insulin Management
- -
10/21/2024: Diabetes Management Consult
Patient admitted 10/20 with c/o vomiting and ketones in urine per mother. Patient was recently inpatient, 10/12 to 10/15 for severe leg pain from hips to toes inability to walk and nausea. PMH includes: Anxiety/depression, bipolar, ADHD, prior
UTIs/pyelonephritis, chronic back pain on oxycodone and gabapentin and T1DM since age 7.
Patient follows with Te[facility] for routine Diabetes care, was last seen in May, states her next appt is in November.
Prior to admission was taking Basaglar 27 units @ hs with NovoLog ss AC. Current A1C 10.5%, Cr 0.5, eGFR >60.
Patient awake, alert and oriented, sitting up in bed, offers no complaint, able to discuss diabetes management.
Patient received no lantus @ hs 10/20, fasting glucose 251. Will give 10 units lantus now and resume HS lantus at reduced dose, 20 units, @ HS. Clear liquids ordered. Will continue moderate corrective AC.
Discussed with nurse
Will cont to follow.
Diabetes History
- -
Type of Diabetes: 1
Pre-Admission Diabetes Regimen
10/20/24
12:36
Creatinine 0.5 L
Insulin Pump Settings
IP Diabetes Regimen
10/20/24 10/20/24 10/20/24
12:21 12:36 18:23
Glucose 88
POC Glucose 83 219 H
10/20/24 10/21/24 10/21/24
23:06 02:46 07:26
Glucose
POC Glucose 205 H 246 H 251 H
Patient Education
[2024-10-21] MEDS: NOVOLOG FLEXPEN-MODERATE RESISTANCE 5 UNITS SC (07:47)
--- NOTE | 2024-10-21 07:57 | W.PN.HOSP.TC ---
Addendum entered and electronically signed by Cristino Waggoner MD 10/22/24 09:23:
10/21/24
Attending Addendum-
I saw and evaluated the patient. I reviewed the resident�s note and agree with findings and plan as documented in the resident�s note. Sub: tearful and complains of significant abd pain. 'please help me' no BM but passing flatus. Denies fevers
chill. Does have associated N/V. Full 12 point ROS reviewed and negative except as documented Exam: Vitals reviewed in chart GEN-mod distress due to pain Heart tachycardia no MRG Lungs CTA B/L no W/R/R abd ttp with light touch no rebound guarding
decreased BS LE no edema Neuro AAOx 3 hilliard draining clear yellow urine
Plan:
#Acute on chronic urinary retention likely due to neurogenic bladder from uncontrolled diabetes type 1
# Hx urinary retention 10/15/2024
-uro c/s appreciated
-hilliard placed
-Pending urine cx would treat based on previous cx
-DC home with hilliard- teaching underway
# Severe abd pain
- could be hilliard related vs UTI
- check CT a/p
- cont zofran add reglan
# UTI
- start abx based on previous sensi
- urine cx - P
#Tachycardia due to acute urinary retention
-CTM likely anxiety contributing
# Acute on chronic nausea secondary to poor p.o. intake/pain/chronic medication/hypoglycemia
- Gastroparesis ruled out by gastric emptying study as outpatient
- Zofran, Compazine, Benadryl, droperidol given in ER without improvement
- cont IV Ativan prn patient does take lorazepam 2 mg at at bedtime
#Type 1 diabetes labile with mild hypoglycemia
BS 88
History of sugars recently on 10/15/2024 200s to 500s
- Normally on 27 units of Lantus change to 20u
- Insulin sliding scale moderate
- DM CYLINDER BATCHER input greatly appreciated
#Chronic bilateral lower extremity pain likely secondary to severe peripheral neuropathy from diabetes/reflex sympathetic dystrophy
- EMG was consistent with peripheral polyneuropathy
- Continue Tylenol
- Continue Lyrica tizanidine Cymbalta
-Patient uses intranasal ketamine every 8 hours for pain, naltrexone 4.5 mg p.o. daily filled at [facility]
- Patient follows with Dr. Morris's office [phone]
#Depression/severe anxiety/ADHD
- Continue aripiprazole, atomoxetine, Lexapro, mirtazapine
#Underweight�BMI 18 kg due to chronic nausea, vomiting
#B12 deficiency
#Chronic anemia
Hgb 12.9
#History of prior pyelonephritis
DVT prophylaxis�heparin
Dispo DC in AM if able
Time spent coordinating care, review of plan of care with resident, personally reviewed records in EMR, med rec, consults, notes, labs, radiology, d/w nursing � 52 mins
Original Note:
Today's Communication/Plan
-
Check cbc, cmp
Assessment / Plan
Assessment / Plan
Inpatient telemetry:
#Acute on chronic urinary retention likely due to neurogenic bladder from uncontrolled diabetes type 1
# Hx urinary retention 10/15/2024
Foleys catheter placed:
1375 ml urine passed.
Urine culture 08/22/24:
Ampicillin S
Gentamicin Synergy Screen S
Levofloxacin S
Nitrofurantoin-Urine Only S
Vancomycin S
#Tachycardia due to acute urinary retention
HR 137
# Acute on chronic nausea secondary to poor p.o. intake/pain/chronic medication/hypoglycemia
- Gastroparesis ruled out by gastric emptying study as outpatient
- Zofran, Compazine, Benadryl, droperidol given
- IV fluids
-IV dextrose as needed.
#Type 1 diabetes labile with mild hypoglycemia
BS 88
History of sugars recently on 10/15/2024 200s to 500s
- Normally on 27 units of Lantus will hold due to nausea, vomiting, hypoglycemia
-Insulin sliding scale moderate
-Check random cortisol, B -hydroxy
- CYLINDER BATCHER consult.
#Chronic bilateral lower extremity pain likely secondary to severe peripheral neuropathy from diabetes/reflex sympathetic dystrophy
Previously had MRI lumbar spine, thoracic spine and cervical spine which were all negative
- EMG was consistent with peripheral polyneuropathy
- Continue Tylenol
-Continue Lyrica 150 mg p.o. 3 times daily, tizanidine 4 mg p.o. every 8 hours, Cymbalta 60 mg daily
Patient uses intranasal ketamine every 8 hours for pain, naltrexone 4.5 mg p.o. daily filled at [facility] pharmacy
- Patient follows with Dr. Morris's office [phone]
#Depression/severe anxiety/ADHD
- Continue aripiprazole, atomoxetine, Lexapro, mirtazapine
#Underweight�BMI 18 kg due to chronic nausea, vomiting
#B12 deficiency
#Chronic anemia
Hgb 12.9
#History of prior pyelonephritis
DVT prophylaxis�heparin
Full code
Anticipated Discharge: Within 24 hours
Subjective/Interval History
-
Date of Service: October 21, 2024
Patient has concerns for nausea episodes frequently for the overnight. She had more than twice vomit which has brown streaks at the last episode.
She is on Foleys catheter.
Pt denied to do physical examination.
Objective Data
-
Labs:
Laboratory Results
10/21/24 08:11
10/21/24 08:11
Laboratory Results
Total Bilirubin 0.5 mg/dl (0.2-1.3) 10/21/24 08:11
AST 14 U/L (14-36) 10/21/24 08:11
ALT < 10 U/L (0-35) 10/21/24 08:11
Alkaline Phosphatase 85 U/L (38-126) 10/21/24 08:11
Lipase 44 U/L (23-300) 10/20/24 12:36
Vital Signs:
Vital Signs
Temp Pulse Resp BP Pulse Ox
98.2 F 108 18 168/108 99
10/21/24 07:35 10/21/24 07:35 10/21/24 07:35 10/21/24 07:35 10/21/24 07:35
I&O
10/20/24 10/21/24 10/22/24
06:59 06:59 06:59
Intake Total 360 / 360 480 / 480
Output Total 850 / 850
Balance -490 / -490 480 / 480
Review of Systems
-
History Source: Patient
Constitutional: Reports No Symptoms
EENT: Reports No Symptoms Reported
Respiratory: Reports No Symptoms
Cardiac: Reports No Symptoms
Abdomen/GI: Reports Nausea and Vomiting (brown streaks )
Genitourinary: Reports No Symptoms
Musculoskeletal: Reports No Symptoms
Skin: Reports No Symptoms
Neuro: Reports No Symptoms
Endocrine: Reports No Symptoms
Allergy / Immunology: Reports No Symptoms
[2024-10-21] MEDS: PROTONIX 40 MG PO (08:32)
[2024-10-21] MEDS: LANTUS 0.1 UNITS SC (08:32)
[2024-10-21 08:41] LABS: Hematocrit 34.6 % (37.0-47.0); Hemoglobin 11.8 g/dL (12.0-16.0); Mean Corp Hgb Conc. 34.1 g/dL (33.0-37.0); Mean Corpuscular Volume 76.5 fL (81.0-99.0); Nucleated Red Blood Cells % 0 %; Platelet Count 425 10^3/uL (130-400); Red Cell Dist. Width 13.0 % (11.5-14.5)
--- NOTE | 2024-10-21 08:41 | W.PN.URO.CBU ---
Today's Communication / Plan
-
TEACH PT BELTRE AND LEG BAG CARE
Assessment / Plan
-
ACUTE CHRONIC RETENTIO IN PORLY CONTROLLED IDDM KATY MERCADO NEUROPATHY hAS 1300 CC IN BLADDER NOW AMENABLE TO BELTRE WILL KEEP FOLAT AND I WOULD PREFER TO D/C WITH BELTRE AND SEE IN [facility]CE TO SET UP TEACHING CIC AD SCHEDLE URODYNAMICS
Diagnosis
-
Date of Service: October 21, 2024
-
Patient Diagnosis:
Post Op Day:
Patient DiagnosisACUTE CHROMNIC RETENTION IN TYPE 1 DIABETIC WITH POOR CONTROL 1300CC IN BLADDER PT WITH NEUROPATHY:
Post Op Day:
Subjective
-
NAUSEA
Objective
-
Vital Signs
Temp Pulse Resp BP Pulse Ox
98.2 F 108 18 168/108 99
10/21/24 07:35 10/21/24 07:35 10/21/24 07:35 10/21/24 07:35 10/21/24 07:35
Intake and Output
10/20/24 10/21/24 10/22/24
06:59 06:59 06:59
Intake Total 360 / 360 480 / 480
Output Total 850 / 850
Balance -490 / -490 480 / 480
Intake:
Oral fluids 360 / 360 480 / 480
Output:
Urine, Beltre 850 / 850
Laboratory Results
10/21/24 08:11
Review of Systems
-
: Difficulty Voiding
Physical Exam
-
General - well developed, well nourished, no acute distress
Chest - clear bilaterally
Abdomen - soft, non-tender, positive bowel sounds, no CVAT, no incisional pain or distention
Genitalia - normal
Rectal - normal
Skin - warm & dry with no rash
Neuro - AOx3, no motor deficits
Extremities - no clubbing, no cyanosis, no edema
Incision - clean, dry
Dressing - clean, dry, intact
[2024-10-21 09:21] LABS: ALT (SGPT) < 10 U/L (0-35); AST (SGOT) 14 U/L (14-36); Albumin 3.7 g/dl (3.5-5.0); Alkaline Phosphatase 85 U/L (38-126); Blood Urea Nitrogen 9 mg/dl (7-17); Calcium 9.2 mg/dl (8.4-10.2); Carbon Dioxide 24 mmol/L (22-30); Chloride 105 mmol/L (98-107); Estimated Creatinine Clearance 123 ml/min; Glucose 268 mg/dl (70-99); Potassium 3.8 mmol/L (3.5-5.1); Sodium 136 mmol/L (135-145); Total Protein 6.1 g/dl (6.3-8.2); eGFR > 60.00
[2024-10-21] MEDS: COMPAZINE 10 MG IV ×3 (10:01→22:39)
[2024-10-21] MEDS: HEPARIN SC ×2 (10:16→20:22)
[2024-10-21 10:37] LABS: Cortisol, Random 24.8 ug/dl
[2024-10-21 11:15] VITALS: BP 163/97
[2024-10-21 11:26] LABS: Glucose - Point of Care 180 mg/dl (70-99)
[2024-10-21] MEDS: NOVOLOG FLEXPEN-MODERATE RESISTANCE 1 UNITS SC (11:30)
[2024-10-21] MEDS: ANCEF 10 IV ×2 (11:30→20:21)
[2024-10-21] MEDS: NSS 1000 IV (11:31)
--- NOTE | 2024-10-21 12:17 | CM ---
Reviewed the chart notes and spoke with the patient at the bedside. Patient recently discharged from on 10/15/2024 to home with resumption of [facility]. The patient resides with her mother and sister in a two story home. The patient has a
rollator if needed. The patient reports no SNF. The patient confirmed her pharmacy of choice is [facility] [address] [place]. CM continues to be available to patient/family and is monitoring medical plan for needs at discharge.
Plan: Discharge back to home with resumption of [facility] services.
[2024-10-21] MEDS: ZANAFLEX PO ×2 (12:48→19:07)
[2024-10-21] MEDS: LYRICA PO ×3 (12:49→23:58)
[2024-10-21 14:26] VITALS: BMI 18.7
[2024-10-21] MEDS: ATARAX PO (14:48)
[2024-10-21] MEDS: ABILIFY PO (14:48)
[2024-10-21] MEDS: VITAMIN B-12 PO (14:49)
[2024-10-21] MEDS: CYMBALTA DELAYED RELEASE PO (14:49)
[2024-10-21 15:04] VITALS: BP 161/98
[2024-10-21 15:57] LABS: Glucose - Point of Care 127 mg/dl (70-99)
[2024-10-21] MEDS: NOVOLOG FLEXPEN-MODERATE RESISTANCE SC (16:20)
[2024-10-21 19:21] VITALS: BP 140/89
[2024-10-21] MEDS: REMERON 7.5 MG PO (20:33)
[2024-10-21] MEDS: ATIVAN 2 MG PO (20:33)
[2024-10-21 22:33] LABS: Glucose - Point of Care 205 mg/dl (70-99)
[2024-10-21] MEDS: LANTUS 0.2 UNITS SC (22:39)
[2024-10-21 23:29] VITALS: BP 151/92
--- NOTE | 2024-10-21 23:58 | PTCARENOTE ---
pt unwilling/unable to take po meds- nausea difficult to control- 3 nausea meds staggered see mar
[2024-10-22] VITALS (7 sets, daily range): BP systolic 125–168; BP diastolic 76–110; BMI 18.4
[2024-10-22] MEDS: BENADRYL 12.5 MG IV ×3 (00:30→20:24)
--- NOTE | 2024-10-22 01:04 | PTCARENOTE ---
refuses po meds- constantly asking for iv pain meds and iv nausea meds- -
[2024-10-22] MEDS: ZANAFLEX PO ×2 (01:27→17:50)
[2024-10-22] MEDS: TYLENOL PO ×3 (01:27→17:50)
--- NOTE | 2024-10-22 01:27 | PTCARENOTE ---
pt ailyn continually asking for medicine to make her sleep- reviewed all meds ordered- some given some refused - see mar
[2024-10-22] MEDS: ZOFRAN 4 MG IV ×3 (02:19→17:04)
[2024-10-22] MEDS: NSS 1000 IV ×2 (04:02→20:23)
[2024-10-22] MEDS: ANCEF 10 IV ×3 (04:02→20:22)
[2024-10-22 04:10] LABS: Glucose - Point of Care 158 mg/dl (70-99)
[2024-10-22] MEDS: COMPAZINE 10 MG IV ×2 (04:11→13:27)
--- NOTE | 2024-10-22 06:23 | PTCARENOTE ---
pt still not drinking/ eating remains nauseous. refused all po psych meds- last marker renewed iv fluids
[2024-10-22 06:47] LABS: Hematocrit 32.0 % (37.0-47.0); Hemoglobin 11.1 g/dL (12.0-16.0); Mean Corp Hgb Conc. 34.7 g/dL (33.0-37.0); Mean Corpuscular Volume 75.8 fL (81.0-99.0); Nucleated Red Blood Cells % 0 %; Platelet Count 385 10^3/uL (130-400); Red Cell Dist. Width 12.8 % (11.5-14.5)
[2024-10-22 07:11] LABS: ALT (SGPT) < 10 U/L (0-35); AST (SGOT) 17 U/L (14-36); Albumin 3.6 g/dl (3.5-5.0); Alkaline Phosphatase 88 U/L (38-126); Blood Urea Nitrogen 7 mg/dl (7-17); Calcium 8.7 mg/dl (8.4-10.2); Carbon Dioxide 24 mmol/L (22-30); Chloride 102 mmol/L (98-107); Estimated Creatinine Clearance 120 ml/min; Glucose 140 mg/dl (70-99); Potassium 3.6 mmol/L (3.5-5.1); Sodium 134 mmol/L (135-145); Total Protein 6.3 g/dl (6.3-8.2); eGFR > 60.00
--- NOTE | 2024-10-22 07:38 | PN.DE.MGMTRT ---
Insulin Management
- -
10/22/2024: Diabetes Management Follow up
Patient admitted 10/20 with c/o vomiting and ketones in urine per mother. Patient was recently inpatient, 10/12 to 10/15 for severe leg pain from hips to toes inability to walk and nausea. PMH includes: Anxiety/depression, bipolar, ADHD, prior
UTIs/pyelonephritis, chronic back pain on oxycodone and gabapentin and T1DM since age 7.
Patient follows with [facility] for routine Diabetes care, was last seen in May, states her next appt is in November.
Prior to admission was taking Basaglar 27 units @ HS with NovoLog ss AC. Current A1C 10.5%, Cr 0.5, eGFR >60.
Patient awake, alert, resting in bed, making no eye contact, c/o ongoing Nausea, able to discuss diabetes management.
Patient received no Lantus @ HS on 10/20, fasting glucose 251. Was given 10 units Lantus in AM and HS Lantus was resumed at reduced dose, 20 units, @ HS. Remains on Clear liquid diet. 10/21 Premeal glucose 127 to 180. Fasting glucose 140 V, 158 POC
this AM.
Will continue Lantus 20 units @ HS and moderate corrective AC.
Will cont to follow. Discussed with nurse
Diabetes History
- -
Type of Diabetes: 1
Pre-Admission Diabetes Regimen
10/21/24 10/22/24
08 06:15
Creatinine 0.4 L 0.5 L
Insulin Pump Settings
IP Diabetes Regimen
10/21/24 10/21/24 10/21/24
08: 11:25 15:55
Glucose 268 H
POC Glucose 180 H 127 H
10/21/24 10/22/24 10/22/24
22:29 04:09 06:15
Glucose 140 H
POC Glucose 205 H 158 H
Meal type: Dinner
Meal type: Breakfast
Amount consumed: 100%
Amount consumed: 0
Patient Education
[2024-10-22 08:53] LABS: Glucose - Point of Care 146 mg/dl (70-99)
[2024-10-22] MEDS: NOVOLOG FLEXPEN-MODERATE RESISTANCE SC ×2 (09:17→13:17)
[2024-10-22] MEDS: PROTONIX 40 MG PO (09:18)
[2024-10-22] MEDS: ATARAX 50 MG PO (09:18)
[2024-10-22] MEDS: VITAMIN B-12 100 MCG PO (09:18)
[2024-10-22] MEDS: ZANAFLEX 4 MG PO (09:18)
[2024-10-22] MEDS: ABILIFY 10 MG PO (09:18)
[2024-10-22] MEDS: LYRICA 150 MG PO ×2 (09:18→22:04)
[2024-10-22] MEDS: HEPARIN SC ×2 (09:19→20:22)
[2024-10-22 11:54] LABS: Glucose - Point of Care 131 mg/dl (70-99)
[2024-10-22] MEDS: TYLENOL 1000 MG PO (13:17)
[2024-10-22] MEDS: CYMBALTA DELAYED RELEASE 60 MG PO (13:17)
[2024-10-22] MEDS: ROXICODONE 10 MG PO ×2 (13:36→19:43)
--- NOTE | 2024-10-22 14:24 | CM ---
Reviewed the chart notes. Patient for discharge to home today.
Plan: Discharge to home with [facility]; referral sent in [facility].
[facility]
[2024-10-22 16:28] LABS: Glucose - Point of Care 198 mg/dl (70-99)
[2024-10-22] MEDS: NOVOLOG FLEXPEN-MODERATE RESISTANCE 1 UNITS SC (16:57)
[2024-10-22] MEDS: LYRICA PO (17:50)
--- NOTE | 2024-10-22 17:59 | PTCARENOTE ---
Patient has not eaten at all today; she has required IV compazine and two doses of IV Zofran this shift for nausea; pt is drowsy and withdrawn; MD notified; Dr. Tinsley spoke with patient; hold off on d/c for tonight.
--- NOTE | 2024-10-22 19:19 | W.PN.HOSP.TC ---
Addendum entered and electronically signed by Cristino Waggoner MD 10/22/24 22:17:
Attending Addendum-
I saw and evaluated the patient. I reviewed the resident�s note and agree with findings and plan as documented in the resident�s note. Sub: sleeping comfortably on entry to room. Easily arousable. States she feels better is tolerating PO and wants
to go home. having BM but passing flatus. Denies fevers chill. Later called by nursing re patient not eating complains of abd pain, poor PO, nausea, and not wanting to go home. Full 12 point ROS reviewed and negative except as documented Exam:
Vitals reviewed in chart GEN-NAD Heart RRR no MRG Lungs CTA B/L no W/R/R abd- NT ND no rebound guarding decreased BS LE no edema Neuro AAOx 3 hilliard draining clear yellow urine
Plan:
#Acute on chronic urinary retention likely due to neurogenic bladder from uncontrolled diabetes type 1
-uro c/s appreciated
-hilliard placed
-treat constipation
-urine cx - staph and lactobacillus- possible contaminant vs normal vaginal emma but would treat based on sxs - await sensi
-cont ancef
-DC home with hilliard- teaching underway
# Severe abd pain
- improved
- could be hilliard related vs UTI vs constipation
- CT a/p-1. Mild to moderate diffuse thickening of the urinary bladder wall. Diagnostic possibilities are (1) neurogenic bladder or (2) acute cystitis.
2. Hilliard catheter and small to moderate amount of intraluminal air in the urinary bladder.
3. Moderate amount of fecal material throughout the colon.
- cont zofran add reglan
# UTI
- cont abx
- urine cx - staph and lactobacillus- sensi pend
#Tachycardia due to acute urinary retention
-CTM likely anxiety contributing
-resolved
# Acute on chronic nausea secondary to poor p.o. intake/pain/chronic medication/hypoglycemia
- Gastroparesis ruled out by gastric emptying study as outpatient
- Zofran, Compazine, Benadryl, droperidol given in ER without improvement
- cont IV Ativan prn patient does take lorazepam 2 mg at at bedtime
#Type 1 diabetes labile with mild hypoglycemia
- Normally on 27 units of Lantus change to 20u
- Insulin sliding scale moderate
- DM VENDER input greatly appreciated
#Chronic bilateral lower extremity pain likely secondary to severe peripheral neuropathy from diabetes/reflex sympathetic dystrophy
- EMG was consistent with peripheral polyneuropathy
- Continue Tylenol
- Continue Lyrica tizanidine Cymbalta
- Patient uses intranasal ketamine every 8 hours for pain, naltrexone 4.5 mg p.o. daily filled at [facility] pharmacy
- Patient follows with Dr. Morris
#Depression/severe anxiety/ADHD
- Continue aripiprazole, atomoxetine, Lexapro, mirtazapine
#Underweight�BMI 18 kg due to chronic nausea, vomiting
#B12 deficiency
#Chronic anemia
Hgb 12.9
#History of prior pyelonephritis
DVT prophylaxis�heparin
Dispo DC in AM if able
Time spent coordinating care, review of plan of care with resident, personally reviewed records in EMR, med rec, consults, notes, labs, radiology, d/w nursing � 51 mins
Original Note:
Today's Communication/Plan
-
CBC, CMP,
Assessment / Plan
Assessment / Plan
Inpatient telemetry:
#Acute on chronic urinary retention likely due to neurogenic bladder from uncontrolled diabetes type 1
# Hx urinary retention 10/15/2024
Foleys catheter placed:
1375 ml urine passed.
Urine culture 08/22/24:
Ampicillin S
Gentamicin Synergy Screen S
Levofloxacin S
Nitrofurantoin-Urine Only S
Vancomycin S
Pt is on Cefazolin 2 gms- 2nd day
On 10/22- Urine culture report arrived: shows growth for Staphylococcus, Lactobacillus species.
last menstruation few months ago.
UPT test Negative.
#Tachycardia due to acute urinary retention
HR 111
# Acute on chronic nausea secondary to poor p.o. intake/pain/chronic medication/hypoglycemia.
- Gastroparesis ruled out by gastric emptying study as outpatient
- Zofran, Compazine, Benadryl, droperidol given
- IV fluids
-IV dextrose as needed.
#Type 1 diabetes labile with mild hypoglycemia
BS 88
History of sugars recently on 10/15/2024 200s to 500s
- Normally on 27 units of Lantus will hold due to nausea, vomiting, hypoglycemia
-Insulin sliding scale moderate
-Check random cortisol, B -hydroxy
- VENDER consult.
#Chronic bilateral lower extremity pain likely secondary to severe peripheral neuropathy from diabetes/reflex sympathetic dystrophy
Previously had MRI lumbar spine, thoracic spine and cervical spine which were all negative
- EMG was consistent with peripheral polyneuropathy
- Continue Tylenol
-Continue Lyrica 150 mg p.o. 3 times daily, tizanidine 4 mg p.o. every 8 hours, Cymbalta 60 mg daily
Patient uses intranasal ketamine every 8 hours for pain, naltrexone 4.5 mg p.o. daily filled at [facility] pharmacy
- Patient follows with Dr. Morris's office [phone]
#Depression/severe anxiety/ADHD
- Continue aripiprazole, atomoxetine, Lexapro, mirtazapine
#Underweight�BMI 18 kg due to chronic nausea, vomiting
#B12 deficiency
#Chronic anemia
Hgb 12.9
#History of prior pyelonephritis
DVT prophylaxis�heparin
Full code
Anticipated Discharge: Within 24 hours
Subjective/Interval History
-
Date of Service: October 22, 2024
patient has a concern for nausea, vomiting (few episodes), better comparatively from yesterday.
Pt is on Foleys catheter (UO- 6542).
@ 5.30 PM Pt started to have chicken broth, she is still concern for nausea.
Objective Data
-
Vital Signs:
10/22/24 06:15
10/22/24 06:15
Laboratory Results
Total Bilirubin 0.5 mg/dl (0.2-1.3) 10/22/24 06:15
AST 17 U/L (14-36) 10/22/24 06:15
ALT < 10 U/L (0-35) 10/22/24 06:15
Alkaline Phosphatase 88 U/L (38-126) 10/22/24 06:15
Lipase 44 U/L (23-300) 10/20/24 12:36
Vital Signs
Temp Pulse Resp BP Pulse Ox
99.5 F 111 16 125/76 97
10/22/24 15:40 10/22/24 15:40 10/22/24 15:40 10/22/24 15:40 10/22/24 15:40
I&O
10/21/24 10/22/24 10/23/24
06:59 06:59 06:59
Intake Total 360 / 360 960 / 960 360 / 360
Output Total 850 / 850 1550 / 1550 1600 / 1600
Balance -490 / -490 -590 / -590 -1240 / -1240
Review of Systems
-
History Source: Patient
Constitutional: Reports Weight Loss
Respiratory: Reports No Symptoms
Cardiac: Reports No Symptoms
Abdomen/GI: Reports Nausea and Vomiting
Genitourinary: Reports No Symptoms
Hematologic / Lymphatic: Reports Bruising
Allergy / Immunology: Reports No Symptoms
Physical Exam
-
General: Appears in Distress
Cardiac: Regular Rhythm and S1/S2
GI: Other (lower abdominal tenderness present. )
Genito-urinary: No Costovertebral Tender
Neuro: AO x 3
Hematologic / Lymphatic: No Lymphadenopathy
Psych: Calm
[2024-10-22 20:20] LABS: Glucose - Point of Care 262 mg/dl (70-99)
[2024-10-22] MEDS: LANTUS 0.2 UNITS SC (21:09)
[2024-10-22] MEDS: REMERON 7.5 MG PO (22:03)
[2024-10-22] MEDS: ATIVAN 2 MG PO (22:04)
[2024-10-23 00:12] LABS: Glucose - Point of Care 211 mg/dl (70-99)
[2024-10-23] MEDS: ZOFRAN 4 MG IV ×2 (00:18→08:28)
[2024-10-23] MEDS: TYLENOL 1000 MG PO (00:18)
[2024-10-23] MEDS: ZANAFLEX 4 MG PO ×2 (00:19→08:29)
[2024-10-23] MEDS: SENOKOT-S 1 TABLET PO (03:18)
[2024-10-23] MEDS: ANCEF 10 IV ×2 (03:18→12:32)
[2024-10-23 03:25] VITALS: BP 118/81
[2024-10-23 04:06] LABS: Glucose - Point of Care 166 mg/dl (70-99)
[2024-10-23] MEDS: TYLENOL PO ×2 (05:25→12:30)
[2024-10-23] MEDS: ROXICODONE 10 MG PO ×2 (05:55→12:34)
[2024-10-23] MEDS: BENADRYL 12.5 MG IV (05:56)
[2024-10-23 06:00] VITALS: BMI 18.3
[2024-10-23 07:01] LABS: Hematocrit 33.8 % (37.0-47.0); Hemoglobin 11.7 g/dL (12.0-16.0); Mean Corp Hgb Conc. 34.6 g/dL (33.0-37.0); Mean Corpuscular Volume 74.8 fL (81.0-99.0); Nucleated Red Blood Cells % 0 %; Platelet Count 381 10^3/uL (130-400); Red Cell Dist. Width 12.9 % (11.5-14.5)
[2024-10-23 07:21] LABS: Glucose - Point of Care 101 mg/dl (70-99)
[2024-10-23 07:35] VITALS: BP 149/94
[2024-10-23] MEDS: ABILIFY 10 MG PO (08:29)
[2024-10-23] MEDS: CYMBALTA DELAYED RELEASE 60 MG PO (08:29)
[2024-10-23] MEDS: VITAMIN B-12 100 MCG PO (08:29)
[2024-10-23] MEDS: LYRICA 150 MG PO (08:29)
[2024-10-23] MEDS: FLUSH (NSS) 2 FLUSH IV ×2 (08:29→12:31)
[2024-10-23] MEDS: ATARAX 50 MG PO (08:30)
[2024-10-23] MEDS: HEPARIN SC ×2 (08:30→12:55)
[2024-10-23] MEDS: PROTONIX 40 MG PO (08:30)
[2024-10-23] MEDS: MIRALAX 17 GRAMS PO (08:32)
[2024-10-23] MEDS: NOVOLOG FLEXPEN-MODERATE RESISTANCE SC ×2 (08:33→12:30)
[2024-10-23 08:40] LABS: ALT (SGPT) < 10 U/L (0-35); AST (SGOT) 14 U/L (14-36); Albumin 3.8 g/dl (3.5-5.0); Alkaline Phosphatase 92 U/L (38-126); Blood Urea Nitrogen 6 mg/dl (7-17); Calcium 9.4 mg/dl (8.4-10.2); Carbon Dioxide 28 mmol/L (22-30); Chloride 106 mmol/L (98-107); Estimated Creatinine Clearance 120 ml/min; Glucose 103 mg/dl (70-99); Potassium 3.4 mmol/L (3.5-5.1); Sodium 137 mmol/L (135-145); Total Protein 6.7 g/dl (6.3-8.2); eGFR > 60.00
[2024-10-23 11:00] VITALS: BP 174/112
[2024-10-23 12:22] LABS: Glucose - Point of Care 80 mg/dl (70-99)
[2024-10-23] MEDS: COMPAZINE 10 MG IV (12:36)
--- NOTE | 2024-10-23 13:28 | W.PN.HOSP.TC ---
Today's Communication/Plan
-
Follow up with urologist in futur
Follow up with PCP in future if she experienced blurry vision, headache, palpitation
Assessment / Plan
Assessment / Plan
Inpatient telemetry:
#Acute on chronic urinary retention likely due to neurogenic bladder from uncontrolled diabetes type 1
# Hx urinary retention 10/15/2024
Foleys catheter placed:
3300 ml urine passed.
Urine culture 08/22/24:
Ampicillin S
Gentamicin Synergy Screen S
Levofloxacin S
Nitrofurantoin-Urine Only S
Vancomycin S
Pt is on Cefazolin 2 gm- 3 rd day switching to 1 st generation cephalexin 500 mg BID for 14 days.
Susceptible to Cephalosporin 2, 3 rd generation for urine culture.
On 10/22- Urine culture report arrived: shows growth for Staphylococcus, Lactobacillus species.
last menstruation few months ago.
UPT test Negative.
#Tachycardia due to acute urinary retention
HR 94
# Acute on chronic nausea secondary to poor p.o. intake/pain/chronic medication/hypoglycemia.
- Gastroparesis ruled out by gastric emptying study as outpatient
- Zofran, Compazine, Benadryl, droperidol given
- Stopped the iv fluids before the discharge.
#Type 1 diabetes labile with mild hypoglycemia
BS 103
History of sugars recently on 10/15/2024 200s to 500s
- Normally on 27 units of Lantus will hold due to nausea, vomiting, hypoglycemia
-Insulin sliding scale moderate
#Chronic bilateral lower extremity pain likely secondary to severe peripheral neuropathy from diabetes/reflex sympathetic dystrophy
Previously had MRI lumbar spine, thoracic spine and cervical spine which were all negative
- EMG was consistent with peripheral polyneuropathy
- Continue Tylenol
-Continue Lyrica 150 mg p.o. 3 times daily, tizanidine 4 mg p.o. every 8 hours, Cymbalta 60 mg daily.
-Patient uses intranasal ketamine every 8 hours for pain, naltrexone 4.5 mg p.o. daily filled at [facility] pharmacy.
- Patient follows with Dr. Morris's office [phone]
#Depression/severe anxiety/ADHD
- Continue aripiprazole, atomoxetine, Lexapro, mirtazapine
#Underweight�BMI 18 kg due to chronic nausea, vomiting
#B12 deficiency
#Chronic anemia
Hgb 11.7
#History of prior pyelonephritis
# Follow up with PCP within a week for the elevated blood pressure and urologist for the Beltre catheter removal.
DVT prophylaxis�heparin
Full code
Anticipated Discharge: Today
Subjective/Interval History
-
Date of Service: October 23, 2024
24 Yr old F doesnt concerns for nausea, vomiting overnight after having chicken broth last night (her first meal). She feels little discomfort on her lower abdomen but comparatively improving from yesterday. She passed flatus today. Patient is on
foleys catheter due to neurogenic bladder.
Objective Data
-
Labs:
Laboratory Results
10/23/24 06:53
10/23/24 07:46
Laboratory Results
Total Bilirubin 0.5 mg/dl (0.2-1.3) 10/23/24 07:46
AST 14 U/L (14-36) 10/23/24 07:46
ALT < 10 U/L (0-35) 10/23/24 07:46
Alkaline Phosphatase 92 U/L (38-126) 10/23/24 07:46
Lipase 44 U/L (23-300) 10/20/24 12:36
Vital Signs:
Vital Signs
Temp Pulse Resp BP Pulse Ox
97.6 F 94 16 174/112 99
10/23/24 11:00 10/23/24 11:00 10/23/24 11:00 10/23/24 11:00 10/23/24 11:00
I&O
10/22/24 10/23/24 10/24/24
06:59 06:59 06:59
Intake Total 960 / 960 1320 / 1320
Output Total 1550 / 1550 3300 / 3300
Balance -590 / -590 -1979 /
Review of Systems
-
History Source: Patient
Respiratory: Reports No Symptoms
Cardiac: Reports No Symptoms
Abdomen/GI: Reports Other (lower abdominal discomfort)
Genitourinary: Reports No Symptoms
Musculoskeletal: Reports No Symptoms
Skin: Reports No Symptoms
Neuro: Reports No Symptoms
Endocrine: Reports No Symptoms
Hematologic / Lymphatic: Reports No Symptoms
Allergy / Immunology: Reports No Symptoms
Physical Exam
-
General: No Apparent Distress
HEENT: Normocephalic
Respiratory: Clear to Auscultation
Cardiac: Regular Rhythm and S1/S2
GI: Soft and Nontender
Genito-urinary: No Costovertebral Tender
Skin: Warm
Neuro: AO x 3
Hematologic / Lymphatic: No Lymphadenopathy
Psych: Calm
[2024-10-23 15:40] VITALS: BP 132/89
--- NOTE | 2024-10-23 18:04 | W.DCSUMMARY ---
Documented by User: Brandi Tinsley MD, Resident 10/23/24 18:51
Discharge Summary
Discharge Data
Date of Admission: 10/20/24
Date of Discharge: 10/23/24
Total time spent discharging patient (in min): 20 minutes
-
Pending Results: No
Additional Pending Results:
Discharging Physician : Dr Brandi Tinsley
Dr Gamble
Disposition : Home
Primary care physician : Dr Noa Duncan
Principal Discharge diagnosis : Acute on chronic urinary retention likely due to neurogenic bladder from uncontrolled diabetes type 1.
Acute on chronic nausea secondary to poor p.o. intake/pain/chronic medication/hypoglycemia.
Chronic Discharge diagnosis :
Type 1 diabetes labile with mild hypoglycemia:
Depression/severe anxiety/ADHD: Continued with aripiprazole 1200 mg, atomoxetine 40 mg, Lexapro
Chronic anemia
Hospital Course : 24yo F presented to ED on 10/20 with concerns for vomiting which started a day before daughter known history of type 1 diabetes and diabetic neuropathy on oxycodone and her ketones are in high level in her urine which was checked
by her mother. She was taking insulin regularly.she had a past medical history of type 1 DM/labile, chronic nausea, weight loss, severe peripheral neuropathy, depression, ADHD, chronic anemia, B12 deficiency, prior pyelonephritis. Patient had
urinary retention for around 1307 mL. Urology was consulted Beltre's catheter placed. Diabetic management done at the course of hospitalization with Lantus 10-20 units depending on patient's blood glucose level. Nausea and vomiting were treated
with Zofran 4 mg as needed, hydroxyzine HCL 50 mg, prochlorperazine 10 mg. Suspected UTI because of patient's lower abdominal pain complaint. Patient was started on cefazolin 2 g on 10/21/2024, urine culture reported growth for staph lugdunensis,
lactobacillus species. Urology consulted advised for the outpatient follow-up in future and planned to keep Beltre catheter along with set up teaching. On 10/23/2024 patient antibiotic cefazolin 2 g switched to oral cephalexin 500 mg for 14 days
course. Future follow-up with PCP if the patient's blood pressure increase (which was seen at the course of admission).
Important imaging findings :
Abdomen/pelvis CT: Showed mild to moderate diffuse thickening of the urinary bladder wall with diagnostic possibilities of neurogenic bladder or acute cystitis.
2. Mild hepatomegaly, small sliding-type hiatal hernia present.
Code: Full
Discharge Plan
-
Patient Disposition: Home (Routine Discharge)
Discharge Diagnosis/Procedures: Acute on chronic urinary retention likely due to neurogenic bladder from uncontrolled diabetes type 1.
Follow up with Urologist Wellington Limon for the neurogenic bladder in a week.
Urinary culture reports Staphylococcus, lactobacilli species
Discharge the pt with foleys in catheter and leg bag with teaching method.
Condition: Good
Diet: No restrictions
Activity: No restrictions
Driving Restrictions: As prior to admission
Bathing Restrictions: None
Referrals:
Wellington Miller MD [Active, Urology]
Noa Duncan PA-C [Family Provider, Family Practice]
Prescriptions:
New
cephalexin 500 mg capsule
500 mg PO BID MDD 1000mg Qty: 22 0RF
Continued
atomoxetine 40 mg capsule
40 mg PO DAILY
mirtazapine 7.5 mg tablet
7.5 mg PO HS
ondansetron HCl 8 mg Tablet
8 mg PO Q8HPRN PRN (Reason: nausea)
Patient Comments:
10/12/2024, pt. took today but threw it up shortly after.
tizanidine 4 mg Tablet
4 mg PO Q8H
hydroxyzine HCl 50 mg Tablet
50 mg PO DAILY
omeprazole 40 mg Capsule,Delayed Release(Dr/Ec)
40 mg PO DAILY
acetaminophen [Tylenol Extra Strength] 500 mg Tablet
1,000 mg PO Q6H
insulin aspart U-100 [Novolog U-100 Insulin aspart] 100 unit/mL Solution
1 sliding scale dose SC DIRECTED
Patient Comments:
10/12/2024, per pt., for every 10 carbs pt. injects 1 unit; 150-200 = 1 unit; 201-250 = 2 units.
lorazepam 1 mg Tablet
2 mg PO HS
coenzyme Q10 [CoQ-10] 100 mg Capsule
100 mg PO DAILY
aripiprazole 10 mg Tablet
10 mg PO DAILY
pregabalin 150 mg Capsule
150 mg PO TID
cyanocobalamin (vitamin B-12) 250 mcg Tablet
125 mcg PO DAILY
duloxetine 60 mg Capsule,Delayed Release(Dr/Ec)
60 mg PO DAILY
oxycodone 10 mg Tablet
10 mg PO Q6HPRN PRN (Reason: SEVERE PAIN)
alpha lipoic acid 600 mg Tablet
1,200 mg PO DAILY
Changed
insulin glargine [Lantus Solostar U-100 Insulin] 100 unit/mL (3 mL) Insulin Pen
20 unit SC HS Qty: 0 0RF
Discharge Orders:
Discharge Patient (As Directed); Ordered 10/23/24
Ordered By: Alexander Dunn
Discharge Date and Time
Discharge Date/Time: 10/23/24 15:36
Print Language: ITALIAN

Documented by User: Tye Irving DO 10/24/24 13:16
Discharge Summary
Discharge Data
Date of Admission: 10/20/24
Date of Discharge: 10/23/24
Total time spent discharging patient (in min): 33 minutes
Discharge Plan
-
Patient Disposition: Home (Routine Discharge)
Discharge Diagnosis/Procedures: Acute on chronic urinary retention likely due to neurogenic bladder from uncontrolled diabetes type 1.
Follow up with Urologist Wellington Limon for the neurogenic bladder in a week.
Urinary culture reports Staphylococcus, lactobacilli species
Discharge the pt with foleys in catheter and leg bag with teaching method.
Condition: Good
Diet: No restrictions
Activity: No restrictions
Driving Restrictions: As prior to admission
Bathing Restrictions: None
Referrals:
Wellington Miller MD [Active, Urology]
Noa Duncan PA-C [Family Provider, Family Practice]
Prescriptions:
New
cephalexin 500 mg capsule
500 mg PO BID MDD 1000mg Qty: 22 0RF
Continued
atomoxetine 40 mg capsule
40 mg PO DAILY
mirtazapine 7.5 mg tablet
7.5 mg PO HS
ondansetron HCl 8 mg Tablet
8 mg PO Q8HPRN PRN (Reason: nausea)
Patient Comments:
10/12/2024, pt. took today but threw it up shortly after.
tizanidine 4 mg Tablet
4 mg PO Q8H
hydroxyzine HCl 50 mg Tablet
50 mg PO DAILY
omeprazole 40 mg Capsule,Delayed Release(Dr/Ec)
40 mg PO DAILY
acetaminophen [Tylenol Extra Strength] 500 mg Tablet
1,000 mg PO Q6H
insulin aspart U-100 [Novolog U-100 Insulin aspart] 100 unit/mL Solution
1 sliding scale dose SC DIRECTED
Patient Comments:
10/12/2024, per pt., for every 10 carbs pt. injects 1 unit; 150-200 = 1 unit; 201-250 = 2 units.
lorazepam 1 mg Tablet
2 mg PO HS
coenzyme Q10 [CoQ-10] 100 mg Capsule
100 mg PO DAILY
aripiprazole 10 mg Tablet
10 mg PO DAILY
pregabalin 150 mg Capsule
150 mg PO TID
cyanocobalamin (vitamin B-12) 250 mcg Tablet
125 mcg PO DAILY
duloxetine 60 mg Capsule,Delayed Release(Dr/Ec)
60 mg PO DAILY
oxycodone 10 mg Tablet
10 mg PO Q6HPRN PRN (Reason: SEVERE PAIN)
alpha lipoic acid 600 mg Tablet
1,200 mg PO DAILY
Changed
insulin glargine [Lantus Solostar U-100 Insulin] 100 unit/mL (3 mL) Insulin Pen
20 unit SC HS Qty: 0 0RF
Discharge Orders:
Discharge Patient (As Directed); Ordered 10/23/24
Ordered By: Alexander Dunn
Discharge Date and Time
Discharge Date/Time: 10/23/24 15:36
Print Language: ITALIAN
== END 2024-10-23 15:36 | disposition home health service (06) | DRG 74 ==
LOC: 2 NORTH 18:40
PROVIDERS: Clinical Nurse Specialist Family Health; Physician Assistant; Student in an Organized Health Care Education/Training Program; ADMITTING PHYSICIAN Internal Medicine; ATTENDING PHYSICIAN Internal Medicine; CONSULT PHYSICIAN Specialist; EMERGENCY PHYSICIAN Emergency Medicine; FAMILY PHYSICIAN Physician Assistant Medical
DX: E10.49 Type 1 diabetes mellitus with other diabetic neurological complication (principal); N39.0 Urinary tract infection, site not specified; Z68.1 Body mass index [BMI] 19.9 or less, adult; N31.9 Neuromuscular dysfunction of bladder, unspecified; F32.A Depression, unspecified; F41.9 Anxiety disorder, unspecified; F90.9 Attention-deficit hyperactivity disorder, unspecified type; R63.6 Underweight; Z56.0 Unemployment, unspecified; Z79.4 Long term (current) use of insulin; E10.42 Type 1 diabetes mellitus with diabetic polyneuropathy; E10.65 Type 1 diabetes mellitus with hyperglycemia; E10.649 Type 1 diabetes mellitus with hypoglycemia without coma; G89.29 Other chronic pain; Z79.899 Other long term (current) drug therapy; Z87.440 Personal history of urinary (tract) infections; Z91.199 Patient's noncompliance with other medical treatment and regimen due to unspecified reason
CPT/HCPCS: 74177; 80053; 81003; 81015; 82010; 82533; 82962; 83690; 83735; 84703; 85025; 87086; 87147; 87186; 93005; 96361; 96374; 96375; 99285; J1790; Q9967